=== PATIENT | male | born 1950 | race Caucasian/White ===

== ENCOUNTER → 2016-04-16 | Outpatient (CLI) | payer MEDICARE, OTHER ==
[2016-04-16 09:58] LABS: Basophils # (A) 0.1 k/uL (0-0.2); Basophils % (A) 1 %; CH 30.8; CHCM 33.2; Eosinophils # (A) 1.4 k/uL (0-0.7); Eosinophils % (A) 15 %; HCT 49.3 % (39.0-53.0); HDW 2.66; HGB 16.1 gm/dL (13.0-17.5); Luc # (Auto) 0.17; Luc % (Auto) 2; Lymphocytes # (A) 2.1 k/uL (1.0-4.8); Lymphocytes % (A) 23 %; MCH 30.5 pg (25.0-35.0); MCHC 32.6 g/dL (31.0-37.0); MCV 93.6 fL (80.0-100.0); Mean Platelet Volume 8.3; Monocytes # (A) 0.7 k/uL (0-1.0); Monocytes % (A) 8 %; Neutrophils # (A) 4.7 k/uL (1.3-7.7); Neutrophils % (A) 52 %; RBC 5.27 m/uL (4.30-5.90); RDW 13.5 % (11.5-15.5); WBC 9.2 k/uL (3.8-10.6); WBC (Perox) 8.76
--- NOTE | 2016-04-16 10:20 | US ---
EXAMINATION TYPE: US axilla extremity LT DATE OF EXAM: 04/16/2016 10:05 AM COMPARISON: No previous CLINICAL HISTORY: R22.9 LOCALIZED SWELLING, MASS. Palpable/painful area left axilla x 6 months Findings: Left axilla at palpable/painful area: 4.4 x 1.3 x 4.5cm hypoechoic area with vascularity, R ight axilla for comparison: appears wnl at this time IMPRESSION: Probable enlarged left axillary lymph node. Correlate clinically and consider short-term follow-up.
[2016-04-16 11:36] LABS: ALT 29 U/L (21-72); AST 18 U/L (17-59); Alkaline Phosphatase 70 U/L (38-126); Anion Gap 12 mmol/L; Blood Urea Nitrogen 16 mg/dL (9-20); Calcium 8.9 mg/dL (8.4-10.2); Carbon Dioxide 27 mmol/L (22-30); Chloride 105 mmol/L (98-107); Cholesterol 215 mg/dL (<200); Glucose 110 mg/dL (74-99); HDL Cholesterol 37 mg/dL (40-60); Non-African American GFR(MDRD) >60 (>60 ml/min/1.73 sqM); Potassium 4.6 mmol/L (3.5-5.1); Sodium 144 mmol/L (137-145); Total Bilirubin 0.8 mg/dL (0.2-1.3); Triglycerides 169 mg/dL (<150)
[2016-04-16 11:55] LABS: Prostate Specific Antigen 1.02 ng/mL (0.00-4.00)
== END | disposition home or self-care (01) ==
LOC: RADUSWWP 09:18
PROVIDERS: ATTEND Family Medicine
DX: R22.9 Localized swelling, mass and lump, unspecified (principal); E78.2 Mixed hyperlipidemia; Z12.5 Encounter for screening for malignant neoplasm of prostate; Z00.01 Encounter for general adult medical examination with abnormal findings
CPT/HCPCS: 80053; 80061; 84153; 85025

== ENCOUNTER → 2016-05-19 | Outpatient (CLI) | payer MEDICARE, OTHER ==
--- NOTE | 2016-05-19 13:05 | XR ---
Right hand HISTORY: Trauma and pain 3 views of the right hand, comparison the right wrist same date Bone mineralization and alignment are maintained with the exception of some questionable lucency at t he level of the radial styloid better seen on the hand film than on the wrist film. Mild osteoarthrit ic changes are present. IMPRESSION: No dislocation. Correlate for radial styloid tenderness.
--- NOTE | 2016-05-19 13:06 | XR ---
Right wrist HISTORY: Trauma and pain 4 views of the right wrist correlated to right hand same date Lucency of the radial styloid is not as pronounced on the wrist film as on the hand film. Alignment a nd bone mineralization are maintained. Mild osteoarthritic change present at the carpometacarpal join t of the first digit, metacarpal phalangeal joint first digit. IMPRESSION: No evident dislocation. Correlate for point tenderness at the radial styloid. Osteoarthri tis.
== END ==
LOC: RADXRMAIN 10:47
PROVIDERS: ATTEND Psychiatry & Neurology Neurology
DX: M19.031 Primary osteoarthritis, right wrist (principal); M79.641 Pain in right hand

== ENCOUNTER → 2016-07-24 | Outpatient (CLI) | payer MEDICARE, OTHER ==
--- NOTE | 2016-07-24 12:29 | US ---
EXAMINATION TYPE: US axilla extremity RT DATE OF EXAM: 07/24/2016 11:19 AM COMPARISON: NONE CLINICAL HISTORY: R59.1 Lymphadenopathy. Swelling noted bilateral axilla Right Axilla: Couple of lymph nodes are noted with midline node = 2.0 x 2.0 x 0.6cm and medial axilla ry node = 3.2 x 3.4 x 1.1cm. See Left Axilla US today for comparison. IMPRESSION: Mildly prominent right axillary adenopathy.
--- NOTE | 2016-07-24 12:45 | US ---
EXAMINATION TYPE: US axilla extremity LT DATE OF EXAM: 07/24/2016 11:29 AM COMPARISON: US 2017 CLINICAL HISTORY: R59.1 Lymphadenopathy. Patient denies infectious process. Left Axilla: Midline node is imaged = 2.0 x 1.2 x 0.8cm and adjacent mid lateral node = 1.0 x 3.1 x 1 .0cm IMPRESSION: Mild adenopathy.
== END | disposition home or self-care (01) ==
LOC: RADUSWWP 10:58
PROVIDERS: ATTEND Surgery
DX: R59.0 Localized enlarged lymph nodes (principal)

== ENCOUNTER → 2016-11-11 | Outpatient (CLI) | payer MEDICARE, OTHER ==
[2016-11-11 09:59] LABS: Blood Urea Nitrogen 13 mg/dL (9-20); Non-African American GFR(MDRD) >60 (>60 ml/min/1.73 sqM)
--- NOTE | 2016-11-11 12:34 | CTL ---
EXAMINATION TYPE: CT Low Dose Lung DATE OF EXAM ORDERED: 11/11/2016 HISTORY: . Lung cancer screening CT DLP: 114.[address] CTDI: 3.4 mGy Automated exposure control for dose reduction was used. SCREENING VISIT: Initial COMPARISON: None TECHNIQUE: Low dose computed tomography scan was performed through the chest at 1 mm thick sections a nd reconstructed images in the coronal plane at [address] DIAGNOSTIC QUALITY: Satisfactory FINDINGS: LUNG NODULES: None. LUNGS: COPD: Severity: Mild Fibrosis: Severity: None Lymph nodes: None Other findings: Streak opacities within the lingula likely on the basis of atelectasis. There is a ca lcified granuloma 0.5 cm lingular base. RIGHT PLEURAL SPACE: Effusion: None Calcification: None Thickening: None Pneumothorax: None LEFT PLEURAL SPACE: Effusion: None Calcification: None Thickening: None Pneumothorax: None HEART: Heart Size: Normal Coronary calcification: Mild Pericardial effusion: None OTHER FINDINGS: Upper abdomen: Normal Bony thorax: Normal Supraclavicular region: Normal Other: Ascending thoracic aorta measures 3.4 cm at the main pulmonary artery. Main pulmonary artery m easures 3.2 cm at the bifurcation. IMPRESSION: 1. No suspicious changes for lung cancer. 2. Screening can be performed per protocol. FOLLOW UP CT CHEST RECOMMENDATION: Screening per protocol CT LUNG RAD: Lung rad 2
--- NOTE | 2016-11-11 13:29 | CT ---
EXAMINATION TYPE: CT abdomen pelvis w con DATE OF EXAM: 11/11/2016 COMPARISON: NONE INDICATION: Abdominal distention DLP: 1878.3 mGycm, Automated exposure control for dose reduction was used. CONTRAST: 100 mL of Omnipaque 300. Study performed with Oral Contrast TECHNIQUE: Axial images were obtained from above the diaphragm to the pubic rami in the axial plane a t 5 mm thick sections. Reconstructed images are reviewed on the computer in the coronal plane. FINDINGS: Limited CT sections are obtained the lung bases. There is a 0.4 cm calcification at the left base li kristy is a granuloma. Calcification may lie along the right diaphragm. Lung bases are otherwise clear. . CT ABDOMEN: Liver: Minimal fatty infiltration may be present. No discrete masses or cysts are evident. Spleen: Normal Pancreas: There is a 1.0 cm hypodensity within the mid body of the pancreas. Series 4 image 23. This is better visualized on the delayed images. This was present previously and appears stable from 2015. Adrenal glands: The adrenal glands are normal. Gallbladder: Cholecystectomy clips are present. Kidneys: No masses are evident. No hydronephrosis is present. There is a 7.8 cm cyst at the inferio r pole right kidney. Delayed images were obtained through the kidneys, which remain unremarkable. Aorta: Vascular calcification is within the aorta. A stent is within the distal abdominal aorta into the iliac vessels. Inferior vena cava: Normal. CT PELVIS: Loops of bowel within the abdomen and pelvis are normal. There are loops of bowel which are incom pletely distended or lack oral contrast limiting their evaluation. There are scattered diverticuli wi thin the sigmoid colon. No acute diverticulitis is evident. Appendix: Normal as visualized. Urinary bladder: Normal. Genitourinary structures: Osseous structures: No suspicious lytic or sclerotic lesions. IMPRESSIONS: 1. 7.8 cm cyst inferior pole right kidney. 2. 1 cm hypodensity within the mid body of the pancreas. This better visualized on the delayed images without evidence of enhancement. This was present previously.
== END | disposition home or self-care (01) ==
LOC: RADCTMAIN 09:07
PROVIDERS: ATTEND Family Medicine
DX: Z12.2 Encounter for screening for malignant neoplasm of respiratory organs (principal); N28.1 Cyst of kidney, acquired; R93.3 Abnormal findings on diagnostic imaging of other parts of digestive tract; F17.210 Nicotine dependence, cigarettes, uncomplicated
CPT/HCPCS: 82565; 84520; 74177; 36415; G0297; Q9967

== ENCOUNTER → 2017-02-09 | Outpatient (CLI) | payer MEDICARE, OTHER ==
[2017-02-09 10:25] LABS: Blood Urea Nitrogen 17 mg/dL (9-20); Non-African American GFR(MDRD) 55 (>60 ml/min/1.73 sqM)
--- NOTE | 2017-02-09 12:31 | CT ---
EXAMINATION TYPE: CT angio abd aorta wo/w con DATE OF EXAM: 02/09/2017 COMPARISON: November 11, 2016. HISTORY: Patient has no complaints at time of study. Follow up study for known AAA. CT DLP: 2602.8 mGycm CONTRAST: CTA abdominal aorta with 3-D reconstruction is performed and without and with IV Contrast, patient i njected with 80 mL of Visipaque 320. Contrast CTA of the abdominal aorta was performed from the lung bases through the base of the pelvis. 3-D reconstruction imaging obtained at a separate workstation. CONTRAST CT ABDOMEN AND PELVIS ABDOMINAL AORTA: Aortic bypass graft is intact. Proximal abdominal aorta at the level of the aortic h iatus is aneurysmal and measures approximately 3.9 cm. There is evidence of mural thrombus. Branch ve ssels are patent. LIVER/GB- No significant abnormality is seen. PANCREAS-stable small cystic lesion of the pancreatic tail measuring 8 mm. SPLEEN- No significant abnormality is seen. ADRENALS- No significant abnormality is seen. KIDNEYS/BLADDER-large right renal cyst is again noted. Parapelvic a right-sided cysts also noted. Lef t renal cortical cyst seen. BOWEL-severe sigmoid diverticulosis without diverticulitis. Scattered intracolonic debris. GENITAL ORGANS: No gross abnormality seen. LYMPH NODES- No greater than 1cm abdominal or pelvic lymph nodes are appreciated. OSSEOUS STRUCTURES- No significant abnormality is seen. OTHER- No significant abnormality is seen. IMPRESSION- 1. Proximal abdominal aortic aneurysm at the level of the aortic hiatus is stable. 2. Aortic bypass graft. 3. Stable small cystic lesion pancreatic tail.
== END | disposition home or self-care (01) ==
LOC: RADCTMAIN 09:52
PROVIDERS: ATTEND Thoracic Surgery (Cardiothoracic Vascular Surgery)
DX: I71.4 Abdominal aortic aneurysm, without rupture (principal); K86.89 Other specified diseases of pancreas
CPT/HCPCS: 82565; 84520; 75635; 36415; Q9967

== ENCOUNTER → 2017-10-15 | Outpatient (CLI) | payer MEDICARE, OTHER ==
--- NOTE | 2017-10-15 12:07 | CT ---
EXAMINATION TYPE: CT abdomen pelvis w con DATE OF EXAM: 10/15/2017 COMPARISON: 11/11/2016 and 02/09/2017 HISTORY: Intestinal adhesions CT DLP: 1654.8 mGycm Automated exposure control for dose reduction was used. TECHNIQUE: Helical acquisition of images was performed from the lung bases through the pelvis. CONTRAST: Performed with Oral Contrast and with IV Contrast, patient injected with 100 mL of Isovue 300. FINDINGS: LUNG BASES: There is a small [place] hiatal hernia present. Minimal bibasilar subsegmental dependen t atelectasis is also seen. Prominent noncalcific posterior eccentric mural thrombus is seen of the d escending thoracic aorta. Heart is upper limits of normal size. LIVER/GB: There are three too small to accurately characterize hepatic lesions that are stable from t he prior and likely represent cysts. Benign calcified hepatic granulomas noted. Gallbladder surgicall y absent. PANCREAS: There is redemonstration of a stable cystic pancreatic lesion measuring 8 mm, stable also f rom the exam of 11/09/2016. SPLEEN: No significant abnormality is seen. ADRENALS: No significant abnormality is seen. KIDNEYS: Large exophytic right renal cyst emanates from the renal sinus measuring up to 9.9 cm. Other smaller right renal sinus cysts are seen. Additional left renal cyst is similar to the prior. No hyd ronephrosis bilaterally. FREE AIR: No free air is visualized. ADENOPATHY: No greater than 1 cm short axis lymph nodes are seen within the abdomen or pelvis. REPRODUCTIVE ORGANS: Prostate gland is slightly heterogenous containing punctate central zone calcifi cations. URINARY BLADDER: Urinary bladder is decompressed and incompletely evaluated however there is submuco vanessa deposition of fat and can be seen in sequela of chronic infection or bladder outlet obstruction. OSSEOUS STRUCTURES: Stable nonspecific sclerotic focus of the right iliac bone is present. Mild mult ilevel degenerative changes of the spine are seen.. BOWEL: A similar location to the prior within the distal sigmoid colon there is a long segment area of narrowing without proximal bowel dilatation measuring at least 10 cm. Again numerous colonic diver ticula are seen without current pericolonic fat stranding. OTHER: Postoperative changes of the ventral abdomen and pelvis are evident likely from prior hernia r epair. Very small supra umbilical hernia is fat-containing remains with a 2 cm wide neck anterior to the liver. Aortobiiliac endograft is unchanged as is the aneurysmal dilatation of the proximal abdominal aorta a t the level of the aortic hiatus again measuring up to 3.9 cm. The infrarenal abdominal aorta measure s up to 3.2 cm, stable. IMPRESSION: 1. NONOBSTRUCTED NARROWING IN A LONG SEGMENT OF THE DISTAL SIGMOID COLON THAT GIVEN AND UNCHANGED KEMAL EARANCE IN COMPARISON TO THE PRIOR EXAM OF 2017 LIKELY RELATES TO A NONOBSTRUCTIVE LOW-GRADE STRICTUR E, POSSIBLY ON THE BASIS OF CHRONIC DIVERTICULITIS THERE ARE NUMEROUS COLONIC DIVERTICULA. 2. STABLE CYSTIC PANCREATIC LESION, POSSIBLY RELATED TO A IPMN. CONFIRMATION WITH MRCP COULD BE PERFO RMED TO DEMONSTRATE CONTINUITY WITH THE MAIN NONDILATED PANCREATIC DUCT. 3. UNCHANGED PROXIMAL ABDOMINAL AORTIC ANEURYSM AT THE LEVEL OF THE DIAPHRAGMATIC HIATUS.
== END | disposition home or self-care (01) ==
LOC: RADCTMAIN 09:28
PROVIDERS: ATTEND Surgery
DX: K63.89 Other specified diseases of intestine (principal); K57.30 Diverticulosis of large intestine without perforation or abscess without bleeding; I71.4 Abdominal aortic aneurysm, without rupture; K86.2 Cyst of pancreas
CPT/HCPCS: 82565; 84520; 74177; 36415; Q9967

== ENCOUNTER 2017-10-25 09:27 | Emergency (ER) | payer MEDICARE, OTHER ==
[2017-10-25 09:52] VITALS: RESP 18
[2017-10-25] MEDS ORDERED: SODIUM CHLORIDE 0.9% 1,000 ML IV STA (10:18)
--- NOTE | 2017-10-25 10:21 | ED ---
Abdominal Pain HPI - General Chief Complaint: Abdominal Pain Stated Complaint: diverticulitis flare Time Seen by Provider: 10/25/17 10:08 Source: patient, RN notes reviewed Mode of arrival: ambulatory Limitations: no limitations - History of Present Illness Initial Comments: This is a 66-year-old male who presents to the emergency department with chief complaint of diverticulitis flare. Patient states that he has had diverticulitis episodes on and off for the past 10 years. He states that he has been having left lower quadrant abdominal pain for the past couple of weeks. He states that he did follow-up with Dr. Leahy and a CAT scan of the abdomen was performed. He states that he was told he has diverticulitis and Dr. Dietrich as scheduled him for a bowel resection in the next couple of weeks. Patient presents to the emergency department complaining of increased pain. He states that he did take a course of doxycycline for 10 days but feels that the pain is worse since taking this. Patient describes the pain as "a little man running around in my abdomen with freon." Patient denies any fever, chest pain or shortness of breath, nausea or vomiting. He does report constipation and chills. - Related Data Home Medications Medication Instructions Recorded Confirmed Aspirin 325 mg PO DAILY 08/22/14 11/14/15 Lisinopril [Zestril] 10 mg PO DAILY 08/22/14 11/14/15 Pregabalin [Lyrica] 225 mg PO BID 08/22/14 11/14/15 Albuterol Inhaler [Ventolin 1 - 2 puff INHALATION BID 08/23/14 11/14/15 Inhaler] Allergies Allergy/AdvReac Type Severity Reaction Status Date / Time No Known Allergies Allergy Verified 10/25/17 09:51 Review of Systems ROS Statement: Those systems with pertinent positive or pertinent negative responses have been documented in the HPI. ROS Other: All systems not noted in ROS Statement are negative. Past Medical History Past Medical History: COPD, Hypertension Additional Past Medical History / Comment(s): HOARSENESS, NUMBNESS AND TINGLING BILATERAL HANDS 4TH AND 5TH FINGERS, diverticulitis History of Any Multi-Drug Resistant Organisms: None Reported Past Surgical History: Hernia Repair Additional Past Surgical History / Comment(s): HERNIA REPAIRS X5, AAA REPAIR X4 Past Anesthesia/Blood Transfusion Reactions: No Reported Reaction Past Psychological History: No Psychological Hx Reported Smoking Status: Current every day smoker Past Alcohol Use History: Rare Past Drug Use History: None Reported - Past Family History Mother Family Medical History: Cancer Brother(s) Family Medical History: CVA/TIA General Exam - General Exam Comments Initial Comments: General: Awake and alert, well-developed; in no apparent distress. HEENT: Head atraumatic, normocephalic. Pupils are equal, round and reactive to light. Extraocular movements intact. Oropharynx moist without erythema or exudate. Neck: Supple. Normal ROM. Cardiovascular: Regular rate and rhythm. No murmurs, rubs or gallops. Chest symmetrical. Respiratory: Lungs clear to auscultation bilaterally. No wheezes, rales or rhonchi. Normal respiratory effort with no use of accessory muscles. Abdomen: Soft, non-distended. Tenderness on palpation of left lower quadrant. No rigidity, rebound or guarding. Normal bowel sounds in all 4 quadrants. Musculoskeletal: Normal ROM, no tenderness bilateral upper and lower extremities. Ambulating normally. Skin: [place], warm and dry without rashes or lesions. Neurological: Alert and oriented x3. CN II-XII grossly intact. Speech is fluent and answers are appropriate. No focal neuro deficits. Psychiatric: Normal mood and affect. No overt signs of depression or anxiety noted. Limitations: no limitations Course Vital Signs 10/25/17 09:48 Temperature 98.4 F Pulse Rate 62 Respiratory 18 Rate Blood Pressure 136/72 O2 Sat by Pulse 92 L Oximetry Medical Decision Making - Medical Decision Making This is a 66-year-old male who presents to the emergency department with chief complaint of diverticulitis flare. Patient received a CAT scan on October 15 which revealed chronic diverticulitis and a stricture within the distal sigmoid colon. Patient has been scheduled for a bowel resection with Dr. Leahy. Patient presents to the emergency department complaining that he is having chills. Denies any worsening of abdominal pain or any nausea or vomiting, diarrhea or fevers. Laboratory studies were performed. CBC, CMP and UA were unremarkable. Patient does not have a white count. Lactic acid is within normal range. Blood cultures were drawn and are pending. Abdomen is soft with mild tenderness on palpation of the left lower quadrant. No rigidity noted. Patient's vital signs are stable and he is in no acute distress. Patient will be discharged home at this time with recommendation to follow-up with Dr. Leahy. He is in agreement and voices understanding. All questions were answered. - Lab Data Result diagrams: 10/25/17 10:13 10/25/17 10:13 Lab Results 10/25/17 10/25/17 10/25/17 Range/Units 10:13 10:13 10:13 WBC 9.3 (3.8-10.6) k/uL RBC 5.74 (4.30-5.90) m/uL Hgb 16.9 (13.0-17.5) gm/dL Hct 53.6 H (39.0-53.0) % MCV 93.4 (80.0-100.0) fL MCH 29.4 (25.0-35.0) pg MCHC 31.4 (31.0-37.0) g/dL RDW 15.4 (11.5-15.5) % Plt Count 148 L (150-450) k/uL Neutrophils % 73 % Lymphocytes % 14 % Monocytes % 7 % Eosinophils % 4 % Basophils % 0 % Neutrophils # 6.8 (1.3-7.7) k/uL Lymphocytes # 1.3 (1.0-4.8) k/uL Monocytes # 0.7 (0-1.0) k/uL Eosinophils # 0.3 (0-0.7) k/uL Basophils # 0.0 (0-0.2) k/uL PT (9.0-12.0) sec INR (<1.2) APTT (22.0-30.0) sec Sodium 140 (137-145) mmol/L Potassium 5.3 H (3.5-5.1) mmol/L Chloride 105 (98-107) mmol/L Carbon Dioxide 26 (22-30) mmol/L Anion Gap 9 mmol/L BUN 17 (9-20) mg/dL Creatinine 0.80 (0.66-1.25) mg/dL Est GFR (CKD-EPI)AfAm >90 (>60 ml/min/1.73 sqM) Est GFR (CKD-EPI)NonAf >90 (>60 ml/min/1.73 sqM) Glucose 110 H (74-99) mg/dL Plasma Lactic Acid Shamir 1.2 (0.7-2.0) mmol/L Calcium 8.7 (8.4-10.2) mg/dL Total Bilirubin 0.9 (0.2-1.3) mg/dL AST 33 (17-59) U/L ALT 49 (21-72) U/L Alkaline Phosphatase 61 (38-126) U/L Total Protein 6.6 (6.3-8.2) g/dL Albumin 3.8 (3.5-5.0) g/dL Amylase 56 (30-110) U/L Lipase 45 (23-300) U/L Urine Color Urine Appearance (Clear) Urine pH (5.0-8.0) Ur Specific [place] (1.001-1.035) Urine Protein (Negative) Urine Glucose (UA) (Negative) Urine Ketones (Negative) Urine Blood (Negative) Urine Nitrite (Negative) Urine Bilirubin (Negative) Urine Urobilinogen (<2.0) mg/dL Ur Leukocyte Esterase (Negative) Urine RBC (0-5) /hpf Urine WBC (0-5) /hpf Urine Bacteria (None) /hpf Hyaline Casts (0-2) /lpf Urine Mucus (None) /hpf 10/25/17 10/25/17 Range/Units 10:13 10:13 WBC (3.8-10.6) k/uL RBC (4.30-5.90) m/uL Hgb (13.0-17.5) gm/dL Hct (39.0-53.0) % MCV (80.0-100.0) fL MCH (25.0-35.0) pg MCHC (31.0-37.0) g/dL RDW (11.5-15.5) % Plt Count (150-450) k/uL Neutrophils % % Lymphocytes % % Monocytes % % Eosinophils % % Basophils % % Neutrophils # (1.3-7.7) k/uL Lymphocytes # (1.0-4.8) k/uL Monocytes # (0-1.0) k/uL Eosinophils # (0-0.7) k/uL Basophils # (0-0.2) k/uL PT 10.4 (9.0-12.0) sec INR 1.1 (<1.2) APTT 27.6 (22.0-30.0) sec Sodium (137-145) mmol/L Potassium (3.5-5.1) mmol/L Chloride (98-107) mmol/L Carbon Dioxide (22-30) mmol/L Anion Gap mmol/L BUN (9-20) mg/dL Creatinine (0.66-1.25) mg/dL Est GFR (CKD-EPI)AfAm (>60 ml/min/1.73 sqM) Est GFR (CKD-EPI)NonAf (>60 ml/min/1.73 sqM) Glucose (74-99) mg/dL Plasma Lactic Acid Shamir (0.7-2.0) mmol/L Calcium (8.4-10.2) mg/dL Total Bilirubin (0.2-1.3) mg/dL AST (17-59) U/L ALT (21-72) U/L Alkaline Phosphatase (38-126) U/L Total Protein (6.3-8.2) g/dL Albumin (3.5-5.0) g/dL Amylase (30-110) U/L Lipase (23-300) U/L Urine Color Yellow Urine Appearance Clear (Clear) Urine pH 6.0 (5.0-8.0) Ur Specific [place] 1.021 (1.001-1.035) Urine Protein 1+ H (Negative) Urine Glucose (UA) Negative (Negative) Urine Ketones Negative (Negative) Urine Blood Trace H (Negative) Urine Nitrite Negative (Negative) Urine Bilirubin Negative (Negative) Urine Urobilinogen 2.0 (<2.0) mg/dL Ur Leukocyte Esterase Negative (Negative) Urine RBC 3 (0-5) /hpf Urine WBC 1 (0-5) /hpf Urine Bacteria Rare H (None) /hpf Hyaline Casts 4 H (0-2) /lpf Urine Mucus Occasional H (None) /hpf Disposition Clinical Impression: Diverticulitis Disposition: HOME SELF-CARE Condition: Good Instructions: Diverticulitis (ED) Additional Instructions: Please follow-up with Dr. Leahy. Please follow up with primary care provider within 1-2 days. Return to emergency department if symptoms should worsen or any concerns arise. Is patient prescribed a controlled substance at d/c from ED?: No Referrals: Casper Raza III, MD [Primary Care Provider] - 1-2 days Time of Disposition: 11:56
[2017-10-25 10:32] LABS: Basophils % (A) 0 %; Eosinophils # (A) 0.3 k/uL (0-0.7); Eosinophils % (A) 4 %; HCT 53.6 % (39.0-53.0); HGB 16.9 gm/dL (13.0-17.5); Lymphocytes # (A) 1.3 k/uL (1.0-4.8); Lymphocytes % (A) 14 %; MCH 29.4 pg (25.0-35.0); MCHC 31.4 g/dL (31.0-37.0); MCV 93.4 fL (80.0-100.0); Mean Platelet Volume 7.4; Monocytes # (A) 0.7 k/uL (0-1.0); Monocytes % (A) 7 %; Neutrophils # (A) 6.8 k/uL (1.3-7.7); Neutrophils % (A) 73 %; Platelet Count 148 k/uL (150-450); RBC 5.74 m/uL (4.30-5.90); RDW 15.4 % (11.5-15.5); WBC 9.3 k/uL (3.8-10.6)
[2017-10-25 10:33] LABS: Appearance,Urine Clear (Clear); Bacteria,Urine Rare /hpf; Bilirubin,Urine Negative (Negative); Blood,Urine Trace (Negative); Color,Urine Yellow; Glucose,Urine (UA) Negative (Negative); Hyaline Casts,Urine 4 /lpf (0-2); Ketones,Urine Negative (Negative); Leukocyte Esterase,Urine Negative (Negative); Mucus,Urine Occasional /hpf; Nitrite,Urine Negative (Negative); Protein,Urine 1+ (Negative); RBC,Urine 3 /hpf (0-5); Specific Gravity,Urine 1.021 (1.001-1.035); WBC,Urine 1 /hpf (0-5)
[2017-10-25 10:42] LABS: INR 1.1 (<1.2); Partial Thromboplastin Time 27.6 sec (22.0-30.0); Prothrombin Time 10.4 sec (9.0-12.0)
[2017-10-25 10:48] LABS: AST 33 U/L (17-59); Albumin 3.8 g/dL (3.5-5.0); Anion Gap 9 mmol/L; Calcium 8.7 mg/dL (8.4-10.2); Carbon Dioxide 26 mmol/L (22-30); Chloride 105 mmol/L (98-107); Glucose 110 mg/dL (74-99); Lipase 45 U/L (23-300); Sodium 140 mmol/L (137-145); Total Bilirubin 0.9 mg/dL (0.2-1.3); Total Protein 6.6 g/dL (6.3-8.2)
[2017-10-25 10:49] LABS: Blood Urea Nitrogen 17 mg/dL (9-20); Potassium 5.3 mmol/L (3.5-5.1)
[2017-10-25 10:50] LABS: ALT 49 U/L (21-72); Alkaline Phosphatase 61 U/L (38-126); Amylase 56 U/L (30-110)
[2017-10-25 12:08] VITALS: BP 140/87; PULSE 81; TEMP 98.1
== END 2017-10-25 12:08 | disposition home or self-care (01) ==
LOC: EC 09:27
DX: K57.32 Diverticulitis of large intestine without perforation or abscess without bleeding (principal); J44.9 Chronic obstructive pulmonary disease, unspecified; I10 Essential (primary) hypertension; F17.200 Nicotine dependence, unspecified, uncomplicated; Z98.890 Other specified postprocedural states; Z79.82 Long term (current) use of aspirin; Z79.899 Other long term (current) drug therapy
CPT/HCPCS: 36415; 80053; 81001; 82150; 83605; 83690; 85025; 85610; 85730; 87040; 96360; 96361; 99284

== ENCOUNTER → 2017-11-03 | Outpatient (CLI) | payer MEDICARE, OTHER ==
[2017-11-03 12:54] LABS: T4, Free (Free Thyroxine) 1.15 ng/dL (0.78-2.19)
== END | disposition home or self-care (01) ==
LOC: LABWHC1 11:30
PROVIDERS: ATTEND Internal Medicine Cardiovascular Disease
DX: I48.1 Persistent atrial fibrillation (principal)
CPT/HCPCS: 36415; 84439; 84443

== ENCOUNTER → 2017-11-03 | Outpatient (CLI) | payer MEDICARE, OTHER ==
[2017-11-03 08:55] LABS: HCT 53.3 % (39.0-53.0); HGB 16.6 gm/dL (13.0-17.5); Hypochromasia Moderate; MCH 29.8 pg (25.0-35.0); MCHC 31.1 g/dL (31.0-37.0); MCV 95.5 fL (80.0-100.0); Mean Platelet Volume 7.4; Platelet Count 185 k/uL (150-450); RBC 5.58 m/uL (4.30-5.90); RDW 15.6 % (11.5-15.5); WBC 6.7 k/uL (3.8-10.6)
[2017-11-03 09:06] LABS: Potassium 4.9 mmol/L (3.5-5.1)
== END | disposition home or self-care (01) ==
LOC: LABPAT 08:02
PROVIDERS: ATTEND Surgery
DX: Z01.812 Encounter for preprocedural laboratory examination (principal); K57.32 Diverticulitis of large intestine without perforation or abscess without bleeding
CPT/HCPCS: 80051; 85027

== ENCOUNTER 2017-11-06 00:20 | Inpatient (IN) | payer MEDICARE, OTHER ==
[2017-11-06] MEDS: SODIUM CHLORIDE 0.9% 500 ML IV SCH ×2 (01:41→01:42)
[2017-11-06 01:53] LABS: Appearance,Urine Clear (Clear); Bilirubin,Urine 1+ (Negative); Blood,Urine Trace (Negative); Color,Urine Yellow; Glucose,Urine (UA) Negative (Negative); Hyaline Casts,Urine 5 /lpf (0-2); Ketones,Urine Negative (Negative); Leukocyte Esterase,Urine Negative (Negative); Mucus,Urine Moderate /hpf; Nitrite,Urine Negative (Negative); PH, Urine 5.5 (5.0-8.0); Protein,Urine 1+ (Negative); RBC,Urine 4 /hpf (0-5); Specific Gravity,Urine 1.024 (1.001-1.035); WBC,Urine 3 /hpf (0-5)
[2017-11-06 01:59] LABS: ALT 40 U/L (21-72); AST 22 U/L (17-59); Albumin 3.5 g/dL (3.5-5.0); Alkaline Phosphatase 59 U/L (38-126); Anion Gap 7 mmol/L; Blood Urea Nitrogen 18 mg/dL (9-20); Calcium 8.7 mg/dL (8.4-10.2); Carbon Dioxide 30 mmol/L (22-30); Chloride 108 mmol/L (98-107); Glucose 115 mg/dL (74-99); Sodium 145 mmol/L (137-145); Total Bilirubin 0.8 mg/dL (0.2-1.3); Total Protein 6.3 g/dL (6.3-8.2)
[2017-11-06 02:00] LABS: INR 1.2 (<1.2); Partial Thromboplastin Time 27.6 sec (22.0-30.0); Prothrombin Time 11.5 sec (9.0-12.0)
[2017-11-06 02:04] LABS: Basophils % (A) 0 %; Eosinophils # (A) 0.2 k/uL (0-0.7); Eosinophils % (A) 4 %; HCT 53.4 % (39.0-53.0); HGB 16.5 gm/dL (13.0-17.5); Hypochromasia Slight; Lymphocytes # (A) 1.3 k/uL (1.0-4.8); Lymphocytes % (A) 20 %; MCH 29.2 pg (25.0-35.0); MCHC 30.9 g/dL (31.0-37.0); MCV 94.5 fL (80.0-100.0); Mean Platelet Volume 7.5; Monocytes # (A) 0.7 k/uL (0-1.0); Monocytes % (A) 11 %; Neutrophils # (A) 4.3 k/uL (1.3-7.7); Neutrophils % (A) 63 %; Platelet Count 153 k/uL (150-450); RBC 5.65 m/uL (4.30-5.90); WBC 6.8 k/uL (3.8-10.6)
[2017-11-06 02:22] LABS: Creatine Kinase MB 1.8 ng/mL (0.0-2.4)
[2017-11-06 02:25] LABS: Troponin I 0.04 ng/mL (0.000-0.034)
--- NOTE | 2017-11-06 03:08 | CT ---
EXAMINATION TYPE: CT abdomen pelvis w con DATE OF EXAM: 11/06/2017 COMPARISON: 10/15/2017 HISTORY: pain, hx of diverticulitis, hot and cold flashes CT DLP: 1473.80 mGycm Automated exposure control for dose reduction was used. TECHNIQUE: Helical acquisition of images was performed from the lung bases through the pelvis. CONTRAST: Performed without Oral Contrast and with IV Contrast, patient injected with 100 mL of Isovue 300. FINDINGS: Lung bases are clear of consolidation. There is no pleural effusion. Heart is enlarged. Liver spleen pancreas appear normal. There are clips from cholecystectomy. Bile ducts are not dilated. There is a 10 cm cortical cyst lower pole right kidney. here are right renalThere there is some fulln ess of the right renal pelvis. Ureters are not dilated. There is aortoiliac stent noted. There is 3.9 cm aneurysm of the upper abdominal aorta. There is thrombus on the posterior wall. There is mild stranding around the left kidney. There are multiple diverticula in the colon. Bladder is slightly contracted. I see no pelvic mass. There is no free fluid in the pelvis. Appendix appears normal. There is tiny amount of fluid in the left paracolic gutter. IMPRESSION: MILD INFLAMMATORY CHANGES INVOLVING THE DESCENDING COLON. THERE IS EXTENSIVE COLONIC DIVERTICULOSIS. THIS COULD RELATE TO MILD DIVERTICULITIS THAT IS NEW COMPARED TO LAST CT SCAN. NO PANCREATIC CYST SEE N IN THE BODY OF THE PANCREAS THAT IS SUGGESTED BY PREVIOUS REPORT. THERE IS A SMALL 8 MM AREA OF FAT DENSITY IN THE PANCREAS. NO RENAL OBSTRUCTION.
--- NOTE | 2017-11-06 03:09 | XR ---
EXAMINATION TYPE: XR chest 2V DATE OF EXAM: 11/06/2017 COMPARISON: NONE HISTORY: Hypoxemia TECHNIQUE: Frontal and lateral views of the chest are obtained. FINDINGS: Heart is enlarged. There is no heart failure. Lungs are clear of consolidation. There are chest leads. Bony thorax is intact. IMPRESSION: Cardiomegaly. No active cardiopulmonary disease.
[2017-11-06] MEDS ORDERED: IBUPROFEN 400 MG TAB PO PRN (03:20)
[2017-11-06] MEDS ORDERED: ACETAMINOPHEN TAB 325 MG TAB PO PRN (03:20)
[2017-11-06] MEDS ORDERED: ONDANSETRON 4 MG/2 ML VIAL IVP PRN (03:20)
[2017-11-06] MEDS ORDERED: MORPHINE SULFATE 4 MG/ML SYRINGE IV PRN (03:20)
[2017-11-06] MEDS ORDERED: NALOXONE 0.4 MG/ML 1 ML VIAL IV PRN (03:20)
[2017-11-06] MEDS ORDERED: methylPREDNISolone SOD SUCCI 125 MG/2 ML VIAL IV STA (03:28)
--- NOTE | 2017-11-06 03:30 | ED ---
General Adult HPI - General Chief complaint: Recheck/Abnormal Lab/Rx Stated complaint: Chills; diverticulitis Time Seen by Provider: 11/06/17 00:35 Source: patient Mode of arrival: ambulatory Limitations: no limitations - History of Present Illness Initial comments: Urkgq-[id number]-pet obese male with extensive past medical history most significant for recurrent episodes of diverticulitis as well as a newly diagnosed atrial fibrillation. Patient presents to the emergency department today for evaluation of subjective fevers, chills, diaphoresis and abdominal pain consistent with previous episodes of diverticulitis. Patient reports that he has a history of recurrent episodes of diverticulitis. He has followed up with gastroenterology as well as general surgery and has a plan for surgical resection in the near future. However his plan for surgery his in complicated by recent diagnosis of atrial fibrillation for which he just started eliquis yesterday. In addition patient states that he's been a pack-a- day smoker for a long period of time but with the stress of the upcoming surgery he admits to smoking approximately 2 packs daily. She reports that throughout the day he had some left lower quadrant abdominal pain consistent with previous episodes of diverticulitis. He was attempting to just tough it out and await his surgery next week however during the night he woke having a cold sweat and feeling feverish. His also noted that he likely he wasn't feeling well and was very sweaty. With his recently diagnosed atrial fibrillation, she was concerned and decided to bring him to the ER for evaluation. She states that he is supposed to undergo a stress test on Thursday, colonoscopy on Thursday and a bowel resection on Thursday of next week. - Related Data Home Medications Medication Instructions Recorded Confirmed Aspirin 325 mg PO DAILY 08/22/14 11/02/17 Lisinopril [Zestril] 10 mg PO DAILY 08/22/14 11/02/17 Pregabalin [Lyrica] 300 mg PO BID 08/22/14 11/02/17 Albuterol Inhaler [Ventolin 2 puff INHALATION QID 08/23/14 11/02/17 Inhaler] Acetaminophen [Tylenol Extra 500 - 1,000 mg PO Q4-6H PRN 11/02/17 11/02/17 Strength] Aclidinium [place] [Tudorza 1 puff PO BID 11/02/17 11/02/17 Pressair] Omeprazole [PriLOSEC] 20 mg PO AC-BRKFST 11/02/17 11/02/17 Allergies Allergy/AdvReac Type Severity Reaction Status Date / Time No Known Allergies Allergy Verified 11/06/17 00:31 Review of Systems ROS Statement: Those systems with pertinent positive or pertinent negative responses have been documented in the HPI. ROS Other: All systems not noted in ROS Statement are negative. Constitutional: Reports: fever, chills Eyes: Denies: eye pain ENT: Denies: throat pain Respiratory: Reports: cough, wheezes Cardiovascular: Denies: chest pain, palpitations Endocrine: Reports: fatigue Gastrointestinal: Reports: abdominal pain, diarrhea Genitourinary: Denies: urgency, dysuria Musculoskeletal: Denies: back pain Skin: Denies: rash, lesions Neurological: Denies: headache, weakness Psychiatric: Denies: anxiety, depression Hematological/Lymphatic: Denies: easy bleeding, easy bruising Past Medical History Past Medical History: COPD, Hypertension Additional Past Medical History / Comment(s): HOARSENESS, NUMBNESS AND TINGLING BILATERAL HANDS 4TH AND 5TH FINGERS, diverticulitis History of Any Multi-Drug Resistant Organisms: None Reported Past Surgical History: Hernia Repair Additional Past Surgical History / Comment(s): HERNIA REPAIRS X5, AAA REPAIR X4 Past Anesthesia/Blood Transfusion Reactions: No Reported Reaction Past Psychological History: No Psychological Hx Reported Smoking Status: Current every day smoker Past Alcohol Use History: Rare Past Drug Use History: None Reported - Past Family History Mother Family Medical History: Cancer Brother(s) Family Medical History: CVA/TIA General Exam Limitations: no limitations General appearance: alert, in no apparent distress Head exam: Present: atraumatic, normocephalic Eye exam: Present: normal appearance, PERRL ENT exam: Present: normal exam Neck exam: Present: normal inspection Respiratory exam: Present: wheezes Cardiovascular Exam: Present: regular rate, irregular rhythm GI/Abdominal exam: Present: soft, distended (obese), tenderness. Absent: guarding, rebound, rigid Rectal exam: Present: deferred Extremities exam: Present: full ROM. Absent: pedal edema Back exam: Present: full ROM Neurological exam: Present: alert, oriented X3, normal gait Psychiatric exam: Present: normal affect Skin exam: Present: warm Course Vital Signs 11/06/17 11/06/17 11/06/17 00:25 01:43 03:10 Temperature 98.2 F 97.8 F 97.6 F Pulse Rate 58 L 109 H 96 Respiratory 19 18 18 Rate Blood Pressure 142/84 156/89 149/92 O2 Sat by Pulse 88 L 88 L 95 Oximetry EKG Findings - EKG Comments: EKG Findings:: EKG obtained at 12:48 AM, rate is 101, rhythm is atrial fibrillation is no acute ST elevations or depressions no evidence of acute ischemia or infarction. Medical Decision Making - Medical Decision Making Patient was seen and evaluated, patient was noted to be hypoxic and tachycardic in triage Patient was placed on 4 L supplemental nasal cannula History is obtained from the patient, and review of medical records Sepsis and cardiac workup were ordered Patient declined to use a urinal and insisted on walking to the restroom Ginger patient is not on supplemental oxygen at home. Patient ambulated to the restroom and upon return to the hospital that he was noted to have an oxygen saturation of only 80%. Labs were ordered Labs with a troponin of 0.04, serial troponins were ordered, I suspect this mild elevation is secondary to hypoxia [id number] duo nebs were ordered - chest x-ray with no evidence of pneumonia CT of the abdomen confirms colitis possible diverticulitis - IV antibiotics were ordered and patient was admitted to the [facility] with his general surgeon Dr. Asif on consult. - Lab Data Result diagrams: 11/06/17 00:42 11/06/17 00:42 Lab Results 11/06/17 11/06/17 11/06/17 Range/Units 00:42 00:42 00:42 WBC 6.8 (3.8-10.6) k/uL RBC 5.65 (4.30-5.90) m/uL Hgb 16.5 (13.0-17.5) gm/dL Hct 53.4 H (39.0-53.0) % MCV 94.5 (80.0-100.0) fL MCH 29.2 (25.0-35.0) pg MCHC 30.9 L (31.0-37.0) g/dL RDW 16.0 H (11.5-15.5) % Plt Count 153 (150-450) k/uL Neutrophils % 63 % Lymphocytes % 20 % Monocytes % 11 % Eosinophils % 4 % Basophils % 0 % Neutrophils # 4.3 (1.3-7.7) k/uL Lymphocytes # 1.3 (1.0-4.8) k/uL Monocytes # 0.7 (0-1.0) k/uL Eosinophils # 0.2 (0-0.7) k/uL Basophils # 0.0 (0-0.2) k/uL Hypochromasia Slight PT (9.0-12.0) sec INR (<1.2) APTT (22.0-30.0) sec Sodium 145 (137-145) mmol/L Potassium 4.0 (3.5-5.1) mmol/L Chloride 108 H (98-107) mmol/L Carbon Dioxide 30 (22-30) mmol/L Anion Gap 7 mmol/L BUN 18 (9-20) mg/dL Creatinine 0.80 (0.66-1.25) mg/dL Est GFR (CKD-EPI)AfAm >90 (>60 ml/min/1.73 sqM) Est GFR (CKD-EPI)NonAf >90 (>60 ml/min/1.73 sqM) Glucose 115 H (74-99) mg/dL Plasma Lactic Acid [place] (0.7-2.0) mmol/L Calcium 8.7 (8.4-10.2) mg/dL Total Bilirubin 0.8 (0.2-1.3) mg/dL AST 22 (17-59) U/L ALT 40 (21-72) U/L Alkaline Phosphatase 59 (38-126) U/L Total Creatine Kinase 63 (55-170) U/L CK-MB (CK-2) 1.8 (0.0-2.4) ng/mL CK-MB (CK-2) Rel Index 2.9 Troponin I 0.040 H* (0.000-0.034) ng/mL Total Protein 6.3 (6.3-8.2) g/dL Albumin 3.5 (3.5-5.0) g/dL Urine Color Urine Appearance (Clear) Urine pH (5.0-8.0) Ur Specific [place] (1.001-1.035) Urine Protein (Negative) Urine Glucose (UA) (Negative) Urine Ketones (Negative) Urine Blood (Negative) Urine Nitrite (Negative) Urine Bilirubin (Negative) Urine Urobilinogen (<2.0) mg/dL Ur Leukocyte Esterase (Negative) Urine RBC (0-5) /hpf Urine WBC (0-5) /hpf Hyaline Casts (0-2) /lpf Urine Mucus (None) /hpf 11/06/17 11/06/17 11/06/17 Range/Units 00:42 00:42 00:42 WBC (3.8-10.6) k/uL RBC (4.30-5.90) m/uL Hgb (13.0-17.5) gm/dL Hct (39.0-53.0) % MCV (80.0-100.0) fL MCH (25.0-35.0) pg MCHC (31.0-37.0) g/dL RDW (11.5-15.5) % Plt Count (150-450) k/uL Neutrophils % % Lymphocytes % % Monocytes % % Eosinophils % % Basophils % % Neutrophils # (1.3-7.7) k/uL Lymphocytes # (1.0-4.8) k/uL Monocytes # (0-1.0) k/uL Eosinophils # (0-0.7) k/uL Basophils # (0-0.2) k/uL Hypochromasia PT 11.5 (9.0-12.0) sec INR 1.2 H (<1.2) APTT 27.6 (22.0-30.0) sec Sodium (137-145) mmol/L Potassium (3.5-5.1) mmol/L Chloride (98-107) mmol/L Carbon Dioxide (22-30) mmol/L Anion Gap mmol/L BUN (9-20) mg/dL Creatinine (0.66-1.25) mg/dL Est GFR (CKD-EPI)AfAm (>60 ml/min/1.73 sqM) Est GFR (CKD-EPI)NonAf (>60 ml/min/1.73 sqM) Glucose (74-99) mg/dL Plasma Lactic Acid Shamir 0.9 (0.7-2.0) mmol/L Calcium (8.4-10.2) mg/dL Total Bilirubin (0.2-1.3) mg/dL AST (17-59) U/L ALT (21-72) U/L Alkaline Phosphatase (38-126) U/L Total Creatine Kinase (55-170) U/L CK-MB (CK-2) (0.0-2.4) ng/mL CK-MB (CK-2) Rel Index Troponin I (0.000-0.034) ng/mL Total Protein (6.3-8.2) g/dL Albumin (3.5-5.0) g/dL Urine Color Yellow Urine Appearance Clear (Clear) Urine pH 5.5 (5.0-8.0) Ur Specific [place] 1.024 (1.001-1.035) Urine Protein 1+ H (Negative) Urine Glucose (UA) Negative (Negative) Urine Ketones Negative (Negative) Urine Blood Trace H (Negative) Urine Nitrite Negative (Negative) Urine Bilirubin 1+ H (Negative) Urine Urobilinogen 4.0 (<2.0) mg/dL Ur Leukocyte Esterase Negative (Negative) Urine RBC 4 (0-5) /hpf Urine WBC 3 (0-5) /hpf Hyaline Casts 5 H (0-2) /lpf Urine Mucus Moderate H (None) /hpf Disposition Clinical Impression: Diverticulitis, Colitis, Atrial fibrillation with RVR, Hypoxia, COPD (chronic obstructive pulmonary disease) Disposition: ADMITTED IP TO THIS [facility] Referrals: Casper Raza III, MD [Primary Care Provider] - 1-2 days Decision Time: 03:32
[2017-11-06] MEDS: SODIUM CHLORIDE 0.9% 1,000 ML IV SCH (04:50)
[2017-11-06] MEDS: PIPERACILLIN-TAZOBACTAM 3.375 GM in DEXTROSE/WATER 1 50ML.BAG IVPB SCH ×3 (04:50→21:30)
[2017-11-06] MEDS: IPRATROPIUM-ALBUTEROL 3 ML NEB INHALATION SCH ×4 (07:29→20:48)
[2017-11-06] MEDS: NICOTINE 21MG/24HR PATCH TRANSDERM SCH (09:01)
--- NOTE | 2017-11-06 14:44 | P.GSCN ---
<Debbie Fleming - Last Filed: 11/06/17 14:44> History of Present Illness Consult date: 11/06/17 Reason for Consult: Abdominal pain diverticulitis History of present illness: 66-year-old male seen in the emergency room for a surgical eval at the request of the attending for abdominal pain in a patient who has a significant history of reoccurring episodes of diverticulitis. Patient states that he was scheduled this week November [address] petty to have colon surgery for treatment of diverticulitis. stated he was to receive cardiac clearance did see a technical support internship Dr. Cruz where patient was newly diagnosed with atrial fibrillation and started on elquist stated he has taken elquist for the last 2 days Patient stated that he has been seen in the emergency room on October 25 for left lower quadrant abdominal pain. He stated at that time CAT scan was done and was told he had diverticulitis given a prescription for doxycycline. Stated he did complete a course of antibiotics but did not feel any better. Return to the emergency room on November 06 for persistent left lower quadrant abdominal pain consistent with diverticulitis. Patient is CAT scan of the abdomen pelvis reviewing the report showed mild inflammatory changes involving the descending colon Extensive colon diverticulosis with mild diverticulitis this is new compared to the last CAT scan. No cyst noted in the pancreas. Patient stated over the last several days the pain became unbearable came into the emergency room to be evaluated. It was also noted the patient was hypoxic up ambulating in the emergency room with the oxygen off pulse ox sats were in the low 80s Past surgical history abdominal aortic aneurysm repair, hernia repair, lap cholecystectomy, Past medical history COPD, hypertension, Social lives with current every day smoker occasional alcohol use Past Medical History Past Medical History: COPD, Hypertension Additional Past Medical History / Comment(s): Recurrent diverticulitis and needs bowel resection but delayed d/t newly diagnosed A fib, chronic back pain, hoarseness-R vocal cord benign polyp, colon polyp, numbness/tingling bilateral hands 4th/5th fingers, abdominal and iliac aortic aneurysms with surgery. History of Any Multi-Drug Resistant Organisms: None Reported Past Surgical History: Hernia Repair, Orthopedic Surgery Additional Past Surgical History / Comment(s): Abdominal aortic/iliac aneurysms with repair (4), multiple hernia repairs/mesh, direct microlarygoscopy with R vocal cord polyp/bx, hemorrhoidectomy, EGD/colonoscopy with benign polyp, bilateral great toe surgery for calcium build up. Past Anesthesia/Blood Transfusion Reactions: No Reported Reaction Smoking Status: Current every day smoker - Past Family History Mother Family Medical History: Cancer Additional Family Medical History / Comment(s): Pt cannot recall type of cancer. Brother(s) Family Medical History: CVA/TIA Father Family Medical History: CVA/TIA Medications and Allergies Home Medications Medication Instructions Recorded Confirmed Type Aspirin 325 mg PO DAILY 08/22/14 11/06/17 History Lisinopril [Zestril] 10 mg PO DAILY 08/22/14 11/06/17 History Albuterol Inhaler [Ventolin 2 puff INHALATION RT-QID 08/23/14 11/06/17 History Inhaler] Acetaminophen [Tylenol Extra 500 - 1,000 mg PO Q4-6H PRN 11/02/17 11/06/17 History Strength] Aclidinium [place] [Tudorza 1 puff PO RT-BID 11/02/17 11/06/17 History Pressair] Omeprazole [PriLOSEC] 20 mg PO AC-BRKFST 11/02/17 11/06/17 History Apixaban [Eliquis] 5 mg PO BID 11/06/17 11/06/17 History Pregabalin [Lyrica] 300 mg PO BID 11/06/17 11/06/17 History Allergies Allergy/AdvReac Type Severity Reaction Status Date / Time No Known Allergies Allergy Verified 11/06/17 10:29 Surgical - Exam Vital Signs Temp Pulse Resp BP Pulse Ox 98.2 F 58 L 19 142/84 88 L 11/06/17 00:25 11/06/17 00:25 11/06/17 00:25 11/06/17 00:25 11/06/17 00:25 GENERAL APPEARANCE: 66-year-old male sitting up on the edge of the bed reports continues to have left lower quadrant abdominal pain patient is alert, oriented , in no acute distress. Speaks in a hoarse voice VITAL SIGNS: Reviewed HEENT: Head is normocephalic and atraumatic. Pupils are equal and reactive. The nares are patent. Oropharynx is clear without lesions. NECK: Supple without lymphadenopathy. Traches midline. HEART: S1, S2. Irregular monitor atrial fibrillation heart rate in the 90s LUNGS: Posterior diminished at the bases 4 L sats 94% no wheezing noted no shortness of breath with conversation or at rest ABDOMEN: Soft, obese nontender, slightly distended few bowel sounds. No peritoneal signs. No palpable organomegaly or masses. Reports having left lower quadrant abdominal discomfort no nausea no vomiting states had a bowel movement several days ago well-healed surgical scar to the mid abdomen states urinating no difficulty EXTREMITIES: Bilateral nonpitting pedal edema NEUROLOGICAL: No focal deficits. Strength and sensation are grossly intact. Results - Labs 11/06/17 00:42 11/06/17 00:42 Abnormal Lab Results - Last 24 Hours (Table) 11/06/17 11/06/17 11/06/17 Range/Units 00:42 00:42 00:42 Hct 53.4 H (39.0-53.0) % MCHC 30.9 L (31.0-37.0) g/dL RDW 16.0 H (11.5-15.5) % INR (<1.2) Chloride 108 H (98-107) mmol/L Glucose 115 H (74-99) mg/dL Troponin I 0.040 H* (0.000-0.034) ng/mL Urine Protein (Negative) Urine Blood (Negative) Urine Bilirubin (Negative) Hyaline Casts (0-2) /lpf Urine Mucus (None) /hpf 11/06/17 11/06/17 Range/Units 00:42 00:42 Hct (39.0-53.0) % MCHC (31.0-37.0) g/dL RDW (11.5-15.5) % INR 1.2 H (<1.2) Chloride (98-107) mmol/L Glucose (74-99) mg/dL Troponin I (0.000-0.034) ng/mL Urine Protein 1+ H (Negative) Urine Blood Trace H (Negative) Urine Bilirubin 1+ H (Negative) Hyaline Casts 5 H (0-2) /lpf Urine Mucus Moderate H (None) /hpf Microbiology - Last 24 Hours (Table) 11/06/17 00:42 Urine Culture - Preliminary Urine,Voided Diabetes panel 11/06/17 Range/Units 00:42 Sodium 145 (137-145) mmol/L Potassium 4.0 (3.5-5.1) mmol/L Chloride 108 H (98-107) mmol/L Carbon Dioxide 30 (22-30) mmol/L BUN 18 (9-20) mg/dL Creatinine 0.80 (0.66-1.25) mg/dL Glucose 115 H (74-99) mg/dL Calcium 8.7 (8.4-10.2) mg/dL AST 22 (17-59) U/L ALT 40 (21-72) U/L Alkaline Phosphatase 59 (38-126) U/L Total Protein 6.3 (6.3-8.2) g/dL Albumin 3.5 (3.5-5.0) g/dL Calcium panel 11/06/17 Range/Units 00:42 Calcium 8.7 (8.4-10.2) mg/dL Albumin 3.5 (3.5-5.0) g/dL Pituitary panel 11/06/17 Range/Units 00:42 Sodium 145 (137-145) mmol/L Potassium 4.0 (3.5-5.1) mmol/L Chloride 108 H (98-107) mmol/L Carbon Dioxide 30 (22-30) mmol/L BUN 18 (9-20) mg/dL Creatinine 0.80 (0.66-1.25) mg/dL Glucose 115 H (74-99) mg/dL Calcium 8.7 (8.4-10.2) mg/dL Adrenal panel 11/06/17 Range/Units 00:42 Sodium 145 (137-145) mmol/L Potassium 4.0 (3.5-5.1) mmol/L Chloride 108 H (98-107) mmol/L Carbon Dioxide 30 (22-30) mmol/L BUN 18 (9-20) mg/dL Creatinine 0.80 (0.66-1.25) mg/dL Glucose 115 H (74-99) mg/dL Calcium 8.7 (8.4-10.2) mg/dL Total Bilirubin 0.8 (0.2-1.3) mg/dL AST 22 (17-59) U/L ALT 40 (21-72) U/L Alkaline Phosphatase 59 (38-126) U/L Total Protein 6.3 (6.3-8.2) g/dL Albumin 3.5 (3.5-5.0) g/dL Assessment and Plan Assessment: Impression Admission left lower quadrant pain suspect due to diverticulitis failed outpatient treatment Computed tomography scan abdomen pelvis show evidence of diverticulosis extensive with mild diverticulitis Obesity BMI 31 Newly diagnosed atrial fibrillation started on anticoagulation elquis History of recurrent episodes of diverticulitis Acute hypoxic respiratory failure desat in the 80s suspect due to underlying COPD Scheduled for colon resection in the near future November 11 for treatment of diverticulitis Abdominal pain left lower quadrant consistent with diverticulitis Current every day smoker 1 pack a day with nicotine dependency Plan IV fluid as ordered Further surgical recommendations pending Will need to be off anticoagulation elquis for at least 48 hours prior to any surgical intervention Pain control IV antibiotics Zosyn and Flagyl DVT GI prophylaxis Will follow with you Surgical consultation note dictated for Dr. reina rounding on behalf of Dr. petty The above impression and plan of care have been discussed and directed by signing physician. Debbie Fleming nurse practitioner acting as scribe for signing physician. <Thien Reina - Last Filed: 11/06/17 15:27> Surgical - Exam Vital Signs Temp Pulse Resp BP Pulse Ox 98.2 F 58 L 19 142/84 88 L 11/06/17 00:25 11/06/17 00:25 11/06/17 00:25 11/06/17 00:25 11/06/17 00:25 Results - Labs 11/06/17 00:42 11/06/17 00:42 Abnormal Lab Results - Last 24 Hours (Table) 11/06/17 11/06/17 11/06/17 Range/Units 00:42 00:42 00:42 Hct 53.4 H (39.0-53.0) % MCHC 30.9 L (31.0-37.0) g/dL RDW 16.0 H (11.5-15.5) % INR (<1.2) Chloride 108 H (98-107) mmol/L Glucose 115 H (74-99) mg/dL Troponin I 0.040 H* (0.000-0.034) ng/mL Urine Protein (Negative) Urine Blood (Negative) Urine Bilirubin (Negative) Hyaline Casts (0-2) /lpf Urine Mucus (None) /hpf 11/06/17 11/06/17 Range/Units 00:42 00:42 Hct (39.0-53.0) % MCHC (31.0-37.0) g/dL RDW (11.5-15.5) % INR 1.2 H (<1.2) Chloride (98-107) mmol/L Glucose (74-99) mg/dL Troponin I (0.000-0.034) ng/mL Urine Protein 1+ H (Negative) Urine Blood Trace H (Negative) Urine Bilirubin 1+ H (Negative) Hyaline Casts 5 H (0-2) /lpf Urine Mucus Moderate H (None) /hpf Microbiology - Last 24 Hours (Table) 11/06/17 00:42 Urine Culture - Preliminary Urine,Voided Diabetes panel 11/06/17 Range/Units 00:42 Sodium 145 (137-145) mmol/L Potassium 4.0 (3.5-5.1) mmol/L Chloride 108 H (98-107) mmol/L Carbon Dioxide 30 (22-30) mmol/L BUN 18 (9-20) mg/dL Creatinine 0.80 (0.66-1.25) mg/dL Glucose 115 H (74-99) mg/dL Calcium 8.7 (8.4-10.2) mg/dL AST 22 (17-59) U/L ALT 40 (21-72) U/L Alkaline Phosphatase 59 (38-126) U/L Total Protein 6.3 (6.3-8.2) g/dL Albumin 3.5 (3.5-5.0) g/dL Calcium panel 11/06/17 Range/Units 00:42 Calcium 8.7 (8.4-10.2) mg/dL Albumin 3.5 (3.5-5.0) g/dL Pituitary panel 11/06/17 Range/Units 00:42 Sodium 145 (137-145) mmol/L Potassium 4.0 (3.5-5.1) mmol/L Chloride 108 H (98-107) mmol/L Carbon Dioxide 30 (22-30) mmol/L BUN 18 (9-20) mg/dL Creatinine 0.80 (0.66-1.25) mg/dL Glucose 115 H (74-99) mg/dL Calcium 8.7 (8.4-10.2) mg/dL Adrenal panel 11/06/17 Range/Units 00:42 Sodium 145 (137-145) mmol/L Potassium 4.0 (3.5-5.1) mmol/L Chloride 108 H (98-107) mmol/L Carbon Dioxide 30 (22-30) mmol/L BUN 18 (9-20) mg/dL Creatinine 0.80 (0.66-1.25) mg/dL Glucose 115 H (74-99) mg/dL Calcium 8.7 (8.4-10.2) mg/dL Total Bilirubin 0.8 (0.2-1.3) mg/dL AST 22 (17-59) U/L ALT 40 (21-72) U/L Alkaline Phosphatase 59 (38-126) U/L Total Protein 6.3 (6.3-8.2) g/dL Albumin 3.5 (3.5-5.0) g/dL Assessment and Plan Assessment: As above. Continue antibiotics. Clear liquid only at this time. Probable colonic resection during this hospitalization. Dr. Petty will be returning on 11/09.
[2017-11-06] MEDS: metroNIDAZOLE-NS PMX 500 MG in SALINE 1 100ML.BAG IVPB SCH ×2 (20:21→20:52)
[2017-11-06] MEDS: PANTOPRAZOLE 40 MG/10 ML VIAL IVP SCH (21:30)
--- NOTE | 2017-11-06 22:19 | P.HPIM ---
History of Present Illness H&P Date: 11/06/17 Chief Complaint: Abdominal pain Patient is a 66-year-old male with a known history of AAA, COPD , hypertension and recurrent diverticulitis and needs resection but delayed due to newly diagnosed atrial fibrillation came to ER with complaints of fever chills and sweating. Patient also complaining of lower abdominal pain which is consistent with his previous diverticular flare. Patient woke up this morning having cold sweats and fever. Patient was advised by his to come to ER and patient also delirious at home. Patient does have episodes of recurrent diverticulitis. Patient is on follow-up with general surgery and is planning for colon resection in next few days. Otherwise patient recently developed ventricular fibrillation for which patient was started on eliquis yesterday. Chest x-ray showed no acute cardio pulmonary process CT abdomen and pelvis showed mild inflammatory changes involving the descending colon. There is extensive colonic diverticulosis Review of Systems Constitutional: Patient does have subjective fevers and chills and sweating . No generalized weakness or weight loss. Abdomen: Lower abdominal pain and nausea. No diarrhea. No vomiting. Cardiovascular: Patient denies any chest pain or short of breath no palpitations. Respiratory: patient denied any cough is from production. No shortness of breath Neurologic: Patient denied any numbness or tingling headache. Musculoskeletal: Patient denies any complaints of joint swelling or deformity. Skin: Negative Psychiatric: Negative Endocrine: No heat or cold intolerance. No recent weight gain. Genitourinary: No dysuria or hematuria. All other 14 point ROS negative except the above Past Medical History Past Medical History: COPD, Hypertension Additional Past Medical History / Comment(s): Recurrent diverticulitis and needs bowel resection but delayed d/t newly diagnosed A fib, chronic back pain, hoarseness-R vocal cord benign polyp, colon polyp, numbness/tingling bilateral hands 4th/5th fingers, abdominal and iliac aortic aneurysms with surgery. History of Any Multi-Drug Resistant Organisms: None Reported Past Surgical History: Hernia Repair, Orthopedic Surgery Additional Past Surgical History / Comment(s): Abdominal aortic/iliac aneurysms with repair (4), multiple hernia repairs/mesh, direct microlarygoscopy with R vocal cord polyp/bx, hemorrhoidectomy, EGD/colonoscopy with benign polyp, bilateral great toe surgery for calcium build up. Past Anesthesia/Blood Transfusion Reactions: No Reported Reaction Smoking Status: Current every day smoker - Past Family History Mother Family Medical History: Cancer Additional Family Medical History / Comment(s): Pt cannot recall type of cancer. Brother(s) Family Medical History: CVA/TIA Father Family Medical History: CVA/TIA Medications and Allergies Home Medications Medication Instructions Recorded Confirmed Type Aspirin 325 mg PO DAILY 08/22/14 11/06/17 History Lisinopril [Zestril] 10 mg PO DAILY 08/22/14 11/06/17 History Albuterol Inhaler [Ventolin 2 puff INHALATION RT-QID 08/23/14 11/06/17 History Inhaler] Acetaminophen [Tylenol Extra 500 - 1,000 mg PO Q4-6H PRN 11/02/17 11/06/17 History Strength] Aclidinium [place] [Tudorza 1 puff PO RT-BID 11/02/17 11/06/17 History Pressair] Omeprazole [PriLOSEC] 20 mg PO AC-BRKFST 11/02/17 11/06/17 History Apixaban [Eliquis] 5 mg PO BID 11/06/17 11/06/17 History Pregabalin [Lyrica] 300 mg PO BID 11/06/17 11/06/17 History Allergies Allergy/AdvReac Type Severity Reaction Status Date / Time No Known Allergies Allergy Verified 11/06/17 10:29 Physical Exam Vitals: Vital Signs Temp Pulse Resp BP Pulse Ox 11/06/17 10:51 96 11/06/17 10:38 96 11/06/17 08:07 102 H 18 168/80 94 L 11/06/17 07:44 122 H 11/06/17 07:30 118 H 95 11/06/17 04:53 98.3 F 97 18 132/92 94 L 11/06/17 03:10 97.6 F 96 18 149/92 95 11/06/17 01:43 97.8 F 109 H 18 156/89 88 L 11/06/17 00:25 98.2 F 58 L 19 142/84 88 L Intake and Output 11/05/17 11/06/17 11/06/17 22:59 06:59 14:59 Other: # Voids 3 Weight 97.522 kg PHYSICAL EXAMINATION: Patient is lying in the bed comfortably, no acute distress, awake alert and oriented.. HEENT: Normocephalic. Neck is supple. Pupils reactive. Nostrils clear. Oral cavity is moist. Ears reveal no drainage. Neck reveals no JVD, carotid bruits, or thyromegaly. CHEST EXAMINATION: Trachea is central. Symmetrical expansion. Lung clemente clear to auscultation and percussion. CARDIAC: Normal S1, S2 with no gallops. No murmurs ABDOMEN: Soft. Bowel sounds normal. No organomegaly. No abdominal bruits. Extremities: reveal no edema. No clubbing or cyanosis Neurologically awake, alert, oriented x3 with well-coordinated movements. No focal deficits noted Skin: No rash or skin lesions. Psychiatric: Coperative. Nonsuicidal Musculoskeletal: No joint swelling or deformity. Normal range of motion. Results CBC & Chem 7: 11/06/17 00:42 11/06/17 00:42 Labs: Abnormal Lab Results - Last 24 Hours (Table) 11/06/17 11/06/17 11/06/17 Range/Units 00:42 00:42 00:42 Hct 53.4 H (39.0-53.0) % MCHC 30.9 L (31.0-37.0) g/dL RDW 16.0 H (11.5-15.5) % INR (<1.2) Chloride 108 H (98-107) mmol/L Glucose 115 H (74-99) mg/dL Troponin I 0.040 H* (0.000-0.034) ng/mL Urine Protein (Negative) Urine Blood (Negative) Urine Bilirubin (Negative) Hyaline Casts (0-2) /lpf Urine Mucus (None) /hpf 11/06/17 11/06/17 Range/Units 00:42 00:42 Hct (39.0-53.0) % MCHC (31.0-37.0) g/dL RDW (11.5-15.5) % INR 1.2 H (<1.2) Chloride (98-107) mmol/L Glucose (74-99) mg/dL Troponin I (0.000-0.034) ng/mL Urine Protein 1+ H (Negative) Urine Blood Trace H (Negative) Urine Bilirubin 1+ H (Negative) Hyaline Casts 5 H (0-2) /lpf Urine Mucus Moderate H (None) /hpf Thrombosis Risk Factor Assmnt - DVT/VTE Prophylaxis DVT/VTE Prophylaxis: Pharmacologic Prophylaxis ordered - Choose All That Apply Any of the Below Risk Factors Present?: Yes Each Factor Represents 1 point: Abnormal pulmonary function (COPD), Obesity ( BMI >25) Other Risk Factors: Yes Each Risk Factor Represents 2 Points: Age 61-74 years Other congenital or acquired thrombophilia - If yes, enter type in comment: No Thrombosis Risk Factor Assessment Total Risk Factor Score: 4 Thrombosis Risk Factor Assessment Level: Moderate Risk Assessment and Plan Assessment: Acute descending colon diverticulitis Fever chills abdominal pain and sweating due to the above Atrial fibrillation with rapid ventricular rate on admission Mild troponin leak likely due to demand ischemia. Paroxysmal atrial fibrillation. Recently diagnosed COPD Hypertension Obesity BMI 31.7 Recurrent diverticulitis and is scheduled for colon resection Abdominal aortic/iliac aneurysms with history of repair Currently everyday smoker DVT prophylaxis Plan: Patient will be continued on IV fluids and antibiotics in the form of Zosyn and Flagyl. Patient will started on metoprolol for heart rate control and hold anticoagulation due to scheduled surgical procedures likely during his hospital stay as per surgical recommendations. Continue with breathing treatments and pain management. Follow up closely. Further recommendations based on the clinical course. Clear liquid diet. Time with Patient: Greater than 30
[2017-11-07] MEDS ORDERED: HEPARIN SODIUM,PORCINE 5,000 UNIT/ML 1 ML VIAL SQ SCH
[2017-11-07 03:29] LABS: Basophils % (A) 0 %; Eosinophils % (A) 0 %; HCT 52.8 % (39.0-53.0); HGB 16.2 gm/dL (13.0-17.5); Hypochromasia Slight; Lymphocytes # (A) 0.9 k/uL (1.0-4.8); Lymphocytes % (A) 14 %; MCH 29.4 pg (25.0-35.0); MCHC 30.6 g/dL (31.0-37.0); Mean Platelet Volume 7.6; Monocytes # (A) 0.7 k/uL (0-1.0); Monocytes % (A) 10 %; Neutrophils # (A) 4.8 k/uL (1.3-7.7); Neutrophils % (A) 73 %; Platelet Count 154 k/uL (150-450); RDW 15.8 % (11.5-15.5); WBC 6.6 k/uL (3.8-10.6)
[2017-11-07] MEDS ORDERED: HEPARIN SODIUM,PORCINE 5,000 UNIT/ML 1 ML VIAL IV PRN (03:30)
[2017-11-07 03:38] LABS: ALT 39 U/L (21-72); AST 20 U/L (17-59); Albumin 3.5 g/dL (3.5-5.0); Alkaline Phosphatase 60 U/L (38-126); Anion Gap 11 mmol/L; Blood Urea Nitrogen 17 mg/dL (9-20); Calcium 8.7 mg/dL (8.4-10.2); Carbon Dioxide 25 mmol/L (22-30); Chloride 107 mmol/L (98-107); Glucose 138 mg/dL (74-99); Magnesium 1.8 mg/dL (1.6-2.3); Potassium 4.1 mmol/L (3.5-5.1); Sodium 143 mmol/L (137-145); Total Protein 6.2 g/dL (6.3-8.2)
[2017-11-07] MEDS ORDERED: DEXTROSE 5% IN WATER 100 ML with AMIODARONE 150 MG IV ONE (03:45)
[2017-11-07] MEDS ORDERED: HEPARIN SODIUM,PORCINE 5,000 UNIT/ML 1 ML VIAL IV ONE (03:45)
[2017-11-07 03:48] LABS: INR 1.2 (<1.2); Partial Thromboplastin Time 26.6 sec (22.0-30.0); Prothrombin Time 11.5 sec (9.0-12.0)
[2017-11-07] MEDS: metroNIDAZOLE-NS PMX 500 MG in SALINE 1 100ML.BAG IVPB SCH ×4 (04:23→17:08)
[2017-11-07] MEDS: SODIUM CHLORIDE 0.9% 1,000 ML IV SCH ×2 (04:25→06:53)
[2017-11-07] MEDS: AMIODARONE 450 MG in DEXTROSE 5% IN WATER 250 ML IV SCH ×6 (04:26→22:13)
[2017-11-07] MEDS: HEPARIN SOD,PORK IN 0.45% NACL 25,000 UNIT in 0.45% NACL 1 500ML.BAG IV SCH ×2 (04:27→12:35)
[2017-11-07] MEDS: PIPERACILLIN-TAZOBACTAM 3.375 GM in DEXTROSE/WATER 1 50ML.BAG IVPB SCH ×3 (06:45→22:13)
[2017-11-07] MEDS: IPRATROPIUM-ALBUTEROL 3 ML NEB INHALATION SCH ×4 (07:47→20:10)
[2017-11-07] MEDS: NICOTINE 21MG/24HR PATCH TRANSDERM SCH (08:49)
[2017-11-07] MEDS: PANTOPRAZOLE 40 MG/10 ML VIAL IVP SCH ×2 (08:49→22:14)
[2017-11-07] MEDS: METOPROLOL TARTRATE 25 MG TAB PO SCH ×4 (08:54→22:14)
--- NOTE | 2017-11-07 08:54 | P.CRDCN ---
History of Present Illness Consult date: 11/07/17 Requesting physician: Salvador E Sheet Consult reason: atrial fibrillation Chief complaint: Fever, chills, abdominal pain History of present illness: This is 58-year-old gentleman with known history of hypertension, COPD , nicotine dependence, history of abdominal aortic/iliac aneurysms with repair and stenting, with persistent 4 cm aneurysm in the upper abdominal aorta, , hypertension, persistent atrial fibrillation, recurrent diverticulitis for which the patient is waiting to undergo resection. Apparently the delay in surgery was secondary to the fact the patient had a recent diagnosis of atrial fibrillation and was initiated on Eliquis. He presents to the hospital on this occasion with symptoms of fever, chills, and abdominal pain. His EKG on presentation here showed atrial fibrillation with a moderately rapid ventricular response. Through the night last night, his rate went up into the 04[birth year]12/1929 range. His Eliquis was placed on hold, patient was initiated on IV heparin and IV amiodarone. At the time of my examination this morning, his heart rate is in the 120 range. He is also on metoprolol 25 mg one tablet by mouth twice a day. CAT scan of the abdomen and pelvis was performed on admission here, revealed mild inflammatory changes involving the descending colon. There is extensive colonic diverticulosis. This could relate to mild diverticulitis that is new compared with last CAT scan. Small 8 mm area of fat density in the pancreas. No renal obstruction. Chest x-ray shows cardiomegaly with no active disease. I pressure on arrival here 142/80, heart rate 100, temperature 98.2, he was 88% on room air. Let pressure this morning 133/70, heart rate currently 120, 96% on 4 L. White blood cell count is normal, hemoglobin 16, platelet count 154. Sodium 143, potassium 4.1, BUN 17, creatinine 0.8. Magnesium 1.8. Troponins 0.040, 0.032. At the time of my examination this morning, patient is having some mild abdominal discomfort, he is extremely frustrated with this entire situation and wants to feel better. She was seen in consultation by Dr. swift the surgeon, he's anticipating performing surgery during this admission. Past Medical History Past Medical History: COPD, Hypertension Additional Past Medical History / Comment(s): Recurrent diverticulitis and needs bowel resection but delayed d/t newly diagnosed A fib, chronic back pain, hoarseness-R vocal cord benign polyp, colon polyp, numbness/tingling bilateral hands 4th/5th fingers, abdominal and iliac aortic aneurysms with surgery. History of Any Multi-Drug Resistant Organisms: None Reported Past Surgical History: Hernia Repair, Orthopedic Surgery Additional Past Surgical History / Comment(s): Abdominal aortic/iliac aneurysms with repair (4), multiple hernia repairs/mesh, direct microlarygoscopy with R vocal cord polyp/bx, hemorrhoidectomy, EGD/colonoscopy with benign polyp, bilateral great toe surgery for calcium build up. Past Anesthesia/Blood Transfusion Reactions: No Reported Reaction Smoking Status: Current every day smoker - Past Family History Mother Family Medical History: Cancer Additional Family Medical History / Comment(s): Pt cannot recall type of cancer. Brother(s) Family Medical History: CVA/TIA Father Family Medical History: CVA/TIA Medications and Allergies Home Medications Medication Instructions Recorded Confirmed Type Aspirin 325 mg PO DAILY 08/22/14 11/06/17 History Lisinopril [Zestril] 10 mg PO DAILY 08/22/14 11/06/17 History Albuterol Inhaler [Ventolin 2 puff INHALATION RT-QID 08/23/14 11/06/17 History Inhaler] Acetaminophen [Tylenol Extra 500 - 1,000 mg PO Q4-6H PRN 11/02/17 11/06/17 History Strength] Aclidinium [place] [Tudorza 1 puff PO RT-BID 11/02/17 11/06/17 History Pressair] Omeprazole [PriLOSEC] 20 mg PO AC-BRKFST 11/02/17 11/06/17 History Apixaban [Eliquis] 5 mg PO BID 11/06/17 11/06/17 History Pregabalin [Lyrica] 300 mg PO BID 11/06/17 11/06/17 History Allergies Allergy/AdvReac Type Severity Reaction Status Date / Time No Known Allergies Allergy Verified 11/06/17 10:29 Physical Exam Vitals: Vital Signs Temp Pulse Pulse Resp BP BP Pulse Ox 11/07/17 07:58 88 11/07/17 07:49 88 11/07/17 04:00 97.8 F 84 16 133/72 96 11/07/17 03:26 94 L 11/07/17 03:05 18 L 18 174/100 95 11/07/17 02:55 102 H 18 140/102 95 11/07/17 00:00 97.8 F 84 16 172/97 95 11/06/17 21:01 90 11/06/17 20:48 92 11/06/17 20:00 98.3 F 94 16 139/83 92 L 11/06/17 18:13 92 16 134/82 93 L 11/06/17 17:16 98.8 F 95 18 145/70 97 11/06/17 16:55 96 11/06/17 16:44 98 11/06/17 16:13 98 22 150/84 95 11/06/17 14:42 98.8 F 58 L 20 134/85 98 11/06/17 10:51 96 11/06/17 10:38 96 Intake and Output 11/06/17 11/07/17 11/07/17 22:59 06:59 14:59 Other: # Voids 3 2 Weight 97.522 kg 101.1 kg PHYSICAL EXAMINATION: GENERAL: 66-year-old gentleman in no acute distress at the time of my examination HEENT: Head is atraumatic, normocephalic. Pupils equal, round. Sclera anicteric. Conjunctiva are clear. Mucous membranes of the mouth are moist. Neck is supple. There is no elevated jugular venous pressure.] bruit is heard. HEART EXAMINATION: Heart S1 and S2 irregularly irregular CHEST EXAMINATION: Lungs reveal crackles bilaterally with diminished air exchange throughout. ABDOMEN: Soft, mildly distended, tender.. A few bowel sounds are heard. EXTREMITIES: 1+ peripheral pulses with trace of bilateral peripheral edema. NEUROLOGIC patient is awake, alert and oriented ?-3. . Results 11/07/17 03:04 11/07/17 03:04 Cardiac Enzymes 11/06/17 11/07/17 Range/Units 09:27 03:04 AST 20 (17-59) U/L Troponin I 0.032 (0.000-0.034) ng/mL Coagulation 11/07/17 Range/Units 03:04 PT 11.5 (9.0-12.0) sec APTT 26.6 (22.0-30.0) sec CBC 11/07/17 Range/Units 03:04 WBC 6.6 (3.8-10.6) k/uL RBC 5.50 (4.30-5.90) m/uL Hgb 16.2 (13.0-17.5) gm/dL Hct 52.8 (39.0-53.0) % Plt Count 154 (150-450) k/uL Comprehensive Metabolic Panel 11/07/17 Range/Units 03:04 Sodium 143 (137-145) mmol/L Potassium 4.1 (3.5-5.1) mmol/L Chloride 107 (98-107) mmol/L Carbon Dioxide 25 (22-30) mmol/L BUN 17 (9-20) mg/dL Creatinine 0.80 (0.66-1.25) mg/dL Glucose 138 H (74-99) mg/dL Calcium 8.7 (8.4-10.2) mg/dL AST 20 (17-59) U/L ALT 39 (21-72) U/L Alkaline Phosphatase 60 (38-126) U/L Total Protein 6.2 L (6.3-8.2) g/dL Albumin 3.5 (3.5-5.0) g/dL Current Medications Generic Name Dose Route Start Last Admin Trade Name Freq PRN Reason Stop Dose Admin Acetaminophen 650 mg 11/06/17 03:20 Tylenol Tab PO Q6HR PRN Mild Pain or Fever > 100.5 Albuterol/Ipratropium 3 ml 11/06/17 08:00 11/07/17 07:47 Duoneb 0.5 Mg-3 Mg/3 Ml Soln INHALATION 3 ml RT-QID REYNA Administration Heparin Sodium (Porcine) 0 unit 11/07/17 03:30 Heparin IV PER PROTOCOL PRN Low PTT Protocol Piperacillin/Tazobactam/ 50 mls @ 12.5 mls/hr 11/06/17 03:30 11/07/17 06:45 Dextrose 3.375 gm/ IV Solution IVPB 12.5 mls/hr Q8H REYNA Administration Sodium Chloride 1,000 mls @ 75 mls/hr 11/06/17 03:30 11/07/17 06:53 Saline 0.9% IV 75 mls/hr .[id number] REYNA Administration Metronidazole 500 mg/ IV 100 mls @ 100 mls/hr 11/06/17 14:00 11/07/17 04:23 Solution IVPB 100 mls/hr Q6HR REYNA Administration Amiodarone HCl 450 mg/ 259 mls @ 34.53 mls/hr 11/07/17 03:45 11/07/17 04:26 Dextrose/Water IV 11/08/17 03:46 1 mg/min .Q7H31M REYNA 34.53 mls/hr Administration Protocol 1 MG/MIN Heparin Sodium/Sodium Chloride 500 mls @ 20.08 mls/hr 11/07/17 03:45 04:27 25,000 unit/ Sodium Chloride IV 10.3 units/kg/hr .Q24H REYNA 20.08 mls/hr Administration Protocol 10.3 UNITS/KG/HR Ibuprofen 400 mg 11/06/17 03:20 Motrin PO Q6HR PRN Mild Pain or Fever > 100.5 Metoprolol Tartrate 25 mg 11/07/17 09:00 Lopressor PO BID REYNA Morphine Sulfate 4 mg 11/06/17 03:20 Morphine Sulfate (Inj) IV Q4HR PRN Severe Pain Naloxone HCl 0.2 mg 11/06/17 03:20 Narcan IV Q2M PRN Opioid Reversal Nicotine 1 patch 11/06/17 09:00 11/06/17 09:01 Habitrol 21mg/24hr Patch TRANSDERM 1 patch DAILY REYNA Administration Ondansetron HCl 4 mg 11/06/17 03:20 Zofran IVP Q8HR PRN Nausea And Vomiting Pantoprazole Sodium 40 mg 11/06/17 21:00 11/06/17 21:30 Protonix IVP 40 mg BID REYNA Administration Intake and Output 11/06/17 11/07/17 11/07/17 22:59 06:59 14:59 Other: # Voids 3 2 Weight 97.522 kg 101.1 kg 11/07/17 03:04 11/07/17 03:04 EKG Interpretations (text) EKG shows atrial fibrillation with a moderately rapid ventricular response Assessment and Plan Plan: Assessment and plan #1 symptoms of left lower quadrant abdominal pain with associated fever and chills, likely secondary to diverticulitis #2 known history of diverticulosis and diverticulitis, patient was scheduled in the near future for colon resection #3 hypertension #4 persistent atrial fibrillation, recently initiated on Eliquis. Currently on IV heparin and IV amiodarone. Patient was also noted on the monitor to have a run of nonsustained ventricular tachycardia #5 nicotine dependence #6 COPD #7 history of aortic last iliac aneurysm repair, and stenting #8 hypomagnesemia Plan I did just obtained the office records, patient has just seen Dr. Jiménze in the office on the of this month for preoperative clearance. He was going to be scheduled to have a myocardial perfusion study early next week as well as an echocardiogram with Doppler study. Patient was also initiated on Eliquis at that time. We will perform an echocardiogram with Doppler study here, check free T4 and TSH level. We will continue IV heparin, IV amiodarone, discontinue Motrin, increase metoprolol to 25 mg every 6 hourly. Further recommendations to follow. DNP note has been reviewed, I agree with a documented findings and plan of care. Patient was seen and examined.
[2017-11-07] MEDS ORDERED: METOPROLOL TARTRATE 25 MG TAB PO SCH (09:00)
[2017-11-07] MEDS ORDERED: LORazepam 0.5 MG TAB PO PRN (09:05)
[2017-11-07] MEDS: LORazepam 2 MG/ML INJ IV STA ×2 (09:13→12:28)
--- NOTE | 2017-11-07 10:16 | P.PN ---
Subjective Progress Note Date: 11/07/17 Principal diagnosis: Diverticulitis Patient doing better today. Pain is improved. He was having some cardiac issues last night with short runs of V. tach. Being seen by blood and plasma laboratory assistant today. He is afebrile. He is asking for more to eat. Objective - Vital Signs Vital signs: Vital Signs Temp 97.9 F 11/07/17 09:32 Pulse 101 H 11/07/17 09:32 Resp 18 11/07/17 09:32 BP 152/77 11/07/17 09:32 Pulse Ox 95 11/07/17 09:32 Intake & Output 11/06/17 11/07/17 11/07/17 18:59 06:59 18:59 Intake Total 172.65 Balance 172.65 Weight 101.1 kg Intake: Intake, IV Titration 172.65 Amount Amiodarone 450 mg In 172.65 Dextrose 5% in Water 250 ml @ 1 MG/MIN 34.53 mls/ hr IV .Q7H31M [facility] Rx#: [id number] Other: # Voids 2 - Exam Abdomen: Soft, nondistended, mild left lower quadrant tenderness - Labs CBC & Chem 7: 11/07/17 03:04 11/07/17 03:04 Labs: Abnormal Lab Results - Last 24 Hours (Table) 11/07/17 11/07/17 11/07/17 Range/Units 03:04 03:04 03:04 MCHC 30.6 L (31.0-37.0) g/dL RDW 15.8 H (11.5-15.5) % Lymphocytes # 0.9 L (1.0-4.8) k/uL INR 1.2 H (<1.2) Glucose 138 H (74-99) mg/dL Total Protein 6.2 L (6.3-8.2) g/dL Microbiology - Last 24 Hours (Table) 11/06/17 00:42 Blood Culture - Preliminary Blood No Growth after 24 hours 11/06/17 00:42 Urine Culture - Preliminary Urine,Voided Assessment and Plan (1) Diverticulitis Narrative/Plan: Slowly advance diet. Continue IV antibiotics. Await cardiology recommendations. Current Visit: Yes Status: Acute Code(s): K57.92 - DVTRCLI OF INTEST, PART UNSP, W/O PERF OR ABSCESS W/O BLEED SNOMED Code(s): 603744902
[2017-11-07] MEDS: MAGNESIUM SULFATE-D5W PMX 1 GM in DEXTROSE/WATER 1 100ML.BAG IVPB SCH ×2 (10:31→12:16)
[2017-11-07] MEDS ORDERED: ATORVASTATIN 80 MG TAB PO STA (10:58)
[2017-11-07] MEDS ORDERED: SODIUM CHLORIDE 0.9% 1,000 ML in EMPTY BAG 1 BAG IV ONE (10:58)
[2017-11-07] MEDS ORDERED: ALPRAZolam 0.5 MG TAB PO PRN (10:58)
[2017-11-07] MEDS ORDERED: ALPRAZolam 0.25 MG TAB PO PRN (10:58)
[2017-11-07] MEDS ORDERED: ASPIRIN 325 MG TAB PO STA (10:58)
[2017-11-07] MEDS ORDERED: NITROGLYCERIN SL TABS 0.4 MG TAB SUBLINGUAL PRN (10:58)
[2017-11-07] MEDS: LISINOPRIL 5 MG TAB PO SCH (12:15)
[2017-11-07] MEDS: SPIRONOLACTONE 25 MG TAB PO SCH (12:15)
[2017-11-07] MEDS ORDERED: HALOPERIDOL LACTATE 5 MG/ML 1 ML VIAL IM ONE (14:34)
[2017-11-07] MEDS ORDERED: HALOPERIDOL LACTATE 5 MG/ML 1 ML VIAL ONE (14:36)
[2017-11-07 15:03] LABS: Glucose,Whole Blood 181 mg/dL (75-99)
[2017-11-07] MEDS ORDERED: HALOPERIDOL LACTATE 5 MG/ML 1 ML VIAL IM PRN (17:37)
[2017-11-07 19:27] LABS: ABG Base Excess -5.2 mmol/L; ABG HCO3 23 mmol/L (21-25); ABG PCO2 62 mmHg (35-45); ABG PH 7.18 (7.35-7.45); ABG PO2 87 mmHg (83-108); ABG TCO2 25 mmol/L (19-24)
[2017-11-07 19:42] LABS: Glucose,Whole Blood 195 mg/dL (75-99)
[2017-11-07 21:19] LABS: Amorphous Sediment,Urine Occasional /hpf; Appearance,Urine Clear (Clear); Bilirubin,Urine Negative (Negative); Blood,Urine Trace (Negative); Color,Urine Yellow; Glucose,Urine (UA) Negative (Negative); Hyaline Casts,Urine 114 /lpf (0-2); Ketones,Urine Trace (Negative); Leukocyte Esterase,Urine Negative (Negative); Mucus,Urine Few /hpf; Nitrite,Urine Negative (Negative); Protein,Urine 2+ (Negative); RBC,Urine 5 /hpf (0-5); Specific Gravity,Urine 1.026 (1.001-1.035); Squamous Epithelial Cell,Urine 1 /hpf (0-4); Urobilinogen,Urine <2.0 mg/dL (<2.0); WBC,Urine 7 /hpf (0-5)
[2017-11-07 21:20] LABS: ABG Base Excess 2.1 mmol/L; ABG HCO3 29 mmol/L (21-25); ABG Oxygen Saturation 91.2 % (94-97); ABG PCO2 58 mmHg (35-45); ABG PO2 66 mmHg (83-108); ABG TCO2 30 mmol/L (19-24)
[2017-11-08] MEDS: metroNIDAZOLE-NS PMX 500 MG in SALINE 1 100ML.BAG IVPB SCH ×4 (00:30→18:46)
[2017-11-08 01:48] LABS: ABG Base Excess -0.7 mmol/L; ABG HCO3 26 mmol/L (21-25); ABG Oxygen Saturation 90.1 % (94-97); ABG PCO2 51 mmHg (35-45); ABG PH 7.31 (7.35-7.45); ABG PO2 62 mmHg (83-108); ABG TCO2 27 mmol/L (19-24)
[2017-11-08] MEDS: HEPARIN SOD,PORK IN 0.45% NACL 25,000 UNIT in 0.45% NACL 1 500ML.BAG IV SCH (04:09)
[2017-11-08] MEDS: AMIODARONE 450 MG in DEXTROSE 5% IN WATER 250 ML IV SCH ×6 (04:10→20:15)
[2017-11-08] MEDS: PIPERACILLIN-TAZOBACTAM 3.375 GM in DEXTROSE/WATER 1 50ML.BAG IVPB SCH ×3 (04:11→18:47)
[2017-11-08 05:07] LABS: ABG Base Excess -3.8 mmol/L; ABG HCO3 23 mmol/L (21-25); ABG PCO2 49 mmHg (35-45); ABG PH 7.28 (7.35-7.45); ABG PO2 81 mmHg (83-108); ABG TCO2 25 mmol/L (19-24)
[2017-11-08 05:14] LABS: Basophils % (A) 0 %; Eosinophils % (A) 0 %; HCT 54.7 % (39.0-53.0); HGB 16.6 gm/dL (13.0-17.5); Hypochromasia Marked; Lymphocytes # (A) 0.9 k/uL (1.0-4.8); Lymphocytes % (A) 8 %; MCH 29.6 pg (25.0-35.0); MCHC 30.4 g/dL (31.0-37.0); MCV 97.4 fL (80.0-100.0); Mean Platelet Volume 7.9; Monocytes # (A) 1.1 k/uL (0-1.0); Monocytes % (A) 9 %; Neutrophils # (A) 9.4 k/uL (1.3-7.7); Neutrophils % (A) 81 %; Platelet Count 168 k/uL (150-450); RBC 5.62 m/uL (4.30-5.90); RDW 15.7 % (11.5-15.5); WBC 11.6 k/uL (3.8-10.6)
[2017-11-08 05:35] LABS: Calcium 8.8 mg/dL (8.4-10.2); Magnesium 2.3 mg/dL (1.6-2.3); Phosphorus 4.6 mg/dL (2.5-4.5); Potassium 4.4 mmol/L (3.5-5.1)
[2017-11-08 05:43] LABS: ABG Oxygen Saturation 95.4 % (94-97)
[2017-11-08] MEDS ORDERED: HALOPERIDOL LACTATE 5 MG/ML 1 ML VIAL IVP STA ×2 (06:32→07:52)
--- NOTE | 2017-11-08 07:03 | XR ---
EXAMINATION TYPE: XR chest 1V DATE OF EXAM: 11/08/2017 HISTORY: difficulty breathing. REFERENCE: Previous study dated 11/06/2017. FINDINGS: The heart is enlarged. There is improved vascular congestion. I cannot exclude a small left effusion. IMPRESSION: 1. CARDIOMEGALY. 2. SLIGHT IMPROVEMENT IN THE VOLUME STATUS OF THIS PATIENT.
[2017-11-08] MEDS ORDERED: HALOPERIDOL LACTATE 5 MG/ML 1 ML VIAL ONE (07:55)
[2017-11-08] MEDS ORDERED: SODIUM CHLORIDE 0.45% 1,000 ML IV ONE (08:00)
--- NOTE | 2017-11-08 08:12 | P.CNPUL ---
History of Present Illness Consult date: 11/08/17 Reason for consult: other Chief complaint: Critical care management History of present illness: Pulmonary consult dated 11/08/2017 This is a 66-year-old male who presented to the emergency department with fever chills diaphoresis and abdominal pain. The patient apparently has a history of atrial fibrillation and also diverticular disease and was admitted for same. The patient apparently was to see surgery or has seen surgery for possible surgical resection of his diverticular disease. More recently, the atrial fibrillation has complicated all of that. He is a 2 pack-a-day smoker and also apparently drinks alcohol to some extent. Anyway, the patient was admitted to the intensive care unit last night. He apparently developed increasing confusion and agitation on the floor. Here in the ICU, the patient didn't been very agitated and very disoriented and confused. The patient may be manifesting signs and symptoms of alcohol withdrawal. Currently, he is on 15 L high flow oxygen, a saline IV at 20 mL an hour amiodarone at 0.5 mg/m for his atrial fibrillation heparin via weightbase protocol. In addition, the patient has a history of hypertension and COPD from chronic tobacco use. He said multiple hernia repairs and apparently surgery for abdominal aortic aneurysm. We have attempted to use Haldol and Ativan on this patient to settle him down. He is in 4 point restraints. He is a bit better this morning. Review of Systems ROS unobtainable: due to mental status Past Medical History Past Medical History: COPD, Hypertension Additional Past Medical History / Comment(s): Recurrent diverticulitis and needs bowel resection but delayed d/t newly diagnosed A fib, chronic back pain, hoarseness-R vocal cord benign polyp, colon polyp, numbness/tingling bilateral hands 4th/5th fingers, abdominal and iliac aortic aneurysms with surgery. History of Any Multi-Drug Resistant Organisms: None Reported Past Surgical History: Hernia Repair, Orthopedic Surgery Additional Past Surgical History / Comment(s): Abdominal aortic/iliac aneurysms with repair (4), multiple hernia repairs/mesh, direct microlarygoscopy with R vocal cord polyp/bx, hemorrhoidectomy, EGD/colonoscopy with benign polyp, bilateral great toe surgery for calcium build up. Past Anesthesia/Blood Transfusion Reactions: No Reported Reaction Smoking Status: Current every day smoker - Past Family History Mother Family Medical History: Cancer Additional Family Medical History / Comment(s): Pt cannot recall type of cancer. Brother(s) Family Medical History: CVA/TIA Father Family Medical History: CVA/TIA Medications and Allergies Home Medications Medication Instructions Recorded Confirmed Type Aspirin 325 mg PO DAILY 08/22/14 11/06/17 History Lisinopril [Zestril] 10 mg PO DAILY 08/22/14 11/06/17 History Albuterol Inhaler [Ventolin 2 puff INHALATION RT-QID 08/23/14 11/06/17 History Inhaler] Acetaminophen [Tylenol Extra 500 - 1,000 mg PO Q4-6H PRN 11/02/17 11/06/17 History Strength] Aclidinium Central [Tudorza 1 puff PO RT-BID 11/02/17 11/06/17 History Pressair] Omeprazole [PriLOSEC] 20 mg PO AC-BRKFST 11/02/17 11/06/17 History Apixaban [Eliquis] 5 mg PO BID 11/06/17 11/06/17 History Pregabalin [Lyrica] 300 mg PO BID 11/06/17 11/06/17 History Allergies Allergy/AdvReac Type Severity Reaction Status Date / Time No Known Allergies Allergy Verified 11/06/17 10:29 Physical Exam Osteopathic Statement: *. No significant issues noted on an osteopathic structural exam other than those noted in the History and Physical/Consult. Vitals: Vital Signs Temp Pulse Pulse Resp BP BP Pulse Ox 11/08/17 07:00 122 H 30 H 182/92 92 L 11/08/17 06:30 112 H 31 H 168/113 89 L 11/08/17 06:00 102 H 25 H 152/88 86 L 11/08/17 05:30 125 H 33 H 129/112 88 L 11/08/17 05:00 124 H 32 H 97 11/08/17 04:30 101 H 23 123/71 100 11/08/17 04:00 96.2 F L 71 32 H 120/87 83 L 11/08/17 03:30 95 25 H 157/98 89 L 11/08/17 03:00 108 H 28 H 153/96 89 L 11/08/17 02:30 82 23 115/97 91 L 11/08/17 02:00 104 H 21 149/104 91 L 18 01:30 88 41 H 159/112 91 L 18 01:00 96 24 149/112 93 L 18 00:30 97.1 F L 96 30 H 156/95 86 L 18 00:00 96 27 H 150/109 90 L 18 23:30 98 27 H 154/115 94 L 18 23:00 100 30 H 162/100 93 L 18 22:30 106 H 20 151/105 96 1818 22:00 107 H 30 H 137/108 93 L 18 21:45 108 H 33 H 137/108 92 L 18 21:15 102 H 24 143/109 84 L 11/07/17 21:00 108 H 39 H 145/115 94 L 18 20:45 96.8 F L 114 H 26 H 142/105 91 L 18 20:30 110 H 30 H 160/109 89 L 18 20:15 121 H 29 H 170/111 89 L 18 19:45 123 H 35 H 149/107 95 18/18 19:21 81 18 116/68 93 L 18 16:00 98.6 F 89 18 158/96 95 1818 15:54 93 18 1818 15:37 90 16 18 15:32 97 1818 15:27 89 16 18 14:00 93 18 156/88 96 18 12:31 98.1 F 80 18 134/91 95 1818 12:00 80 16 18 11:22 96 1818 11:11 92 1818 09:32 97.9 F 101 H 18 152/77 95 18 08:00 106 H 16 Intake and Output 18 11/08/18 18 22:59 06:59 14:59 Intake Total 257.34 780.783 29.2 Output Total 22 157 5 Balance 235.34 623.783 24.2 Intake: IV 36.7 341.1 29.2 Amiodarone 450 mg In 16.7 133.6 16.7 Dextrose 5% in Water 250 ml @ 1 MG/MIN 34.53 mls/ hr IV .Q7H31M REYNA Rx#: [id number] NS 20 45 Piperacillin-Tazobactam 3 62.5 12.5 .375 gm In Dextrose/Water 1 50ml.bag @ 12.5 mls/hr IVPB Q8H RENYA Rx#: [id number] metroNIDAZOLE-NS PMX 500 100 mg In Saline 1 100ml.bag @ 100 mls/hr IVPB Q6HR REYNA Rx#:[id number] Intake, IV Titration 220.64 439.683 Amount Amiodarone 450 mg In 220.64 Dextrose 5% in Water 250 ml @ 1 MG/MIN 34.53 mls/ hr IV .Q7H31M REYNA Rx#: [id number] Heparin Sod,Pork in 0.45% 439.683 NaCl 25,000 unit In 0.45 % NaCl 1 500ml.bag @ 10.3 UNITS/KG/HR 20.08 mls/hr IV .Q24H REYNA Rx#: [id number] Output: Urine 22 157 5 Other: Voiding Method Indwelling Catheter Indwelling Catheter Weight 108.2 kg Patient does respond to verbal stimuli but other times is yelling out. He seems confused and disoriented. Very agitated. Nasal O2 in place. HEENT examination is grossly unremarkable. Mucous membranes are moist. No oral lesions. Neck supple. Full range of motion. No adenopathy thyromegaly or neck vein distention. Cardiovascular examination reveals an irregular rhythm and rate. Heart rate about 100 bpm. S1-S2 normal. No S3. No discernible murmur noted. Lungs reveal clear mostly breath sounds. Breath sounds are equal bilaterally. A few scattered rhonchi are noted. No wheezes or crackles. Abdomen soft bowel sounds are heard. No masses or tenderness. Extremities are intact. No cyanosis clubbing or edema. Skin is without rash or lesion. Neurologic examination is difficult to assess. Results - Laboratory Findings CBC and BMP: 11/08/17 04:50 11/08/17 04:50 ABG ABG pH 7.28 (7.35-7.45) L 11/08/17 04:58 ABG pCO2 49 mmHg (35-45) H 11/08/17 04:58 ABG pO2 81 mmHg (83-108) L 11/08/17 04:58 ABG O2 Saturation 95.4 % (94-97) 11/08/17 04:58 PT/INR, D-dimer PT 11.5 sec (9.0-12.0) 11/07/17 03:04 INR 1.2 (<1.2) H 11/07/17 03:04 Abnormal lab findings: Abnormal Labs 11/06/17 11/06/17 11/06/17 00:42 00:42 00:42 WBC Hct 53.4 H MCHC 30.9 L RDW 16.0 H Neutrophils # Lymphocytes # Monocytes # INR APTT ABG pH ABG pCO2 ABG pO2 ABG HCO3 ABG Total CO2 ABG O2 Saturation Chloride 108 H Glucose 115 H POC Glucose (mg/dL) Phosphorus Ammonia Troponin I 0.040 H* Total Protein Urine Protein Urine Ketones Urine Blood Urine Bilirubin Urine WBC Amorphous Sediment Hyaline Casts Urine Mucus 11/06/17 11/06/17 11/07/17 00:42 00:42 03:04 WBC Hct MCHC 30.6 L RDW 15.8 H Neutrophils # Lymphocytes # 0.9 L Monocytes # INR 1.2 H APTT ABG pH ABG pCO2 ABG pO2 ABG HCO3 ABG Total CO2 ABG O2 Saturation Chloride Glucose POC Glucose (mg/dL) Phosphorus Ammonia Troponin I Total Protein Urine Protein 1+ H Urine Ketones Urine Blood Trace H Urine Bilirubin 1+ H Urine WBC Amorphous Sediment Hyaline Casts 5 H Urine Mucus Moderate H 11/07/17 11/07/17 11/07/17 03:04 03:04 10:31 WBC Hct MCHC RDW Neutrophils # Lymphocytes # Monocytes # INR 1.2 H APTT 34.9 H ABG pH ABG pCO2 ABG pO2 ABG HCO3 ABG Total CO2 ABG O2 Saturation Chloride Glucose 138 H POC Glucose (mg/dL) Phosphorus Ammonia Troponin I Total Protein 6.2 L Urine Protein Urine Ketones Urine Blood Urine Bilirubin Urine WBC Amorphous Sediment Hyaline Casts Urine Mucus 11/07/17 11/07/17 11/07/17 15:00 18:01 19:21 WBC Hct MCHC RDW Neutrophils # Lymphocytes # Monocytes # INR APTT 47.5 H ABG pH 7.18 L* ABG pCO2 62 H ABG pO2 ABG HCO3 ABG Total CO2 25 H ABG O2 Saturation Chloride Glucose POC Glucose (mg/dL) 181 H Phosphorus Ammonia Troponin I Total Protein Urine Protein Urine Ketones Urine Blood Urine Bilirubin Urine WBC Amorphous Sediment Hyaline Casts Urine Mucus 11/07/17 11/07/17 11/07/17 19:41 20:30 21:21 WBC Hct MCHC RDW Neutrophils # Lymphocytes # Monocytes # INR APTT ABG pH 7.30 L ABG pCO2 58 H ABG pO2 66 L ABG HCO3 29 H ABG Total CO2 30 H ABG O2 Saturation 91.2 L Chloride Glucose POC Glucose (mg/dL) 195 H Phosphorus Ammonia Troponin I Total Protein Urine Protein 2+ H Urine Ketones Trace H Urine Blood Trace H Urine Bilirubin Urine WBC 7 H Amorphous Sediment Occasional H Hyaline Casts 114 H Urine Mucus Few H 11/08/17 11/08/17 11/08/17 01:46 04:50 04:50 WBC 11.6 H Hct 54.7 H MCHC 30.4 L RDW 15.7 H Neutrophils # 9.4 H Lymphocytes # 0.9 L Monocytes # 1.1 H INR APTT ABG pH 7.31 L ABG pCO2 51 H ABG pO2 62 L ABG HCO3 26 H ABG Total CO2 27 H ABG O2 Saturation 90.1 L Chloride Glucose 120 H POC Glucose (mg/dL) Phosphorus 4.6 H Ammonia Troponin I Total Protein Urine Protein Urine Ketones Urine Blood Urine Bilirubin Urine WBC Amorphous Sediment Hyaline Casts Urine Mucus 11/08/17 11/08/17 11/08/17 04:54 04:54 04:58 WBC Hct MCHC RDW Neutrophils # Lymphocytes # Monocytes # INR APTT 78.5 H ABG pH 7.28 L ABG pCO2 49 H ABG pO2 81 L ABG HCO3 ABG Total CO2 25 H ABG O2 Saturation Chloride Glucose POC Glucose (mg/dL) Phosphorus Ammonia 104 H Troponin I Total Protein Urine Protein Urine Ketones Urine Blood Urine Bilirubin Urine WBC Amorphous Sediment Hyaline Casts Urine Mucus - Diagnostic Findings Chest x-ray: report reviewed (Chest x-ray, labs and medications are reviewed.), image reviewed Assessment and Plan Assessment: Assessment Mental status changes, which may relate to underlying sepsis and/or alcohol withdrawal. Diverticulitis, with anticipated surgical resection in the future Atrial fibrillation with RVR History of chronic tobacco dependence, with possible underlying COPD History of hypertension Mild respiratory and metabolic acidosis Peripheral vascular occlusive disease Plan: Plan dated 11/08/2017 The patient's currently receiving oxygen at 15 L, high flow. The patient is currently also on amiodarone 0.5 mg/m. The patient's also receiving heparin via weightbase protocol. Were attempting to settle him down with a combination of both Haldol and Ativan. We'll make sure he has a nicotine patch in place. Additional recommendations and suggestions are forthcoming. In the end, the patient may need to be intubated if he cannot control him. Labs medications and x-rays are all reviewed. Prognosis is guarded. The patient's CODE STATUS is apparently been addressed. Additional recommendations and suggestions are forthcoming. The patient remains on Zosyn and Flagyl as antibiotics for his diverticulitis. Time with Patient: Greater than 30
[2017-11-08] MEDS: IPRATROPIUM-ALBUTEROL 3 ML NEB INHALATION SCH ×4 (08:16→19:20)
--- NOTE | 2017-11-08 09:25 | ECHOF ---
Referral Reason:afib MEASUREMENTS -------- HEIGHT: 175.3 cm WEIGHT: 100.7 kg BP: 133/72 RVIDd: 4.4 cm (< 3.3) IVSd: 1.0 cm (0.6 - 1.1) LVIDd: 5.5 cm (3.9 - 5.3) LVPWd: 1.1 cm (0.6 - 1.1) IVSs: 1.1 cm LVIDs: 4.7 cm LVPWs: 1.2 cm LAESV Index (A-L): 62.06 ml/m Ao Diam: 3.7 cm (2.0 - 3.7) AV Cusp: 1.9 cm (1.5 - 2.6) LA Diam: 4.4 cm (2.7 - 3.8) MV E Joshua: 0.68 m/s MV DecT: 219 ms MV A Joshua: 0.01 m/s MV E/A Ratio: 69.55 RAP: 10.00 mmHg RVSP: 43.47 mmHg FINDINGS -------- Atrial fibrillation. This was a technically difficult study with suboptimal views. The left ventricular size is normal. There is borderline concentric left ventricular hypertrophy. There is severe global hypokinesis of LV . Overall left ventricular systolic function is severely impaired with, an EF between 20 - 25 %. The right ventricle is moderately enlarged. LA is severely dilated >40 ml/m2 The right atrium is markedly enlarged. 3 ml of Lumason was utilized for enhancement of images. Aortic valve is trileaflet and is mildly thickened. There is no evidence of aortic regurgitation. There is no evidence of aortic stenosis. The mitral valve leaflets are mildly thickened. Moderate mitral regurgitation is present. Moderate tricuspid regurgitation present. There is mild pulmonary hypertension. The right ventric ular systolic pressure, as measured by Doppler, is 43.47mmHg. Trace/mild (physiologic) pulmonic regurgitation. The aortic root size is normal. The IVC is dilated with normal collapse. There is no pericardial effusion. CONCLUSIONS -------- 1. Atrial fibrillation. 2. This was a technically difficult study with suboptimal views. 3. The left ventricular size is normal. 4. There is borderline concentric left ventricular hypertrophy. 5. There is severe global hypokinesis of LV . 6. Overall left ventricular systolic function is severely impaired with, an EF between 20 - 25 %. 7. The right ventricle is moderately enlarged. 8. LA is severely dilated >40 ml/m2 9. The right atrium is markedly enlarged. 10. 3 ml of Lumason was utilized for enhancement of images. 11. Aortic valve is trileaflet and is mildly thickened. 12. The mitral valve leaflets are mildly thickened. 13. Moderate mitral regurgitation is present. 14. Moderate tricuspid regurgitation present. 15. There is mild pulmonary hypertension. 16. The right ventricular systolic pressure, as measured by Doppler, is 43.47mmHg. 17. Trace/mild (physiologic) pulmonic regurgitation. 18. The aortic root size is normal. 19. The IVC is dilated with normal collapse. 20. There is no pericardial effusion. OIL AND GAS EXPLORATION TECHNICIAN: Edgar Bone RDCS
[2017-11-08] MEDS ORDERED: LORazepam 2 MG/ML INJ IV PRN ×2 (09:47→16:09)
[2017-11-08] MEDS: NICOTINE 21MG/24HR PATCH TRANSDERM SCH (10:00)
[2017-11-08] MEDS ORDERED: FUROSEMIDE 10 MG/ML 4 ML VIAL IV STA (10:22)
--- NOTE | 2017-11-08 10:55 | P.PN ---
<Debbie Fleming - Last Filed: 11/08/17 10:43> Subjective Progress Note Date: 11/08/17 66-year-old male seen in the ICU. Events noted patient was transferred from a stepdown unit to the ICU for episodes of V. tach being followed by cardiology service labs were reviewed did note the ammonia level 104 patient opens eyes to verbal stimuli currently sedated with Ativan being followed by the architectural drafting instructor patients being followed by surgical service for left lower quadrant tenderness likely due to diverticulitis Objective - Vital Signs Vital signs: Vital Signs Temp 96.2 F L 11/08/17 04:00 Pulse 71 11/08/17 10:30 Resp 19 11/08/17 10:30 BP 124/75 11/08/17 10:30 Pulse Ox 94 L 11/08/17 10:30 Intake & Output 11/07/17 11/08/17 11/08/17 18:59 06:59 18:59 Intake Total 607.877 4241.123 433.334 Output Total 179 80 Balance 335.967 859.123 353.334 Weight 101.1 kg 108.2 kg Intake: IV 377.8 224.2 Amiodarone 450 mg In 150.3 16.7 Dextrose 5% in Water 250 ml @ 1 MG/MIN 34.53 mls/ hr IV .Q7H31M [facility] Rx#: [id number] NS 65 95 Piperacillin-Tazobactam 3 62.5 12.5 .375 gm In Dextrose/Water 1 50ml.bag @ 12.5 mls/hr IVPB Q8H [facility] Rx#: [id number] metroNIDAZOLE-NS PMX 500 100 100 mg In Saline 1 100ml.bag @ 100 mls/hr IVPB Q6HR [facility] Rx#:[id number] Intake, IV Titration 335.967 660.323 209.134 Amount Amiodarone 450 mg In 172.65 220.64 209.134 Dextrose 5% in Water 250 ml @ 1 MG/MIN 34.53 mls/ hr IV .Q7H31M [facility] Rx#: [id number] Heparin Sod,Pork in 0.45% 163.317 439.683 NaCl 25,000 unit In 0.45 % NaCl 1 500ml.bag @ 10.3 UNITS/KG/HR 20.08 mls/hr IV .Q24H [facility] Rx#: [id number] Output: Urine 179 80 Other: Voiding Method Indwelling Catheter - Exam exam Abdomen soft mild tenderness to the left lower quadrant bowel tones present with hypoactive bowel tones. Mildly distended indwelling Em catheter in place - Labs CBC & Chem 7: 11/08/17 04:50 11/08/17 04:50 Labs: Abnormal Lab Results - Last 24 Hours (Table) 11/07/17 11/07/17 11/07/17 Range/Units 10:31 15:00 18:01 WBC (3.8-10.6) k/uL Hct (39.0-53.0) % MCHC (31.0-37.0) g/dL RDW (11.5-15.5) % Neutrophils # (1.3-7.7) k/uL Lymphocytes # (1.0-4.8) k/uL Monocytes # (0-1.0) k/uL APTT 34.9 H 47.5 H (22.0-30.0) sec ABG pH (7.35-7.45) ABG pCO2 (35-45) mmHg ABG pO2 (83-108) mmHg ABG HCO3 (21-25) mmol/L ABG Total CO2 (19-24) mmol/L ABG O2 Saturation (94-97) % Glucose (74-99) mg/dL POC Glucose (mg/dL) 181 H (75-99) mg/dL Phosphorus (2.5-4.5) mg/dL Ammonia (<30) umol/L Urine Protein (Negative) Urine Ketones (Negative) Urine Blood (Negative) Urine WBC (0-5) /hpf Amorphous Sediment (None) /hpf Hyaline Casts (0-2) /lpf Urine Mucus (None) /hpf 11/07/17 11/07/17 11/07/17 Range/Units 19:21 19:41 20:30 WBC (3.8-10.6) k/uL Hct (39.0-53.0) % MCHC (31.0-37.0) g/dL RDW (11.5-15.5) % Neutrophils # (1.3-7.7) k/uL Lymphocytes # (1.0-4.8) k/uL Monocytes # (0-1.0) k/uL APTT (22.0-30.0) sec ABG pH 7.18 L* (7.35-7.45) ABG pCO2 62 H (35-45) mmHg ABG pO2 (83-108) mmHg ABG HCO3 (21-25) mmol/L ABG Total CO2 25 H (19-24) mmol/L ABG O2 Saturation (94-97) % Glucose (74-99) mg/dL POC Glucose (mg/dL) 195 H (75-99) mg/dL Phosphorus (2.5-4.5) mg/dL Ammonia (<30) umol/L Urine Protein 2+ H (Negative) Urine Ketones Trace H (Negative) Urine Blood Trace H (Negative) Urine WBC 7 H (0-5) /hpf Amorphous Sediment Occasional H (None) /hpf Hyaline Casts 114 H (0-2) /lpf Urine Mucus Few H (None) /hpf 11/07/17 11/08/17 11/08/17 Range/Units 21:21 01:46 04:50 WBC 11.6 H (3.8-10.6) k/uL Hct 54.7 H (39.0-53.0) % MCHC 30.4 L (31.0-37.0) g/dL RDW 15.7 H (11.5-15.5) % Neutrophils # 9.4 H (1.3-7.7) k/uL Lymphocytes # 0.9 L (1.0-4.8) k/uL Monocytes # 1.1 H (0-1.0) k/uL APTT (22.0-30.0) sec ABG pH 7.30 L 7.31 L (7.35-7.45) ABG pCO2 58 H 51 H (35-45) mmHg ABG pO2 66 L 62 L (83-108) mmHg ABG HCO3 29 H 26 H (21-25) mmol/L ABG Total CO2 30 H 27 H (19-24) mmol/L ABG O2 Saturation 91.2 L 90.1 L (94-97) % Glucose (74-99) mg/dL POC Glucose (mg/dL) (75-99) mg/dL Phosphorus (2.5-4.5) mg/dL Ammonia (<30) umol/L Urine Protein (Negative) Urine Ketones (Negative) Urine Blood (Negative) Urine WBC (0-5) /hpf Amorphous Sediment (None) /hpf Hyaline Casts (0-2) /lpf Urine Mucus (None) /hpf 11/08/17 11/08/17 11/08/17 Range/Units 04:50 04:54 04:54 WBC (3.8-10.6) k/uL Hct (39.0-53.0) % MCHC (31.0-37.0) g/dL RDW (11.5-15.5) % Neutrophils # (1.3-7.7) k/uL Lymphocytes # (1.0-4.8) k/uL Monocytes # (0-1.0) k/uL APTT 78.5 H (22.0-30.0) sec ABG pH (7.35-7.45) ABG pCO2 (35-45) mmHg ABG pO2 (83-108) mmHg ABG HCO3 (21-25) mmol/L ABG Total CO2 (19-24) mmol/L ABG O2 Saturation (94-97) % Glucose 120 H (74-99) mg/dL POC Glucose (mg/dL) (75-99) mg/dL Phosphorus 4.6 H (2.5-4.5) mg/dL Ammonia 104 H (<30) umol/L Urine Protein (Negative) Urine Ketones (Negative) Urine Blood (Negative) Urine WBC (0-5) /hpf Amorphous Sediment (None) /hpf Hyaline Casts (0-2) /lpf Urine Mucus (None) /hpf 11/08/17 Range/Units 04:58 WBC (3.8-10.6) k/uL Hct (39.0-53.0) % MCHC (31.0-37.0) g/dL RDW (11.5-15.5) % Neutrophils # (1.3-7.7) k/uL Lymphocytes # (1.0-4.8) k/uL Monocytes # (0-1.0) k/uL APTT (22.0-30.0) sec ABG pH 7.28 L (7.35-7.45) ABG pCO2 49 H (35-45) mmHg ABG pO2 81 L (83-108) mmHg ABG HCO3 (21-25) mmol/L ABG Total CO2 25 H (19-24) mmol/L ABG O2 Saturation (94-97) % Glucose (74-99) mg/dL POC Glucose (mg/dL) (75-99) mg/dL Phosphorus (2.5-4.5) mg/dL Ammonia (<30) umol/L Urine Protein (Negative) Urine Ketones (Negative) Urine Blood (Negative) Urine WBC (0-5) /hpf Amorphous Sediment (None) /hpf Hyaline Casts (0-2) /lpf Urine Mucus (None) /hpf Microbiology - Last 24 Hours (Table) 11/06/17 00:42 Blood Culture - Preliminary Blood No Growth after 48 hours 11/06/17 00:42 Urine Culture - Final Urine,Voided Assessment and Plan Assessment: Impression Admission left lower quadrant pain suspect due to diverticulitis failed outpatient treatment Computed tomography scan abdomen pelvis show evidence of diverticulosis extensive with mild diverticulitis Obesity BMI 31 Newly diagnosed atrial fibrillation started on anticoagulation elquis History of recurrent episodes of diverticulitis Acute hypoxic respiratory failure desat in the 80s suspect due to underlying COPD Scheduled for colon resection in the near future November 11 for treatment of diverticulitis Abdominal pain left lower quadrant consistent with diverticulitis Current every day smoker 1 pack a day with nicotine dependency Elevated ammonia level Plan IV fluid as ordered Further surgical recommendations pending Will need to be off anticoagulation elquis for at least 48 hours prior to any surgical intervention Pain control IV antibiotics Zosyn and Flagyl DVT GI prophylaxis Will follow with you note dictated for Dr. reina rounding on behalf of Dr. petty The above impression and plan of care have been discussed and directed by signing physician. Debbie Fleming nurse practitioner acting as scribe for signing physician. <Thien Reina - Last Filed: 11/08/17 11:05> Objective - Vital Signs Vital signs: Vital Signs Temp 96.2 F L 11/08/17 04:00 Pulse 71 11/08/17 10:30 Resp 19 11/08/17 10:30 BP 124/75 11/08/17 10:30 Pulse Ox 94 L 11/08/17 10:30 Intake & Output 11/07/17 11/08/17 11/08/17 18:59 06:59 18:59 Intake Total 322.918 3899.123 433.334 Output Total 179 80 Balance 335.967 859.123 353.334 Weight 101.1 kg 108.2 kg Intake: IV 377.8 224.2 Amiodarone 450 mg In 150.3 16.7 Dextrose 5% in Water 250 ml @ 1 MG/MIN 34.53 mls/ hr IV .Q7H31M [facility] Rx#: [id number] NS 65 95 Piperacillin-Tazobactam 3 62.5 12.5 .375 gm In Dextrose/Water 1 50ml.bag @ 12.5 mls/hr IVPB Q8H [facility] Rx#: [id number] metroNIDAZOLE-NS PMX 500 100 100 mg In Saline 1 100ml.bag @ 100 mls/hr IVPB Q6HR [facility] Rx#:[id number] Intake, IV Titration 335.967 660.323 209.134 Amount Amiodarone 450 mg In 172.65 220.64 209.134 Dextrose 5% in Water 250 ml @ 1 MG/MIN 34.53 mls/ hr IV .Q7H31M [facility] Rx#: [id number] Heparin Sod,Pork in 0.45% 163.317 439.683 NaCl 25,000 unit In 0.45 % NaCl 1 500ml.bag @ 10.3 UNITS/KG/HR 20.08 mls/hr IV .Q24H [facility] Rx#: [id number] Output: Urine 179 80 Other: Voiding Method Indwelling Catheter - Labs CBC & Chem 7: 11/08/17 04:50 11/08/17 04:50 Labs: Abnormal Lab Results - Last 24 Hours (Table) 11/07/17 11/07/17 11/07/17 Range/Units 15:00 18:01 19:21 WBC (3.8-10.6) k/uL Hct (39.0-53.0) % MCHC (31.0-37.0) g/dL RDW (11.5-15.5) % Neutrophils # (1.3-7.7) k/uL Lymphocytes # (1.0-4.8) k/uL Monocytes # (0-1.0) k/uL APTT 47.5 H (22.0-30.0) sec ABG pH 7.18 L* (7.35-7.45) ABG pCO2 62 H (35-45) mmHg ABG pO2 (83-108) mmHg ABG HCO3 (21-25) mmol/L ABG Total CO2 25 H (19-24) mmol/L ABG O2 Saturation (94-97) % Glucose (74-99) mg/dL POC Glucose (mg/dL) 181 H (75-99) mg/dL Phosphorus (2.5-4.5) mg/dL Ammonia (<30) umol/L Urine Protein (Negative) Urine Ketones (Negative) Urine Blood (Negative) Urine WBC (0-5) /hpf Amorphous Sediment (None) /hpf Hyaline Casts (0-2) /lpf Urine Mucus (None) /hpf 11/07/17 11/07/17 11/07/17 Range/Units 19:41 20:30 21:21 WBC (3.8-10.6) k/uL Hct (39.0-53.0) % MCHC (31.0-37.0) g/dL RDW (11.5-15.5) % Neutrophils # (1.3-7.7) k/uL Lymphocytes # (1.0-4.8) k/uL Monocytes # (0-1.0) k/uL APTT (22.0-30.0) sec ABG pH 7.30 L (7.35-7.45) ABG pCO2 58 H (35-45) mmHg ABG pO2 66 L (83-108) mmHg ABG HCO3 29 H (21-25) mmol/L ABG Total CO2 30 H (19-24) mmol/L ABG O2 Saturation 91.2 L (94-97) % Glucose (74-99) mg/dL POC Glucose (mg/dL) 195 H (75-99) mg/dL Phosphorus (2.5-4.5) mg/dL Ammonia (<30) umol/L Urine Protein 2+ H (Negative) Urine Ketones Trace H (Negative) Urine Blood Trace H (Negative) Urine WBC 7 H (0-5) /hpf Amorphous Sediment Occasional H (None) /hpf Hyaline Casts 114 H (0-2) /lpf Urine Mucus Few H (None) /hpf 11/08/17 11/08/17 11/08/17 Range/Units 01:46 04:50 04:50 WBC 11.6 H (3.8-10.6) k/uL Hct 54.7 H (39.0-53.0) % MCHC 30.4 L (31.0-37.0) g/dL RDW 15.7 H (11.5-15.5) % Neutrophils # 9.4 H (1.3-7.7) k/uL Lymphocytes # 0.9 L (1.0-4.8) k/uL Monocytes # 1.1 H (0-1.0) k/uL APTT (22.0-30.0) sec ABG pH 7.31 L (7.35-7.45) ABG pCO2 51 H (35-45) mmHg ABG pO2 62 L (83-108) mmHg ABG HCO3 26 H (21-25) mmol/L ABG Total CO2 27 H (19-24) mmol/L ABG O2 Saturation 90.1 L (94-97) % Glucose 120 H (74-99) mg/dL POC Glucose (mg/dL) (75-99) mg/dL Phosphorus 4.6 H (2.5-4.5) mg/dL Ammonia (<30) umol/L Urine Protein (Negative) Urine Ketones (Negative) Urine Blood (Negative) Urine WBC (0-5) /hpf Amorphous Sediment (None) /hpf Hyaline Casts (0-2) /lpf Urine Mucus (None) /hpf 11/08/17 11/08/17 11/08/17 Range/Units 04:54 04:54 04:58 WBC (3.8-10.6) k/uL Hct (39.0-53.0) % MCHC (31.0-37.0) g/dL RDW (11.5-15.5) % Neutrophils # (1.3-7.7) k/uL Lymphocytes # (1.0-4.8) k/uL Monocytes # (0-1.0) k/uL APTT 78.5 H (22.0-30.0) sec ABG pH 7.28 L (7.35-7.45) ABG pCO2 49 H (35-45) mmHg ABG pO2 81 L (83-108) mmHg ABG HCO3 (21-25) mmol/L ABG Total CO2 25 H (19-24) mmol/L ABG O2 Saturation (94-97) % Glucose (74-99) mg/dL POC Glucose (mg/dL) (75-99) mg/dL Phosphorus (2.5-4.5) mg/dL Ammonia 104 H (<30) umol/L Urine Protein (Negative) Urine Ketones (Negative) Urine Blood (Negative) Urine WBC (0-5) /hpf Amorphous Sediment (None) /hpf Hyaline Casts (0-2) /lpf Urine Mucus (None) /hpf Microbiology - Last 24 Hours (Table) 11/06/17 00:42 Blood Culture - Preliminary Blood No Growth after 48 hours 11/06/17 00:42 Urine Culture - Final Urine,Voided Assessment and Plan Assessment: As above. Patient developed progressive confusion last night. He was somewhat combative. He is being seen by the intensivists and cardiology. No vomiting episodes. Etiology unclear but may be on the basis of hypercarbia and also some withdrawals. Ammonia level also significant elevated. Abdomen remains soft and nontender currently. Continue workup by pulmonary and cardiology. No immediate plans for surgical resection. Dr. Petty will resume care tomorrow. (1) Diverticulitis Current Visit: Yes Status: Acute Code(s): K57.92 - DVTRCLI OF INTEST, PART UNSP, W/O PERF OR ABSCESS W/O BLEED SNOMED Code(s): 105944178
[2017-11-08] MEDS: ISOSORBIDE MONONITRATE ER 30 MG TAB.ER.24H PO SCH (11:52)
[2017-11-08] MEDS: PANTOPRAZOLE 40 MG/10 ML VIAL IVP SCH ×2 (11:52→20:43)
[2017-11-08] MEDS: LISINOPRIL 5 MG TAB PO SCH (11:52)
[2017-11-08] MEDS: METOPROLOL TARTRATE 25 MG TAB PO SCH ×4 (11:52→20:49)
[2017-11-08] MEDS: SPIRONOLACTONE 25 MG TAB PO SCH (12:02)
[2017-11-08 12:11] LABS: Glucose,Whole Blood 114 mg/dL (75-99)
[2017-11-08] MEDS ORDERED: HALOPERIDOL LACTATE 5 MG/ML 1 ML VIAL IVP PRN ×3 (12:32→12:40)
--- NOTE | 2017-11-08 13:14 | P.PN ---
Subjective Progress Note Date: 11/08/17 This is a 66-year-old gentleman who was admitted to the hospital with a newly detected atrial fibrillation. He was also found to have cardiomyopathy and having episodes of ventricular tachycardia. Patient was started on IV amiodarone along with beta blockers and MARTÍN inhibitor along with Aldactone. Patient developed episodes of ventricular tachycardia and was transferred to intensive care unit. Patient was also found to be stenotic with elevated ammonia levels. Patient was also agitated requiring Haldol. Currently, patient is lethargic and sleepy. His maintaining sinus rhythm. He is on amiodarone drip. A chest x-ray showed cardiac megaly with mild CHF changes. We 'll continue current medical therapy. Patient is also being part of followed by a online editor. Patient may have underlying COPD and sleep apnea. Patient eventually needs a cardiac catheterization to rule out underlying ischemic heart disease. I will discuss with Dr. Jiménez within next 24 hours. Prognosis guarded. Patient is also currently on heparin Objective - Vital Signs Vital signs: Vital Signs Temp 98.7 F 11/08/17 12:00 Pulse 87 11/08/17 12:00 Resp 21 11/08/17 12:00 BP 135/96 11/08/17 12:00 Pulse Ox 90 L 11/08/17 12:00 Intake & Output 11/07/17 11/08/17 11/08/17 18:59 06:59 18:59 Intake Total 247.943 3331.123 644.899 Output Total 179 590 Balance 335.967 859.123 54.899 Weight 101.1 kg 108.2 kg Intake: IV 377.8 299.2 Amiodarone 450 mg In 150.3 16.7 Dextrose 5% in Water 250 ml @ 1 MG/MIN 34.53 mls/ hr IV .Q7H31M [facility] Rx#: [id number] NS 65 95 Piperacillin-Tazobactam 3 62.5 12.5 .375 gm In Dextrose/Water 1 50ml.bag @ 12.5 mls/hr IVPB Q8H [facility] Rx#: [id number] Sodium Chloride 0.45% 1, 75 000 ml @ 75 mls/hr IV . [id number] [facility] Rx#:[id number] metroNIDAZOLE-NS PMX 500 100 100 mg In Saline 1 100ml.bag @ 100 mls/hr IVPB Q6HR [facility] Rx#:[id number] Intake, IV Titration 335.967 660.323 345.699 Amount Amiodarone 450 mg In 172.65 220.64 209.134 Dextrose 5% in Water 250 ml @ 1 MG/MIN 34.53 mls/ hr IV .Q7H31M [facility] Rx#: [id number] Heparin Sod,Pork in 0.45% 163.317 439.683 136.565 NaCl 25,000 unit In 0.45 % NaCl 1 500ml.bag @ 10.3 UNITS/KG/HR 20.08 mls/hr IV .Q24H [facility] Rx#: [id number] Output: Urine 179 590 Other: Voiding Method Indwelling Catheter - Exam GENERAL EXAM: Patient is Sleepy and drowsy and not responding. Patient has received medication for agitation. HEENT: Normocephalic. NECK: No masses, no nuchal rigidity. CHEST: No chest wall deformity. LUNGS: Diminished breath sounds bilaterally HEART: Distant heart sounds ABDOMEN:Soft SKIN: No rashes CENTRAL NERVOUS SYSTEM: Deferred EXTREMITIES: [No cyanosis, clubbing or edema.]. - Labs CBC & Chem 7: 11/08/17 04:50 11/08/17 04:50 Labs: Abnormal Lab Results - Last 24 Hours (Table) 11/07/17 11/07/17 11/07/17 Range/Units 15:00 18:01 19:21 WBC (3.8-10.6) k/uL Hct (39.0-53.0) % MCHC (31.0-37.0) g/dL RDW (11.5-15.5) % Neutrophils # (1.3-7.7) k/uL Lymphocytes # (1.0-4.8) k/uL Monocytes # (0-1.0) k/uL APTT 47.5 H (22.0-30.0) sec ABG pH 7.18 L* (7.35-7.45) ABG pCO2 62 H (35-45) mmHg ABG pO2 (83-108) mmHg ABG HCO3 (21-25) mmol/L ABG Total CO2 25 H (19-24) mmol/L ABG O2 Saturation (94-97) % Glucose (74-99) mg/dL POC Glucose (mg/dL) 181 H (75-99) mg/dL Phosphorus (2.5-4.5) mg/dL Ammonia (<30) umol/L Urine Protein (Negative) Urine Ketones (Negative) Urine Blood (Negative) Urine WBC (0-5) /hpf Amorphous Sediment (None) /hpf Hyaline Casts (0-2) /lpf Urine Mucus (None) /hpf 11/07/17 11/07/17 11/07/17 Range/Units 19:41 20:30 21:21 WBC (3.8-10.6) k/uL Hct (39.0-53.0) % MCHC (31.0-37.0) g/dL RDW (11.5-15.5) % Neutrophils # (1.3-7.7) k/uL Lymphocytes # (1.0-4.8) k/uL Monocytes # (0-1.0) k/uL APTT (22.0-30.0) sec ABG pH 7.30 L (7.35-7.45) ABG pCO2 58 H (35-45) mmHg ABG pO2 66 L (83-108) mmHg ABG HCO3 29 H (21-25) mmol/L ABG Total CO2 30 H (19-24) mmol/L ABG O2 Saturation 91.2 L (94-97) % Glucose (74-99) mg/dL POC Glucose (mg/dL) 195 H (75-99) mg/dL Phosphorus (2.5-4.5) mg/dL Ammonia (<30) umol/L Urine Protein 2+ H (Negative) Urine Ketones Trace H (Negative) Urine Blood Trace H (Negative) Urine WBC 7 H (0-5) /hpf Amorphous Sediment Occasional H (None) /hpf Hyaline Casts 114 H (0-2) /lpf Urine Mucus Few H (None) /hpf 11/08/17 11/08/17 11/08/17 Range/Units 01:46 04:50 04:50 WBC 11.6 H (3.8-10.6) k/uL Hct 54.7 H (39.0-53.0) % MCHC 30.4 L (31.0-37.0) g/dL RDW 15.7 H (11.5-15.5) % Neutrophils # 9.4 H (1.3-7.7) k/uL Lymphocytes # 0.9 L (1.0-4.8) k/uL Monocytes # 1.1 H (0-1.0) k/uL APTT (22.0-30.0) sec ABG pH 7.31 L (7.35-7.45) ABG pCO2 51 H (35-45) mmHg ABG pO2 62 L (83-108) mmHg ABG HCO3 26 H (21-25) mmol/L ABG Total CO2 27 H (19-24) mmol/L ABG O2 Saturation 90.1 L (94-97) % Glucose 120 H (74-99) mg/dL POC Glucose (mg/dL) (75-99) mg/dL Phosphorus 4.6 H (2.5-4.5) mg/dL Ammonia (<30) umol/L Urine Protein (Negative) Urine Ketones (Negative) Urine Blood (Negative) Urine WBC (0-5) /hpf Amorphous Sediment (None) /hpf Hyaline Casts (0-2) /lpf Urine Mucus (None) /hpf 11/08/17 11/08/17 11/08/17 Range/Units 04:54 04:54 04:58 WBC (3.8-10.6) k/uL Hct (39.0-53.0) % MCHC (31.0-37.0) g/dL RDW (11.5-15.5) % Neutrophils # (1.3-7.7) k/uL Lymphocytes # (1.0-4.8) k/uL Monocytes # (0-1.0) k/uL APTT 78.5 H (22.0-30.0) sec ABG pH 7.28 L (7.35-7.45) ABG pCO2 49 H (35-45) mmHg ABG pO2 81 L (83-108) mmHg ABG HCO3 (21-25) mmol/L ABG Total CO2 25 H (19-24) mmol/L ABG O2 Saturation (94-97) % Glucose (74-99) mg/dL POC Glucose (mg/dL) (75-99) mg/dL Phosphorus (2.5-4.5) mg/dL Ammonia 104 H (<30) umol/L Urine Protein (Negative) Urine Ketones (Negative) Urine Blood (Negative) Urine WBC (0-5) /hpf Amorphous Sediment (None) /hpf Hyaline Casts (0-2) /lpf Urine Mucus (None) /hpf 11/08/17 11/08/17 Range/Units 11:04 12:10 WBC (3.8-10.6) k/uL Hct (39.0-53.0) % MCHC (31.0-37.0) g/dL RDW (11.5-15.5) % Neutrophils # (1.3-7.7) k/uL Lymphocytes # (1.0-4.8) k/uL Monocytes # (0-1.0) k/uL APTT 35.3 H (22.0-30.0) sec ABG pH (7.35-7.45) ABG pCO2 (35-45) mmHg ABG pO2 (83-108) mmHg ABG HCO3 (21-25) mmol/L ABG Total CO2 (19-24) mmol/L ABG O2 Saturation (94-97) % Glucose (74-99) mg/dL POC Glucose (mg/dL) 114 H (75-99) mg/dL Phosphorus (2.5-4.5) mg/dL Ammonia (<30) umol/L Urine Protein (Negative) Urine Ketones (Negative) Urine Blood (Negative) Urine WBC (0-5) /hpf Amorphous Sediment (None) /hpf Hyaline Casts (0-2) /lpf Urine Mucus (None) /hpf Microbiology - Last 24 Hours (Table) 11/07/17 20:30 Urine Culture - Preliminary Urine,Catheterized 11/06/17 00:42 Blood Culture - Preliminary Blood No Growth after 48 hours 11/06/17 00:42 Urine Culture - Final Urine,Voided Assessment and Plan (1) Ventricular tachycardia Current Visit: Yes Status: Acute Code(s): I47.2 - VENTRICULAR TACHYCARDIA SNOMED Code(s): 51395361 (2) Atrial fibrillation with RVR Current Visit: Yes Status: Acute Code(s): I48.91 - UNSPECIFIED ATRIAL FIBRILLATION SNOMED Code(s): 283466927849559 (3) COPD (chronic obstructive pulmonary disease) Current Visit: Yes Status: Acute Code(s): J44.9 - CHRONIC OBSTRUCTIVE PULMONARY DISEASE, UNSPECIFIED SNOMED Code(s): 25753942 (4) Mental status change resolved Current Visit: Yes Status: Acute Code(s): Z86.59 - PERSONAL HISTORY OF OTHER MENTAL AND BEHAVIORAL DISORDERS SNOMED Code(s): 561393751 (5) Respiratory failure Current Visit: Yes Status: Acute Code(s): J96.90 - RESPIRATORY FAILURE, UNSP , UNSP W HYPOXIA OR HYPERCAPNIA SNOMED Code(s): 354533794 (6) Cardiomyopathy Current Visit: Yes Status: Acute Code(s): I42.9 - CARDIOMYOPATHY, UNSPECIFIED SNOMED Code(s): 17386516 Plan: Continue respiratory support. Continue IV amiodarone. When his pulmonary status and mental status improves, we will consider cardiac catheterization for definite diagnosis. Meanwhile we'll also continue with anticoagulation.
[2017-11-08] MEDS: INSULIN ASPART 100 UNIT/ML 1 ML 10 ML VIAL SQ SCH ×3 (15:16→20:43)
[2017-11-08] MEDS ORDERED: LACTULOSE 200 GM/300 ML (FROM 1/2 GAL JUG) RECTAL ONE (17:00)
[2017-11-08 18:09] LABS: Glucose,Whole Blood 87 mg/dL (75-99)
[2017-11-08] MEDS: LACTULOSE 20 GM/30 ML CUP PO SCH ×3 (18:38→20:48)
[2017-11-08 21:26] LABS: Glucose,Whole Blood 108 mg/dL (75-99)
--- NOTE | 2017-11-08 22:54 | CT ---
EXAMINATION TYPE: CT brain wo con DATE OF EXAM: 11/08/2017 COMPARISON: None HISTORY: Altered mental status. CT DLP: 878.3 mGycm Automated exposure control for dose reduction was used. FINDINGS: There is some cerebral cortical atrophy. There is no mass effect nor midline shift. There is no sign of intracranial hemorrhage. The calvarium is intact. IMPRESSION: MILD CEREBRAL ATROPHY. NO ACUTE INTRACRANIAL ABNORMALITY.
[2017-11-09] MEDS: metroNIDAZOLE-NS PMX 500 MG in SALINE 1 100ML.BAG IVPB SCH ×4 (00:11→17:51)
--- NOTE | 2017-11-09 01:16 | P.PN ---
Subjective Progress Note Date: 11/07/17 Principal diagnosis: Atrial fibrillation with rapid ventricular rate Acute Diverticulitis. Being evaluated for colectomy Altered mental status Patient is a 66-year-old male with a known history of AAA, COPD , hypertension and recurrent diverticulitis and needs resection but delayed due to newly diagnosed atrial fibrillation came to ER with complaints of fever chills and sweating. Patient also complaining of lower abdominal pain which is consistent with his previous diverticular flare. Patient woke up this morning having cold sweats and fever. Patient was advised by his to come to ER and patient also delirious at home. Patient does have episodes of recurrent diverticulitis. Patient is on follow-up with general surgery and is planning for colon resection in next few days. Otherwise patient recently developed ventricular fibrillation for which patient was started on eliquis yesterday. Chest x-ray showed no acute cardio pulmonary process CT abdomen and pelvis showed mild inflammatory changes involving the descending colon. There is extensive colonic diverticulosis 11/07/2017 Patient became agitated and trying to get her to the bed and has been combative. Patient was given a dose of Haldol and was restrained. By afternoon patient became more awake and questions are being removed. Lateral evening patient became more confused and lethargic and became hypoxic. Basal patient was placed on her person nontender with a and ABGs were done showed respiratory acidosis. Discussed with the pulmonary and agree to be transferred to medical intensive care unit. Patient is being continued on amiodarone drip and heparin drip. 2-D echo data integrity consultant was done. Cardiology is following. Patient could not provide review of systems at this time Current medications reviewed. Objective - Vital Signs Vital signs: Vital Signs Temp 98.1 F 11/07/17 12:31 Pulse 80 11/07/17 12:31 Resp 18 11/07/17 12:31 BP 134/91 11/07/17 12:31 Pulse Ox 95 11/07/17 12:31 Intake & Output 11/06/17 11/07/17 11/07/17 18:59 06:59 18:59 Intake Total 335.967 Balance 335.967 Weight 101.1 kg Intake: Intake, IV Titration 335.967 Amount Amiodarone 450 mg In 172.65 Dextrose 5% in Water 250 ml @ 1 MG/MIN 34.53 mls/ hr IV .Q7H31M [facility] Rx#: [id number] Heparin Sod,Pork in 0.45% 163.317 NaCl 25,000 unit In 0.45 % NaCl 1 500ml.bag @ 10.3 UNITS/KG/HR 20.08 mls/hr IV .Q24H [facility] Rx#: [id number] Other: # Voids 2 - Exam PHYSICAL EXAMINATION: Patient is agitated and trying to the bed. Restrained currently... HEENT: Normocephalic. Neck is supple. Pupils reactive. Nostrils clear. Oral cavity is moist. Ears reveal no drainage. Neck reveals no JVD, carotid bruits, or thyromegaly. CHEST EXAMINATION: Trachea is central. Symmetrical expansion. Bibasilar diminished air entry and basal crackles. CARDIAC: Normal S1, S2 with no gallops. No murmurs . Irregular rhythm. ABDOMEN: Soft. Bowel sounds normal. No organomegaly. No abdominal bruits. Extremities: reveal no edema. No clubbing or cyanosis Neurologically lethargic and confused. No no gross focal deficits noted Skin: No rash or skin lesions. Psychiatric: Noncooperative. Could not be assessed completely Musculoskeletal: No joint swelling or deformity. Normal range of motion. - Labs CBC & Chem 7: 11/08/17 04:50 11/08/17 04:50 Labs: Abnormal Lab Results - Last 24 Hours (Table) 11/07/17 11/07/17 11/07/17 Range/Units 03:04 03:04 03:04 MCHC 30.6 L (31.0-37.0) g/dL RDW 15.8 H (11.5-15.5) % Lymphocytes # 0.9 L (1.0-4.8) k/uL INR 1.2 H (<1.2) APTT (22.0-30.0) sec Glucose 138 H (74-99) mg/dL Total Protein 6.2 L (6.3-8.2) g/dL 11/07/17 Range/Units 10:31 MCHC (31.0-37.0) g/dL RDW (11.5-15.5) % Lymphocytes # (1.0-4.8) k/uL INR (<1.2) APTT 34.9 H (22.0-30.0) sec Glucose (74-99) mg/dL Total Protein (6.3-8.2) g/dL Microbiology - Last 24 Hours (Table) 11/06/17 00:42 Urine Culture - Final Urine,Voided 11/06/17 00:42 Blood Culture - Preliminary Blood No Growth after 24 hours Assessment and Plan Assessment: Altered mental status and combativeness possible delirium/metabolic encephalopathy Acute descending colon diverticulitis Fever chills abdominal pain and sweating due to the above Atrial fibrillation with rapid ventricular rate on admission Mild troponin leak likely due to demand ischemia. Paroxysmal atrial fibrillation. Recently diagnosed COPD Hypertension Obesity BMI 31.7 Recurrent diverticulitis and is scheduled for colon resection Abdominal aortic/iliac aneurysms with history of repair Currently everyday smoker DVT prophylaxis Plan: Patient will be continued on IV fluids and antibiotics in the form of Zosyn and Flagyl. Patient will started on metoprolol for heart rate control and hold anticoagulation due to scheduled surgical procedures likely during his hospital stay as per surgical recommendations. Continue with breathing treatments and pain management. Follow up closely. Further recommendations based on the clinical course. Clear liquid diet. Time with Patient: Greater than 30
--- NOTE | 2017-11-09 01:20 | P.PN ---
Subjective Progress Note Date: 11/08/17 Principal diagnosis: Atrial fibrillation with rapid ventricular rate Acute Diverticulitis. Being evaluated for colectomy Altered mental status Patient is a 66-year-old male with a known history of AAA, COPD , hypertension and recurrent diverticulitis and needs resection but delayed due to newly diagnosed atrial fibrillation came to ER with complaints of fever chills and sweating. Patient also complaining of lower abdominal pain which is consistent with his previous diverticular flare. Patient woke up this morning having cold sweats and fever. Patient was advised by his to come to ER and patient also delirious at home. Patient does have episodes of recurrent diverticulitis. Patient is on follow-up with general surgery and is planning for colon resection in next few days. Otherwise patient recently developed ventricular fibrillation for which patient was started on eliquis yesterday. Chest x-ray showed no acute cardio pulmonary process CT abdomen and pelvis showed mild inflammatory changes involving the descending colon. There is extensive colonic diverticulosis 11/07/2017 Patient became agitated and trying to get her to the bed and has been combative. Patient was given a dose of Haldol and was restrained. By afternoon patient became more awake and questions are being removed. Lateral evening patient became more confused and lethargic and became hypoxic. Basal patient was placed on her person nontender with a and ABGs were done showed respiratory acidosis. Discussed with the pulmonary and agree to be transferred to medical intensive care unit. Patient is being continued on amiodarone drip and heparin drip. 2-D echo reservations clerk was done. Cardiology is following. 11/08/2017 Currently patient is lying in the bed comfortably. Patient was given a dose of Haldol for agitation. Otherwise patient is being continued on antibiotics. Ammonia level was elevated at 105 and repeat was 19. Patient was noted to have been in ventricular tachycardia. Currently on amiodarone drip and heparin drip. Cardiology is following and recommended cardiac Catheterization once clinically improves. Continued on antibiotics in the form of Levaquin and Flagyl for acute diverticulitis. General surgery and pulmonary is following. Patient could not provide review of systems at this time. Current medications reviewed. Active Medications Acetaminophen (Tylenol Tab) 650 mg PO Q6HR PRN PRN Reason: Mild Pain or Fever > 100.5 Albuterol/Ipratropium (Duoneb 0.5 Mg-3 Mg/3 Ml Soln) 3 ml INHALATION RT-QID [facility] Last Admin: 11/08/17 19:20 Dose: 3 ml Haloperidol Lactate (Haldol) 6 - 8 mg IVP Q6HR PRN PRN Reason: Agitation or Acute Psychosis Last Admin: 11/08/17 20:53 Dose: 6 mg Haloperidol Lactate (Haldol) 4 - 5 mg IVP Q4HR PRN PRN Reason: Agitation or Acute Psychosis Last Admin: 11/08/17 12:41 Dose: 5 mg Heparin Sodium (Porcine) (Heparin) 0 unit IV PER PROTOCOL PRN; Protocol PRN Reason: Low PTT Last Admin: 11/08/17 11:55 Dose: 4,000 unit Piperacillin/Tazobactam/ (Dextrose 3.375 gm/ IV Solution) 50 mls @ 12.5 mls/hr IVPB Q8H [facility] Last Admin: 11/08/17 18:47 Dose: 12.5 mls/hr Metronidazole 500 mg/ IV (Solution) 100 mls @ 100 mls/hr IVPB Q6HR [facility] Last Admin: 11/09/17 00:11 Dose: 100 mls/hr Heparin Sodium/Sodium Chloride (25,000 unit/ Sodium Chloride) 500 mls @ 20.08 mls/hr IV .Q24H [facility]; Protocol Last Titration: 11/08/17 18:38 Dose: 12 units/kg/hr, 23.4 mls/hr Amiodarone HCl 450 mg/ (Dextrose/Water) 250 mls @ 33.33 mls/hr IV .Q7H31M [facility]; Protocol Stop: 11/09/17 10:23 Last Admin: 11/08/17 20:15 Dose: 0.5 mg/min, 16.66 mls/hr Insulin Aspart (Novolog) 0 unit SQ ACHS [facility]; Protocol Last Admin: 11/08/17 20:43 Dose: Not Given Isosorbide Mononitrate (Imdur) 30 mg PO DAILY [facility] Last Admin: 11/08/17 11:52 Dose: Not Given Lactulose (Cephulac) 30 gm PO TID [facility] Last Admin: 11/08/17 20:48 Dose: Not Given Lisinopril (Zestril) 5 mg PO DAILY [facility] Last Admin: 11/08/17 11:52 Dose: Not Given Lorazepam (Ativan) 1 mg IV ONCE PRN PRN Reason: Agitation Last Admin: 11/08/17 09:54 Dose: 1 mg Lorazepam (Ativan) 1 mg IV Q6HR PRN PRN Reason: Agitation Last Admin: 11/08/17 16:20 Dose: 1 mg Metoprolol Tartrate (Lopressor) 25 mg PO QID [facility] Last Admin: 11/08/17 20:49 Dose: Not Given Naloxone HCl (Narcan) 0.2 mg IV Q2M PRN PRN Reason: Opioid Reversal Nicotine (Habitrol 21mg/24hr Patch) 1 patch TRANSDERM DAILY [facility] Last Admin: 11/08/17 10:00 Dose: 1 patch Nitroglycerin (Nitrostat) 0.4 mg SUBLINGUAL Q5M PRN PRN Reason: Chest Pain Ondansetron HCl (Zofran) 4 mg IVP Q8HR PRN PRN Reason: Nausea And Vomiting Pantoprazole Sodium (Protonix) 40 mg IVP BID [facility] Last Admin: 11/08/17 20:43 Dose: 40 mg Spironolactone (Aldactone) 25 mg PO DAILY [facility] Last Admin: 11/08/17 12:02 Dose: Not Given Objective - Vital Signs Vital signs: Vital Signs Temp 98.4 F 11/08/17 16:00 Pulse 101 H 11/08/17 18:00 Resp 25 H 11/08/17 18:00 BP 131/78 11/08/17 18:00 Pulse Ox 94 L 11/08/17 18:00 Intake & Output 11/08/17 11/08/17 11/09/17 06:59 18:59 06:59 Intake Total 8803.888 6848.719 Output Total 179 1636 Balance 859.123 -357.281 Weight 108.2 kg Intake: IV 377.8 749.2 Amiodarone 450 mg In 150.3 16.7 Dextrose 5% in Water 250 ml @ 1 MG/MIN 34.53 mls/ hr IV .Q7H31M [facility] Rx#: [id number] NS 65 95 Piperacillin-Tazobactam 3 62.5 12.5 .375 gm In Dextrose/Water 1 50ml.bag @ 12.5 mls/hr IVPB Q8H [facility] Rx#: [id number] Sodium Chloride 0.45% 1, 525 000 ml @ 75 mls/hr IV . [id number] [facility] Rx#:[id number] metroNIDAZOLE-NS PMX 500 100 100 mg In Saline 1 100ml.bag @ 100 mls/hr IVPB Q6HR [facility] Rx#:[id number] Intake, IV Titration 660.323 529.519 Amount Amiodarone 450 mg In 220.64 209.134 Dextrose 5% in Water 250 ml @ 1 MG/MIN 34.53 mls/ hr IV .Q7H31M [facility] Rx#: [id number] Heparin Sod,Pork in 0.45% 439.683 320.385 NaCl 25,000 unit In 0.45 % NaCl 1 500ml.bag @ 10.3 UNITS/KG/HR 20.08 mls/hr IV .Q24H [facility] Rx#: [id number] Output: Urine 179 1635 Stool 1 Other: Voiding Method Indwelling Catheter Indwelling Catheter - Exam PHYSICAL EXAMINATION: Patient is agitated and trying to the bed. Restrained currently... HEENT: Normocephalic. Neck is supple. Pupils reactive. Nostrils clear. Oral cavity is moist. Ears reveal no drainage. Neck reveals no JVD, carotid bruits, or thyromegaly. CHEST EXAMINATION: Trachea is central. Symmetrical expansion. Bibasilar diminished air entry and basal crackles. CARDIAC: Normal S1, S2 with no gallops. No murmurs . Irregular rhythm. ABDOMEN: Soft. Bowel sounds normal. No organomegaly. No abdominal bruits. Extremities: reveal no edema. No clubbing or cyanosis Neurologically lethargic and confused. No no gross focal deficits noted Skin: No rash or skin lesions. Psychiatric: Noncooperative. Could not be assessed completely Musculoskeletal: No joint swelling or deformity. Normal range of motion. - Labs CBC & Chem 7: 11/08/17 04:50 11/08/17 04:50 Labs: Abnormal Lab Results - Last 24 Hours (Table) 11/07/17 11/07/17 11/07/17 Range/Units 19:21 19:41 20:30 WBC (3.8-10.6) k/uL Hct (39.0-53.0) % MCHC (31.0-37.0) g/dL RDW (11.5-15.5) % Neutrophils # (1.3-7.7) k/uL Lymphocytes # (1.0-4.8) k/uL Monocytes # (0-1.0) k/uL APTT (22.0-30.0) sec ABG pH 7.18 L* (7.35-7.45) ABG pCO2 62 H (35-45) mmHg ABG pO2 (83-108) mmHg ABG HCO3 (21-25) mmol/L ABG Total CO2 25 H (19-24) mmol/L ABG O2 Saturation (94-97) % Glucose (74-99) mg/dL POC Glucose (mg/dL) 195 H (75-99) mg/dL Phosphorus (2.5-4.5) mg/dL Ammonia (<30) umol/L Urine Protein 2+ H (Negative) Urine Ketones Trace H (Negative) Urine Blood Trace H (Negative) Urine WBC 7 H (0-5) /hpf Amorphous Sediment Occasional H (None) /hpf Hyaline Casts 114 H (0-2) /lpf Urine Mucus Few H (None) /hpf 11/07/17 11/08/17 11/08/17 Range/Units 21:21 01:46 04:50 WBC 11.6 H (3.8-10.6) k/uL Hct 54.7 H (39.0-53.0) % MCHC 30.4 L (31.0-37.0) g/dL RDW 15.7 H (11.5-15.5) % Neutrophils # 9.4 H (1.3-7.7) k/uL Lymphocytes # 0.9 L (1.0-4.8) k/uL Monocytes # 1.1 H (0-1.0) k/uL APTT (22.0-30.0) sec ABG pH 7.30 L 7.31 L (7.35-7.45) ABG pCO2 58 H 51 H (35-45) mmHg ABG pO2 66 L 62 L (83-108) mmHg ABG HCO3 29 H 26 H (21-25) mmol/L ABG Total CO2 30 H 27 H (19-24) mmol/L ABG O2 Saturation 91.2 L 90.1 L (94-97) % Glucose (74-99) mg/dL POC Glucose (mg/dL) (75-99) mg/dL Phosphorus (2.5-4.5) mg/dL Ammonia (<30) umol/L Urine Protein (Negative) Urine Ketones (Negative) Urine Blood (Negative) Urine WBC (0-5) /hpf Amorphous Sediment (None) /hpf Hyaline Casts (0-2) /lpf Urine Mucus (None) /hpf 11/08/17 11/08/17 11/08/17 Range/Units 04:50 04:54 04:54 WBC (3.8-10.6) k/uL Hct (39.0-53.0) % MCHC (31.0-37.0) g/dL RDW (11.5-15.5) % Neutrophils # (1.3-7.7) k/uL Lymphocytes # (1.0-4.8) k/uL Monocytes # (0-1.0) k/uL APTT 78.5 H (22.0-30.0) sec ABG pH (7.35-7.45) ABG pCO2 (35-45) mmHg ABG pO2 (83-108) mmHg ABG HCO3 (21-25) mmol/L ABG Total CO2 (19-24) mmol/L ABG O2 Saturation (94-97) % Glucose 120 H (74-99) mg/dL POC Glucose (mg/dL) (75-99) mg/dL Phosphorus 4.6 H (2.5-4.5) mg/dL Ammonia 104 H (<30) umol/L Urine Protein (Negative) Urine Ketones (Negative) Urine Blood (Negative) Urine WBC (0-5) /hpf Amorphous Sediment (None) /hpf Hyaline Casts (0-2) /lpf Urine Mucus (None) /hpf 11/08/17 11/08/17 11/08/17 Range/Units 04:58 11:04 12:10 WBC (3.8-10.6) k/uL Hct (39.0-53.0) % MCHC (31.0-37.0) g/dL RDW (11.5-15.5) % Neutrophils # (1.3-7.7) k/uL Lymphocytes # (1.0-4.8) k/uL Monocytes # (0-1.0) k/uL APTT 35.3 H (22.0-30.0) sec ABG pH 7.28 L (7.35-7.45) ABG pCO2 49 H (35-45) mmHg ABG pO2 81 L (83-108) mmHg ABG HCO3 (21-25) mmol/L ABG Total CO2 25 H (19-24) mmol/L ABG O2 Saturation (94-97) % Glucose (74-99) mg/dL POC Glucose (mg/dL) 114 H (75-99) mg/dL Phosphorus (2.5-4.5) mg/dL Ammonia (<30) umol/L Urine Protein (Negative) Urine Ketones (Negative) Urine Blood (Negative) Urine WBC (0-5) /hpf Amorphous Sediment (None) /hpf Hyaline Casts (0-2) /lpf Urine Mucus (None) /hpf 11/08/17 Range/Units 17:50 WBC (3.8-10.6) k/uL Hct (39.0-53.0) % MCHC (31.0-37.0) g/dL RDW (11.5-15.5) % Neutrophils # (1.3-7.7) k/uL Lymphocytes # (1.0-4.8) k/uL Monocytes # (0-1.0) k/uL APTT 92.9 H (22.0-30.0) sec ABG pH (7.35-7.45) ABG pCO2 (35-45) mmHg ABG pO2 (83-108) mmHg ABG HCO3 (21-25) mmol/L ABG Total CO2 (19-24) mmol/L ABG O2 Saturation (94-97) % Glucose (74-99) mg/dL POC Glucose (mg/dL) (75-99) mg/dL Phosphorus (2.5-4.5) mg/dL Ammonia (<30) umol/L Urine Protein (Negative) Urine Ketones (Negative) Urine Blood (Negative) Urine WBC (0-5) /hpf Amorphous Sediment (None) /hpf Hyaline Casts (0-2) /lpf Urine Mucus (None) /hpf Microbiology - Last 24 Hours (Table) 11/07/17 20:30 Urine Culture - Preliminary Urine,Catheterized 11/06/17 00:42 Blood Culture - Preliminary Blood No Growth after 48 hours Assessment and Plan Assessment: Altered mental status and combativeness possible delirium/metabolic encephalopathy Acute descending colon diverticulitis Fever chills abdominal pain and sweating due to the above Persistent Atrial fibrillation with rapid ventricular rate on admission Mild troponin leak likely due to demand ischemia. Paroxysmal atrial fibrillation. Recently diagnosed COPD Hypertension Obesity BMI 31.7 Recurrent diverticulitis and is scheduled for colon resection Abdominal aortic/iliac aneurysms with history of repair Currently everyday smoker DVT prophylaxis Plan: Patient will be continued on IV fluids and antibiotics in the form of Zosyn and Flagyl. Patient is on metoprolol for heart rate control . Continue with heparin drip and amiodarone drip. Monitor closely. scheduled surgical procedures likely during his hospital stay as per surgical recommendations. Continue with breathing treatments and pain management. Follow up closely. Further recommendations based on the clinical course. Time with Patient: Greater than 30
[2017-11-09] MEDS: PIPERACILLIN-TAZOBACTAM 3.375 GM in DEXTROSE/WATER 1 50ML.BAG IVPB SCH ×3 (04:15→20:21)
[2017-11-09] MEDS: AMIODARONE 450 MG in DEXTROSE 5% IN WATER 250 ML IV SCH ×6 (04:15→11:38)
[2017-11-09] MEDS: HEPARIN SOD,PORK IN 0.45% NACL 25,000 UNIT in 0.45% NACL 1 500ML.BAG IV SCH (04:15)
[2017-11-09 05:21] LABS: Basophils % (A) 0 %; Eosinophils % (A) 1 %; HCT 51.5 % (39.0-53.0); HGB 16.1 gm/dL (13.0-17.5); Hypochromasia Slight; Lymphocytes # (A) 1.2 k/uL (1.0-4.8); Lymphocytes % (A) 14 %; MCH 29.8 pg (25.0-35.0); MCHC 31.3 g/dL (31.0-37.0); MCV 95.1 fL (80.0-100.0); Mean Platelet Volume 7.7; Monocytes # (A) 0.7 k/uL (0-1.0); Monocytes % (A) 9 %; Neutrophils # (A) 6.4 k/uL (1.3-7.7); Neutrophils % (A) 75 %; Platelet Count 127 k/uL (150-450); RBC 5.41 m/uL (4.30-5.90); RDW 15.9 % (11.5-15.5); WBC 8.6 k/uL (3.8-10.6)
[2017-11-09 05:34] LABS: Calcium 8.1 mg/dL (8.4-10.2); Magnesium 1.8 mg/dL (1.6-2.3); Phosphorus 3.7 mg/dL (2.5-4.5); Potassium 3.9 mmol/L (3.5-5.1)
[2017-11-09] MEDS ORDERED: Magnesium Replacement Protocol 1 EACH MISC MISCELLANE PRN (05:55)
[2017-11-09] MEDS ORDERED: Potassium Replacement Protocol 1 EACH MISC MISCELLANE PRN ×2 (05:55→13:37)
[2017-11-09 07:21] LABS: Glucose,Whole Blood 85 mg/dL (75-99)
--- NOTE | 2017-11-09 08:07 | XR ---
EXAMINATION TYPE: XR chest 1V DATE OF EXAM: 11/09/2017 COMPARISON: Prior chest x-ray 11/08/2017 HISTORY: Difficulty breathing TECHNIQUE: Single frontal view of the chest is obtained. FINDINGS: Patient is rotated. There are overlying cardiac leads. No evident pneumothorax. Heart delfina ins enlarged. Central vascularity is prominent as on prior exam. Difficult to exclude retrocardiac de nsity. IMPRESSION: Rotated exam, persistent cardiomegaly. Difficult to exclude basilar atelectasis versus p neumonia due to technique. Follow-up PA and lateral chest x-ray likely would be of benefit.
[2017-11-09] MEDS: POTASSIUM CHLORIDE 10 MEQ in WATER FOR INJECTION 1 100ML.BAG IVPB SCH ×2 (08:11→09:14)
[2017-11-09] MEDS: IPRATROPIUM-ALBUTEROL 3 ML NEB INHALATION SCH ×4 (08:12→19:35)
[2017-11-09] MEDS: INSULIN ASPART 100 UNIT/ML 1 ML 10 ML VIAL SQ SCH ×4 (08:12→20:51)
[2017-11-09] MEDS: ISOSORBIDE MONONITRATE ER 30 MG TAB.ER.24H PO SCH ×2 (08:15→09:21)
[2017-11-09] MEDS: SPIRONOLACTONE 25 MG TAB PO SCH ×2 (08:16→09:21)
[2017-11-09] MEDS: LISINOPRIL 5 MG TAB PO SCH ×2 (08:16→09:20)
[2017-11-09] MEDS: METOPROLOL TARTRATE 25 MG TAB PO SCH ×5 (08:16→21:00)
[2017-11-09] MEDS: LACTULOSE 20 GM/30 ML CUP PO SCH ×3 (08:16→20:59)
[2017-11-09] MEDS: PANTOPRAZOLE 40 MG/10 ML VIAL IVP SCH ×2 (08:20→21:00)
[2017-11-09] MEDS: MAGNESIUM SULFATE-D5W PMX 1 GM in DEXTROSE/WATER 1 100ML.BAG IVPB SCH ×2 (08:29→09:24)
[2017-11-09] MEDS: NICOTINE 21MG/24HR PATCH TRANSDERM SCH (09:17)
--- NOTE | 2017-11-09 10:42 | P.PN ---
Subjective Progress Note Date: 11/09/17 This is a 66-year-old gentleman who was admitted to the hospital with a newly detected atrial fibrillation. He was also found to have cardiomyopathy and having episodes of ventricular tachycardia. Patient was started on IV amiodarone along with beta blockers and MARTÍN inhibitor along with Aldactone. Patient developed episodes of ventricular tachycardia and was transferred to intensive care unit. Patient was also found to be stenotic with elevated ammonia levels. Patient was also agitated requiring Haldol. Currently, patient is lethargic and sleepy. His maintaining sinus rhythm. He is on amiodarone drip. A chest x-ray showed cardiac megaly with mild CHF changes. We 'll continue current medical therapy. Patient is also being part of followed by a relay mechanic. Patient may have underlying COPD and sleep apnea. Patient eventually needs a cardiac catheterization to rule out underlying ischemic heart disease. I will discuss with Dr. Jiménez within next 24 hours. Prognosis guarded. Patient is also currently on heparin. 11/09/2017: This patient is much more alert today. Denies any chest pain. Appears mildly short of breath. Maintaining sinus rhythm. Chest x-ray showed cardiomegaly without any overt failure. Hasn't had any recurrence of V. tach. He is on amiodarone. His lungs show diminished breath sounds with rhonchi. Heart is irregular. He is on heparin. We'll resume his metoprolol, MARTÍN inhibitor and also Aldactone. I discussed with Dr. Jiménez. We'll proceed with cardiac catheterization tomorrow. Objective - Vital Signs Vital signs: Vital Signs Temp 98.2 F 11/09/17 08:00 Pulse 110 H 11/09/17 10:00 Resp 16 11/09/17 10:00 BP 151/86 11/09/17 10:00 Pulse Ox 97 11/09/17 10:00 Intake & Output 11/08/17 11/09/17 11/09/17 18:59 06:59 18:59 Intake Total 7997.219 6718.011 711.354 Output Total 1636 565 110 Balance -715.659 7450.011 601.354 Weight 105.4 kg 105.4 kg Intake: IV 749.2 1325.0 225 Amiodarone 450 mg In 16.7 Dextrose 5% in Water 250 ml @ 1 MG/MIN 34.53 mls/ hr IV .Q7H31M [facility] Rx#: [id number] NS 95 Piperacillin-Tazobactam 3 12.5 50.0 .375 gm In Dextrose/Water 1 50ml.bag @ 12.5 mls/hr IVPB Q8H [facility] Rx#: [id number] Sodium Chloride 0.45% 1, 525 975 225 000 ml @ 75 mls/hr IV . [id number] [facility] Rx#:[id number] metroNIDAZOLE-NS PMX 500 100 300 mg In Saline 1 100ml.bag @ 100 mls/hr IVPB Q6HR [facility] Rx#:[id number] Intake, IV Titration 529.519 527.011 486.354 Amount Amiodarone 450 mg In 383.28 86.354 Dextrose 5% in Water 250 ml @ 1 MG/MIN 33.33 mls/ hr IV .Q7H31M [facility] Rx#: [id number] Amiodarone 450 mg In 209.134 Dextrose 5% in Water 250 ml @ 1 MG/MIN 34.53 mls/ hr IV .Q7H31M [facility] Rx#: [id number] Heparin Sod,Pork in 0.45% 320.385 143.731 NaCl 25,000 unit In 0.45 % NaCl 1 500ml.bag @ 10.3 UNITS/KG/HR 20.08 mls/hr IV .Q24H [facility] Rx#: [id number] Magnesium Sulfate-D5w Pmx 200 1 gm In Dextrose/Water 1 100ml.bag @ 100 mls/hr IVPB Q1H [facility] Rx#: [id number] Potassium Chloride 10 meq 200 In Water For Injection 1 100ml.bag @ 100 mls/hr IVPB Q1H [facility] Rx#: [id number] Output: Urine 1635 565 110 Stool 1 Other: Voiding Method Indwelling Catheter Indwelling Catheter Indwelling Catheter - Exam GENERAL EXAM: Patient alert and oriented HEENT: Normocephalic. NECK: No masses, no nuchal rigidity. CHEST: No chest wall deformity. LUNGS: Diminished breath sounds bilaterally HEART: Distant heart sounds ABDOMEN:Soft SKIN: No rashes CENTRAL NERVOUS SYSTEM: Alert and oriented without any focal deficit EXTREMITIES: [No cyanosis, clubbing or edema.]. - Labs CBC & Chem 7: 11/09/17 04:06 11/09/17 04:06 Labs: Abnormal Lab Results - Last 24 Hours (Table) 11/08/17 11/08/17 11/08/17 Range/Units 11:04 12:10 17:50 RDW (11.5-15.5) % Plt Count (150-450) k/uL APTT 35.3 H 92.9 H (22.0-30.0) sec BUN (9-20) mg/dL POC Glucose (mg/dL) 114 H (75-99) mg/dL Calcium (8.4-10.2) mg/dL 11/08/17 11/08/17 11/09/17 Range/Units 20:42 23:40 04:06 RDW 15.9 H (11.5-15.5) % Plt Count 127 L (150-450) k/uL APTT 70.6 H (22.0-30.0) sec BUN (9-20) mg/dL POC Glucose (mg/dL) 108 H (75-99) mg/dL Calcium (8.4-10.2) mg/dL 11/09/17 Range/Units 04:06 RDW (11.5-15.5) % Plt Count (150-450) k/uL APTT (22.0-30.0) sec BUN 23 H (9-20) mg/dL POC Glucose (mg/dL) (75-99) mg/dL Calcium 8.1 L (8.4-10.2) mg/dL Microbiology - Last 24 Hours (Table) 11/06/17 00:42 Blood Culture - Preliminary Blood No Growth after 72 hours 11/07/17 20:30 Urine Culture - Preliminary Urine,Catheterized Assessment and Plan (1) Ventricular tachycardia Current Visit: Yes Status: Acute Code(s): I47.2 - VENTRICULAR TACHYCARDIA SNOMED Code(s): 04632336 (2) Atrial fibrillation with RVR Current Visit: Yes Status: Acute Code(s): I48.91 - UNSPECIFIED ATRIAL FIBRILLATION SNOMED Code(s): 165100054056964 (3) COPD (chronic obstructive pulmonary disease) Current Visit: Yes Status: Acute Code(s): J44.9 - CHRONIC OBSTRUCTIVE PULMONARY DISEASE, UNSPECIFIED SNOMED Code(s): 89886528 (4) Mental status change resolved Current Visit: Yes Status: Acute Code(s): Z86.59 - PERSONAL HISTORY OF OTHER MENTAL AND BEHAVIORAL DISORDERS SNOMED Code(s): 633260473 (5) Respiratory failure Current Visit: Yes Status: Acute Code(s): J96.90 - RESPIRATORY FAILURE, UNSP , UNSP W HYPOXIA OR HYPERCAPNIA SNOMED Code(s): 207373388 (6) Cardiomyopathy Current Visit: Yes Status: Acute Code(s): I42.9 - CARDIOMYOPATHY, UNSPECIFIED SNOMED Code(s): 41404930 Plan: Continue respiratory support. Continue IV amiodarone. When his pulmonary status and mental status improves, we will consider cardiac catheterization for definite diagnosis. Meanwhile we'll also continue with anticoagulation. 11/09/2017: Patient seemed to be much more alert and stable. We'll resume his oral medications. Continue with IV amiodarone and heparin. Cardiac catheterization tomorrow
[2017-11-09 12:32] LABS: Hemoglobin A1C 6.2 % (4.0-6.0)
[2017-11-09 12:38] LABS: Magnesium 2.2 mg/dL (1.6-2.3); Potassium 3.9 mmol/L (3.5-5.1)
[2017-11-09 12:40] LABS: Glucose,Whole Blood 89 mg/dL (75-99)
--- NOTE | 2017-11-09 13:54 | P.PN ---
Subjective Progress Note Date: 11/09/17 On today's evaluation of a 22,019 I'm seeing this patient for a follow-up. The patient and is in the intensive care unit for an acute diverticulitis and the patient underwent a surgical evaluation. The patient is currently on a combination of Zosyn and Flagyl. The patient is afebrile hemodynamically stable at this point on no pressors. He did experience some altered mentation for which she was given Haldol overnight and this morning it is much more alert and awake and responsive and following commands and answering questions appropriately. The patient is a bit bronchospastic and wheezy on today's evaluation. He is a congested cough. Is an ex-smoker. He has history of COPD. He was started on DuoNeb nebulized treatments around the clock and Pulmicort and Perforomist nebulized treatments be also added to optimize his COPD. At the same time, the patient was found to have cardiomyopathy with impaired left a ejection fraction. He is having episodes of tachycardia. He was started on IV amiodarone and beta blockers and rico inhibitors and Aldactone. The patient currently is in atrial fibrillation. Rate is controlled. Cardiology evaluated the patient and it was decided the patient will need a cardiac catheterization to rule out underlying ischemic heart disease specialist and with his impaired LV function and episodes of V. tach. The patient is also on IV heparin for now. The chest x-ray from today shows some bibasilar atelectatic change. No evidence of pneumonia. No evidence of any pneumothorax. The echocardiogram that was completed showed severe global hypokinesis of left ventricular with an ejection fraction of 20-25%, severely dilated left a chair and, right atrium is markedly enlarged, moderate mitral regurgitation, moderate tricuspid regurgitation, moderate pulmonary hypertension with a PA pressure of 43. Objective - Vital Signs Vital signs: Vital Signs Temp 97.8 F 11/09/17 12:00 Pulse 75 11/09/17 13:00 Resp 26 H 11/09/17 13:00 BP 123/74 11/09/17 13:00 Pulse Ox 98 11/09/17 13:00 Intake & Output 11/08/17 11/09/17 11/09/17 18:59 06:59 18:59 Intake Total 7617.850 2735.011 1436.354 Output Total 1636 565 230 Balance -860.649 4869.011 1206.354 Weight 105.4 kg 105.4 kg Intake: IV 749.2 1325.0 450 Amiodarone 450 mg In 16.7 Dextrose 5% in Water 250 ml @ 1 MG/MIN 34.53 mls/ hr IV .Q7H31M [facility] Rx#: [id number] NS 95 Piperacillin-Tazobactam 3 12.5 50.0 .375 gm In Dextrose/Water 1 50ml.bag @ 12.5 mls/hr IVPB Q8H [facility] Rx#: [id number] Sodium Chloride 0.45% 1, 525 975 450 000 ml @ 75 mls/hr IV . [id number] [facility] Rx#:[id number] metroNIDAZOLE-NS PMX 500 100 300 mg In Saline 1 100ml.bag @ 100 mls/hr IVPB Q6HR [facility] Rx#:[id number] Intake, IV Titration 529.519 527.011 486.354 Amount Amiodarone 450 mg In 383.28 86.354 Dextrose 5% in Water 250 ml @ 1 MG/MIN 33.33 mls/ hr IV .Q7H31M [facility] Rx#: [id number] Amiodarone 450 mg In 209.134 Dextrose 5% in Water 250 ml @ 1 MG/MIN 34.53 mls/ hr IV .Q7H31M [facility] Rx#: [id number] Heparin Sod,Pork in 0.45% 320.385 143.731 NaCl 25,000 unit In 0.45 % NaCl 1 500ml.bag @ 10.3 UNITS/KG/HR 20.08 mls/hr IV .Q24H [facility] Rx#: [id number] Magnesium Sulfate-D5w Pmx 200 1 gm In Dextrose/Water 1 100ml.bag @ 100 mls/hr IVPB Q1H [facility] Rx#: [id number] Potassium Chloride 10 meq 200 In Water For Injection 1 100ml.bag @ 100 mls/hr IVPB Q1H [facility] Rx#: [id number] Oral 500 Output: Urine 1635 565 230 Stool 1 Other: Voiding Method Indwelling Catheter Indwelling Catheter Indwelling Catheter - Exam Gen. appearance is calm and comfortable likely distress following commands and answering questions appropriately. Head exam was generally normal. There was no scleral icterus or corneal arcus. Mucous membranes were moist. Neck was supple and without jugular venous distension, thyromegaly, or carotid bruits. Carotids were easily palpable bilaterally. There was no adenopathy. Lungs sounds are diminished bilaterally along with diffuse expiratory wheezes throughout the lung clemente Heart sounds are irregular S1-S2, no significant murmurs appreciated. No right ventricular heave or thrill. Abdomen is soft and there is no direct tenderness or rebound tensile guarding. Bowel sounds are hypoactive at the present. No organomegaly. No ascites. No fluid wave. No shifting dullness. Examination of the skin revealed no evidence of significant rashes, suspicious appearing nevi or other concerning lesions. Neurologically awake and alert and is a focal neurological deficit Psychiatric appropriate mood and affect Examination of the extremities revealed easily palpable radial, femoral and pedal pulses. There was no cyanosis, clubbing or edema. - Labs CBC & Chem 7: 11/09/17 04:06 11/09/17 12:00 Labs: Abnormal Lab Results - Last 24 Hours (Table) 11/08/17 11/08/17 11/08/17 Range/Units 17:50 20:42 23:40 RDW (11.5-15.5) % Plt Count (150-450) k/uL APTT 92.9 H 70.6 H (22.0-30.0) sec BUN (9-20) mg/dL POC Glucose (mg/dL) 108 H (75-99) mg/dL Calcium (8.4-10.2) mg/dL 11/09/17 11/09/17 Range/Units 04:06 04:06 RDW 15.9 H (11.5-15.5) % Plt Count 127 L (150-450) k/uL APTT (22.0-30.0) sec BUN 23 H (9-20) mg/dL POC Glucose (mg/dL) (75-99) mg/dL Calcium 8.1 L (8.4-10.2) mg/dL Microbiology - Last 24 Hours (Table) 11/06/17 00:42 Blood Culture - Preliminary Blood No Growth after 72 hours 11/07/17 20:30 Urine Culture - Preliminary Urine,Catheterized Assessment and Plan Plan: Assessment 1 acute diverticulitis in a patient with known having severe diverticulosis. Currently on examination of Agnes and Neeta, hemodynamically stable. 2 altered mentation/delirium, improved. This this could have been also has septic metabolic encephalopathy. CAT scan of the brain shows no acute abnormalities 3 cardiomyopathy with impaired ejection fraction of 25% and global hypokinesis and moderate MR with moderate degree of pulmonary hypertension 4 chronic atrial fibrillation with rapid ventricular response 5 episodes of ventricular tachycardia, nonsustained 6 fever or abdominal pain secondary to above at time of admission, improving 7 COPD exacerbation 8 hypertension 9 obesity BMI 31.7 10 abdominal aortic aneurysm status post abdominal aortic aneurysm repair Plan Continue IV fluids and the patient is currently on D5 half-normal at the rate of 75 mL an hour. Continue Zosyn and Flagyl. Continue amiodarone drip for atrial fibrillation and the rate is much under better control for now. Continue IV heparin. Continue monitoring mentation. In terms of other pulmonary status, continue DuoNeb nebulized treatments around the clock, avoid systemic steroids and put the patient on a combination of Perforomist and Pulmicort nebulized treatments twice a day. DVT and GI prophylaxis. Cardiac catheterization and later stage and this will be needed preoperatively based on the patient's ongoing cardiac events. General surgeries on the case regarding the acute diverticulitis. We'll continue to follow. Keep the patient ICU for now.
[2017-11-09] MEDS ORDERED: POTASSIUM CHLORIDE ER 20 MEQ TAB.ER PO ONE (14:00)
--- NOTE | 2017-11-09 15:12 | P.PN ---
Subjective 66-year-old male with a known history of AAA, COPD , hypertension and recurrent diverticulitis and needs resection but delayed due to newly diagnosed atrial fibrillation came to ER with complaints of fever chills and sweating. Patient also complaining of lower abdominal pain which is consistent with his previous diverticular flare. Patient woke up this morning having cold sweats and fever. Patient was advised by his to come to ER and patient also delirious at home. Patient does have episodes of recurrent diverticulitis. Patient is on follow-up with general surgery and is planning for colon resection in next few days. Otherwise patient recently developed ventricular fibrillation for which patient was started on eliquis yesterday. Chest x-ray showed no acute cardio pulmonary process CT abdomen and pelvis showed mild inflammatory changes involving the descending colon. There is extensive colonic diverticulosis 11/07/2017 Patient became agitated and trying to get her to the bed and has been combative. Patient was given a dose of Haldol and was restrained. By afternoon patient became more awake and questions are being removed. Lateral evening patient became more confused and lethargic and became hypoxic. Basal patient was placed on her person nontender with a and ABGs were done showed respiratory acidosis. Discussed with the pulmonary and agree to be transferred to medical intensive care unit. Patient is being continued on amiodarone drip and heparin drip. 2-D echo director of education was done. Cardiology is following. 11/08/2017 Currently patient is lying in the bed comfortably. Patient was given a dose of Haldol for agitation. Otherwise patient is being continued on antibiotics. Ammonia level was elevated at 105 and repeat was 19. Patient was noted to have been in ventricular tachycardia. Currently on amiodarone drip and heparin drip. Cardiology is following and recommended cardiac Catheterization once clinically improves. Continued on antibiotics in the form of Levaquin and Flagyl for acute diverticulitis. General surgery and pulmonary is following. Patient could not provide review of systems at this time. 11/09/2017 Patient is fairly doing well today. Although has significant wheezing on exam. Patient appears to have COPD. Does have advanced heart failure or cardiomyopathy with ejection fraction of only 20% along with atrial fibrillation. Patient heart rate is well controlled blood pressure is fairly stable now patient is on IV heparin drip. Patient is on amiodarone and metoprolol patient is definitely high operative risk same thing was discussed with the patient. Patient is on inhaled steroids at this time. Patient is awaiting clearance from cardiology for surgery. Patient is presently on Zosyn and Flagyl Objective - Vital Signs Vital signs: Vital Signs Temp 97.8 F 11/09/17 12:00 Pulse 75 11/09/17 13:00 Resp 26 H 11/09/17 13:00 BP 123/74 11/09/17 13:00 Pulse Ox 98 11/09/17 13:00 Intake & Output 11/08/17 11/09/17 11/09/17 18:59 06:59 18:59 Intake Total 1232.134 8247.011 1436.354 Output Total 1636 565 230 Balance -775.651 4439.011 1206.354 Weight 105.4 kg 105.4 kg Intake: IV 749.2 1325.0 450 Amiodarone 450 mg In 16.7 Dextrose 5% in Water 250 ml @ 1 MG/MIN 34.53 mls/ hr IV .Q7H31M [facility] Rx#: [id number] NS 95 Piperacillin-Tazobactam 3 12.5 50.0 .375 gm In Dextrose/Water 1 50ml.bag @ 12.5 mls/hr IVPB Q8H [facility] Rx#: [id number] Sodium Chloride 0.45% 1, 525 975 450 000 ml @ 75 mls/hr IV . [id number] Rx#:[id number] metroNIDAZOLE-NS PMX 500 100 300 mg In Saline 1 100ml.bag @ 100 mls/hr IVPB Q6HR [facility] Rx#:[id number] Intake, IV Titration 529.519 527.011 486.354 Amount Amiodarone 450 mg In 383.28 86.354 Dextrose 5% in Water 250 ml @ 1 MG/MIN 33.33 mls/ hr IV .Q7H31M [facility] Rx#: [id number] Amiodarone 450 mg In 209.134 Dextrose 5% in Water 250 ml @ 1 MG/MIN 34.53 mls/ hr IV .Q7H31M [facility] Rx#: [id number] Heparin Sod,Pork in 0.45% 320.385 143.731 NaCl 25,000 unit In 0.45 % NaCl 1 500ml.bag @ 10.3 UNITS/KG/HR 20.08 mls/hr IV .Q24H [facility] Rx#: [id number] Magnesium Sulfate-D5w Pmx 200 1 gm In Dextrose/Water 1 100ml.bag @ 100 mls/hr IVPB Q1H [facility] Rx#: [id number] Potassium Chloride 10 meq 200 In Water For Injection 1 100ml.bag @ 100 mls/hr IVPB Q1H [facility] Rx#: [id number] Oral 500 Output: Urine 1635 565 230 Stool 1 Other: Voiding Method Indwelling Catheter Indwelling Catheter Indwelling Catheter - Exam PHYSICAL EXAMINATION: GENERAL: The patient is alert and oriented x3, not in any acute distress. Well developed, well nourished. HEENT: Pupils are round and equally reacting to light. EOMI. No scleral icterus. No conjunctival pallor. Normocephalic, atraumatic. No pharyngeal erythema. No thyromegaly. CARDIOVASCULAR: S1 and S2 present. No murmurs, rubs, or gallops. PULMONARY: Significant expiratory wheezing no significant JVD ABDOMEN: Minimal abdominal tenderness in the left lower quadrant bowel sounds are present. MUSCULOSKELETAL: No joint swelling or deformity. EXTREMITIES: No cyanosis, clubbing, or pedal edema. NEUROLOGICAL: Gross neurological examination did not reveal any focal deficits. SKIN: No rashes. - Labs CBC & Chem 7: 11/09/17 04:06 11/09/17 12:00 Labs: Abnormal Lab Results - Last 24 Hours (Table) 11/08/17 11/08/17 11/08/17 Range/Units 17:50 20:42 23:40 RDW (11.5-15.5) % Plt Count (150-450) k/uL APTT 92.9 H 70.6 H (22.0-30.0) sec BUN (9-20) mg/dL POC Glucose (mg/dL) 108 H (75-99) mg/dL Calcium (8.4-10.2) mg/dL 11/09/17 11/09/17 Range/Units 04:06 04:06 RDW 15.9 H (11.5-15.5) % Plt Count 127 L (150-450) k/uL APTT (22.0-30.0) sec BUN 23 H (9-20) mg/dL POC Glucose (mg/dL) (75-99) mg/dL Calcium 8.1 L (8.4-10.2) mg/dL Microbiology - Last 24 Hours (Table) 11/07/17 20:30 Urine Culture - Final Urine,Catheterized 11/06/17 00:42 Blood Culture - Preliminary Blood No Growth after 72 hours Assessment and Plan Plan: Assessment and Plan Assessment: Altered mental status and combativeness improved now secondary to diverticulitis and toxic encephalopathy Acute descending colon diverticulitis: Patient is on Zosyn and Flagyl will not add urgent operative intervention, plan is to optimize his heart failure atrial fibrillation COPD to decrease operative risk patient is definitely high operative risk. Congestive heart failure: Chronic systolic dysfunction ejection fraction of around 20% patient is fairly euvolemic at this time. Fever chills abdominal pain and sweating due to colitis Persistent Atrial fibrillation presently rate controlled patient is on amiodarone, IV heparin and metoprolol which will be continued Mild troponin leak likely due to demand ischemia. Paroxysmal atrial fibrillation. Recently diagnosed COPD acute exacerbation patient is on inhaled steroids which will be continued Hypertension Obesity BMI 31.7 Recurrent diverticulitis and is scheduled for colon resection Abdominal aortic/iliac aneurysms with history of repair DVT prophylaxis
--- NOTE | 2017-11-09 15:47 | P.PN ---
Progress Note - Text Progress Note Date: 11/09/17 The patient is resting comfortably in his bed. He denies any significant abdominal pain. Apparently he is scheduled for a cardiac catheterization in the a.m. On exam his vital signs are stable. His abdomen is soft. There is some minimal left lower quadrant tenderness. Diverticulitis. Patient was scheduled for elective low anterior resection on . This will be postponed until he has cardiac clearance.
[2017-11-09 16:51] LABS: Glucose,Whole Blood 101 mg/dL (75-99)
[2017-11-09] MEDS: BUDESONIDE 1 MG/2 ML NEBU INHALATION SCH (19:35)
[2017-11-09] MEDS: FORMOTEROL FUMARATE 20 MCG/2 ML NEBU INHALATION SCH (19:49)
[2017-11-09 20:49] LABS: Glucose,Whole Blood 159 mg/dL (75-99)
[2017-11-10] MEDS: metroNIDAZOLE-NS PMX 500 MG in SALINE 1 100ML.BAG IVPB SCH ×4 (00:28→17:48)
[2017-11-10] MEDS: AMIODARONE 450 MG in DEXTROSE 5% IN WATER 250 ML IV SCH ×2 (02:40)
[2017-11-10] MEDS: PIPERACILLIN-TAZOBACTAM 3.375 GM in DEXTROSE/WATER 1 50ML.BAG IVPB SCH ×3 (04:48→18:34)
[2017-11-10 04:49] LABS: Basophils % (A) 0 %; Eosinophils # (A) 0.1 k/uL (0-0.7); Eosinophils % (A) 1 %; HCT 51.4 % (39.0-53.0); HGB 15.6 gm/dL (13.0-17.5); Hypochromasia Slight; Lymphocytes # (A) 0.8 k/uL (1.0-4.8); Lymphocytes % (A) 8 %; MCH 28.9 pg (25.0-35.0); MCHC 30.3 g/dL (31.0-37.0); MCV 95.3 fL (80.0-100.0); Mean Platelet Volume 7.7; Monocytes # (A) 0.9 k/uL (0-1.0); Monocytes % (A) 10 %; Neutrophils # (A) 7.1 k/uL (1.3-7.7); Neutrophils % (A) 79 %; Platelet Count 140 k/uL (150-450); RDW 15.7 % (11.5-15.5)
[2017-11-10 05:12] LABS: Anion Gap 5 mmol/L; Blood Urea Nitrogen 22 mg/dL (9-20); Calcium 8.3 mg/dL (8.4-10.2); Carbon Dioxide 28 mmol/L (22-30); Chloride 104 mmol/L (98-107); Glucose 108 mg/dL (74-99); Magnesium 1.9 mg/dL (1.6-2.3); Phosphorus 2.7 mg/dL (2.5-4.5); Potassium 4.3 mmol/L (3.5-5.1); Sodium 137 mmol/L (137-145)
[2017-11-10] MEDS ORDERED: Magnesium Replacement Protocol 1 EACH MISC MISCELLANE PRN (06:41)
[2017-11-10] MEDS ORDERED: MAGNESIUM SULFATE-D5W PMX 1 GM in DEXTROSE/WATER 1 100ML.BAG IVPB SCH (06:45)
[2017-11-10 06:47] LABS: Glucose,Whole Blood 106 mg/dL (75-99)
[2017-11-10] MEDS ORDERED: MIDAZOLAM 2 MG/2 ML VIAL ONE (07:40)
[2017-11-10] MEDS ORDERED: LIDOCAINE 1% INJ 10MG/ML (20 ML MDV) ONE (07:40)
[2017-11-10] MEDS ORDERED: ASPIRIN 325 MG TAB PO ONE (07:40)
[2017-11-10] MEDS ORDERED: MIDAZOLAM 2 MG/2 ML VIAL IV ONE (07:40)
[2017-11-10] MEDS ORDERED: fentaNYL (PF) 50 MCG/ML 2 ML AMP ONE (07:40)
[2017-11-10] MEDS ORDERED: fentaNYL (PF) 50 MCG/ML 2 ML AMP IV ONE (07:40)
[2017-11-10] MEDS ORDERED: ASPIRIN 325 MG TAB ONE (07:40)
[2017-11-10] MEDS ORDERED: LIDOCAINE 1% INJ 10MG/ML (20 ML MDV) SQ ONE (07:42)
[2017-11-10] MEDS ORDERED: FUROSEMIDE 10 MG/ML 4 ML VIAL IV ONE (07:45)
[2017-11-10] MEDS ORDERED: FUROSEMIDE 10 MG/ML 4 ML VIAL ONE (07:45)
[2017-11-10] MEDS ORDERED: IV FLUID CONTINUATION 1,000 ML IV ONE (07:50)
[2017-11-10] MEDS ORDERED: IOPAMIDOL-370 125ML BTL INJ ONE (07:53)
[2017-11-10] MEDS ORDERED: RX INFO: IV CONTRAST WAS GIVEN 1 EACH MISC MISCELLANE PRN (07:59)
[2017-11-10] MEDS: INSULIN ASPART 100 UNIT/ML 1 ML 10 ML VIAL SQ SCH ×4 (08:00→21:08)
--- NOTE | 2017-11-10 08:44 | CC ---
CARDIAC CATHETERIZATION REPORT INDICATION: 1. Cardiomyopathy. 2. Ventricular tachycardia. PROCEDURE NOTE: After obtaining informed consent, left heart catheterization, coronary angiogram were performed via the right femoral artery using standard Eugene catheters. The patient tolerated the procedure well without any obvious immediate complications. The patient was in mild respiratory distress throughout. I gave him Lasix fentanyl for back discomfort, received moderate conscious sedation. Total sedation time was 13 minutes. A femoral angiogram was performed and Angio-Seal was deployed for hemostasis. Patient has mild peripheral vascular disease, but I decided to go ahead and Angio-Seal because I am concerned that the patient may not be able to lie flat for the next 6 hours. FINDINGS: 1. HEMODYNAMICS: Left ventricular end-diastolic pressure is 24 mm. There is no significant gradient across the aortic valve. 2. LEFT VENTRICULOGRAM: Left ventriculogram is not performed. 3. ANGIOGRAPHIC DATA: 4. Left main coronary artery: Left main coronary artery is a normal-sized vessel and is free of stenosis. Divides into left anterior descending coronary artery and circumflex coronary artery. LAD shows mild atherosclerotic plaque in its midportion and moderate nonobstructive disease involving the diagonal branch. Circumflex coronary artery is a codominant vessel and is free of significant disease. Right coronary artery is a large dominant vessel and is free of significant stenosis. CONCLUSIONS: 1. Mild nonobstructive coronary artery disease. 2. Patient has dilated cardiomyopathy with left ventricular dysfunction. 3. Atrial and ventricular tachyarrhythmias. PLAN: Patient will be treated with optimal medical therapy. I am going to talk to Dr. Adame about doing an AICD on him. MMODL / IJN: [id number] /
--- NOTE | 2017-11-10 08:59 | XR ---
EXAMINATION TYPE: XR chest 1V DATE OF EXAM: 11/10/2017 COMPARISON: 11/09/2017 HISTORY: Shortness of breath TECHNIQUE: Single frontal view of the chest is obtained. FINDINGS: Patient is rotated. There are overlying cardiac leads. No evident pneumothorax. Heart delfina ins enlarged. Central vascularity is prominent as on prior exam. Difficult to exclude retrocardiac de nsity. IMPRESSION: 1. Stable left-sided consolidation and pleural effusion with cardiomegaly. Mild central venous conges tion in the differential diagnosis. Correlate to exclude pneumonia.
[2017-11-10] MEDS: FORMOTEROL FUMARATE 20 MCG/2 ML NEBU INHALATION SCH ×2 (09:02→20:04)
[2017-11-10] MEDS: IPRATROPIUM-ALBUTEROL 3 ML NEB INHALATION SCH ×4 (09:02→20:04)
[2017-11-10] MEDS: BUDESONIDE 1 MG/2 ML NEBU INHALATION SCH ×2 (09:02→20:03)
[2017-11-10] MEDS: SODIUM CHLORIDE 0.9% 1,000 ML IV SCH ×2 (09:15→21:16)
[2017-11-10] MEDS: LACTULOSE 20 GM/30 ML CUP PO SCH ×3 (09:16→21:16)
[2017-11-10] MEDS: METOPROLOL TARTRATE 25 MG TAB PO SCH ×4 (09:16→21:15)
[2017-11-10] MEDS: PANTOPRAZOLE 40 MG/10 ML VIAL IVP SCH ×2 (09:16→21:15)
[2017-11-10] MEDS: ISOSORBIDE MONONITRATE ER 30 MG TAB.ER.24H PO SCH (09:16)
[2017-11-10] MEDS: MAGNESIUM SULFATE-D5W PMX 1 GM in DEXTROSE/WATER 1 100ML.BAG IVPB SCH ×2 (09:17→10:41)
[2017-11-10] MEDS: SPIRONOLACTONE 25 MG TAB PO SCH (09:17)
[2017-11-10] MEDS: NICOTINE 21MG/24HR PATCH TRANSDERM SCH (09:17)
--- NOTE | 2017-11-10 09:52 | P.PN ---
Subjective Progress Note Date: 11/10/17 On today's evaluation of 11/09/2017 I'm seeing this patient for a follow-up. The patient and is in the intensive care unit for an acute diverticulitis and the patient underwent a surgical evaluation. The patient is currently on a combination of Zosyn and Flagyl. The patient is afebrile hemodynamically stable at this point on no pressors. He did experience some altered mentation for which she was given Haldol overnight and this morning it is much more alert and awake and responsive and following commands and answering questions appropriately. The patient is a bit bronchospastic and wheezy on today's evaluation. He is a congested cough. Is an ex-smoker. He has history of COPD. He was started on DuoNeb nebulized treatments around the clock and Pulmicort and Perforomist nebulized treatments be also added to optimize his COPD. At the same time, the patient was found to have cardiomyopathy with impaired left a ejection fraction. He is having episodes of tachycardia. He was started on IV amiodarone and beta blockers and rico inhibitors and Aldactone. The patient currently is in atrial fibrillation. Rate is controlled. Cardiology evaluated the patient and it was decided the patient will need a cardiac catheterization to rule out underlying ischemic heart disease specialist and with his impaired LV function and episodes of V. tach. The patient is also on IV heparin for now. The chest x-ray from today shows some bibasilar atelectatic change. No evidence of pneumonia. No evidence of any pneumothorax. The echocardiogram that was completed showed severe global hypokinesis of left ventricular with an ejection fraction of 20-25%, severely dilated left a chair and, right atrium is markedly enlarged, moderate mitral regurgitation, moderate tricuspid regurgitation, moderate pulmonary hypertension with a PA pressure of 43. On 11/10/2017 I'm seeing this patient for a follow-up. Awake alert and following commands and answering questions. No significant respiratory distress and is less short of breath compared to yesterday. No chest pain. Underwent cardiac intervention this morning and it Came back completely within normal limits. His abdomen is less tender. No nausea. No vomiting. No abdominal distention. No fever or chills. Still on Zosyn and Flagyl combination regarding an acute diverticulitis. The patient is in atrial fibrillation and he'll be switched to oral amiodarone today 200 mg by mouth 3 times a day. IV heparin was discontinued briefly and needs to be restarted back again post cardiac catheterization. Mother the patient also has an ejection fraction of 2025%. The patient is afebrile. No significant leukocytosis. He was tolerating clear liquid diet. Renal function stable. Chest x-ray showed a stable left-sided atelectasis/effusion along with cardiac megaly and mild four-vessel congestion. Family is at the bedside. Objective - Vital Signs Vital signs: Vital Signs Temp 97.7 F 11/10/17 09:00 Pulse 74 11/10/17 09:30 Resp 28 H 11/10/17 09:30 BP 154/92 11/10/17 09:30 Pulse Ox 91 L 11/10/17 09:30 Intake & Output 11/09/17 11/10/17 11/10/17 18:59 06:59 18:59 Intake Total 2311.354 2175 260.0 Output Total 405 457 475 Balance 3733.459 8191 -215.0 Weight 105.4 kg 109 kg 109 kg Intake: IV 975.0 1175 260.0 Piperacillin-Tazobactam 3 50.0 100 25.0 .375 gm In Dextrose/Water 1 50ml.bag @ 12.5 mls/hr IVPB Q8H [facility] Rx#: [id number] Sodium Chloride 0.45% 1, 825 975 000 ml @ 75 mls/hr IV . [id number] Rx#:[id number] Sodium Chloride 0.9% 1, 75 000 ml @ 75 mls/hr IV . [id number] [facility] Rx#:[id number] metroNIDAZOLE-NS PMX 500 100 100 100 mg In Saline 1 100ml.bag @ 100 mls/hr IVPB Q6HR [facility] Rx#:[id number] Intake, IV Titration 586.354 750 Amount Amiodarone 450 mg In 250 Dextrose 5% in Water 250 ml @ 0.5 MG/MIN 16.66 mls /hr IV .Q15H1M [facility] Rx#: [id number] Amiodarone 450 mg In 86.354 Dextrose 5% in Water 250 ml @ 1 MG/MIN 33.33 mls/ hr IV .Q7H31M [facility] Rx#: [id number] Heparin Sod,Pork in 0.45% 500 NaCl 25,000 unit In 0.45 % NaCl 1 500ml.bag @ 10.3 UNITS/KG/HR 20.08 mls/hr IV .Q24H [facility] Rx#: [id number] Magnesium Sulfate-D5w Pmx 200 1 gm In Dextrose/Water 1 100ml.bag @ 100 mls/hr IVPB Q1H [facility] Rx#: [id number] Potassium Chloride 10 meq 200 In Water For Injection 1 100ml.bag @ 100 mls/hr IVPB Q1H [facility] Rx#: [id number] metroNIDAZOLE-NS PMX 500 100 mg In Saline 1 100ml.bag @ 100 mls/hr IVPB Q6HR [facility] Rx#:[id number] Oral 750 250 Output: Urine 405 457 475 Other: Voiding Method Indwelling Catheter Indwelling Catheter - Exam Gen. appearance is calm and comfortable likely distress following commands and answering questions appropriately. Head exam was generally normal. There was no scleral icterus or corneal arcus. Mucous membranes were moist. Neck was supple and without jugular venous distension, thyromegaly, or carotid bruits. Carotids were easily palpable bilaterally. There was no adenopathy. Lungs sounds are diminished bilaterally along with diffuse expiratory wheezes throughout the lung clemente Heart sounds are irregular S1-S2, no significant murmurs appreciated. No right ventricular heave or thrill. Abdomen is soft and there is no direct tenderness or rebound tensile guarding. Bowel sounds are hypoactive at the present. No organomegaly. No ascites. No fluid wave. No shifting dullness. Examination of the skin revealed no evidence of significant rashes, suspicious appearing nevi or other concerning lesions. Neurologically awake and alert and is a focal neurological deficit Psychiatric appropriate mood and affect Examination of the extremities revealed easily palpable radial, femoral and pedal pulses. There was no cyanosis, clubbing or edema. - Labs CBC & Chem 7: 11/10/17 04:29 11/10/17 04:29 Labs: Abnormal Lab Results - Last 24 Hours (Table) 11/08/17 11/09/17 11/09/17 Range/Units 11:04 16:49 20:47 MCHC (31.0-37.0) g/dL RDW (11.5-15.5) % Plt Count (150-450) k/uL Lymphocytes # (1.0-4.8) k/uL APTT (22.0-30.0) sec BUN (9-20) mg/dL Glucose (74-99) mg/dL POC Glucose (mg/dL) 101 H 159 H (75-99) mg/dL Hemoglobin A1c 6.2 H (4.0-6.0) % Calcium (8.4-10.2) mg/dL 11/10/17 11/10/17 11/10/17 Range/Units 04:29 04:29 04:29 MCHC 30.3 L (31.0-37.0) g/dL RDW 15.7 H (11.5-15.5) % Plt Count 140 L (150-450) k/uL Lymphocytes # 0.8 L (1.0-4.8) k/uL APTT 77.8 H (22.0-30.0) sec BUN 22 H (9-20) mg/dL Glucose 108 H (74-99) mg/dL POC Glucose (mg/dL) (75-99) mg/dL Hemoglobin A1c (4.0-6.0) % Calcium 8.3 L (8.4-10.2) mg/dL 11/10/17 Range/Units 06:45 MCHC (31.0-37.0) g/dL RDW (11.5-15.5) % Plt Count (150-450) k/uL Lymphocytes # (1.0-4.8) k/uL APTT (22.0-30.0) sec BUN (9-20) mg/dL Glucose (74-99) mg/dL POC Glucose (mg/dL) 106 H (75-99) mg/dL Hemoglobin A1c (4.0-6.0) % Calcium (8.4-10.2) mg/dL Microbiology - Last 24 Hours (Table) 11/06/17 00:42 Blood Culture - Preliminary Blood No Growth after 96 hours 11/07/17 20:30 Urine Culture - Final Urine,Catheterized Assessment and Plan Plan: Assessment 1 acute diverticulitis in a patient with known having severe diverticulosis. Currently on examination of Zosyn and Flagyl, hemodynamically stable. The blood culture is still negative for now and the patient continues to be on the same antibiotics. No significant leukocytosis. Taking clear liquid diet. General surgeries on the case. The plan is ultimately to undergo a colectomy once the patient's cardiac and the poor status is further stabilized. 2 altered mentation/delirium, improved. This this could have been also has septic metabolic encephalopathy. CAT scan of the brain shows no acute abnormalities. The neuro status remains stable and the patient is awake alert and following commands and answering questions appropriately. 3 cardiomyopathy with impaired ejection fraction of 25% and global hypokinesis and moderate MR with moderate degree of pulmonary hypertension 4 chronic atrial fibrillation with rapid ventricular response, currently rate is controlled on amiodarone and IV heparin will be restarted 5 episodes of ventricular tachycardia, nonsustained, none for now and the patient's magnesium level is at one point and needs to be further replaced 6 fever or abdominal pain secondary to above at time of admission, improving 7 COPD exacerbation, improving 8 hypertension 9 obesity BMI 31.7 10 abdominal aortic aneurysm status post abdominal aortic aneurysm repair Plan Continue IV fluids and the patient is currently on D5 half-normal at the rate of 75 mL an hour. Continue Zosyn and Flagyl. Switch to amiodarone to oral. Continue IV heparin. Cardiac catheterization was done and the patient has normal coronaries. A paced magnesium. Optimize pulmonate status. The patient on a combination of Perforomist and Pulmicort neb last 2 minutes twice a day and DuoNeb nebulized treatments around the clock. We'll set him up on a chair after 6 hour. Post cardiac catheterization. We'll discuss this case further with general surgery regarding the exact timing for the abdominal surgery. He needs obviously to get a full cardiac clearance prior to this type of intervention. Will be kept in ICU for 24 hours. We'll continue to follow. Family is at the bedside.
[2017-11-10] MEDS: LISINOPRIL 5 MG TAB PO SCH (10:20)
[2017-11-10] MEDS: AMIODARONE 200 MG TAB PO SCH ×3 (10:20→21:15)
[2017-11-10 12:17] LABS: Glucose,Whole Blood 123 mg/dL (75-99)
--- NOTE | 2017-11-10 14:52 | P.PN ---
Progress Note - Text Progress Note Date: 11/10/17 The patient is resting comfortably in his bed. He states he feels slightly better. He still has some mild left lower quadrant pain. On exam his vital signs are stable. His abdomen is soft. There is minimal left lower quadrant tenderness. Resolving diverticulitis. Patient's elective surgery for tomorrow has been canceled. He will be rescheduled once he has medical clearance.
--- NOTE | 2017-11-10 14:54 | P.PN ---
Subjective 66-year-old male with a known history of AAA, COPD , hypertension and recurrent diverticulitis and needs resection but delayed due to newly diagnosed atrial fibrillation came to ER with complaints of fever chills and sweating. Patient also complaining of lower abdominal pain which is consistent with his previous diverticular flare. Patient woke up this morning having cold sweats and fever. Patient was advised by his to come to ER and patient also delirious at home. Patient does have episodes of recurrent diverticulitis. Patient is on follow-up with general surgery and is planning for colon resection in next few days. Otherwise patient recently developed ventricular fibrillation for which patient was started on eliquis yesterday. Chest x-ray showed no acute cardio pulmonary process CT abdomen and pelvis showed mild inflammatory changes involving the descending colon. There is extensive colonic diverticulosis 11/07/2017 Patient became agitated and trying to get her to the bed and has been combative. Patient was given a dose of Haldol and was restrained. By afternoon patient became more awake and questions are being removed. Lateral evening patient became more confused and lethargic and became hypoxic. Basal patient was placed on her person nontender with a and ABGs were done showed respiratory acidosis. Discussed with the pulmonary and agree to be transferred to medical intensive care unit. Patient is being continued on amiodarone drip and heparin drip. 2-D echo network cable installer was done. Cardiology is following. 11/08/2017 Currently patient is lying in the bed comfortably. Patient was given a dose of Haldol for agitation. Otherwise patient is being continued on antibiotics. Ammonia level was elevated at 105 and repeat was 19. Patient was noted to have been in ventricular tachycardia. Currently on amiodarone drip and heparin drip. Cardiology is following and recommended cardiac Catheterization once clinically improves. Continued on antibiotics in the form of Levaquin and Flagyl for acute diverticulitis. General surgery and pulmonary is following. Patient could not provide review of systems at this time. 11/09/2017 Patient is fairly doing well today. Although has significant wheezing on exam. Patient appears to have COPD. Does have advanced heart failure or cardiomyopathy with ejection fraction of only 20% along with atrial fibrillation. Patient heart rate is well controlled blood pressure is fairly stable now patient is on IV heparin drip. Patient is on amiodarone and metoprolol patient is definitely high operative risk same thing was discussed with the patient. Patient is on inhaled steroids at this time. Patient is awaiting clearance from cardiology for surgery. Patient is presently on Zosyn and Flagyl 11/10/2017 Patient respiratory status still not GERD still requiring pallidus apart from all the wheezing did improve. From cardiac perspective patient is presently euvolemic heart rate is well controlled. Patient denied any abdominal pain today. Once his is pretty status improves patient will go for a colectomy. Objective - Vital Signs Vital signs: Vital Signs Temp 97.5 F L 11/10/17 12:00 Pulse 80 11/10/17 14:00 Resp 26 H 11/10/17 14:00 BP 123/57 11/10/17 14:00 Pulse Ox 93 L 11/10/17 14:00 Intake & Output 11/09/17 11/10/17 11/10/17 18:59 06:59 18:59 Intake Total 2311.354 2175 1372.5 Output Total 881 418 2813 Balance 4289.033 9286 -1377.5 Weight 105.4 kg 109 kg 109 kg Intake: IV 975.0 1175 872.5 Magnesium Sulfate-D5w Pmx 200 1 gm In Dextrose/Water 1 100ml.bag @ 100 mls/hr IVPB Q1H [facility] Rx#: [id number] Piperacillin-Tazobactam 3 50.0 100 37.5 .375 gm In Dextrose/Water 1 50ml.bag @ 12.5 mls/hr IVPB Q8H [facility] Rx#: [id number] Sodium Chloride 0.45% 1, 825 975 000 ml @ 75 mls/hr IV . [id number] [facility] Rx#:[id number] Sodium Chloride 0.9% 1, 375 000 ml @ 75 mls/hr IV . [id number] [facility] Rx#:[id number] metroNIDAZOLE-NS PMX 500 100 100 200 mg In Saline 1 100ml.bag @ 100 mls/hr IVPB Q6HR [facility] Rx#:[id number] Intake, IV Titration 586.354 750 Amount Amiodarone 450 mg In 250 Dextrose 5% in Water 250 ml @ 0.5 MG/MIN 16.66 mls /hr IV .Q15H1M [facility] Rx#: [id number] Amiodarone 450 mg In 86.354 Dextrose 5% in Water 250 ml @ 1 MG/MIN 33.33 mls/ hr IV .Q7H31M [facility] Rx#: [id number] Heparin Sod,Pork in 0.45% 500 NaCl 25,000 unit In 0.45 % NaCl 1 500ml.bag @ 10.3 UNITS/KG/HR 20.08 mls/hr IV .Q24H [facility] Rx#: [id number] Magnesium Sulfate-D5w Pmx 200 1 gm In Dextrose/Water 1 100ml.bag @ 100 mls/hr IVPB Q1H [facility] Rx#: [id number] Potassium Chloride 10 meq 200 In Water For Injection 1 100ml.bag @ 100 mls/hr IVPB Q1H [facility] Rx#: [id number] metroNIDAZOLE-NS PMX 500 100 mg In Saline 1 100ml.bag @ 100 mls/hr IVPB Q6HR [facility] Rx#:[id number] Oral 750 250 500 Output: Urine 862 331 0815 Other: Voiding Method Indwelling Catheter Indwelling Catheter Indwelling Catheter - Exam PHYSICAL EXAMINATION: GENERAL: The patient is alert and oriented x3, not in any acute distress. Well developed, well nourished. HEENT: Pupils are round and equally reacting to light. EOMI. No scleral icterus. No conjunctival pallor. Normocephalic, atraumatic. No pharyngeal erythema. No thyromegaly. CARDIOVASCULAR: S1 and S2 present. No murmurs, rubs, or gallops. PULMONARY: Significant expiratory wheezing no significant JVD ABDOMEN: Minimal abdominal tenderness in the left lower quadrant bowel sounds are present. MUSCULOSKELETAL: No joint swelling or deformity. EXTREMITIES: No cyanosis, clubbing, or pedal edema. NEUROLOGICAL: Gross neurological examination did not reveal any focal deficits. SKIN: No rashes. - Labs CBC & Chem 7: 11/10/17 04:29 11/10/17 04:29 Labs: Abnormal Lab Results - Last 24 Hours (Table) 11/08/17 11/09/17 11/09/17 Range/Units 11:04 16:49 20:47 MCHC (31.0-37.0) g/dL RDW (11.5-15.5) % Plt Count (150-450) k/uL Lymphocytes # (1.0-4.8) k/uL APTT (22.0-30.0) sec BUN (9-20) mg/dL Glucose (74-99) mg/dL POC Glucose (mg/dL) 101 H 159 H (75-99) mg/dL Hemoglobin A1c 6.2 H (4.0-6.0) % Calcium (8.4-10.2) mg/dL 11/10/17 11/10/17 11/10/17 Range/Units 04:29 04:29 04:29 MCHC 30.3 L (31.0-37.0) g/dL RDW 15.7 H (11.5-15.5) % Plt Count 140 L (150-450) k/uL Lymphocytes # 0.8 L (1.0-4.8) k/uL APTT 77.8 H (22.0-30.0) sec BUN 22 H (9-20) mg/dL Glucose 108 H (74-99) mg/dL POC Glucose (mg/dL) (75-99) mg/dL Hemoglobin A1c (4.0-6.0) % Calcium 8.3 L (8.4-10.2) mg/dL 11/10/17 11/10/17 Range/Units 06:45 12:01 MCHC (31.0-37.0) g/dL RDW (11.5-15.5) % Plt Count (150-450) k/uL Lymphocytes # (1.0-4.8) k/uL APTT (22.0-30.0) sec BUN (9-20) mg/dL Glucose (74-99) mg/dL POC Glucose (mg/dL) 106 H 123 H (75-99) mg/dL Hemoglobin A1c (4.0-6.0) % Calcium (8.4-10.2) mg/dL Microbiology - Last 24 Hours (Table) 11/06/17 00:42 Blood Culture - Preliminary Blood No Growth after 96 hours 11/07/17 20:30 Urine Culture - Final Urine,Catheterized Assessment and Plan Plan: Assessment and Plan Assessment: Altered mental status and combativeness improved now secondary to diverticulitis and toxic encephalopathy Acute descending colon diverticulitis: Patient is on Zosyn and Flagyl will not add urgent operative intervention, plan is to optimize his heart failure atrial fibrillation COPD to decrease operative risk patient is definitely high operative risk. Congestive heart failure: Chronic systolic dysfunction ejection fraction of around 20% patient is fairly euvolemic at this time. Fever chills abdominal pain and sweating due to colitis Persistent Atrial fibrillation presently rate controlled patient is on amiodarone, IV heparin and metoprolol which will be continued Mild troponin leak likely due to demand ischemia. Paroxysmal atrial fibrillation. Recently diagnosed COPD acute exacerbation patient is on inhaled steroids which will be continued Hypertension Obesity BMI 31.7 Recurrent diverticulitis and is scheduled for colon resection Abdominal aortic/iliac aneurysms with history of repair DVT prophylaxis
[2017-11-10 17:38] LABS: Glucose,Whole Blood 101 mg/dL (75-99)
[2017-11-10 21:31] LABS: Glucose,Whole Blood 109 mg/dL (75-99)
[2017-11-11] MEDS: metroNIDAZOLE-NS PMX 500 MG in SALINE 1 100ML.BAG IVPB SCH ×4 (00:52→17:49)
[2017-11-11] MEDS: PIPERACILLIN-TAZOBACTAM 3.375 GM in DEXTROSE/WATER 1 50ML.BAG IVPB SCH ×3 (03:43→17:50)
[2017-11-11] MEDS: HEPARIN SOD,PORK IN 0.45% NACL 25,000 UNIT in 0.45% NACL 1 500ML.BAG IV SCH (03:43)
[2017-11-11 05:26] LABS: Basophils % (A) 0 %; Eosinophils # (A) 0.1 k/uL (0-0.7); Eosinophils % (A) 1 %; HCT 50.4 % (39.0-53.0); HGB 15.3 gm/dL (13.0-17.5); Hypochromasia Slight; Lymphocytes # (A) 0.6 k/uL (1.0-4.8); Lymphocytes % (A) 7 %; MCH 28.9 pg (25.0-35.0); MCHC 30.3 g/dL (31.0-37.0); MCV 95.2 fL (80.0-100.0); Mean Platelet Volume 7.5; Monocytes # (A) 0.9 k/uL (0-1.0); Monocytes % (A) 10 %; Neutrophils # (A) 6.6 k/uL (1.3-7.7); Neutrophils % (A) 79 %; Platelet Count 128 k/uL (150-450); RDW 15.8 % (11.5-15.5); WBC 8.3 k/uL (3.8-10.6)
[2017-11-11 05:50] LABS: Anion Gap 5 mmol/L; Calcium 8.3 mg/dL (8.4-10.2); Carbon Dioxide 30 mmol/L (22-30); Chloride 102 mmol/L (98-107); Glucose 118 mg/dL (74-99); Phosphorus 3.4 mg/dL (2.5-4.5); Sodium 137 mmol/L (137-145)
[2017-11-11 06:21] LABS: Blood Urea Nitrogen 15 mg/dL (9-20); Magnesium 1.8 mg/dL (1.6-2.3)
[2017-11-11] MEDS ORDERED: Magnesium Replacement Protocol 1 EACH MISC MISCELLANE PRN (06:30)
[2017-11-11 07:29] LABS: Glucose,Whole Blood 105 mg/dL (75-99)
--- NOTE | 2017-11-11 07:55 | XR ---
EXAMINATION TYPE: XR chest 1V DATE OF EXAM: 11/11/2017 COMPARISON: 11/10/2017 HISTORY: Difficulty breathing TECHNIQUE: Single frontal view of the chest is obtained. FINDINGS: Cardiomegaly and left-sided consolidation and pleural effusion. Subsegmental changes at th e right lung base with tiny effusion are stable. No pneumothorax. There appears to be volume loss on the left. IMPRESSION: 1. Stable left-sided consolidation and pleural effusion with cardiomegaly. Mild central venous conges tion in the differential diagnosis. Correlate to exclude pneumonia.
[2017-11-11] MEDS: MAGNESIUM SULFATE-D5W PMX 1 GM in DEXTROSE/WATER 1 100ML.BAG IVPB SCH ×2 (07:56→11:53)
[2017-11-11] MEDS: INSULIN ASPART 100 UNIT/ML 1 ML 10 ML VIAL SQ SCH ×4 (07:56→20:50)
[2017-11-11] MEDS: AMIODARONE 200 MG TAB PO SCH ×3 (08:13→22:15)
[2017-11-11] MEDS: SPIRONOLACTONE 25 MG TAB PO SCH (08:13)
[2017-11-11] MEDS: ISOSORBIDE MONONITRATE ER 30 MG TAB.ER.24H PO SCH (08:14)
[2017-11-11] MEDS: METOPROLOL TARTRATE 25 MG TAB PO SCH ×4 (08:14→22:15)
[2017-11-11] MEDS: PANTOPRAZOLE 40 MG/10 ML VIAL IVP SCH ×2 (08:14→20:51)
[2017-11-11] MEDS: NICOTINE 21MG/24HR PATCH TRANSDERM SCH (08:14)
[2017-11-11] MEDS: LISINOPRIL 5 MG TAB PO SCH (08:14)
[2017-11-11] MEDS: BUDESONIDE 1 MG/2 ML NEBU INHALATION SCH ×2 (08:18→19:44)
[2017-11-11] MEDS: FORMOTEROL FUMARATE 20 MCG/2 ML NEBU INHALATION SCH ×2 (08:18→19:44)
[2017-11-11] MEDS: IPRATROPIUM-ALBUTEROL 3 ML NEB INHALATION SCH ×4 (08:18→19:44)
--- NOTE | 2017-11-11 11:47 | P.PN ---
Subjective Progress Note Date: 11/11/17 66-year-old male seen sitting up in a chair in the ICU talkative awake and alert patient reports he continues to feel mild discomfort to the left lower quadrant. Has had several loose stools. Currently tolerating a diet currently the patient is being followed by cardiology and pulmonary service patient states he has no chest pain and was less short of breath patient's surgery for the diverticulitis that was tentatively scheduled yesterday has been cancelled will be rescheduled once patient is medically cleared Objective - Vital Signs Vital signs: Vital Signs Temp 98.1 F 11/11/17 08:00 Pulse 73 11/11/17 11:00 Resp 23 11/11/17 11:00 BP 115/73 11/11/17 11:00 Pulse Ox 95 11/11/17 11:00 Intake & Output 11/10/17 11/11/17 11/11/17 18:59 06:59 18:59 Intake Total 1735.0 162.5 350 Output Total 3185 881 243 Balance -1450.0 -718.5 107 Weight 109 kg 106.4 kg Intake: IV 1235.0 162.5 350 Magnesium Sulfate-D5w Pmx 200 100 1 gm In Dextrose/Water 1 100ml.bag @ 100 mls/hr IVPB Q1H [facility] Rx#: [id number] Piperacillin-Tazobactam 3 75.0 12.5 50 .375 gm In Dextrose/Water 1 50ml.bag @ 12.5 mls/hr IVPB Q8H [facility] Rx#: [id number] Sodium Chloride 0.9% 1, 600 150 100 000 ml @ 75 mls/hr IV . [id number] [facility] Rx#:[id number] metroNIDAZOLE-NS PMX 500 300 100 mg In Saline 1 100ml.bag @ 100 mls/hr IVPB Q6HR [facility] Rx#:[id number] Oral 500 Output: Urine 3185 880 243 Stool 1 Other: Voiding Method Indwelling Catheter Indwelling Catheter Indwelling Catheter # Bowel Movements 2 1 - Exam exam Pleasant 66-year-old gentleman sitting up in a chair appears in no acute distress Lungs diminished at the bases otherwise adequate air movement no conversational dyspnea noted states less short of breath Heart S1-S2 regular denying chest pain Abdomen soft mild tenderness to the left lower quadrant bowel tones present with hypoactive bowel tones. Mildly distended indwelling Em catheter in place patient has had several bowel movements no nausea no vomiting Extremities trace pedal edema bilaterally - Labs CBC & Chem 7: 11/11/17 04:54 11/11/17 04:54 Labs: Abnormal Lab Results - Last 24 Hours (Table) 11/10/17 11/10/17 11/10/17 Range/Units 12:01 16:57 19:05 MCHC (31.0-37.0) g/dL RDW (11.5-15.5) % Plt Count (150-450) k/uL Lymphocytes # (1.0-4.8) k/uL APTT 59.6 H (22.0-30.0) sec Glucose (74-99) mg/dL POC Glucose (mg/dL) 123 H 101 H (75-99) mg/dL Calcium (8.4-10.2) mg/dL 11/10/17 11/11/17 11/11/17 Range/Units 21:07 04:54 04:54 MCHC 30.3 L (31.0-37.0) g/dL RDW 15.8 H (11.5-15.5) % Plt Count 128 L (150-450) k/uL Lymphocytes # 0.6 L (1.0-4.8) k/uL APTT (22.0-30.0) sec Glucose 118 H (74-99) mg/dL POC Glucose (mg/dL) 109 H (75-99) mg/dL Calcium 8.3 L (8.4-10.2) mg/dL 11/11/17 11/11/17 Range/Units 04:54 07:27 MCHC (31.0-37.0) g/dL RDW (11.5-15.5) % Plt Count (150-450) k/uL Lymphocytes # (1.0-4.8) k/uL APTT 54.0 H (22.0-30.0) sec Glucose (74-99) mg/dL POC Glucose (mg/dL) 105 H (75-99) mg/dL Calcium (8.4-10.2) mg/dL Microbiology - Last 24 Hours (Table) 11/06/17 00:42 Blood Culture - Preliminary Blood No Growth after 120 hours Assessment and Plan Assessment: Impression Admission left lower quadrant pain suspect due to diverticulitis failed outpatient treatment Computed tomography scan abdomen pelvis show evidence of diverticulosis extensive with mild diverticulitis Obesity BMI 31 Newly diagnosed atrial fibrillation started on anticoagulation elquis History of recurrent episodes of diverticulitis Acute hypoxic respiratory failure desat in the 80s suspect due to underlying COPD Scheduled for colon resection in the near future November 11 for treatment of diverticulitis Abdominal pain left lower quadrant consistent with diverticulitis Current every day smoker 1 pack a day with nicotine dependency Elevated ammonia level improving resolving Plan Elective surgery for diverticulitis will be rescheduled once patient is medically cleared Further surgical recommendations pending Pain control IV antibiotics Zosyn and Flagyl DVT GI prophylaxis Will follow with you The above impression and plan of care have been discussed and directed by signing physician. Debbie Fleming nurse practitioner acting as scribe for signing physician.
--- NOTE | 2017-11-11 13:11 | P.PN ---
Subjective 66-year-old male with a known history of AAA, COPD , hypertension and recurrent diverticulitis and needs resection but delayed due to newly diagnosed atrial fibrillation came to ER with complaints of fever chills and sweating. Patient also complaining of lower abdominal pain which is consistent with his previous diverticular flare. Patient woke up this morning having cold sweats and fever. Patient was advised by his to come to ER and patient also delirious at home. Patient does have episodes of recurrent diverticulitis. Patient is on follow-up with general surgery and is planning for colon resection in next few days. Otherwise patient recently developed ventricular fibrillation for which patient was started on eliquis yesterday. Chest x-ray showed no acute cardio pulmonary process CT abdomen and pelvis showed mild inflammatory changes involving the descending colon. There is extensive colonic diverticulosis 11/07/2017 Patient became agitated and trying to get her to the bed and has been combative. Patient was given a dose of Haldol and was restrained. By afternoon patient became more awake and questions are being removed. Lateral evening patient became more confused and lethargic and became hypoxic. Basal patient was placed on her person nontender with a and ABGs were done showed respiratory acidosis. Discussed with the pulmonary and agree to be transferred to medical intensive care unit. Patient is being continued on amiodarone drip and heparin drip. 2-D echo delivery route driver was done. Cardiology is following. 11/08/2017 Currently patient is lying in the bed comfortably. Patient was given a dose of Haldol for agitation. Otherwise patient is being continued on antibiotics. Ammonia level was elevated at 105 and repeat was 19. Patient was noted to have been in ventricular tachycardia. Currently on amiodarone drip and heparin drip. Cardiology is following and recommended cardiac Catheterization once clinically improves. Continued on antibiotics in the form of Levaquin and Flagyl for acute diverticulitis. General surgery and pulmonary is following. Patient could not provide review of systems at this time. 11/09/2017 Patient is fairly doing well today. Although has significant wheezing on exam. Patient appears to have COPD. Does have advanced heart failure or cardiomyopathy with ejection fraction of only 20% along with atrial fibrillation. Patient heart rate is well controlled blood pressure is fairly stable now patient is on IV heparin drip. Patient is on amiodarone and metoprolol patient is definitely high operative risk same thing was discussed with the patient. Patient is on inhaled steroids at this time. Patient is awaiting clearance from cardiology for surgery. Patient is presently on Zosyn and Flagyl 11/10/2017 Patient respiratory status still not GERD still requiring pallidus apart from all the wheezing did improve. From cardiac perspective patient is presently euvolemic heart rate is well controlled. Patient denied any abdominal pain today. Once his is pretty status improves patient will go for a colectomy. 11/11/2017 Patient is looking much better today patient did have bowel movements yesterday. Patient respiratory status improved significantly without much of wheezing today. Is still awaiting his respiratory status it to improve lipid more before he can go for surgery. Patient will undergo hemicolectomy followed by AICD placement as well. Patient will be transferred out of ICU Constitutional: Denied any fatigue denied any fever. Cardio vascular: denied any chest pain, palpitations Gastrointestinal denied any nausea vomiting Pulmonary: Denied any shortness of breath cough Neurologic denied any new focal deficits Objective - Vital Signs Vital signs: Vital Signs Temp 97.5 F L 11/11/17 12:00 Pulse 72 11/11/17 13:00 Resp 17 11/11/17 13:00 BP 107/60 11/11/17 13:00 Pulse Ox 95 11/11/17 13:00 Intake & Output 11/10/17 11/11/17 11/11/17 18:59 06:59 18:59 Intake Total 1735.0 162.5 370 Output Total 3185 881 266 Balance -1450.0 -718.5 104 Weight 109 kg 106.4 kg Intake: IV 1235.0 162.5 370 Magnesium Sulfate-D5w Pmx 200 100 1 gm In Dextrose/Water 1 100ml.bag @ 100 mls/hr IVPB Q1H REYNA Rx#: [id number] Piperacillin-Tazobactam 3 75.0 12.5 50 .375 gm In Dextrose/Water 1 50ml.bag @ 12.5 mls/hr IVPB Q8H REYNA Rx#: [id number] Sodium Chloride 0.9% 1, 600 150 120 000 ml @ 75 mls/hr IV . [id number] REYNA Rx#:[id number] metroNIDAZOLE-NS PMX 500 300 100 mg In Saline 1 100ml.bag @ 100 mls/hr IVPB Q6HR REYNA Rx#:[id number] Oral 500 Output: Urine 3185 880 266 Stool 1 Other: Voiding Method Indwelling Catheter Indwelling Catheter Indwelling Catheter # Bowel Movements 2 1 - Exam PHYSICAL EXAMINATION: GENERAL: The patient is alert and oriented x3, not in any acute distress. Well developed, well nourished. HEENT: Pupils are round and equally reacting to light. EOMI. No scleral icterus. No conjunctival pallor. Normocephalic, atraumatic. No pharyngeal erythema. No thyromegaly. CARDIOVASCULAR: S1 and S2 present. No murmurs, rubs, or gallops. PULMONARY: Expiratory wheezing improved significantly fairly good air entry into bilateral lung clemente ABDOMEN: No tenderness good bowel sounds MUSCULOSKELETAL: No joint swelling or deformity. EXTREMITIES: No cyanosis, clubbing, or pedal edema. NEUROLOGICAL: Gross neurological examination did not reveal any focal deficits. SKIN: No rashes. - Labs CBC & Chem 7: 11/11/17 04:54 11/11/17 04:54 Labs: Abnormal Lab Results - Last 24 Hours (Table) 11/10/17 11/10/17 11/10/17 Range/Units 16:57 19:05 21:07 MCHC (31.0-37.0) g/dL RDW (11.5-15.5) % Plt Count (150-450) k/uL Lymphocytes # (1.0-4.8) k/uL APTT 59.6 H (22.0-30.0) sec Glucose (74-99) mg/dL POC Glucose (mg/dL) 101 H 109 H (75-99) mg/dL Calcium (8.4-10.2) mg/dL 11/11/17 11/11/17 11/11/17 Range/Units 04:54 04:54 04:54 MCHC 30.3 L (31.0-37.0) g/dL RDW 15.8 H (11.5-15.5) % Plt Count 128 L (150-450) k/uL Lymphocytes # 0.6 L (1.0-4.8) k/uL APTT 54.0 H (22.0-30.0) sec Glucose 118 H (74-99) mg/dL POC Glucose (mg/dL) (75-99) mg/dL Calcium 8.3 L (8.4-10.2) mg/dL 11/11/17 Range/Units 07:27 MCHC (31.0-37.0) g/dL RDW (11.5-15.5) % Plt Count (150-450) k/uL Lymphocytes # (1.0-4.8) k/uL APTT (22.0-30.0) sec Glucose (74-99) mg/dL POC Glucose (mg/dL) 105 H (75-99) mg/dL Calcium (8.4-10.2) mg/dL Microbiology - Last 24 Hours (Table) 11/06/17 00:42 Blood Culture - Preliminary Blood No Growth after 120 hours Assessment and Plan Plan: Assessment and Plan Assessment: Acute descending colon diverticulitis: Patient is on Zosyn and Flagyl will not add urgent operative intervention, once his respiratory status improved patient will undergo hemicolectomy Altered mental status and combativeness improved now secondary to diverticulitis and toxic encephalopathy which resolved COPD with minimal exacerbation continue with inhaled steroids. Congestive heart failure: Chronic systolic dysfunction ejection fraction of around 20% patient is fairly euvolemic at this time. AICD placement after his hemicolectomy Sepsis secondary to descending colitis improving Persistent Atrial fibrillation presently rate controlled patient is on amiodarone, IV heparin and metoprolol which will be continued Mild troponin leak likely due to demand ischemia. Paroxysmal atrial fibrillation. Recently diagnosed Obesity BMI 31.7 Recurrent diverticulitis and is scheduled for colon resection Abdominal aortic/iliac aneurysms with history of repair DVT prophylaxis
--- NOTE | 2017-11-11 13:44 | P.PN ---
Subjective Progress Note Date: 11/11/17 On today's evaluation of 11/09/2017 I'm seeing this patient for a follow-up. The patient and is in the intensive care unit for an acute diverticulitis and the patient underwent a surgical evaluation. The patient is currently on a combination of Zosyn and Flagyl. The patient is afebrile hemodynamically stable at this point on no pressors. He did experience some altered mentation for which she was given Haldol overnight and this morning it is much more alert and awake and responsive and following commands and answering questions appropriately. The patient is a bit bronchospastic and wheezy on today's evaluation. He is a congested cough. Is an ex-smoker. He has history of COPD. He was started on DuoNeb nebulized treatments around the clock and Pulmicort and Perforomist nebulized treatments be also added to optimize his COPD. At the same time, the patient was found to have cardiomyopathy with impaired left a ejection fraction. He is having episodes of tachycardia. He was started on IV amiodarone and beta blockers and rcio inhibitors and Aldactone. The patient currently is in atrial fibrillation. Rate is controlled. Cardiology evaluated the patient and it was decided the patient will need a cardiac catheterization to rule out underlying ischemic heart disease specialist and with his impaired LV function and episodes of V. tach. The patient is also on IV heparin for now. The chest x-ray from today shows some bibasilar atelectatic change. No evidence of pneumonia. No evidence of any pneumothorax. The echocardiogram that was completed showed severe global hypokinesis of left ventricular with an ejection fraction of 20-25%, severely dilated left a chair and, right atrium is markedly enlarged, moderate mitral regurgitation, moderate tricuspid regurgitation, moderate pulmonary hypertension with a PA pressure of 43. On 11/10/2017 I'm seeing this patient for a follow-up. Awake alert and following commands and answering questions. No significant respiratory distress and is less short of breath compared to yesterday. No chest pain. Underwent cardiac intervention this morning and it Came back completely within normal limits. His abdomen is less tender. No nausea. No vomiting. No abdominal distention. No fever or chills. Still on Zosyn and Flagyl combination regarding an acute diverticulitis. The patient is in atrial fibrillation and he'll be switched to oral amiodarone today 200 mg by mouth 3 times a day. IV heparin was discontinued briefly and needs to be restarted back again post cardiac catheterization. Mother the patient also has an ejection fraction of 2025%. The patient is afebrile. No significant leukocytosis. He was tolerating clear liquid diet. Renal function stable. Chest x-ray showed a stable left-sided atelectasis/effusion along with cardiac megaly and mild four-vessel congestion. Family is at the bedside. On 11/11/2017 the patient is being seen for a follow-up. Seems to much more alert and awake and is sitting up on a chair. His abdominal pain is subsided and he continues to be on broad-spectrum antibiotics and accommodation of Zosyn and Flagyl regarding an acute diverticulitis. His cardiac rhythm is atrial fibrillation. No ventricular tachycardia was noted. He has an ejection fraction which is poor less than 20% and I had a discussion with cardiology. The coronaries have been within normal limits. The patient will need an AICD at a later stage. Currently he is on amiodarone. Based on cardiology's opinion , the abdominal infection needs to be cleared prior to inserting an AICD. For that reason, the patient became in the hospital IV antibiotics. We'll continue treating the infection and contemplated doing to surgery as an inpatient as long as the patient's condition continues to improve. From the pulmonary standpoint, the patient has COPD and is quite optimizing this point. No significant rest for distress. Repeat chest x-ray was done today showed a stable left-sided small pleural effusion along with cardiomegaly and pulmonary vessel congestion. The patient remains on Flagyl and Zosyn. The patient is on Aldactone. The patient is on metoprolol and amiodarone. No significant leukocytosis. Rest of the blood work and electrodes are all within normal limits. Objective - Vital Signs Vital signs: Vital Signs Temp 97.5 F L 11/11/17 12:00 Pulse 72 11/11/17 13:00 Resp 17 11/11/17 13:00 BP 107/60 11/11/17 13:00 Pulse Ox 95 11/11/17 13:00 Intake & Output 11/10/17 11/11/17 11/11/17 18:59 06:59 18:59 Intake Total 1735.0 162.5 390 Output Total 3185 881 306 Balance -1450.0 -718.5 84 Weight 109 kg 106.4 kg Intake: IV 1235.0 162.5 390 Magnesium Sulfate-D5w Pmx 200 100 1 gm In Dextrose/Water 1 100ml.bag @ 100 mls/hr IVPB Q1H [facility] Rx#: [id number] Piperacillin-Tazobactam 3 75.0 12.5 50 .375 gm In Dextrose/Water 1 50ml.bag @ 12.5 mls/hr IVPB Q8H [facility] Rx#: [id number] Sodium Chloride 0.9% 1, 600 150 140 000 ml @ 75 mls/hr IV . [id number] [facility]NA Rx#:[id number] metroNIDAZOLE-NS PMX 500 300 100 mg In Saline 1 100ml.bag @ 100 mls/hr IVPB Q6HR [facility] Rx#:[id number] Oral 500 Output: Urine 3185 880 306 Stool 1 Other: Voiding Method Indwelling Catheter Indwelling Catheter Indwelling Catheter # Bowel Movements 2 1 - Exam Gen. appearance is calm and comfortable likely distress following commands and answering questions appropriately. Head exam was generally normal. There was no scleral icterus or corneal arcus. Mucous membranes were moist. Neck was supple and without jugular venous distension, thyromegaly, or carotid bruits. Carotids were easily palpable bilaterally. There was no adenopathy. Lungs sounds are diminished bilaterally along with diffuse expiratory wheezes throughout the lung clemente Heart sounds are irregular S1-S2, no significant murmurs appreciated. No right ventricular heave or thrill. Abdomen is soft and there is no direct tenderness or rebound tensile guarding. Bowel sounds are hypoactive at the present. No organomegaly. No ascites. No fluid wave. No shifting dullness. Examination of the skin revealed no evidence of significant rashes, suspicious appearing nevi or other concerning lesions. Neurologically awake and alert and is a focal neurological deficit Psychiatric appropriate mood and affect Examination of the extremities revealed easily palpable radial, femoral and pedal pulses. There was no cyanosis, clubbing or edema. - Labs CBC & Chem 7: 11/11/17 04:54 11/11/17 04:54 Labs: Abnormal Lab Results - Last 24 Hours (Table) 11/10/17 11/10/17 11/10/17 Range/Units 16:57 19:05 21:07 MCHC (31.0-37.0) g/dL RDW (11.5-15.5) % Plt Count (150-450) k/uL Lymphocytes # (1.0-4.8) k/uL APTT 59.6 H (22.0-30.0) sec Glucose (74-99) mg/dL POC Glucose (mg/dL) 101 H 109 H (75-99) mg/dL Calcium (8.4-10.2) mg/dL 11/11/17 11/11/17 11/11/17 Range/Units 04:54 04:54 04:54 MCHC 30.3 L (31.0-37.0) g/dL RDW 15.8 H (11.5-15.5) % Plt Count 128 L (150-450) k/uL Lymphocytes # 0.6 L (1.0-4.8) k/uL APTT 54.0 H (22.0-30.0) sec Glucose 118 H (74-99) mg/dL POC Glucose (mg/dL) (75-99) mg/dL Calcium 8.3 L (8.4-10.2) mg/dL 11/11/17 Range/Units 07:27 MCHC (31.0-37.0) g/dL RDW (11.5-15.5) % Plt Count (150-450) k/uL Lymphocytes # (1.0-4.8) k/uL APTT (22.0-30.0) sec Glucose (74-99) mg/dL POC Glucose (mg/dL) 105 H (75-99) mg/dL Calcium (8.4-10.2) mg/dL Microbiology - Last 24 Hours (Table) 11/06/17 00:42 Blood Culture - Preliminary Blood No Growth after 120 hours Assessment and Plan Plan: Assessment 1 acute diverticulitis in a patient with known having severe diverticulosis. Currently on examination of Agnes and Neeta, hemodynamically stable. Cultures of been all negative and the patient is responding to IV antibiotics and surgeries on the case. No surgical dementia was done as the patient was felt to be not ready from the pulmonary and the cardiac standpoint daily back. Overall condition is improved significantly. He CHF is optimized. Is not having any ongoing ventricular arrhythmias. He is currently on amiodarone. His COPD is also optimized. 2 altered mentation/delirium, improved. This this could have been also has septic metabolic encephalopathy. CAT scan of the brain shows no acute abnormalities. The neuro status remains stable and the patient is awake alert and following commands and answering questions appropriately. 3 cardiomyopathy with impaired ejection fraction of 25% and global hypokinesis and moderate MR with moderate degree of pulmonary hypertension 4 chronic atrial fibrillation with rapid ventricular response, currently rate is controlled on amiodarone and IV heparin will be restarted 5 episodes of ventricular tachycardia, nonsustained, none for now and the patient's magnesium level is at one point and needs to be further replaced 6 fever or abdominal pain secondary to above at time of admission, improving 7 COPD exacerbation, improving 8 hypertension 9 obesity BMI 31.7 10 abdominal aortic aneurysm status post abdominal aortic aneurysm repair Plan We'll continue same antibiotic coverage. Clinically improving. No fever. No signs of septicemia. No abdominal pain and abdominal pain is subsided and the patient is producing few bowel movements that was liquidy. No nausea or vomiting. No emesis. No leukocytosis. Discussed the case with cardiology. We 'll defer to insertion of AICD at this point in time. May give a cardiac status the later stage if it continues to show ongoing signs of improvement. Surgeries on the case. No immediate plans to undergo surgery and this can be also done electively on outpatient basis. It final decision has not been done. Would like to discuss this further with the surgeon. Otherwise the rest of the medications were appropriate. His COPD is optimized. Increased level of activity as tolerated. Move this patient out of the intensive care unit. Continued IV heparin until a final decision on surgery is made .
--- NOTE | 2017-11-11 14:21 | P.PN ---
Subjective Progress Note Date: 11/11/17 This is a 66-year-old gentleman who was admitted to the hospital with a newly detected atrial fibrillation. He was also found to have cardiomyopathy and having episodes of ventricular tachycardia. Patient was started on IV amiodarone along with beta blockers and MARTÍN inhibitor along with Aldactone. Patient developed episodes of ventricular tachycardia and was transferred to intensive care unit. Patient was also found to be stenotic with elevated ammonia levels. Patient was also agitated requiring Haldol. Currently, patient is lethargic and sleepy. His maintaining sinus rhythm. He is on amiodarone drip. A chest x-ray showed cardiac megaly with mild CHF changes. We 'll continue current medical therapy. Patient is also being part of followed by a oil well services superintendent. Patient may have underlying COPD and sleep apnea. Patient eventually needs a cardiac catheterization to rule out underlying ischemic heart disease. I will discuss with Dr. Jiménez within next 24 hours. Prognosis guarded. Patient is also currently on heparin. 11/09/2017: This patient is much more alert today. Denies any chest pain. Appears mildly short of breath. Maintaining sinus rhythm. Chest x-ray showed cardiomegaly without any overt failure. Hasn't had any recurrence of V. tach. He is on amiodarone. His lungs show diminished breath sounds with rhonchi. Heart is irregular. He is on heparin. We'll resume his metoprolol, MARTÍN inhibitor and also Aldactone. I discussed with Dr. Jiménez. We'll proceed with cardiac catheterization tomorrow. 11/11/2017: This patient had a cardiac catheterization yesterday and was found to have normal coronary arteries. Patient is feeling much better today. He is less short of breath. No further episodes of ventricular arrhythmias. He is being treated with antibiotics for diverticulitis. In view of severe cardiomyopathy and ventricular tachycardia, patient will be candidate for AICD implantation. However because of diverticulitis and infections, we'll going to wait until the diverticulitis is taken care of. Patient may need surgical intervention. Meanwhile we'll continue with the amiodarone by mouth. Objective - Vital Signs Vital signs: Vital Signs Temp 97.5 F L 11/11/17 12:00 Pulse 72 11/11/17 13:00 Resp 17 11/11/17 13:00 BP 107/60 11/11/17 13:00 Pulse Ox 95 11/11/17 13:00 Intake & Output 11/10/17 11/11/17 11/11/17 18:59 06:59 18:59 Intake Total 1735.0 162.5 390 Output Total 3185 881 306 Balance -1450.0 -718.5 84 Weight 109 kg 106.4 kg Intake: IV 1235.0 162.5 390 Magnesium Sulfate-D5w Pmx 200 100 1 gm In Dextrose/Water 1 100ml.bag @ 100 mls/hr IVPB Q1H [facility] Rx#: [id number] Piperacillin-Tazobactam 3 75.0 12.5 50 .375 gm In Dextrose/Water 1 50ml.bag @ 12.5 mls/hr IVPB Q8H [facility] Rx#: [id number] Sodium Chloride 0.9% 1, 600 150 140 000 ml @ 75 mls/hr IV . [id number] RE[facility]NA Rx#:[id number] metroNIDAZOLE-NS PMX 500 300 100 mg In Saline 1 100ml.bag @ 100 mls/hr IVPB Q6HR RE[facility]NA Rx#:[id number] Oral 500 Output: Urine 3185 880 306 Stool 1 Other: Voiding Method Indwelling Catheter Indwelling Catheter Indwelling Catheter # Bowel Movements 2 1 - Exam GENERAL EXAM: Patient alert and oriented HEENT: Normocephalic. NECK: No masses, no nuchal rigidity. CHEST: No chest wall deformity. LUNGS: Diminished breath sounds bilaterally HEART: Distant heart sounds ABDOMEN:Soft SKIN: No rashes CENTRAL NERVOUS SYSTEM: Alert and oriented without any focal deficit EXTREMITIES: No cyanosis, clubbing or edema.. - Labs CBC & Chem 7: 11/11/17 04:54 11/11/17 04:54 Labs: Abnormal Lab Results - Last 24 Hours (Table) 11/10/17 11/10/17 11/10/17 Range/Units 16:57 19:05 21:07 MCHC (31.0-37.0) g/dL RDW (11.5-15.5) % Plt Count (150-450) k/uL Lymphocytes # (1.0-4.8) k/uL APTT 59.6 H (22.0-30.0) sec Glucose (74-99) mg/dL POC Glucose (mg/dL) 101 H 109 H (75-99) mg/dL Calcium (8.4-10.2) mg/dL 11/11/17 11/11/17 11/11/17 Range/Units 04:54 04:54 04:54 MCHC 30.3 L (31.0-37.0) g/dL RDW 15.8 H (11.5-15.5) % Plt Count 128 L (150-450) k/uL Lymphocytes # 0.6 L (1.0-4.8) k/uL APTT 54.0 H (22.0-30.0) sec Glucose 118 H (74-99) mg/dL POC Glucose (mg/dL) (75-99) mg/dL Calcium 8.3 L (8.4-10.2) mg/dL 11/11/17 Range/Units 07:27 MCHC (31.0-37.0) g/dL RDW (11.5-15.5) % Plt Count (150-450) k/uL Lymphocytes # (1.0-4.8) k/uL APTT (22.0-30.0) sec Glucose (74-99) mg/dL POC Glucose (mg/dL) 105 H (75-99) mg/dL Calcium (8.4-10.2) mg/dL Microbiology - Last 24 Hours (Table) 11/06/17 00:42 Blood Culture - Preliminary Blood No Growth after 120 hours Assessment and Plan (1) Ventricular tachycardia Current Visit: Yes Status: Acute Code(s): I47.2 - VENTRICULAR TACHYCARDIA SNOMED Code(s): 92653903 (2) Atrial fibrillation with RVR Current Visit: Yes Status: Acute Code(s): I48.91 - UNSPECIFIED ATRIAL FIBRILLATION SNOMED Code(s): 798649136931843 (3) COPD (chronic obstructive pulmonary disease) Current Visit: Yes Status: Acute Code(s): J44.9 - CHRONIC OBSTRUCTIVE PULMONARY DISEASE, UNSPECIFIED SNOMED Code(s): 36941013 (4) Mental status change resolved Current Visit: Yes Status: Acute Code(s): Z86.59 - PERSONAL HISTORY OF OTHER MENTAL AND BEHAVIORAL DISORDERS SNOMED Code(s): 026832841 (5) Respiratory failure Current Visit: Yes Status: Acute Code(s): J96.90 - RESPIRATORY FAILURE, UNSP , UNSP W HYPOXIA OR HYPERCAPNIA SNOMED Code(s): 909870900 (6) Cardiomyopathy Current Visit: Yes Status: Acute Code(s): I42.9 - CARDIOMYOPATHY, UNSPECIFIED SNOMED Code(s): 12894314 Plan: Continue respiratory support. Continue IV amiodarone. When his pulmonary status and mental status improves, we will consider cardiac catheterization for definite diagnosis. Meanwhile we'll also continue with anticoagulation. 11/09/2017: Patient seemed to be much more alert and stable. We'll resume his oral medications. Continue with IV amiodarone and heparin. Cardiac catheterization tomorrow. 11/11/2017: Patient is clinically feeling much better. Seemed to be less short of breath. He is not having any arrhythmias. We'll continue with oral amiodarone, Lasix, Aldactone and MARTÍN inhibitor. May consider surgical intervention for diverticulitis. Patient may need defibrillator implantation probably from prior to discharge.
[2017-11-11 17:04] LABS: Glucose,Whole Blood 135 mg/dL (75-99)
[2017-11-11 17:10] LABS: Glucose,Whole Blood 89 mg/dL (75-99)
[2017-11-11 20:31] LABS: Glucose,Whole Blood 118 mg/dL (75-99)
[2017-11-12] MEDS: metroNIDAZOLE-NS PMX 500 MG in SALINE 1 100ML.BAG IVPB SCH ×5 (00:12→23:47)
[2017-11-12 04:20] LABS: Basophils % (A) 0 %; Eosinophils # (A) 0.1 k/uL (0-0.7); Eosinophils % (A) 1 %; HCT 48.7 % (39.0-53.0); HGB 15.2 gm/dL (13.0-17.5); Hypochromasia Slight; Lymphocytes # (A) 0.7 k/uL (1.0-4.8); Lymphocytes % (A) 10 %; MCH 29.7 pg (25.0-35.0); MCHC 31.2 g/dL (31.0-37.0); MCV 95.1 fL (80.0-100.0); Monocytes # (A) 0.8 k/uL (0-1.0); Monocytes % (A) 11 %; Neutrophils # (A) 5.3 k/uL (1.3-7.7); Neutrophils % (A) 75 %; Platelet Count 118 k/uL (150-450); RBC 5.13 m/uL (4.30-5.90); RDW 15.5 % (11.5-15.5); WBC 7.1 k/uL (3.8-10.6)
[2017-11-12] MEDS: PIPERACILLIN-TAZOBACTAM 3.375 GM in DEXTROSE/WATER 1 50ML.BAG IVPB SCH ×3 (04:20→20:55)
[2017-11-12] MEDS: HEPARIN SOD,PORK IN 0.45% NACL 25,000 UNIT in 0.45% NACL 1 500ML.BAG IV SCH (04:40)
[2017-11-12 05:13] LABS: Anion Gap 5 mmol/L; Blood Urea Nitrogen 13 mg/dL (9-20); Calcium 8.4 mg/dL (8.4-10.2); Carbon Dioxide 33 mmol/L (22-30); Chloride 100 mmol/L (98-107); Glucose 105 mg/dL (74-99); Magnesium 1.8 mg/dL (1.6-2.3); Phosphorus 3.8 mg/dL (2.5-4.5); Potassium 3.9 mmol/L (3.5-5.1); Sodium 138 mmol/L (137-145)
[2017-11-12] MEDS: IPRATROPIUM-ALBUTEROL 3 ML NEB INHALATION SCH ×4 (06:56→19:02)
[2017-11-12] MEDS: BUDESONIDE 1 MG/2 ML NEBU INHALATION SCH ×2 (06:56→19:01)
[2017-11-12] MEDS: FORMOTEROL FUMARATE 20 MCG/2 ML NEBU INHALATION SCH ×2 (06:56→19:02)
[2017-11-12 07:15] LABS: Glucose,Whole Blood 97 mg/dL (75-99)
--- NOTE | 2017-11-12 07:23 | P.PN ---
Subjective Progress Note Date: 11/12/17 Principal diagnosis: Cardiomyopathy/atrial fibrillation/ventricular tachycardia This is a 66-year-old gentleman who initially was admitted to the hospital with newly diagnosis atrial fibrillation. The patient was found to have severe cardiomyopathy. He underwent a heart catheterization which showed normal coronaries. He developed episodes of ventricular tachycardia. He was started on amiodarone IV. He also developed abdominal discomfort and was diagnosed with diverticulitis with possible need for surgery. From a cardiovascular standpoint of view, the patient is asymptomatic at this point. He continues to be in atrial fibrillation was controlled heart rates. He is on maximize medical treatment for cardiomyopathy including beta omero, MARTÍN inhibitor, Aldactone, and he is also on amiodarone for the atrial fibrillation as well as ventricular tachycardia. No more episodes of V. tach was noted. Regarding atrial fibrillation, he is on anticoagulation with heparin for now. The plan from the cardiovascular standpoint overview, is to proceed with AICD once the infection status improve. Objective - Vital Signs Vital signs: Vital Signs Temp 98.5 F 11/11/17 20:00 Pulse 74 11/12/17 07:18 Resp 21 11/12/17 03:43 BP 118/74 11/12/17 03:00 Pulse Ox 93 L 11/12/17 03:00 Intake & Output 11/11/17 11/12/17 11/12/17 18:59 06:59 18:59 Intake Total 640 580 Output Total 426 701 Balance 214 -121 Intake: IV 640 80 Magnesium Sulfate-D5w Pmx 100 1 gm In Dextrose/Water 1 100ml.bag @ 100 mls/hr IVPB Q1H [facility] Rx#: [id number] Piperacillin-Tazobactam 3 100 .375 gm In Dextrose/Water 1 50ml.bag @ 12.5 mls/hr IVPB Q8H [facility] Rx#: [id number] Sodium Chloride 0.9% 1, 240 80 000 ml @ 75 mls/hr IV . [id number] [facility] Rx#:[id number] metroNIDAZOLE-NS PMX 500 200 mg In Saline 1 100ml.bag @ 100 mls/hr IVPB Q6HR [facility] Rx#:[id number] Intake, IV Titration 500 Amount Heparin Sod,Pork in 0.45% 500 NaCl 25,000 unit In 0.45 % NaCl 1 500ml.bag @ 10.3 UNITS/KG/HR 20.08 mls/hr IV .Q24H [facility] Rx#: [id number] Output: Urine 426 700 Stool 1 Other: Voiding Method Indwelling Catheter Indwelling Catheter # Bowel Movements 1 - Constitutional General appearance: Present: no acute distress - Respiratory Respiratory: bilateral: diminished - Cardiovascular Rhythm: regular Heart sounds: normal: S1, S2 - Labs CBC & Chem 7: 11/12/17 03:54 11/12/17 03:54 Labs: Abnormal Lab Results - Last 24 Hours (Table) 11/11/17 11/11/17 11/11/17 Range/Units 07:27 11:41 20:29 Plt Count (150-450) k/uL Lymphocytes # (1.0-4.8) k/uL APTT (22.0-30.0) sec Carbon Dioxide (22-30) mmol/L Glucose (74-99) mg/dL POC Glucose (mg/dL) 105 H 135 H 118 H (75-99) mg/dL 11/12/17 11/12/17 11/12/17 Range/Units 03:54 03:54 03:54 Plt Count 118 L (150-450) k/uL Lymphocytes # 0.7 L (1.0-4.8) k/uL APTT 62.8 H (22.0-30.0) sec Carbon Dioxide 33 H (22-30) mmol/L Glucose 105 H (74-99) mg/dL POC Glucose (mg/dL) (75-99) mg/dL Microbiology - Last 24 Hours (Table) 11/06/17 00:42 Blood Culture - Final Blood No Growth after 144 hours Assessment and Plan Assessment: Assessment #1 severe nonischemic cardiomyopathy #2 atrial fibrillation was controlled heart rate #3 ventricular tachycardia #4 acute respiratory failure #5 diverticulitis. Plan #1 continue the current medical regimen. The patient is on maximize medical treatment for cardiomyopathy. #2 continue heparin IV for the atrial fibrillation for now until the patient have the surgery. After that the patient will be switched to oral anticoagulation #3 follow-up with the patient.
[2017-11-12] MEDS ORDERED: Magnesium Replacement Protocol 1 EACH MISC MISCELLANE PRN (07:49)
[2017-11-12] MEDS ORDERED: Potassium Replacement Protocol 1 EACH MISC MISCELLANE PRN (07:49)
[2017-11-12] MEDS: ISOSORBIDE MONONITRATE ER 30 MG TAB.ER.24H PO SCH (07:56)
[2017-11-12] MEDS: NICOTINE 21MG/24HR PATCH TRANSDERM SCH (07:56)
[2017-11-12] MEDS: PANTOPRAZOLE 40 MG/10 ML VIAL IVP SCH (07:56)
[2017-11-12] MEDS: INSULIN ASPART 100 UNIT/ML 1 ML 10 ML VIAL SQ SCH ×4 (07:57→20:57)
[2017-11-12] MEDS: METOPROLOL TARTRATE 25 MG TAB PO SCH ×4 (07:57→21:05)
[2017-11-12] MEDS: SPIRONOLACTONE 25 MG TAB PO SCH (07:57)
[2017-11-12] MEDS: LISINOPRIL 5 MG TAB PO SCH (07:57)
[2017-11-12] MEDS: AMIODARONE 200 MG TAB PO SCH ×3 (07:57→20:57)
[2017-11-12] MEDS ORDERED: POTASSIUM CHLORIDE ER 20 MEQ TAB.ER PO SCH (08:00)
--- NOTE | 2017-11-12 08:22 | XR ---
EXAMINATION TYPE: XR chest 1V DATE OF EXAM: 11/12/2017 COMPARISON: 11/11/2017 HISTORY: Shortness of breath TECHNIQUE: Single frontal view of the chest is obtained. FINDINGS: There is bilateral consolidation and pleural effusion greater on the left. There is inters titial changes. Heart is enlarged. Atherosclerotic change aorta. Arthropathy of the shoulders. IMPRESSION: 1. Bilateral consolidation and pleural effusion correlate for mild CHF.
[2017-11-12] MEDS: MAGNESIUM SULFATE-D5W PMX 1 GM in DEXTROSE/WATER 1 100ML.BAG IVPB SCH ×2 (09:10→11:50)
[2017-11-12 11:52] LABS: Glucose,Whole Blood 104 mg/dL (75-99)
--- NOTE | 2017-11-12 11:56 | P.PN ---
Subjective Progress Note Date: 11/12/17 66-year-old male seen in the ICU sitting up in a chair at bedside patient stated he had 4 loose stools yesterday none today tolerating diet denying chest pain denying shortness of breath. Patients being followed by surgical service for diverticulitis with a tentative plan to do surgery this week this is being held. Surgeon has no plans for surgical intervention this hospitalization Surgeon did speak with the insole stiffener today and he is recommending patient increase his endurance have a follow-up visit in a week in the office for possible setting up the timing to undergo surgical procedure for the diverticulitis cardiology's recommendations is to proceed with an AICD once the infection status improves this will be discussed in an outpatient follow-up visit in the muffler mechanic's office Objective - Vital Signs Vital signs: Vital Signs Temp 97.6 F 11/12/17 08:00 Pulse 79 11/12/17 11:00 Resp 19 11/12/17 11:00 BP 133/89 11/12/17 11:00 Pulse Ox 95 11/12/17 11:00 Intake & Output 11/11/17 11/12/17 11/12/17 18:59 06:59 18:59 Intake Total 640 680 Output Total 426 746 385 Balance 214 -66 -385 Weight 107.1 kg Intake: IV 640 180 Magnesium Sulfate-D5w Pmx 100 1 gm In Dextrose/Water 1 100ml.bag @ 100 mls/hr IVPB Q1H [facility] Rx#: [id number] Piperacillin-Tazobactam 3 100 .375 gm In Dextrose/Water 1 50ml.bag @ 12.5 mls/hr IVPB Q8H [facility] Rx#: [id number] Sodium Chloride 0.9% 1, 240 80 000 ml @ 75 mls/hr IV . [id number] [facility] Rx#:[id number] metroNIDAZOLE-NS PMX 500 200 100 mg In Saline 1 100ml.bag @ 100 mls/hr IVPB Q6HR [facility] Rx#:[id number] Intake, IV Titration 500 Amount Heparin Sod,Pork in 0.45% 500 NaCl 25,000 unit In 0.45 % NaCl 1 500ml.bag @ 10.3 UNITS/KG/HR 20.08 mls/hr IV .Q24H [facility] Rx#: [id number] Output: Urine 426 745 385 Stool 1 Other: Voiding Method Indwelling Catheter Indwelling Catheter Indwelling Catheter # Bowel Movements 1 - Exam exam Pleasant 66-year-old gentleman sitting up in a chair appears in no acute distress talkative at bedside Lungs diminished at the bases otherwise adequate air movement no conversational dyspnea noted states less short of breath Heart S1-S2 denying chest pain heart rate in the 70s Abdomen soft currently is denying abdominal pain nondistended nontender no nausea no vomiting indwelling Em catheter in place Extremities trace pedal edema bilaterally Venodyne's on bilaterally - Labs CBC & Chem 7: 11/12/17 03:54 11/12/17 03:54 Labs: Abnormal Lab Results - Last 24 Hours (Table) 11/11/17 11/11/17 11/12/17 Range/Units 11:41 20:29 03:54 Plt Count 118 L (150-450) k/uL Lymphocytes # 0.7 L (1.0-4.8) k/uL APTT (22.0-30.0) sec Carbon Dioxide (22-30) mmol/L Glucose (74-99) mg/dL POC Glucose (mg/dL) 135 H 118 H (75-99) mg/dL 11/12/17 11/12/17 Range/Units 03:54 03:54 Plt Count (150-450) k/uL Lymphocytes # (1.0-4.8) k/uL APTT 62.8 H (22.0-30.0) sec Carbon Dioxide 33 H (22-30) mmol/L Glucose 105 H (74-99) mg/dL POC Glucose (mg/dL) (75-99) mg/dL Microbiology - Last 24 Hours (Table) 11/06/17 00:42 Blood Culture - Final Blood No Growth after 144 hours Assessment and Plan Assessment: Impression Admission left lower quadrant pain suspect due to diverticulitis failed outpatient treatment Computed tomography scan abdomen pelvis show evidence of diverticulosis extensive with mild diverticulitis Obesity BMI 31 Newly diagnosed atrial fibrillation started on anticoagulation elquis History of recurrent episodes of diverticulitis Acute hypoxic respiratory failure desat in the 80s suspect due to underlying COPD Scheduled for colon resection in the near future November 11 for treatment of diverticulitis Abdominal pain left lower quadrant consistent with diverticulitis Current every day smoker 1 pack a day with nicotine dependency Elevated ammonia level improving resolving Debilitated Plan Plans for surgical intervention for diverticulitis at this admission PT OT increase activity Elective surgery for diverticulitis will be rescheduled once patient is medically cleared Elective surgery for the diverticulitis will be discussed in the outpatient setting once patient has increased his endurance the timing of the surgery will be discussed Further surgical recommendations pending Pain control IV antibiotics Zosyn and Flagyl DVT GI prophylaxis Will follow with you Transfer out of the ICU to a stepdown unit The above impression and plan of care have been discussed and directed by signing physician. Debbie Fleming nurse practitioner acting as scribe for signing physician.
--- NOTE | 2017-11-12 12:57 | P.PN ---
Subjective 66-year-old male with a known history of AAA, COPD , hypertension and recurrent diverticulitis and needs resection but delayed due to newly diagnosed atrial fibrillation came to ER with complaints of fever chills and sweating. Patient also complaining of lower abdominal pain which is consistent with his previous diverticular flare. Patient woke up this morning having cold sweats and fever. Patient was advised by his to come to ER and patient also delirious at home. Patient does have episodes of recurrent diverticulitis. Patient is on follow-up with general surgery and is planning for colon resection in next few days. Otherwise patient recently developed ventricular fibrillation for which patient was started on eliquis yesterday. Chest x-ray showed no acute cardio pulmonary process CT abdomen and pelvis showed mild inflammatory changes involving the descending colon. There is extensive colonic diverticulosis 11/07/2017 Patient became agitated and trying to get her to the bed and has been combative. Patient was given a dose of Haldol and was restrained. By afternoon patient became more awake and questions are being removed. Lateral evening patient became more confused and lethargic and became hypoxic. Basal patient was placed on her person nontender with a and ABGs were done showed respiratory acidosis. Discussed with the pulmonary and agree to be transferred to medical intensive care unit. Patient is being continued on amiodarone drip and heparin drip. 2-D echo guitar teacher was done. Cardiology is following. 11/08/2017 Currently patient is lying in the bed comfortably. Patient was given a dose of Haldol for agitation. Otherwise patient is being continued on antibiotics. Ammonia level was elevated at 105 and repeat was 19. Patient was noted to have been in ventricular tachycardia. Currently on amiodarone drip and heparin drip. Cardiology is following and recommended cardiac Catheterization once clinically improves. Continued on antibiotics in the form of Levaquin and Flagyl for acute diverticulitis. General surgery and pulmonary is following. Patient could not provide review of systems at this time. 11/09/2017 Patient is fairly doing well today. Although has significant wheezing on exam. Patient appears to have COPD. Does have advanced heart failure or cardiomyopathy with ejection fraction of only 20% along with atrial fibrillation. Patient heart rate is well controlled blood pressure is fairly stable now patient is on IV heparin drip. Patient is on amiodarone and metoprolol patient is definitely high operative risk same thing was discussed with the patient. Patient is on inhaled steroids at this time. Patient is awaiting clearance from cardiology for surgery. Patient is presently on Zosyn and Flagyl 11/10/2017 Patient respiratory status still not GERD still requiring pallidus apart from all the wheezing did improve. From cardiac perspective patient is presently euvolemic heart rate is well controlled. Patient denied any abdominal pain today. Once his is pretty status improves patient will go for a colectomy. 11/11/2017 Patient is looking much better today patient did have bowel movements yesterday. Patient respiratory status improved significantly without much of wheezing today. Is still awaiting his respiratory status it to improve lipid more before he can go for surgery. Patient will undergo hemicolectomy followed by AICD placement as well. Patient will be transferred out of ICU 11/12/2017 Patient is clinically doing well his oxygen requirements have come down. Patient was started on oral anticoagulation. No surgical intervention is being planned at this point of time patient will be discharged once he is medically stabilized we'll follow up with the surgery as an outpatient and will get hemicolectomy as an outpatient down the line followed by an ACD placement. Patient will be discharged on LifeVest Constitutional: Denied any fatigue denied any fever. Cardio vascular: denied any chest pain, palpitations Gastrointestinal denied any nausea vomiting Pulmonary: Denied any shortness of breath cough Neurologic denied any new focal deficits Objective - Vital Signs Vital signs: Vital Signs Temp 98.3 F 11/12/17 12:00 Pulse 66 11/12/17 12:00 Resp 22 11/12/17 12:00 BP 131/81 11/12/17 12:00 Pulse Ox 96 11/12/17 12:00 Intake & Output 11/11/17 11/12/17 11/12/17 18:59 06:59 18:59 Intake Total 640 680 Output Total 426 746 385 Balance 214 -66 -385 Weight 107.1 kg Intake: IV 640 180 Magnesium Sulfate-D5w Pmx 100 1 gm In Dextrose/Water 1 100ml.bag @ 100 mls/hr IVPB Q1H [facility] Rx#: [id number] Piperacillin-Tazobactam 3 100 .375 gm In Dextrose/Water 1 50ml.bag @ 12.5 mls/hr IVPB Q8H [facility] Rx#: [id number] Sodium Chloride 0.9% 1, 240 80 000 ml @ 75 mls/hr IV . [id number] [facility] Rx#:[id number] metroNIDAZOLE-NS PMX 500 200 100 mg In Saline 1 100ml.bag @ 100 mls/hr IVPB Q6HR [facility] Rx#:[id number] Intake, IV Titration 500 Amount Heparin Sod,Pork in 0.45% 500 NaCl 25,000 unit In 0.45 % NaCl 1 500ml.bag @ 10.3 UNITS/KG/HR 20.08 mls/hr IV .Q24H [facility] Rx#: [id number] Output: Urine 426 745 385 Stool 1 Other: Voiding Method Indwelling Catheter Indwelling Catheter Indwelling Catheter # Bowel Movements 1 - Exam PHYSICAL EXAMINATION: GENERAL: The patient is alert and oriented x3, not in any acute distress. Well developed, well nourished. HEENT: Pupils are round and equally reacting to light. EOMI. No scleral icterus. No conjunctival pallor. Normocephalic, atraumatic. No pharyngeal erythema. No thyromegaly. CARDIOVASCULAR: S1 and S2 present. No murmurs, rubs, or gallops. PULMONARY: Expiratory wheezing improved significantly fairly good air entry into bilateral lung clemente ABDOMEN: No tenderness good bowel sounds MUSCULOSKELETAL: No joint swelling or deformity. EXTREMITIES: No cyanosis, clubbing, or pedal edema. NEUROLOGICAL: Gross neurological examination did not reveal any focal deficits. SKIN: No rashes. - Labs CBC & Chem 7: 11/12/17 03:54 11/12/17 03:54 Labs: Abnormal Lab Results - Last 24 Hours (Table) 11/11/17 11/11/17 11/12/17 Range/Units 11:41 20:29 03:54 Plt Count 118 L (150-450) k/uL Lymphocytes # 0.7 L (1.0-4.8) k/uL APTT (22.0-30.0) sec Carbon Dioxide (22-30) mmol/L Glucose (74-99) mg/dL POC Glucose (mg/dL) 135 H 118 H (75-99) mg/dL 11/12/17 11/12/17 11/12/17 Range/Units 03:54 03:54 11:42 Plt Count (150-450) k/uL Lymphocytes # (1.0-4.8) k/uL APTT 62.8 H (22.0-30.0) sec Carbon Dioxide 33 H (22-30) mmol/L Glucose 105 H (74-99) mg/dL POC Glucose (mg/dL) 104 H (75-99) mg/dL Microbiology - Last 24 Hours (Table) 11/06/17 00:42 Blood Culture - Final Blood No Growth after 144 hours Assessment and Plan Plan: Assessment and Plan Assessment: Acute descending colon diverticulitis: Patient is on Zosyn and Flagyl. No operative and should intervention at this time during this hospitalization. Altered mental status and combativeness improved now secondary to diverticulitis and toxic encephalopathy which resolved COPD with minimal exacerbation continue with inhaled steroids. Congestive heart failure: Chronic systolic dysfunction ejection fraction of around 20% patient is fairly euvolemic at this time. AICD placement after his hemicolectomy Sepsis secondary to descending colitis improving Persistent Atrial fibrillation presently rate controlled patient is on amiodarone, IV heparin and metoprolol which will be continued Mild troponin leak likely due to demand ischemia. Paroxysmal atrial fibrillation. Recently diagnosed Obesity BMI 31.7 Recurrent diverticulitis and is scheduled for colon resection Abdominal aortic/iliac aneurysms with history of repair DVT prophylaxis
[2017-11-12] MEDS: APIXABAN 5 MG TAB PO SCH ×2 (13:27→20:56)
[2017-11-12 14:59] VITALS: BMI 34.8
--- NOTE | 2017-11-12 16:26 | P.PN ---
Subjective Progress Note Date: 11/12/17 On today's evaluation of 11/09/2017 I'm seeing this patient for a follow-up. The patient and is in the intensive care unit for an acute diverticulitis and the patient underwent a surgical evaluation. The patient is currently on a combination of Zosyn and Flagyl. The patient is afebrile hemodynamically stable at this point on no pressors. He did experience some altered mentation for which she was given Haldol overnight and this morning it is much more alert and awake and responsive and following commands and answering questions appropriately. The patient is a bit bronchospastic and wheezy on today's evaluation. He is a congested cough. Is an ex-smoker. He has history of COPD. He was started on DuoNeb nebulized treatments around the clock and Pulmicort and Perforomist nebulized treatments be also added to optimize his COPD. At the same time, the patient was found to have cardiomyopathy with impaired left a ejection fraction. He is having episodes of tachycardia. He was started on IV amiodarone and beta blockers and rico inhibitors and Aldactone. The patient currently is in atrial fibrillation. Rate is controlled. Cardiology evaluated the patient and it was decided the patient will need a cardiac catheterization to rule out underlying ischemic heart disease specialist and with his impaired LV function and episodes of V. tach. The patient is also on IV heparin for now. The chest x-ray from today shows some bibasilar atelectatic change. No evidence of pneumonia. No evidence of any pneumothorax. The echocardiogram that was completed showed severe global hypokinesis of left ventricular with an ejection fraction of 20-25%, severely dilated left a chair and, right atrium is markedly enlarged, moderate mitral regurgitation, moderate tricuspid regurgitation, moderate pulmonary hypertension with a PA pressure of 43. On 11/10/2017 I'm seeing this patient for a follow-up. Awake alert and following commands and answering questions. No significant respiratory distress and is less short of breath compared to yesterday. No chest pain. Underwent cardiac intervention this morning and it Came back completely within normal limits. His abdomen is less tender. No nausea. No vomiting. No abdominal distention. No fever or chills. Still on Zosyn and Flagyl combination regarding an acute diverticulitis. The patient is in atrial fibrillation and he'll be switched to oral amiodarone today 200 mg by mouth 3 times a day. IV heparin was discontinued briefly and needs to be restarted back again post cardiac catheterization. Mother the patient also has an ejection fraction of 2025%. The patient is afebrile. No significant leukocytosis. He was tolerating clear liquid diet. Renal function stable. Chest x-ray showed a stable left-sided atelectasis/effusion along with cardiac megaly and mild four-vessel congestion. Family is at the bedside. On 11/11/2017 the patient is being seen for a follow-up. Seems to much more alert and awake and is sitting up on a chair. His abdominal pain is subsided and he continues to be on broad-spectrum antibiotics and accommodation of Zosyn and Flagyl regarding an acute diverticulitis. His cardiac rhythm is atrial fibrillation. No ventricular tachycardia was noted. He has an ejection fraction which is poor less than 20% and I had a discussion with cardiology. The coronaries have been within normal limits. The patient will need an AICD at a later stage. Currently he is on amiodarone. Based on cardiology's opinion , the abdominal infection needs to be cleared prior to inserting an AICD. For that reason, the patient became in the hospital IV antibiotics. We'll continue treating the infection and contemplated doing to surgery as an inpatient as long as the patient's condition continues to improve. From the pulmonary standpoint, the patient has COPD and is quite optimizing this point. No significant rest for distress. Repeat chest x-ray was done today showed a stable left-sided small pleural effusion along with cardiomegaly and pulmonary vessel congestion. The patient remains on Flagyl and Zosyn. The patient is on Aldactone. The patient is on metoprolol and amiodarone. No significant leukocytosis. Rest of the blood work and electrodes are all within normal limits. On 11/12/2017, patient is awake and alert and is able to sit up on a chair and his is able to stand up independently. No cardiac arrhythmias of been noted. No chest pain. No shortness of breath. He is getting stronger. Abdominal pain is subsided. No nausea or vomiting. A good the bowel movement. He is afebrile. He remains on a combination of Flagyl and Zosyn. I discussed the case with general surgery. The plan is to treat him conservatively with antibiotics as long as the patient is improving. He needs to build up stamina and get stronger and ultimately he will need an outpatient surgery/bowel resection regarding his ongoing symptomatic diverticulitis/diverticulosis. I also discussed the case with cardiology. He may need a LifeVest at the time of discharge special with his impaired LV function. He is currently on amiodarone. No respiratory difficulties. No chest pain. No other new complaints otherwise for now. Objective - Vital Signs Vital signs: Vital Signs Temp 97 F L 11/12/17 15:00 Pulse 80 11/12/17 16:11 Resp 18 11/12/17 15:00 BP 130/77 11/12/17 15:00 Pulse Ox 94 L 11/12/17 15:00 Intake & Output 11/11/17 11/12/17 11/12/17 18:59 06:59 18:59 Intake Total 640 680 362.96 Output Total 426 746 560 Balance 214 -66 -197.04 Weight 107.1 kg 107.1 kg Intake: IV 640 180 150 Magnesium Sulfate-D5w Pmx 100 1 gm In Dextrose/Water 1 100ml.bag @ 100 mls/hr IVPB Q1H RE[facility] Rx#: [id number] Piperacillin-Tazobactam 3 100 50 .375 gm In Dextrose/Water 1 50ml.bag @ 12.5 mls/hr IVPB Q8H [facility] Rx#: [id number] Sodium Chloride 0.9% 1, 240 80 000 ml @ 75 mls/hr IV . [id number] [facility] Rx#:[id number] metroNIDAZOLE-NS PMX 500 200 100 100 mg In Saline 1 100ml.bag @ 100 mls/hr IVPB Q6HR RE[facility] Rx#:[id number] Intake, IV Titration 500 212.96 Amount Heparin Sod,Pork in 0.45% 500 212.96 NaCl 25,000 unit In 0.45 % NaCl 1 500ml.bag @ 10.3 UNITS/KG/HR 20.08 mls/hr IV .Q24H RE[facility]NA Rx#: [id number] Output: Urine 426 745 560 Stool 1 Other: Voiding Method Indwelling Catheter Indwelling Catheter Indwelling Catheter # Bowel Movements 1 - Exam Gen. appearance is calm and comfortable likely distress following commands and answering questions appropriately. Head exam was generally normal. There was no scleral icterus or corneal arcus. Mucous membranes were moist. Neck was supple and without jugular venous distension, thyromegaly, or carotid bruits. Carotids were easily palpable bilaterally. There was no adenopathy. Lungs sounds are diminished bilaterally along with diffuse expiratory wheezes throughout the lung clemente Heart sounds are irregular S1-S2, no significant murmurs appreciated. No right ventricular heave or thrill. Abdomen is soft and there is no direct tenderness or rebound tensile guarding. Bowel sounds are hypoactive at the present. No organomegaly. No ascites. No fluid wave. No shifting dullness. Examination of the skin revealed no evidence of significant rashes, suspicious appearing nevi or other concerning lesions. Neurologically awake and alert and is a focal neurological deficit Psychiatric appropriate mood and affect Examination of the extremities revealed easily palpable radial, femoral and pedal pulses. There was no cyanosis, clubbing or edema. - Labs CBC & Chem 7: 11/12/17 03:54 11/12/17 03:54 Labs: Abnormal Lab Results - Last 24 Hours (Table) 11/11/17 11/11/17 11/12/17 Range/Units 11:41 20:29 03:54 Plt Count 118 L (150-450) k/uL Lymphocytes # 0.7 L (1.0-4.8) k/uL APTT (22.0-30.0) sec Carbon Dioxide (22-30) mmol/L Glucose (74-99) mg/dL POC Glucose (mg/dL) 135 H 118 H (75-99) mg/dL 11/12/17 11/12/17 11/12/17 Range/Units 03:54 03:54 11:42 Plt Count (150-450) k/uL Lymphocytes # (1.0-4.8) k/uL APTT 62.8 H (22.0-30.0) sec Carbon Dioxide 33 H (22-30) mmol/L Glucose 105 H (74-99) mg/dL POC Glucose (mg/dL) 104 H (75-99) mg/dL Microbiology - Last 24 Hours (Table) 11/06/17 00:42 Blood Culture - Final Blood No Growth after 144 hours Assessment and Plan Plan: Assessment 1 acute diverticulitis in a patient with known having severe diverticulosis. clinically improving and IV antibiotics. Discussed the case with general surgery. The patient will need surgery and this will be done later on an outpatient basis probably within next 10 days to 14 days. Meanwhile, the patient is stooling. No abdominal pain. No fever or chills. No signs of septicemia. 2 altered mentation/delirium, improved. 3 cardiomyopathy with impaired ejection fraction of 25% and global hypokinesis and moderate MR with moderate degree of pulmonary hypertension 4 chronic atrial fibrillation with rapid ventricular response, currently rate is controlled on amiodarone and IV heparin will be restarted 5 episodes of ventricular tachycardia, nonsustained, none for now 6 fever or abdominal pain secondary to above at time of admission, improving 7 COPD exacerbation, improving 8 hypertension 9 obesity BMI 31.7 10 abdominal aortic aneurysm status post abdominal aortic aneurysm repair Plan Continue same antibiotic coverage and ultimately the patient will need to be switched to oral antibiotics at time of discharge. The plan is to do the surgery on outpatient basis once the patient get stronger and is overall condition stabilized further. I will recommend stopping the IV heparin switching this patient to oral Eliquis. We'll continue with amiodarone 200 mg by mouth 3 times a day. Continue beta blockers and the patient on metoprolol 25 mg 4 times a day. COPD is stable. Continue DuoNeb nebulized treatments around the clock. The patient would likely need a LifeVest at a time of discharge. The plan is to do his surgery on outpatient basis. The need for an AICD will need to be addressed at a later stage. Cardiology is aware. We'll continue to follow. The patient came moved out of the intensive care unit today. Replace electrolytes. Advance diet. Ambulate. We'll follow.
[2017-11-12 16:33] LABS: Glucose,Whole Blood 103 mg/dL (75-99)
[2017-11-12 20:58] LABS: Glucose,Whole Blood 113 mg/dL (75-99)
[2017-11-12] MEDS ORDERED: FAMOTIDINE 20 MG TAB PO SCH (21:00)
[2017-11-13] MEDS: PIPERACILLIN-TAZOBACTAM 3.375 GM in DEXTROSE/WATER 1 50ML.BAG IVPB SCH ×2 (02:46→12:13)
[2017-11-13 06:08] LABS: Glucose,Whole Blood 94 mg/dL (75-99)
[2017-11-13] MEDS: metroNIDAZOLE-NS PMX 500 MG in SALINE 1 100ML.BAG IVPB SCH ×3 (06:13→17:23)
[2017-11-13] MEDS: INSULIN ASPART 100 UNIT/ML 1 ML 10 ML VIAL SQ SCH ×3 (06:15→17:19)
[2017-11-13 06:23] LABS: Basophils % (A) 0 %; Eosinophils # (A) 0.1 k/uL (0-0.7); Eosinophils % (A) 1 %; HCT 49.8 % (39.0-53.0); HGB 15.7 gm/dL (13.0-17.5); Hypochromasia Slight; Lymphocytes # (A) 0.6 k/uL (1.0-4.8); Lymphocytes % (A) 9 %; MCH 29.9 pg (25.0-35.0); MCHC 31.5 g/dL (31.0-37.0); MCV 94.8 fL (80.0-100.0); Mean Platelet Volume 8.4; Monocytes # (A) 0.8 k/uL (0-1.0); Monocytes % (A) 11 %; Neutrophils # (A) 5.4 k/uL (1.3-7.7); Neutrophils % (A) 76 %; Platelet Count 126 k/uL (150-450); RBC 5.26 m/uL (4.30-5.90); RDW 15.6 % (11.5-15.5); WBC 7.1 k/uL (3.8-10.6)
[2017-11-13 06:49] LABS: Calcium 8.7 mg/dL (8.4-10.2); Magnesium 1.8 mg/dL (1.6-2.3); Potassium 4.3 mmol/L (3.5-5.1)
[2017-11-13] MEDS: IPRATROPIUM-ALBUTEROL 3 ML NEB INHALATION SCH ×3 (08:41→16:26)
[2017-11-13] MEDS: FORMOTEROL FUMARATE 20 MCG/2 ML NEBU INHALATION SCH (08:42)
[2017-11-13] MEDS: BUDESONIDE 1 MG/2 ML NEBU INHALATION SCH (08:42)
[2017-11-13] MEDS: METOPROLOL TARTRATE 25 MG TAB PO SCH ×3 (09:33→17:20)
[2017-11-13] MEDS: LISINOPRIL 5 MG TAB PO SCH (09:33)
[2017-11-13] MEDS: NICOTINE 21MG/24HR PATCH TRANSDERM SCH (09:33)
[2017-11-13] MEDS: ISOSORBIDE MONONITRATE ER 30 MG TAB.ER.24H PO SCH (09:33)
[2017-11-13] MEDS: AMIODARONE 200 MG TAB PO SCH ×2 (09:33→15:28)
[2017-11-13] MEDS: SPIRONOLACTONE 25 MG TAB PO SCH (09:33)
[2017-11-13] MEDS: APIXABAN 5 MG TAB PO SCH (09:33)
--- NOTE | 2017-11-13 09:58 | P.PN ---
Subjective Progress Note Date: 11/13/17 66-year-old male sitting up in a chair states the abdominal pain "gone" states had several bowel movements yesterday tolerating a diet states he is waiting to have a life vest applied. PT OT working with patient patient stated he did ambulate from the bed to the bathroom this morning reports feeling tired out. White count 7.1 labs within normal limits reviewed afebrile Objective - Vital Signs Vital signs: Vital Signs Temp 98.5 F 11/13/17 09:25 Pulse 55 L 11/13/17 09:25 Resp 18 11/13/17 09:25 BP 129/75 11/13/17 09:25 Pulse Ox 91 L 11/13/17 09:25 Intake & Output 11/12/17 11/13/17 11/13/17 18:59 06:59 18:59 Intake Total 602.96 120 360 Output Total 561 785 Balance 41.96 -665 360 Weight 107.1 kg 104.7 kg Intake: IV 150 Piperacillin-Tazobactam 3 50 .375 gm In Dextrose/Water 1 50ml.bag @ 12.5 mls/hr IVPB Q8H [facility] Rx#: [id number] metroNIDAZOLE-NS PMX 500 100 mg In Saline 1 100ml.bag @ 100 mls/hr IVPB Q6HR [facility] Rx#:[id number] Intake, IV Titration 212.96 Amount Heparin Sod,Pork in 0.45% 212.96 NaCl 25,000 unit In 0.45 % NaCl 1 500ml.bag @ 10.3 UNITS/KG/HR 20.08 mls/hr IV .Q24H [facility] Rx#: [id number] Oral 240 120 360 Output: Urine 560 780 Stool 1 5 Other: Voiding Method Indwelling Catheter # Voids 1 1 # Bowel Movements 1 - Exam Physical exam 66-year-old gentleman sitting up in a chair appears in no acute distress talkative Lungs diminished at the bases O2 being titrated down currently 91% on room air heart S1-S2 audible irregular Abdomen soft and not distended bowel tones present reports no nausea vomiting tolerating diet urinating no difficulty Extremities bilateral trace pedal edema this morning - Labs CBC & Chem 7: 11/13/17 05:49 11/13/17 05:49 Labs: Abnormal Lab Results - Last 24 Hours (Table) 0811/12/17 11/12/17 Range/Units 11:42 16:32 20:57 RDW (11.5-15.5) % Plt Count (150-450) k/uL Lymphocytes # (1.0-4.8) k/uL Sodium (137-145) mmol/L Glucose (74-99) mg/dL POC Glucose (mg/dL) 104 H 103 H 113 H (75-99) mg/dL 11/13/17 11/13/17 Range/Units 05:49 05:49 RDW 15.6 H (11.5-15.5) % Plt Count 126 L (150-450) k/uL Lymphocytes # 0.6 L (1.0-4.8) k/uL Sodium 135 L (137-145) mmol/L Glucose 102 H (74-99) mg/dL POC Glucose (mg/dL) (75-99) mg/dL Assessment and Plan Assessment: Impression Admission left lower quadrant pain suspect due to diverticulitis failed outpatient treatment Computed tomography scan abdomen pelvis show evidence of diverticulosis extensive with mild diverticulitis Obesity BMI 31 Newly diagnosed atrial fibrillation started on anticoagulation elquis History of recurrent episodes of diverticulitis Acute hypoxic respiratory failure desat in the 80s suspect due to underlying COPD Scheduled for colon resection in the near future November 11 for treatment of diverticulitis Abdominal pain left lower quadrant consistent with diverticulitis Current every day smoker 1 pack a day with nicotine dependency Elevated ammonia level improving resolving Debilitated Persistent atrial fibrillation current rate controlled Paroxysmal atrial fibrillation present only rate controlled recently diagnosed Plan no Plans for surgical intervention for diverticulitis at this admission PT OT increase activity Elective surgery for diverticulitis will be rescheduled once patient is medically cleared Elective surgery for the diverticulitis will be discussed in the outpatient setting once patient has increased his endurance the timing of the surgery will be discussed Further surgical recommendations pending Pain control IV antibiotics Zosyn and Flagyl DVT GI prophylaxis Will follow with you Per cardiology will need a LifeVest before discharge The above impression and plan of care have been discussed and directed by signing physician. Debbie Fleming nurse practitioner acting as scribe for signing physician.
[2017-11-13 11:46] LABS: Glucose,Whole Blood 84 mg/dL (75-99)
--- NOTE | 2017-11-13 12:24 | P.PN ---
Subjective Progress Note Date: 11/13/17 This is a pleasant 58-year-old gentleman who initially was admitted to the hospital with newly diagnosed atrial fibrillation. He was found have severe cardiomyopathy. Underwent heart catheterization which showed normal coronaries. He subsequently developed some sustained ventricular tachycardia and was started on IV amiodarone. He has since been transitioned to amiodarone 200 mg by mouth 3 times a day. He continues to be in atrial fibrillation with controlled heart rates. He's been started on oral anticoagulation. She is currently on beta omero, MARTÍN inhibitor, and Aldactone. Medications have been maximized. He's had no further episodes of ventricular tachycardia. Upon examination, patient is sitting up in a chair. He's been up ambulating with staff and has been tolerating that well. He denies complaints of shortness of breath. He's had no palpitations or chest discomfort. Objective - Vital Signs Vital signs: Vital Signs Temp 98.5 F 11/13/17 09:25 Pulse 68 11/13/17 11:59 Resp 18 11/13/17 11:59 BP 129/76 11/13/17 11:59 Pulse Ox 92 L 11/13/17 11:59 Intake & Output 11/12/17 11/13/17 11/13/17 18:59 06:59 18:59 Intake Total 602.96 120 360 Output Total 561 785 Balance 41.96 -665 360 Weight 107.1 kg 104.7 kg Intake: IV 150 Piperacillin-Tazobactam 3 50 .375 gm In Dextrose/Water 1 50ml.bag @ 12.5 mls/hr IVPB Q8H [facility] Rx#: [id number] metroNIDAZOLE-NS PMX 500 100 mg In Saline 1 100ml.bag @ 100 mls/hr IVPB Q6HR [facility] Rx#:[id number] Intake, IV Titration 212.96 Amount Heparin Sod,Pork in 0.45% 212.96 NaCl 25,000 unit In 0.45 % NaCl 1 500ml.bag @ 10.3 UNITS/KG/HR 20.08 mls/hr IV .Q24H [facility] Rx#: [id number] Oral 240 120 360 Output: Urine 560 780 Stool 1 5 Other: Voiding Method Indwelling Catheter Urinal # Voids 1 1 # Bowel Movements 1 - Exam PHYSICAL EXAMINATION: HEENT: [Head is atraumatic, normocephalic. Pupils equal, round. Neck is supple. There is no elevated jugular venous pressure.] HEART EXAMINATION: [Heart sounds irregularly irregular, S1 and S2 normal. No murmur or gallop heard.] CHEST EXAMINATION:[ Lungs reveal diminished air entry bilaterally. No chest wall tenderness is noted on palpation or with deep breathing.] ABDOMEN: [ Soft, obese, nontender. Bowel sounds are heard. No organomegaly noted ]. EXTREMITIES:[ 2+ peripheral pulses with no evidence of peripheral edema and no calf tenderness noted]. NEUROLOGIC [patient is awake, alert and oriented x3.] . - Labs CBC & Chem 7: 11/13/17 05:49 11/13/17 05:49 Labs: Abnormal Lab Results - Last 24 Hours (Table) 11/12/17 11/12/17 11/13/17 Range/Units 16:32 20:57 05:49 RDW 15.6 H (11.5-15.5) % Plt Count 126 L (150-450) k/uL Lymphocytes # 0.6 L (1.0-4.8) k/uL Sodium (137-145) mmol/L Glucose (74-99) mg/dL POC Glucose (mg/dL) 103 H 113 H (75-99) mg/dL 11/13/17 Range/Units 05:49 RDW (11.5-15.5) % Plt Count (150-450) k/uL Lymphocytes # (1.0-4.8) k/uL Sodium 135 L (137-145) mmol/L Glucose 102 H (74-99) mg/dL POC Glucose (mg/dL) (75-99) mg/dL Assessment and Plan Assessment: #1 severe nonischemic cardiomyopathy #2 atrial fibrillation, persistent #3 ventricular tachycardia #4 acute respiratory failure #5 diverticulitis, currently on IV Flagyl and Zosyn Plan: From cardiology's perspective, we will continue current medical regimen he is currently on maximize medical treatment for cardiomyopathy. Continue anticoagulation. We will order the patient a LifeVest for discharge and anticipate implantation of AICD once infectious process has cleared up. We will continue to follow the patient during this admission and provide further recommendations accordingly. NEEDLE GRADER note has been reviewed, I agree with a documented findings and plan of care. Patient was seen and examined.
--- NOTE | 2017-11-13 13:14 | XR ---
EXAMINATION TYPE: XR chest 1V DATE OF EXAM: 11/13/2017 COMPARISON: Prior chest x-ray 11/12/2017 HISTORY: Congestive heart failure and shortness of breath TECHNIQUE: Single frontal view of the chest is obtained. FINDINGS: Patient is rotated. Patchy basilar density is present, there is increased retrocardiac den sity with obscured left hemidiaphragm. No pneumothorax. Heart is enlarged. May be some improvement in perihilar vascular indistinctness IMPRESSION: Some slight interval improvement in volume status, aeration suspected. Additional follow -up recommended.
--- NOTE | 2017-11-13 13:18 | P.PN ---
Subjective Progress Note Date: 11/13/17 Principal diagnosis: Acute diverticulosis On today's evaluation of 11/09/2017 I'm seeing this patient for a follow-up. The patient and is in the intensive care unit for an acute diverticulitis and the patient underwent a surgical evaluation. The patient is currently on a combination of Zosyn and Flagyl. The patient is afebrile hemodynamically stable at this point on no pressors. He did experience some altered mentation for which she was given Haldol overnight and this morning it is much more alert and awake and responsive and following commands and answering questions appropriately. The patient is a bit bronchospastic and wheezy on today's evaluation. He is a congested cough. Is an ex-smoker. He has history of COPD. He was started on DuoNeb nebulized treatments around the clock and Pulmicort and Perforomist nebulized treatments be also added to optimize his COPD. At the same time, the patient was found to have cardiomyopathy with impaired left a ejection fraction. He is having episodes of tachycardia. He was started on IV amiodarone and beta blockers and rico inhibitors and Aldactone. The patient currently is in atrial fibrillation. Rate is controlled. Cardiology evaluated the patient and it was decided the patient will need a cardiac catheterization to rule out underlying ischemic heart disease specialist and with his impaired LV function and episodes of V. tach. The patient is also on IV heparin for now. The chest x-ray from today shows some bibasilar atelectatic change. No evidence of pneumonia. No evidence of any pneumothorax. The echocardiogram that was completed showed severe global hypokinesis of left ventricular with an ejection fraction of 20-25%, severely dilated left a chair and, right atrium is markedly enlarged, moderate mitral regurgitation, moderate tricuspid regurgitation, moderate pulmonary hypertension with a PA pressure of 43. On 11/10/2017 I'm seeing this patient for a follow-up. Awake alert and following commands and answering questions. No significant respiratory distress and is less short of breath compared to yesterday. No chest pain. Underwent cardiac intervention this morning and it Came back completely within normal limits. His abdomen is less tender. No nausea. No vomiting. No abdominal distention. No fever or chills. Still on Zosyn and Flagyl combination regarding an acute diverticulitis. The patient is in atrial fibrillation and he'll be switched to oral amiodarone today 200 mg by mouth 3 times a day. IV heparin was discontinued briefly and needs to be restarted back again post cardiac catheterization. Mother the patient also has an ejection fraction of 2025%. The patient is afebrile. No significant leukocytosis. He was tolerating clear liquid diet. Renal function stable. Chest x-ray showed a stable left-sided atelectasis/effusion along with cardiac megaly and mild four-vessel congestion. Family is at the bedside. On 11/11/2017 the patient is being seen for a follow-up. Seems to much more alert and awake and is sitting up on a chair. His abdominal pain is subsided and he continues to be on broad-spectrum antibiotics and accommodation of Zosyn and Flagyl regarding an acute diverticulitis. His cardiac rhythm is atrial fibrillation. No ventricular tachycardia was noted. He has an ejection fraction which is poor less than 20% and I had a discussion with cardiology. The coronaries have been within normal limits. The patient will need an AICD at a later stage. Currently he is on amiodarone. Based on cardiology's opinion , the abdominal infection needs to be cleared prior to inserting an AICD. For that reason, the patient became in the hospital IV antibiotics. We'll continue treating the infection and contemplated doing to surgery as an inpatient as long as the patient's condition continues to improve. From the pulmonary standpoint, the patient has COPD and is quite optimizing this point. No significant rest for distress. Repeat chest x-ray was done today showed a stable left-sided small pleural effusion along with cardiomegaly and pulmonary vessel congestion. The patient remains on Flagyl and Zosyn. The patient is on Aldactone. The patient is on metoprolol and amiodarone. No significant leukocytosis. Rest of the blood work and electrodes are all within normal limits. On 11/12/2017, patient is awake and alert and is able to sit up on a chair and his is able to stand up independently. No cardiac arrhythmias of been noted. No chest pain. No shortness of breath. He is getting stronger. Abdominal pain is subsided. No nausea or vomiting. A good the bowel movement. He is afebrile. He remains on a combination of Flagyl and Zosyn. I discussed the case with general surgery. The plan is to treat him conservatively with antibiotics as long as the patient is improving. He needs to build up stamina and get stronger and ultimately he will need an outpatient surgery/bowel resection regarding his ongoing symptomatic diverticulitis/diverticulosis. I also discussed the case with cardiology. He may need a LifeVest at the time of discharge special with his impaired LV function. He is currently on amiodarone. No respiratory difficulties. No chest pain. No other new complaints otherwise for now. She is seen again today 11/13/2017 in follow-up on the selective care unit. He is awake and alert in no acute distress. He's actually been up ambulating in the [place] with assistance and doing quite well. He denies any shortness of breath, cough or congestion. Maintaining O2 saturations in the 90s on room air. His chest x-ray remains stable. He's been afebrile. Hemodynamically stable. He denies any significant abdominal discomfort. Blood and urine cultures reveal no growth. Count 7.1. Hemoglobin 15.7. Creatinine 1.10. He has not had any recurrent sustained ventricular tachycardia. The plan is for LifeVest prior to discharge. Objective - Vital Signs Vital signs: Vital Signs Temp 98.5 F 11/13/17 09:25 Pulse 68 11/13/17 11:59 Resp 18 11/13/17 11:59 BP 129/76 11/13/17 11:59 Pulse Ox 92 L 11/13/17 11:59 Intake & Output 11/12/17 11/13/17 11/13/17 18:59 06:59 18:59 Intake Total 602.96 120 360 Output Total 561 785 Balance 41.96 -665 360 Weight 107.1 kg 104.7 kg Intake: IV 150 Piperacillin-Tazobactam 3 50 .375 gm In Dextrose/Water 1 50ml.bag @ 12.5 mls/hr IVPB Q8H REYNA Rx#: [id number] metroNIDAZOLE-NS PMX 500 100 mg In Saline 1 100ml.bag @ 100 mls/hr IVPB Q6HR REYNA Rx#:[id number] Intake, IV Titration 212.96 Amount Heparin Sod,Pork in 0.45% 212.96 NaCl 25,000 unit In 0.45 % NaCl 1 500ml.bag @ 10.3 UNITS/KG/HR 20.08 mls/hr IV .Q24H REYNA Rx#: [id number] Oral 240 120 360 Output: Urine 560 780 Stool 1 5 Other: Voiding Method Indwelling Catheter Urinal # Voids 1 1 # Bowel Movements 1 - Exam Gen. appearance is calm and comfortable no acute distress following commands and answering questions appropriately. Head exam was generally normal. There was no scleral icterus or corneal arcus. Mucous membranes were moist. Neck was supple and without jugular venous distension, thyromegaly, or carotid bruits. Carotids were easily palpable bilaterally. There was no adenopathy. Lungs sounds are diminished bilaterally along with mild expiratory wheezes throughout the lung clemente Heart sounds are irregular S1-S2, no significant murmurs appreciated. No right ventricular heave or thrill. Abdomen is soft and there is no direct tenderness or rebound tensile guarding. Bowel sounds are hypoactive at the present. No organomegaly. No ascites. No fluid wave. No shifting dullness. Examination of the skin revealed no evidence of significant rashes, suspicious appearing nevi or other concerning lesions. Neurologically awake and alert and is a focal neurological deficit Psychiatric appropriate mood and affect Examination of the extremities revealed easily palpable radial, femoral and pedal pulses. There was no cyanosis, clubbing or edema. - Labs CBC & Chem 7: 11/13/17 05:49 11/13/17 05:49 Labs: Abnormal Lab Results - Last 24 Hours (Table) 11/12/17 11/12/17 11/13/17 Range/Units 16:32 20:57 05:49 RDW 15.6 H (11.5-15.5) % Plt Count 126 L (150-450) k/uL Lymphocytes # 0.6 L (1.0-4.8) k/uL Sodium (137-145) mmol/L Glucose (74-99) mg/dL POC Glucose (mg/dL) 103 H 113 H (75-99) mg/dL 11/13/17 Range/Units 05:49 RDW (11.5-15.5) % Plt Count (150-450) k/uL Lymphocytes # (1.0-4.8) k/uL Sodium 135 L (137-145) mmol/L Glucose 102 H (74-99) mg/dL POC Glucose (mg/dL) (75-99) mg/dL Assessment and Plan Assessment: Assessment 1 acute diverticulitis in a patient with known having severe diverticulosis. clinically improving and IV antibiotics. Discussed the case with general surgery. The patient will need surgery and this will be done later on an outpatient basis probably within next 10 days to 14 days. Meanwhile, the patient is stooling. No abdominal pain. No fever or chills. No signs of septicemia. 2 altered mentation/delirium, improved. 3 cardiomyopathy with impaired ejection fraction of 25% and global hypokinesis and moderate MR with moderate degree of pulmonary hypertension 4 chronic atrial fibrillation with rapid ventricular response, currently rate is controlled on amiodarone and IV heparin will be restarted 5 episodes of ventricular tachycardia, nonsustained, none for now 6 fever or abdominal pain secondary to above at time of admission, improving 7 COPD exacerbation, improving 8 hypertension 9 obesity BMI 31.7 10 abdominal aortic aneurysm status post abdominal aortic aneurysm repair Plan The patient was seen and evaluated by Dr. Franz. Chest x-ray was reviewed. The patient has been up and ambulating in the hallway and doing quite well. He has no pulmonary complaints. No further ventricular arrhythmias. He is maintained on amiodarone and Eliquis. The plan is for a LifeVest placement prior to discharge. The plan is for surgery in regards to his diverticulitis to be done electively once he is recovered from this current admission. Upon discharge he'll follow-up in our office in 1-2 weeks' time. I, the cosigning physician, performed a history & physical examination of the patient. Lungs sounds with faint end expiratory wheeze. Maintaining good O2 saturations in the 90s on room air. I discussed the assessment and plan of care with my nurse practitioner, Ana Skelton. I attest to the above note as dictated by her.
[2017-11-13] MEDS ORDERED: FUROSEMIDE 10 MG/ML 4 ML VIAL IV STA (14:33)
--- NOTE | 2017-11-13 14:39 | P.DS ---
Providers Date of admission: 11/06/17 03:20 Attending physician: Salvador Goel MD Consults: 11/06/17 03:21 Consult Physician Routine Consulting Provider: Rizwan Leahy Consult Reason/Comments: established patient, colitis/diverticulitis Do you want consulting provider notified?: Yes 11/06/17 22:10 Consult Physician Routine Consulting Provider: Micky Matamoros Consult Reason/Comments: Atrial fibrillation, troponin elevation and medical clearance. Do you want consulting provider notified?: Yes, Notify in am 11/07/17 20:03 Consult Physician Routine Consulting Provider: Aime Pink Consult Reason/Comments: Respiratory Distress Do you want consulting provider notified?: Yes Primary care physician: [facility] Course: 66-year-old male with a known history of AAA, COPD , hypertension and recurrent diverticulitis and needs resection but delayed due to newly diagnosed atrial fibrillation came to ER with complaints of fever chills and sweating. Patient also complaining of lower abdominal pain which is consistent with his previous diverticular flare. Patient woke up this morning having cold sweats and fever. Patient was advised by his to come to ER and patient also delirious at home. Patient does have episodes of recurrent diverticulitis. Patient is on follow-up with general surgery and is planning for colon resection in next few days. Otherwise patient recently developed ventricular fibrillation for which patient was started on eliquis yesterday. Chest x-ray showed no acute cardio pulmonary process CT abdomen and pelvis showed mild inflammatory changes involving the descending colon. There is extensive colonic diverticulosis 11/07/2017 Patient became agitated and trying to get her to the bed and has been combative. Patient was given a dose of Haldol and was restrained. By afternoon patient became more awake and questions are being removed. Lateral evening patient became more confused and lethargic and became hypoxic. Basal patient was placed on her person nontender with a and ABGs were done showed respiratory acidosis. Discussed with the pulmonary and agree to be transferred to medical intensive care unit. Patient is being continued on amiodarone drip and heparin drip. 2-D echo mammography technologist was done. Cardiology is following. 11/08/2017 Currently patient is lying in the bed comfortably. Patient was given a dose of Haldol for agitation. Otherwise patient is being continued on antibiotics. Ammonia level was elevated at 105 and repeat was 19. Patient was noted to have been in ventricular tachycardia. Currently on amiodarone drip and heparin drip. Cardiology is following and recommended cardiac Catheterization once clinically improves. Continued on antibiotics in the form of Levaquin and Flagyl for acute diverticulitis. General surgery and pulmonary is following. Patient could not provide review of systems at this time. 11/09/2017 Patient is fairly doing well today. Although has significant wheezing on exam. Patient appears to have COPD. Does have advanced heart failure or cardiomyopathy with ejection fraction of only 20% along with atrial fibrillation. Patient heart rate is well controlled blood pressure is fairly stable now patient is on IV heparin drip. Patient is on amiodarone and metoprolol patient is definitely high operative risk same thing was discussed with the patient. Patient is on inhaled steroids at this time. Patient is awaiting clearance from cardiology for surgery. Patient is presently on Zosyn and Flagyl 11/10/2017 Patient respiratory status still not GERD still requiring pallidus apart from all the wheezing did improve. From cardiac perspective patient is presently euvolemic heart rate is well controlled. Patient denied any abdominal pain today. Once his is pretty status improves patient will go for a colectomy. 11/11/2017 Patient is looking much better today patient did have bowel movements yesterday. Patient respiratory status improved significantly without much of wheezing today. Is still awaiting his respiratory status it to improve lipid more before he can go for surgery. Patient will undergo hemicolectomy followed by AICD placement as well. Patient will be transferred out of ICU 11/12/2017 Patient is clinically doing well his oxygen requirements have come down. Patient was started on oral anticoagulation. No surgical intervention is being planned at this point of time patient will be discharged once he is medically stabilized we'll follow up with the surgery as an outpatient and will get hemicolectomy as an outpatient down the line followed by an ACD placement. Patient will be discharged on LifeVest 11/13/2017 Patient is clinically doing doing well is not requiring any oxygen patient's COPD is better with inhaled steroids. Patient's abdominal pain is better had multiple bowel movements yesterday and day before. Patient will be discharged on Augmentin patient will follow with surgery as an outpatient and further surgical intervention will be planned down the line. Patient's ejection fraction is 20% had pulmonary edema which is improving will give her a given IV dose of Lasix patient will be discharged on 40 mg of Lasix all that on lisinopril and beta omero. Patient heart rate is well controlled patient was resumed on anticoagulation. Patient is awaiting LifeVest and AiCD placement down the line once he clinically gets better and after hemicolectomy PHYSICAL EXAMINATION: GENERAL: The patient is alert and oriented x3, not in any acute distress. Well developed, well nourished. HEENT: Pupils are round and equally reacting to light. EOMI. No scleral icterus. No conjunctival pallor. Normocephalic, atraumatic. No pharyngeal erythema. No thyromegaly. CARDIOVASCULAR: S1 and S2 present. No murmurs, rubs, or gallops. PULMONARY: Chest is clear to auscultation, no wheezing or crackles. ABDOMEN: Soft, nontender, nondistended, normoactive bowel sounds. No palpable organomegaly. MUSCULOSKELETAL: No joint swelling or deformity. EXTREMITIES: No cyanosis, clubbing, or pedal edema. NEUROLOGICAL: Gross neurological examination did not reveal any focal deficits. SKIN: No rashes. Assessment and Plan Assessment: Acute descending colon diverticulitis: Patient is on Zosyn and Flagyl. No operative intervention at this time during this hospitalization. Altered mental status and combativeness improved now secondary to diverticulitis and toxic encephalopathy which resolved COPD with minimal exacerbation continue with inhaled steroids. Congestive heart failure: Chronic systolic dysfunction ejection fraction of around 20% patient is fairly euvolemic at this time. AICD placement after his hemicolectomy Sepsis secondary to descending colitis improving Persistent Atrial fibrillation presently rate controlled patient is on amiodarone, IV heparin and metoprolol which will be continued Mild troponin leak likely due to demand ischemia. Paroxysmal atrial fibrillation. Recently diagnosed Obesity BMI 31.7 Recurrent diverticulitis and is scheduled for colon resection Abdominal aortic/iliac aneurysms with history of repair DVT prophylaxis Plan - Discharge Summary Discharge Rx Participant: No New Discharge Prescriptions: New Amiodarone [Cordarone] 200 mg PO TID #90 tab Amoxic-Pot Clav 875-125Mg [Augmentin 875-125] 1 tab PO Q12HR #20 tablet Isosorbide Mononitrate ER [Imdur] 30 mg PO DAILY #30 tab.er.24h Lisinopril [Zestril] 5 mg PO DAILY tab Metoprolol Tartrate [Lopressor] 25 mg PO QID #30 tab Nitroglycerin Sl Tabs [Nitrostat] 0.4 mg SUBLINGUAL Q5M PRN #30 tab PRN Reason: Chest Pain Spironolactone [Aldactone] 25 mg PO DAILY #30 tab Albuterol Inhaler [Ventolin Hfa Inhaler] 1 - 2 puff INHALATION Q6HR PRN #1 inhaler PRN Reason: Shortness Of Breath Or Wheezing Budesonide-Formot 160-4.5 Mcg [Symbicort 160-4.5 Mcg Inhaler] 2 puff INHALATION BID #1 inhaler Tiotropium [place] [Spiriva] 1 cap INHALATION DAILY #1 device Furosemide [Lasix] 40 mg PO DAILY #30 tablet Continue Aspirin 325 mg PO DAILY Albuterol Inhaler [Ventolin Hfa Inhaler] 2 puff INHALATION RT-QID Aclidinium [place] [Tudorza Pressair] 1 puff PO RT-BID Omeprazole [PriLOSEC] 20 mg PO AC-BRKFST Acetaminophen [Tylenol Extra Strength] 500 - 1,000 mg PO Q4-6H PRN PRN Reason: Pain Apixaban [Eliquis] 5 mg PO BID Changed Pregabalin [Lyrica] 150 mg PO BID #0 Discontinued Lisinopril [Zestril] 10 mg PO DAILY Discharge Medication List Aspirin 325 mg PO DAILY 08/22/14 [History] Albuterol Inhaler [Ventolin Hfa Inhaler] 2 puff INHALATION RT-QID 08/23/14 [ History] Acetaminophen [Tylenol Extra Strength] 500 - 1,000 mg PO Q4-6H PRN 11/02/17 [ History] Aclidinium [place] [Tudorza Pressair] 1 puff PO RT-BID 11/02/17 [History] Omeprazole [PriLOSEC] 20 mg PO AC-BRKFST 11/02/17 [History] Apixaban [Eliquis] 5 mg PO BID 11/06/17 [History] Albuterol Inhaler [Ventolin Hfa Inhaler] 1 - 2 puff INHALATION Q6HR PRN #1 inhaler 11/13/17 [Rx] Amiodarone [Cordarone] 200 mg PO TID #90 tab 11/13/17 [Rx] Amoxic-Pot Clav 875-125Mg [Augmentin 875-125] 1 tab PO Q12HR #20 tablet [Rx] Budesonide-Formot 160-4.5 Mcg [Symbicort 160-4.5 Mcg Inhaler] 2 puff INHALATION BID #1 inhaler 11/13/17 [Rx] Furosemide [Lasix] 40 mg PO DAILY #30 tablet 11/13/17 [Rx] Isosorbide Mononitrate ER [Imdur] 30 mg PO DAILY #30 tab.er.24h 11/13/17 [Rx] Lisinopril [Zestril] 5 mg PO DAILY tab 11/13/17 [Rx] Metoprolol Tartrate [Lopressor] 25 mg PO QID #30 tab 11/13/17 [Rx] Nitroglycerin Sl Tabs [Nitrostat] 0.4 mg SUBLINGUAL Q5M PRN #30 tab 11/13/17 [Rx ] Pregabalin [Lyrica] 150 mg PO BID #0 11/13/17 [Rx] Spironolactone [Aldactone] 25 mg PO DAILY #30 tab 11/13/17 [Rx] Tiotropium [place] [Spiriva] 1 cap INHALATION DAILY #1 device 11/13/17 [Rx] Follow up Appointment(s)/Referral(s): [facility], [NON-STAFF] - 1-2 Days Micky Matamoros MD [STAFF PHYSICIAN] - 11/19/17 8:45 am (Dr Jiménez) Casper Raza III, MD [Primary Care Provider] - 1-2 days Vicky Franz MD [STAFF PHYSICIAN] - 2 Weeks Rizwan Leahy MD [STAFF PHYSICIAN] - 1 Week Ambulatory/Diagnostic Orders: Basic Metabolic Panel [LAB.AMB] Time Frame: 3 Days, Location: None Selected Activity/Diet/Wound Care/Special Instructions: Life Vest - to be delivered to hospital prior to discharge Walker/Nebulizer - to be delivered to hospital prior to discharge Discharge Disposition: HOME WITH HOME HEALTH SERVICES
[2017-11-13 15:40] VITALS: BP 133/84; PULSE 62; RESP 16; TEMP 97.7
[2017-11-13 16:46] LABS: Glucose,Whole Blood 92 mg/dL (75-99)
== END 2017-11-13 19:13 | disposition home health service (06) | DRG 871 ==
LOC: EC 00:20 → 6SEL 03:20 → 6ICU 11-07 20:00 → 6SEL 11-12 14:50
PROVIDERS: ADMIT Internal Medicine; ATTEND Internal Medicine
PROC: B2111ZZ Fluoroscopy of Multiple Coronary Arteries using Low Osmolar Contrast (ICD-10-PCS; 2017-11-10)
PROC: 4A023N7 Measurement of Cardiac Sampling and Pressure, Left Heart, Percutaneous Approach (ICD-10-PCS; principal; 2017-11-10 07:30)
DX: A41.9 Sepsis, unspecified organism (principal); G92 Toxic encephalopathy; J96.01 Acute respiratory failure with hypoxia; I49.01 Ventricular fibrillation; K57.32 Diverticulitis of large intestine without perforation or abscess without bleeding; I47.2 Ventricular tachycardia; I42.0 Dilated cardiomyopathy; I24.8 Other forms of acute ischemic heart disease; E87.4 Mixed disorder of acid-base balance; I50.22 Chronic systolic (congestive) heart failure; J44.1 Chronic obstructive pulmonary disease with (acute) exacerbation; I25.10 Atherosclerotic heart disease of native coronary artery without angina pectoris; J44.9 Chronic obstructive pulmonary disease, unspecified; E83.42 Hypomagnesemia; E66.9 Obesity, unspecified; G89.29 Other chronic pain; M54.9 Dorsalgia, unspecified; F17.218 Nicotine dependence, cigarettes, with other nicotine-induced disorders; I08.1 Rheumatic disorders of both mitral and tricuspid valves; I11.0 Hypertensive heart disease with heart failure; I48.2 Chronic atrial fibrillation; I27.20 Pulmonary hypertension, unspecified; I73.9 Peripheral vascular disease, unspecified; K52.9 Noninfective gastroenteritis and colitis, unspecified; Z68.31 Body mass index [BMI] 31.0-31.9, adult; Z79.899 Other long term (current) drug therapy; Z79.82 Long term (current) use of aspirin; Z98.890 Other specified postprocedural states; Z82.3 Family history of stroke; Z78.1 Physical restraint status; Z79.01 Long term (current) use of anticoagulants; Z86.010 Personal history of colon polyps; Z86.79 Personal history of other diseases of the circulatory system
CPT/HCPCS: 36415; 36600; 70450; 71045; 71046; 74177; 80048; 80051; 80053; 81001; 82140; 82550; 82553; 82805; 83036; 83605; 83735; 84075; 84100; 84132; 84439; 84443; 84450; 84460; 84484; 85025; 85027; 85610; 85730; 87040; 87086; 93005; 93306; 93458; 94640; 94760; 96361; 96365; 96366; 96375; 99285

== ENCOUNTER → 2017-12-28 | Outpatient (CLI) | payer MEDICARE, OTHER | LOC: LABWHC1 09:56 | PROVIDERS: ATTEND Internal Medicine Cardiovascular Disease | DX: I47.2 Ventricular tachycardia (principal) | CPT/HCPCS: 36415; 84443; 84450; 84460 ==

== ENCOUNTER → 2018-03-09 | Outpatient (CLI) | payer MEDICARE, OTHER ==
--- NOTE | 2018-03-09 22:24 | CT ---
EXAMINATION TYPE: CT abdomen pelvis wo con DATE OF EXAM: 03/09/2018 COMPARISON: Radiographs 11/14/[address] 11/06/2017 HISTORY: 67-year-old male abdominal aortic aneurysm without mention of rupture CT DLP: 1129.40 mGycm. Automated exposure control for dose reduction was used. TECHNIQUE: Contiguous axial scanning of the abdomen and pelvis without IV contrast. Coronal and sagit kassandra reconstructions performed. FINDINGS: Contrast was not administered due to patient's GFR of 26. Mesh material is seen superficial to herniating ventral epigastric fatty hernia. Much material bulge anteriorly by 1.9 cm. Hernia neck measures 2.9 cm wide fatty hernia measures up to 10.9 cm craniocaud al and 7.2 cm wide. Additional ventral abdominal wall mesh repair distending down to the pelvis. Heart upper limits of normal in size without pericardial effusion. Calcified granuloma left base. Fat ty [place] hernia on the left. Lung bases are clear without pleural effusion. 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 There is return to mo re normal caliber prior to fusiform enlargement at the thoracoabdominal junction up to 3.9 cm. Aortic caliber tapers to 2.8 cm at the level of the renal arteries and along the infrarenal portion, there is evidence of aortobiiliac graft. The [place] sac measures 3.2 x 2.5 cm, unchanged. Unable to assess for endoleak due to lack of contras t. Bilateral renal cysts are demonstrated, dominant cyst lower pole right kidney measuring 9.5 cm. Stable 1.4 cm cyst left hepatic dome and tiny calcified granulomas in the liver. Cholecystectomy clip s are present. Adrenal glands and pancreas appear within normal limits. Small calcified granulomas. No dilated small bowel, free fluid, or free air. No mesenteric or retroperitoneal lymphadenopathy. Mild stool burden. No pericolonic inflammatory change. Proximal to mid sigmoid diverticulosis with a redundant sigmoid colon. No pericolonic inflammatory change. Bladder not distended. No abnormal fluid collection in the pelvis or pelvic lymphadenopathy. Bone mild degenerative changes at the hips. Endplate spondylosis lower thoracic spine. IMPRESSION: 1. Infrarenal aortobiiliac graft repair. The [place] sac is stable at 3.2 x 2.5 cm. Noncontrast study precludes assessment for endoleak or vascular patency. 2. 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 There is a return to mor e normal caliber prior to additional aneurysm at the thoracoabdominal junction up to 3.9 cm. 3. Aortic caliber tapers and becomes ectatic (2.8 cm) at the level of the renal arteries. 4. Prior granulomatous disease, redemonstrated 9.5 cm large right renal cyst, and sigmoid diverticul osis. 5. Prior ventral abdominal wall mesh repair. There is residual fatty epigastric midline hernia bulgi ng the mesh material forward. Hernia neck measures 2.9 cm wide and the hernia measures up to 10.9 x 7 .2 x 1.9 cm.
== END | disposition home or self-care (01) ==
LOC: RADCTMAIN 10:41
PROVIDERS: ATTEND Thoracic Surgery (Cardiothoracic Vascular Surgery)
DX: I71.4 Abdominal aortic aneurysm, without rupture (principal); N28.1 Cyst of kidney, acquired; K57.30 Diverticulosis of large intestine without perforation or abscess without bleeding; K43.9 Ventral hernia without obstruction or gangrene; I35.8 Other nonrheumatic aortic valve disorders
CPT/HCPCS: 36415; 74176; 82565; 84520

== ENCOUNTER → 2018-03-29 | Outpatient (CLI) | payer MEDICARE, OTHER | END | disposition home or self-care (01) | LOC: LABWHC1 14:28 | PROVIDERS: ATTEND Internal Medicine Cardiovascular Disease | DX: I47.2 Ventricular tachycardia (principal) | CPT/HCPCS: 36415; 84443; 84450; 84460 ==

== ENCOUNTER → 2018-04-01 | Outpatient (CLI) | payer MEDICARE, OTHER ==
--- NOTE | 2018-04-01 09:36 | CTL ---
EXAMINATION TYPE: CT Low Dose Lung DATE OF EXAM ORDERED: 04/01/2018 HISTORY: 67-year-old male personal history of tobacco use. Lung cancer screening CT DLP: [address] CTDI: 2.29 mGy Automated exposure control for dose reduction was used. SCREENING VISIT: Annual follow-up COMPARISON: 11/11/2016 TECHNIQUE: Low dose computed tomography scan was performed through the chest at 1 mm thick sections a nd reconstructed images in the coronal/sagittal plane at [address] DIAGNOSTIC QUALITY: Satisfactory FINDINGS: Heart normal size without pericardial effusion. Coronary vessel calcifications are present. Upper descending thoracic aorta mildly aneurysmal at 3.2 cm. There is fusiform aneurysm of the mid de scending thoracic aorta at 4.2 cm (versus 4.0 cm, previously) an additional aneurysmal enlargement of the aorta at the thoracoabdominal junction measuring up to 3.9 cm (versus 3.7 cm, previously). No thoracic lymphadenopathy by CT size criteria. Trace right-sided gynecomastia. Some stable focal scarring in the subpleural region of the lateral left midlung and a band of atelect asis/scarring in the inferior lingula. Stable calcified granuloma at the left base. Calcified lymph n odes redemonstrated at the left hilum. Mild to moderate bronchial wall thickening and mild centrilobu lar emphysema is demonstrated with biapical pleural parenchymal scarring. Hazy dependent atelectasis . Visualized upper abdomen shows cholecystectomy clips. Small fatty right-sided Bochdalek hernia. Bones: Endplate spondylosis anteriorly lower thoracic spine. No osseous destructive process. IMPRESSION: 1. BI-RADS 2-benign; prior granulomatous disease with stable focal scarring lateral left midlung and inferior lingula. 2. COPD with mild emphysema. Either a prominent component of chronic bronchitis or superimposed acute bronchitis. Clinically correlate. 3. Aneurysmal descending thoracic aorta (fusiform aneurysm of 4.2 cm at the mid level versus 4.0 cm, previously; and 3.9 cm at the thoracoabdominal junction versus 3.7 cm, previously). RECOMMENDATIONS: 1. Continue annual low-dose lung cancer screening CT. 2. Smoking cessation. 3. Follow-up vascular surgery to monitor the patient's aortic aneurysm. FOLLOW UP CT CHEST RECOMMENDATION: [address] LUNG RAD: Lung-Rad 2 Benign Appearance or Behavior
== END ==
LOC: RADCTMAIN 07:59
PROVIDERS: ATTEND Family Medicine
DX: Z12.2 Encounter for screening for malignant neoplasm of respiratory organs (principal); E78.2 Mixed hyperlipidemia; J43.9 Emphysema, unspecified; I71.2 Thoracic aortic aneurysm, without rupture; Z87.891 Personal history of nicotine dependence

== ENCOUNTER → 2018-04-01 | Outpatient (CLI) | payer MEDICARE, OTHER ==
[2018-04-01 15:14] LABS: HCT 42.6 % (39.0-53.0); HGB 13.4 gm/dL (13.0-17.5); MCHC 31.5 g/dL (31.0-37.0); MCV 98.5 fL (80.0-100.0); Mean Platelet Volume 6.9; Platelet Count 222 k/uL (150-450); RBC 4.32 m/uL (4.30-5.90); RDW 14.4 % (11.5-15.5)
[2018-04-01 15:21] LABS: Potassium 5.4 mmol/L (3.5-5.1)
== END ==
LOC: LABPAT 14:17
PROVIDERS: ATTEND Surgery
DX: Z01.818 Encounter for other preprocedural examination (principal); Z01.812 Encounter for preprocedural laboratory examination; K57.33 Diverticulitis of large intestine without perforation or abscess with bleeding; Z90.49 Acquired absence of other specified parts of digestive tract
CPT/HCPCS: 36415; 80051; 85027; 86850; 86900; 86901; 93005

== ENCOUNTER → 2018-04-01 | Outpatient (CLI) | payer MEDICARE, OTHER ==
[2018-04-01 16:29] LABS: LDL Cholesterol,Calculated 133.8 mg/dL (0.0-131.0); VLDL Calculation 38.2 mg/dL (5.00-40.00)
== END | disposition home or self-care (01) ==
LOC: LABWHC1 08:26
PROVIDERS: ATTEND Internal Medicine Cardiovascular Disease
DX: E78.2 Mixed hyperlipidemia (principal)
CPT/HCPCS: 36415; 80061; 84450; 84460

== ENCOUNTER 2018-04-08 06:53 | Day surgery (SDC) | payer MEDICARE, OTHER ==
[2018-04-05 16:08] VITALS: BMI 33.0
[~2018-04-08 06:53] MED LIST: LACTATED RINGERS 1,000 ML IV SCH; LIDOCAINE 1% 20 ML VIAL (10MG/ML) FOR IV START INTRADERMA PRN
[2018-04-08 07:26] VITALS: TEMP 97.1
[2018-04-08] MEDS ORDERED: ATROPINE SULFATE 0.4 MG/ML 1 ML VIAL ONE (07:54)
[2018-04-08] MEDS ORDERED: PROPOFOL 10 MG/ML 20 ML VIAL IV ONE (07:54)
[2018-04-08] MEDS ORDERED: GLYCOPYRROLATE 0.2 MG/ML 2 ML VIAL ONE (07:54)
--- NOTE | 2018-04-08 07:58 | P.GSHP ---
History of Present Illness H&P Date: 04/08/18 Chief Complaint: History of diverticulitis. This is a 65-year-old male with a history of severe diverticulitis. Patient safe colonoscopy. He scheduled for low anterior section tomorrow. He's aware of the risks of surgery including possible colon perforation. Past Medical History Past Medical History: Atrial Fibrillation, COPD, Hypertension Additional Past Medical History / Comment(s): RECENT PORTABLE DEFIBRILLATOR, NOT CURRENTLY NEEDED, Recurrent diverticulitis and needs bowel resection but delayed d/t newly diagnosed A fib, chronic back pain, hoarseness-R vocal cord benign polyp, colon polyp, numbness/tingling bilateral hands 4th/5th fingers, abdominal and iliac aortic aneurysms with surgery. History of Any Multi-Drug Resistant Organisms: None Reported Past Surgical History: Heart Catheterization, Hernia Repair, Orthopedic Surgery Additional Past Surgical History / Comment(s): Abdominal aortic/iliac aneurysms with repair (4), multiple hernia repairs/mesh, direct microlarygoscopy with R vocal cord polyp/bx, hemorrhoidectomy, EGD/colonoscopy with benign polyp, bilateral great toe surgery for calcium build up. Past Anesthesia/Blood Transfusion Reactions: No Reported Reaction Additional Psychological History / Comment(s): Pt resides with his spouse. He uses no assistive devices. He drives. - Past Family History Mother Family Medical History: Cancer Additional Family Medical History / Comment(s): Pt cannot recall type of cancer. Brother(s) Family Medical History: CVA/TIA Father Family Medical History: CVA/TIA Medications and Allergies Home Medications Medication Instructions Recorded Confirmed Type Aspirin 325 mg PO DAILY 08/22/14 04/08/18 History Acetaminophen [Tylenol Extra 500 - 1,000 mg PO Q4-6H PRN 11/02/17 04/08/18 History Strength] Aclidinium [place] [Tudorza 1 puff PO RT-BID 11/02/17 04/08/18 History Pressair] Omeprazole [PriLOSEC] 20 mg PO AC-BRKFST 11/02/17 04/08/18 History Apixaban [Eliquis] 5 mg PO BID 11/06/17 04/08/18 History Albuterol Inhaler [Ventolin Hfa 1 - 2 puff INHALATION Q6HR PRN #1 11/13/1704/08 Rx Inhaler] inhaler Furosemide [Lasix] 40 mg PO DAILY #30 tablet 11/13/17 04/05/18 Rx Nitroglycerin Sl Tabs [Nitrostat] 0.4 mg SUBLINGUAL Q5M PRN #30 tab 11/13/17 Rx Spironolactone [Aldactone] 25 mg PO DAILY #30 tab 11/13/17 04/05/18 Rx Tiotropium [place] [Spiriva] 1 cap INHALATION DAILY #1 device 11/13/17 04/08/18 Rx Amiodarone [Cordarone] 100 mg PO QAM 04/05/18 04/08/18 History Metoprolol Tartrate [Lopressor] 25 mg PO BID 04/05/18 04/08/18 History Pregabalin [Lyrica] 300 mg PO BID 04/05/18 04/05/18 History Varenicline [Chantix Continuing 1 mg PO BID 04/05/18 04/05/18 History Pack] Albuterol Nebulized [Ventolin 2.5 mg INHALATION BID 04/06/18 04/08/18 History Nebulized] Lisinopril [Zestril] 5 mg PO QAM 04/06/18 04/08/18 History Allergies Allergy/AdvReac Type Severity Reaction Status Date / Time No Known Allergies Allergy Verified 04/05/18 15:47 Surgical - Exam Vital Signs Temp Pulse Resp BP Pulse Ox 97.1 F L 48 L 14 122/56 98 04/08/18 07:25 04/08/18 07:25 04/08/18 07:25 04/08/18 07:25 04/08/18 07:25 - General well developed, no distress - Eyes PERRL - ENT normal pinna - Neck no masses - Respiratory normal expansion - Cardiovascular Rhythm: regular - Abdomen Mild left lower quadrant tenderness Abdomen: soft Assessment and Plan Assessment: History of diverticula is. We'll perform colonoscopy.
--- NOTE | 2018-04-08 08:20 | P.OP ---
Date of Procedure: 04/08/18 Preoperative Diagnosis: History of diverticulitis Postoperative Diagnosis: Severe Diverticulosis Procedure(s) Performed: Colonoscopy Anesthesia: MAC Surgeon: Rizwan Leahy Pathology: none sent Condition: stable Disposition: PACU Description of Procedure: The patient's placed on the endoscopy table lateral position. He was noted be bradycardic. Anesthesia treated his bradycardia. Patient received IV sedation. Digital rectal exam was performed which revealed no abnormalities. The prostate was symmetric without nodules. The flexible colonoscope was then placed patient anus and passed throughout the colon. The scope could not be passed into the cecum due to severe diverticulosis causing tortuosity of bowel. Scope was withdrawn. The remainder the ascending colon and transverse colon appeared normal. In the descending and sigmoid there is extensive diverticular changes with very large diverticula. Scope was then brought back into the rectum and this appeared normal. Scope was withdrawn from patient.
[2018-04-08 08:43] VITALS: RESP 18
[2018-04-08 08:57] VITALS: BP 103/66; PULSE 50
== END 2018-04-08 09:00 | disposition home or self-care (01) ==
LOC: ORWHC2ENDO 06:53
PROVIDERS: ATTEND Surgery
DX: K57.30 Diverticulosis of large intestine without perforation or abscess without bleeding (principal); G89.29 Other chronic pain; I10 Essential (primary) hypertension; I48.91 Unspecified atrial fibrillation; J44.9 Chronic obstructive pulmonary disease, unspecified; Z79.01 Long term (current) use of anticoagulants; Z79.82 Long term (current) use of aspirin; Z79.899 Other long term (current) drug therapy
CPT/HCPCS: 45378; J0461; J2704

== ENCOUNTER 2018-04-09 07:32 | Inpatient (IN) | payer MEDICARE, OTHER ==
[2018-04-05 15:57] VITALS: BMI 33.0
[~2018-04-09 07:32] MED LIST changes: +DEXAMETHASONE SOD PHOSPHATE 10 MG/ML 1 ML VIAL IV ONE; +HEPARIN SODIUM,PORCINE 5,000 UNIT/ML 1 ML VIAL SQ ONE; +HYDROmorphone 0.5 MG/0.5 ML SYRINGE IVP PRN; -LACTATED RINGERS 1,000 ML IV SCH; +ONDANSETRON 4 MG/2 ML VIAL IVP ONE; +SCOPOLAMINE 1.5MG/72HR PATCH TRANSDERM ONE
[2018-04-09] MEDS: LACTATED RINGERS 1,000 ML IV SCH (08:00)
[2018-04-09] MEDS ORDERED: MIDAZOLAM 2 MG/2 ML VIAL IVP ONE (08:19)
[2018-04-09] MEDS ORDERED: fentaNYL (PF) 50 MCG/ML 2 ML AMP IVP ONE (08:22)
[2018-04-09 08:28] LABS: Calcium 8.4 mg/dL (8.4-10.2); Potassium 4.2 mmol/L (3.5-5.1)
[2018-04-09] MEDS ORDERED: ROPIVACAINE 250 MG, HYDROMORPHONE (PF) 5 MG in SODIUM CHLORIDE 0.9% 200 ML EPIDURAL PRN (08:39)
[2018-04-09] MEDS ORDERED: NALOXONE 0.4 MG/ML 1 ML VIAL IV PRN (08:39)
--- NOTE | 2018-04-09 09:20 | P.GSHP ---
History of Present Illness H&P Date: 04/09/18 Chief Complaint: History of perforated diverticulitis This is a 14-year-old male with history of diverticulitis. Patient presents today for low anterior resection. Patient has a complex medical history including aortic aneurysm repair and significant cardiac disease. Patient has had lengthy discussion of the risks of surgery including heart attack and small bowel injury and possible colostomy. Past Medical History Past Medical History: Atrial Fibrillation, COPD, Hypertension Additional Past Medical History / Comment(s): RECENT PORTABLE DEFIBRILLATOR, NOT CURRENTLY NEEDED, Recurrent diverticulitis and needs bowel resection but delayed d/t newly diagnosed A fib, chronic back pain, hoarseness-R vocal cord benign polyp, colon polyp, numbness/tingling bilateral hands 4th/5th fingers, abdominal and iliac aortic aneurysms with surgery. History of Any Multi-Drug Resistant Organisms: None Reported Past Surgical History: Heart Catheterization, Hernia Repair, Orthopedic Surgery Additional Past Surgical History / Comment(s): Abdominal aortic/iliac aneurysms with repair (4), multiple hernia repairs/mesh, direct microlarygoscopy with R vocal cord polyp/bx, hemorrhoidectomy, EGD/colonoscopy with benign polyp, bilateral great toe surgery for calcium build up. Past Anesthesia/Blood Transfusion Reactions: No Reported Reaction Additional Psychological History / Comment(s): Pt resides with his spouse. He uses no assistive devices. He drives. - Past Family History Mother Family Medical History: Cancer Additional Family Medical History / Comment(s): Pt cannot recall type of cancer. Brother(s) Family Medical History: CVA/TIA Father Family Medical History: CVA/TIA Medications and Allergies Home Medications Medication Instructions Recorded Confirmed Type Aspirin 325 mg PO DAILY 08/22/14 04/09/18 History Acetaminophen [Tylenol Extra 500 - 1,000 mg PO Q4-6H PRN 11/02/17 04/09/18 History Strength] Aclidinium [place] [Tudorza 1 puff PO RT-BID 11/02/17 04/09/18 History Pressair] Omeprazole [PriLOSEC] 20 mg PO AC-BRKFST 11/02/17 04/09/18 History Apixaban [Eliquis] 5 mg PO BID 11/06/17 04/09/18 History Albuterol Inhaler [Ventolin Hfa 1 - 2 puff INHALATION Q6HR PRN #1 11/13/1704/09 Rx Inhaler] inhaler Furosemide [Lasix] 40 mg PO DAILY #30 tablet 11/13/17 04/09/18 Rx Nitroglycerin Sl Tabs [Nitrostat] 0.4 mg SUBLINGUAL Q5M PRN #30 tab 11/13/17 Rx Spironolactone [Aldactone] 25 mg PO DAILY #30 tab 11/13/17 04/09/18 Rx Tiotropium [place] [Spiriva] 1 cap INHALATION DAILY #1 device 11/13/17 04/09/18 Rx Amiodarone [Cordarone] 100 mg PO QAM 04/05/18 04/09/18 History Metoprolol Tartrate [Lopressor] 25 mg PO BID 04/05/18 04/09/18 History Pregabalin [Lyrica] 300 mg PO BID 04/05/18 04/09/18 History Varenicline [Chantix Continuing 1 mg PO BID 04/05/18 04/09/18 History Pack] Albuterol Nebulized [Ventolin 2.5 mg INHALATION BID 04/06/18 04/09/18 History Nebulized] Lisinopril [Zestril] 5 mg PO QAM 04/06/18 04/09/18 History Allergies Allergy/AdvReac Type Severity Reaction Status Date / Time No Known Allergies Allergy Verified 04/09/18 07:51 Surgical - Exam Vital Signs Temp Pulse Resp BP Pulse Ox 97.5 F L 70 16 130/60 97 04/09/18 07:58 04/09/18 07:58 04/09/18 07:58 04/09/18 07:58 04/09/18 07:58 - General well developed, no distress - Eyes PERRL - ENT normal pinna - Neck no masses - Respiratory normal expansion - Cardiovascular Rhythm: regular - Abdomen Midline scar. Minimal left lower quadrant tenderness Abdomen: soft Results - Labs 04/09/18 08:00 Abnormal Lab Results - Last 24 Hours (Table) 04/09/18 Range/Units 08:00 BUN 34 H (9-20) mg/dL Creatinine 1.76 H (0.66-1.25) mg/dL Glucose 165 H (74-99) mg/dL Diabetes panel 04/09/18 Range/Units 08:00 Sodium 138 (137-145) mmol/L Potassium 4.2 (3.5-5.1) mmol/L Chloride 104 (98-107) mmol/L Carbon Dioxide 25 (22-30) mmol/L BUN 34 H (9-20) mg/dL Creatinine 1.76 H (0.66-1.25) mg/dL Glucose 165 H (74-99) mg/dL Calcium 8.4 (8.4-10.2) mg/dL Calcium panel 04/09/18 Range/Units 08:00 Calcium 8.4 (8.4-10.2) mg/dL Pituitary panel 04/09/18 Range/Units 08:00 Sodium 138 (137-145) mmol/L Potassium 4.2 (3.5-5.1) mmol/L Chloride 104 (98-107) mmol/L Carbon Dioxide 25 (22-30) mmol/L BUN 34 H (9-20) mg/dL Creatinine 1.76 H (0.66-1.25) mg/dL Glucose 165 H (74-99) mg/dL Calcium 8.4 (8.4-10.2) mg/dL Adrenal panel 04/09/18 Range/Units 08:00 Sodium 138 (137-145) mmol/L Potassium 4.2 (3.5-5.1) mmol/L Chloride 104 (98-107) mmol/L Carbon Dioxide 25 (22-30) mmol/L BUN 34 H (9-20) mg/dL Creatinine 1.76 H (0.66-1.25) mg/dL Glucose 165 H (74-99) mg/dL Calcium 8.4 (8.4-10.2) mg/dL Assessment and Plan Assessment: History of severe diverticulosis. Patient will undergo open low anterior section. Patient reversed of colostomy and adhesions and heart issues.
[2018-04-09] MEDS ORDERED: GLYCOPYRROLATE 0.2 MG/ML 2 ML VIAL ONE (09:39)
[2018-04-09] MEDS ORDERED: fentaNYL (PF) 50 MCG/ML 2 ML AMP ONE (09:39)
[2018-04-09] MEDS ORDERED: ETOMIDATE 2 MG/ML 10 ML VIAL ONE (09:39)
[2018-04-09] MEDS ORDERED: ROCURONIUM BROMIDE 10 MG/ML 10 ML VIAL IV ONE (09:39)
[2018-04-09] MEDS ORDERED: LIDOCAINE 1% INJ 10MG/ML (20 ML MDV) ONE (09:39)
[2018-04-09] MEDS ORDERED: ePHEDrine SULFATE/0.9% NACL/PF 50 MG/5 ML SYRINGE IV ONE (09:39)
[2018-04-09] MEDS ORDERED: NEOSTIGMINE 1 MG/ML 10 ML VIAL ONE (09:39)
[2018-04-09] MEDS: ceFAZolin IN SWFI 2 GM/20 ML SYRINGE IVP ONE ×2 (09:47→10:23)
[2018-04-09] MEDS: metroNIDAZOLE-NS PMX 500 MG in SALINE 1 100ML.BAG IVPB ONE ×2 (09:53→10:23)
[2018-04-09] MEDS ORDERED: LACTATED RINGERS 1,000 ML IV ONE ×2 (10:40→13:04)
[2018-04-09] MEDS ORDERED: ONDANSETRON 4 MG/2 ML VIAL IVP PRN (12:03)
[2018-04-09] MEDS ORDERED: METOCLOPRAMIDE 5 MG/ML 2 ML VIAL IVP PRN (12:03)
[2018-04-09 13:43] LABS: Basophils # (A) 0.1 k/uL (0-0.2); Basophils % (A) 0 %; Eosinophils # (A) 0.2 k/uL (0-0.7); Eosinophils % (A) 1 %; HCT 41.4 % (39.0-53.0); HGB 12.9 gm/dL (13.0-17.5); Lymphocytes # (A) 0.4 k/uL (1.0-4.8); Lymphocytes % (A) 3 %; MCH 31.5 pg (25.0-35.0); MCHC 31.2 g/dL (31.0-37.0); Macrocytosis Slight; Mean Platelet Volume 8.2; Monocytes # (A) 0.3 k/uL (0-1.0); Monocytes % (A) 2 %; Neutrophils % (A) 92 %; Platelet Count 162 k/uL (150-450); RDW 13.9 % (11.5-15.5)
[2018-04-09 13:52] LABS: Potassium 4.6 mmol/L (3.5-5.1)
[2018-04-09] MEDS: HEPARIN SODIUM,PORCINE 5,000 UNIT/ML 1 ML VIAL SQ SCH (15:09)
[2018-04-09] MEDS: D5-0.45% NACL WITH KCL 20MEQ/L 1,000 ML IV SCH (15:09)
--- NOTE | 2018-04-09 15:36 | P.OP ---
Date of Procedure: 04/09/18 Preoperative Diagnosis: Diverticulitis Postoperative Diagnosis: Diverticulitis Procedure(s) Performed: Low anterior resection Repair of incisional hernia Partial omentectomy Incidental appendectomy Anesthesia: SUZANNE Surgeon: Rizwan Leahy Estimated Blood Loss (ml): 25 Pathology: other (Sigmoid colon, appendix, omentum) Condition: stable Disposition: PACU Description of Procedure: DESCRIPTION OF PROCEDURE: The patient was placed on the operating table in the supine position. Patient received a general anesthesia. Patient was then placed in the dorsal lithotomy position. The patients abdomen was prepped and draped in the usual sterile fashion. Through a low midline incision, the abdomen was entered. The Rony wound protector was used. The Bookwalter retractor was placed in the wound. The stomach appeared normal. The small bowel appeared normal. The liver appeared normal. The right colon and transverse colon appeared normal. On the left colon, there was an extensive diverticulosis noted. The sigmoid colon was then mobilized by dividing the white line of Toldt with electrocautery. At this point, the proximal sigmoid colon was transected with a GI stapler after a window had been made in the mesentery. The distal sigmoid colon was then dissected. Mesentery was taken down with the Enseal device. The rectum was then transected with the contour stapler. Next, a enterotomy is made in the proximal colon. The anvil for the EEA stapler was placed into the colon. The colon was then transected with the JENNIFER stapler. And then the anvil spike was driven through the staple line. Using the Enseal device the mesentery the bowel was divided and the specimen sent to pathology. The EEA stapler device was then placed in the patient'ss anus and passed into the rectum. The nail for the EEA was then brought out through the distal rectum and then attached to the anvil. The EEA stapler device was then fired. The anastomosis was inspected. There were 2 good donuts of tissue removed from the EEA stapler. The anastomosis was then tested under water and there was no air leak seen. At this point the abdomen was then irrigated. There was no bleeding seen. The patient had a pelvic appendix. His HIDA perform an incidental appendectomy. The mesentery of the appendix was divided with the Enseal device. And then using the GI stapler Was performed. The omentum was visualized. There appeared to be nonviable portion of omentum. This was decided with the Enseal device. This was sent to pathology. The fascia was closed clean instruments. The fascia was then closed with double stranded #1 PDS. The skin was closed with arnulfo. The patient tolerated the procedure well.
[2018-04-09] MEDS ORDERED: FAMOTIDINE 20 MG/2 ML VIAL IV SCH ×2 (18:00→21:00)
[2018-04-09] MEDS: diphenhydrAMINE 50 MG/ML 1 ML VIAL IVP PRN (18:03)
[2018-04-09] MEDS ORDERED: NALBUPHINE 10 MG/ML (1 ML AMP) IM PRN (18:09)
[2018-04-09] MEDS ORDERED: SODIUM CHLORIDE 0.9% 500 ML 500 ML IV ONE (22:15)
[2018-04-09] MEDS ORDERED: ACETAMINOPHEN IV (For NPO) 1,000 MG in EMPTY BAG 1 BAG IVPB PRN (22:40)
[2018-04-09] MEDS: ALVIMOPAN 12 MG CAPSULE PO SCH (22:56)
--- NOTE | 2018-04-09 22:56 | XR ---
EXAMINATION TYPE: XR chest 1V portable DATE OF EXAM: 04/09/2018 COMPARISON: 11/13/2017 HISTORY: Short of breath TECHNIQUE: Single frontal view of the chest is obtained. FINDINGS: There is no heart failure nor confluent pneumonic infiltrate. Costophrenic angles are wilmer r. There are chest leads. Heart is enlarged. Thoracic aorta appears intact. IMPRESSION: Cardiomegaly. No active cardiopulmonary disease. There is clearing of the mild pulmonary congestion compared to last exam.
[2018-04-09] MEDS ORDERED: IPRATROPIUM-ALBUTEROL 3 ML NEB INHALATION PRN (23:22)
[2018-04-10] MEDS: HEPARIN SODIUM,PORCINE 5,000 UNIT/ML 1 ML VIAL SQ SCH ×3 (00:14→17:22)
[2018-04-10] MEDS: D5-0.45% NACL WITH KCL 20MEQ/L 1,000 ML IV SCH ×2 (00:16→06:57)
[2018-04-10] MEDS: LACTATED RINGERS 1,000 ML IV SCH (02:53)
[2018-04-10] MEDS ORDERED: FUROSEMIDE 10 MG/ML 4 ML VIAL IV STA (03:31)
[2018-04-10 03:48] LABS: Appearance,Urine Cloudy (Clear); Bilirubin,Urine Negative (Negative); Blood,Urine Moderate (Negative); Budding Yeast,Urine Moderate /hpf; Color,Urine Yellow; Glucose,Urine (UA) Negative (Negative); Hyaline Casts,Urine 59 /lpf (0-2); Ketones,Urine Trace (Negative); Leukocyte Esterase,Urine Large (Negative); Mucus,Urine Rare /hpf; Nitrite,Urine Negative (Negative); Protein,Urine 1+ (Negative); RBC,Urine >182 /hpf (0-5); Renal Epithelial Cells,Urine 12 /hpf (0); Specific Gravity,Urine 1.016 (1.001-1.035); Squamous Epithelial Cell,Urine <1 /hpf (0-4); Urobilinogen,Urine <2.0 mg/dL (<2.0); WBC,Urine 49 /hpf (0-5)
--- NOTE | 2018-04-10 04:54 | CONS ---
CONSULTATION DATE OF SERVICE: 04/09/2018 REASON FOR CONSULTATION: Advice regarding hypoxia and multiple medical issues requested by Dr. Leahy. HISTORY OF PRESENT ILLNESS: This 67-year-old gentleman with past history of atrial fibrillation, COPD, hypertension, history of recent AICD, history of life vest and plan for AICD had acute descending colonic diverticulitis. Patient was treated with antibiotics. Patient also had multiple medical problems during the recent admission change in mental status, COPD, CHF, history of sepsis, persistent atrial fibrillation. Patient treated symptomatically. Patient improved significantly. Patient went home and the patient to be followed by Dr. Raza in the outpatient setting as a primary physician. Currently the patient is admitted after surgery by Dr. Leahy. The patient underwent a low anterior resection as well as partial omentectomy and incidental appendectomy for diverticulitis, but however, postoperatively the patient was found to be sedated and at this time epidural has been stopped and the patient was given Narcan and which regained some consciousness. Patient also complaining of some pain also. Otherwise, there is no history of fever, rigors. No headache, loss of consciousness, seizures at this time. PAST MEDICAL HISTORY: History of recent diverticulitis as mentioned earlier. History of atrial fibrillation, COPD, hypertension history of congestive heart failure with chronic systolic dysfunction, ejection fraction 20% planning on AICD, history of obesity, history of recurrent diverticulitis and history of change in mental status, encephalopathy. MEDICATIONS PRIOR TO ADMISSION: Include at home medications are: 1. Chantix 1 mg p.o. b.i.d. 2. Spiriva 1 puff daily. 3. Aldactone 25 mg daily. 4. Lyrica 300 mg p.o. b.i.d. 5. Prilosec 20 mg at breakfast. 6. Nitrostat 0.4 mg p.r.n. 8. Zestril 5 mg q.a.m. 9. Lasix 40 mg p.o. daily. 10.Aspirin 320 mg p.o. daily. 11.Eliquis 5 mg p.o. b.i.d. 12.Cordarone 100 mg p.o. q.h.s. 13.Ventolin 2.5 b.i.d. 14.Ventolin HFA 1-2 q.6h p.r.n. 15.Tudorza 1 puff b.i.d. 16.Tylenol Extra Strength 1000 mg q.4 hours p.r.n. ALLERGIES: None. FAMILY HISTORY: Family history of cancer. SOCIAL HISTORY: History of occasional alcohol intake and previous smoker. REVIEW OF SYSTEMS: ENT: Diminished vision. Diminished hearing. Cardiovascular: As mentioned earlier. RESPIRATORY: As mentioned earlier. GASTROINTESTINAL: As mentioned earlier. no dysuria or hematuria. NERVOUS SYSTEM: As mentioned earlier. ALLERGY/IMMUNOLOGY: As mentioned earlier. HEMATOLOGY/ONCOLOGY: As mentioned earlier. ENDOCRINE: No history of hypothyroidism, diabetes. CONSTITUTIONAL: As mentioned earlier. Dermatology: Negative. Rheumatology: Negative. Psychiatry: As mentioned earlier. PHYSICAL EXAMINATION: Alert and oriented x2. Pulse 61, blood pressure 107/62, respiration 14, temperature is normal. Pulse ox 98% on non-rebreather. HEENT: Conjunctivae normal. Oral mucosa moist. NECK is no jugular venous distention. No carotid bruit. No lymph node enlargement. CARDIOVASCULAR: S1, S2 muffled. Respiratory: Breath sounds diminished in the bases. A few scattered rhonchi. No crackles. ABDOMEN: Soft. Status post surgery. No mass palpable. LEGS: No edema. No swelling. NERVOUS SYSTEM: Higher functions as mentioned earlier. Moves all 4 limbs. No focal motor or sensory deficits. LYMPHATICS: No lymph nodes palpable in the neck, axillae or groin. SKIN: No ulcer, no rash, no bleeding. JOINTS: No active arthropathy. LABS: WBC 13.3, hemoglobin 12.9, sodium 136, creatinine is 1.76. ASSESSMENT: 1. Status post low anterior resection, repair of incisional hernia and partial omentectomy and incidental appendectomy for recurrent diverticulitis. 2. History of recent descending colon diverticulitis. 3. Congestive heart failure with chronic systolic dysfunction EF 20% for AICD placement later. 4. Chronic obstructive pulmonary disease history. 5. Change in mental status with possible acute metabolic encephalopathy, medication induced. 6. History of recent sepsis. 7. Persistent atrial fibrillation. 8. History of abdominal aortic iliac aneurysm with repair. 9. History of back pain/degenerative joint disease. 10.History of nicotine dependence. RECOMMENDATIONS AND DISCUSSION: In this 67-year-old gentleman who presented with multiple complex medical issues , we will monitor the patient closely. I would recommend continue with current monitoring. Current medications. Use narcotics sparingly to use Tylenol. Closely follow with surgery. Otherwise, I would also resume the home medications. Ensure oxygenation. I would also recommend a course of bronchodilators also. DuoNeb will be initiated. Otherwise home medications. of proton inhibitors. Guarded prognosis because of multiple complex medical issues. Further recommendations to follow. A copy of dictation being forwarded to Dr. Raza who is the primary physician. p.o. medication may be the resumed once the patient is fully p.o. LANG / LUANN: [id number] / MTDD
[2018-04-10] MEDS: IPRATROPIUM-ALBUTEROL 3 ML NEB INHALATION SCH ×3 (08:07→19:06)
[2018-04-10 08:23] LABS: Albumin 3.1 g/dL (3.5-5.0); Basophils % (A) 0 %; Eosinophils % (A) 0 %; HCT 36.7 % (39.0-53.0); HGB 11.4 gm/dL (13.0-17.5); Hypochromasia Slight; Lymphocytes # (A) 0.5 k/uL (1.0-4.8); Lymphocytes % (A) 3 %; MCH 30.8 pg (25.0-35.0); MCHC 31.1 g/dL (31.0-37.0); MCV 99.1 fL (80.0-100.0); Mean Platelet Volume 7.2; Monocytes # (A) 0.8 k/uL (0-1.0); Monocytes % (A) 5 %; Neutrophils % (A) 90 %; Platelet Count 178 k/uL (150-450); Potassium 5.5 mmol/L (3.5-5.1); RBC 3.71 m/uL (4.30-5.90); Total Bilirubin 0.3 mg/dL (0.2-1.3); Total Protein 5.8 g/dL (6.3-8.2); WBC 15.5 k/uL (3.8-10.6)
[2018-04-10] MEDS: PANTOPRAZOLE 40 MG/10 ML VIAL IVP SCH (09:11)
[2018-04-10] MEDS: ALVIMOPAN 12 MG CAPSULE PO SCH ×2 (09:11→21:06)
--- NOTE | 2018-04-10 10:05 | P.PN ---
Subjective Progress Note Date: 04/10/18 Principal diagnosis: Status post LAR Patient had confusion last night with hypotension and hypoxia. Resolved almost immediately after Narcan use. Epidural was turned off. Feels well today. Mild pain. White blood cell count 15.5. Creatinine up to 2.5. Urine output improved after Lasix. Objective - Vital Signs Vital signs: Vital Signs Temp 98.2 F 04/10/18 06:43 Pulse 68 04/10/18 08:22 Resp 20 04/10/18 06:43 BP 130/67 04/10/18 06:43 Pulse Ox 93 L 04/10/18 06:43 Intake & Output 04/09/18 04/10/18 04/10/18 18:59 06:59 18:59 Intake Total 2100 2000 Output Total 225 350 200 Balance 1875 1650 -200 Weight 101.605 kg Intake: IV 2100 Intake, IV Titration 2000 Amount D5-0.45% NaCl with KCl 1500 20Meq/l 1,000 ml @ 125 mls/hr IV .Q8H [facility] Rx#: [id number] Sodium Chloride 0.9% 500 500 ml 500 ml @ 999 mls/hr IV .Q31M ONE Rx#:[id number] Output: Urine 150 350 200 Uretheral (Em) 150 200 Estimated Blood Loss 75 Other: Voiding Method Indwelling Catheter - Exam Abdomen: Soft, distended, minimal tenderness, dressing clean and dry - Labs CBC & Chem 7: 04/10/18 07:24 04/10/18 07:24 Labs: Abnormal Lab Results - Last 24 Hours (Table) 04/09/18 04/09/18 04/10/18 Range/Units 13:24 13:24 03:00 WBC 13.0 H (3.8-10.6) k/uL RBC 4.10 L (4.30-5.90) m/uL Hgb 12.9 L (13.0-17.5) gm/dL Hct (39.0-53.0) % MCV 101.0 H (80.0-100.0) fL Neutrophils # 12.0 H (1.3-7.7) k/uL Lymphocytes # 0.4 L (1.0-4.8) k/uL Sodium 136 L (137-145) mmol/L Potassium (3.5-5.1) mmol/L BUN 34 H (9-20) mg/dL Creatinine 1.73 H (0.66-1.25) mg/dL Glucose 153 H (74-99) mg/dL Calcium 8.0 L (8.4-10.2) mg/dL Total Protein (6.3-8.2) g/dL Albumin (3.5-5.0) g/dL Urine Protein 1+ H (Negative) Urine Ketones Trace H (Negative) Urine Blood Moderate H (Negative) Ur Leukocyte Esterase Large H (Negative) Urine RBC >182 H (0-5) /hpf Urine WBC 49 H (0-5) /hpf Hyaline Casts 59 H (0-2) /lpf Urine Mucus Rare H (None) /hpf Urine Yeast (Budding) Moderate H (None) /hpf 04/10/18 04/10/18 Range/Units 07:24 07:24 WBC 15.5 H (3.8-10.6) k/uL RBC 3.71 L (4.30-5.90) m/uL Hgb 11.4 L (13.0-17.5) gm/dL Hct 36.7 L (39.0-53.0) % MCV (80.0-100.0) fL Neutrophils # 14.0 H (1.3-7.7) k/uL Lymphocytes # 0.5 L (1.0-4.8) k/uL Sodium 135 L (137-145) mmol/L Potassium 5.5 H (3.5-5.1) mmol/L BUN 39 H (9-20) mg/dL Creatinine 2.51 H (0.66-1.25) mg/dL Glucose 136 H (74-99) mg/dL Calcium 8.0 L (8.4-10.2) mg/dL Total Protein 5.8 L (6.3-8.2) g/dL Albumin 3.1 L (3.5-5.0) g/dL Urine Protein (Negative) Urine Ketones (Negative) Urine Blood (Negative) Ur Leukocyte Esterase (Negative) Urine RBC (0-5) /hpf Urine WBC (0-5) /hpf Hyaline Casts (0-2) /lpf Urine Mucus (None) /hpf Urine Yeast (Budding) (None) /hpf Assessment and Plan (1) Diverticulitis Narrative/Plan: We'll remove epidural at this time. Alternative pain medications will be prescribed. Continue clears. Medicine to address elevated creatinine with low urine output. Current Visit: No Status: Acute Code(s): K57.92 - DVTRCLI OF INTEST, PART UNSP, W/O PERF OR ABSCESS W/O BLEED SNOMED Code(s): 752215461
[2018-04-10] MEDS: diphenhydrAMINE 50 MG/ML 1 ML VIAL IVP PRN ×2 (11:44→18:16)
[2018-04-10] MEDS: SODIUM CHLORIDE 0.9% 1,000 ML IV SCH (13:23)
[2018-04-10] MEDS: ACETAMINOPHEN TAB 325 MG TAB PO PRN (19:07)
--- NOTE | 2018-04-10 20:48 | PN ---
PROGRESS NOTE DATE OF SERVICE: 04/10/2018 This 67-year-old gentleman who was admitted after low anterior resection, had change in mental status history, possibly medication induced. This morning, the patient also had renal failure. Urine output is picking up at this time with boluses. Otherwise, creatinine is 2.1, potassium is 4.5, white count is 15. The patient being closely monitored. PAST MEDICAL HISTORY: Reviewed. REVIEW OF SYSTEMS: CARDIOVASCULAR: No angina or palpitations. RESPIRATORY: As mentioned earlier. GI: No nausea or vomiting, otherwise mentioned earlier. mentioned earlier. Central nervous system: No numbness or weakness. CURRENT MEDICATIONS ARE: 1. Tylenol p.r.n. 2. DuoNeb q.i.d. and p.r.n. 3. Entereg. 4. Benadryl. 5. Heparin 5000 subcu q.8h. 6. Lidocaine. 7. Reglan. 8. Nubain. 9. Narcan. 10.Zofran. 11.Protonix. 12.Hydromorphone. 13.P.r.n. medications. PHYSICAL EXAM: Patient is alert, oriented x2. Pulse 68, blood pressure 131/74, respirations 16, temperature 97.8, pulse ox 97% on 3 L. HEENT: Conjunctivae normal. Oral mucosa moist. Mild facial puffiness. HEENT: Conjunctivae normal. Oral mucosa moist. CARDIOVASCULAR SYSTEM: S1, S2 muffled. RESPIRATORY SYSTEM: Breath sounds diminished at the bases. A few scattered rhonchi. ABDOMEN: Soft. central nervous system: No focal deficits. LAB STUDIES: WBC 15.2, hemoglobin 11.4, sodium 130, potassium 5.2. Creatinine is 2.5. ASSESSMENT: 1. Status post low anterior resection and repair of incisional hernia and partial omentectomy and incidental appendectomy for recurrent diverticulitis. 2. Change in mental status, possible acute metabolic encephalopathy, drug induced last night. 3. Renal failure acute on chronic with acute tubular necrosis with prerenal factors currently. 4. Chronic kidney disease stage III. 5. History of recent descending colonic diverticulitis. 6. Congestive heart failure with chronic systolic dysfunction ejection fraction 20% for outpatient AICD placement later. 7. Chronic obstructive pulmonary disease history. 8. History of recent sepsis. 9. Persistent atrial fibrillation. 10.History of abdominal aortic aneurysm and repair. 11.History of back pain, degenerative joint disease. 12.History of nicotine dependence. RECOMMENDATIONS AND DISCUSSION: Recommend to continue current medications, management and symptomatic treatment. Continue with monitoring. Creatinine is elevated. Continue with cautious IV fluids. Change IV fluids to 0.9. Monitor potassium closely. Otherwise, I would avoid nephrotoxic medications. Will follow the patient closely. Further recommendations to follow. LANG / LUANN: [id number] /
[2018-04-11] MEDS: ACETAMINOPHEN TAB 325 MG TAB PO PRN ×3 (00:24→11:18)
[2018-04-11] MEDS: HEPARIN SODIUM,PORCINE 5,000 UNIT/ML 1 ML VIAL SQ SCH ×4 (00:24→23:31)
[2018-04-11] MEDS: SODIUM CHLORIDE 0.9% 1,000 ML IV SCH (03:10)
[2018-04-11] MEDS: IPRATROPIUM-ALBUTEROL 3 ML NEB INHALATION SCH ×3 (07:24→18:47)
[2018-04-11 08:09] LABS: Basophils % (A) 0 %; Eosinophils # (A) 0.1 k/uL (0-0.7); Eosinophils % (A) 1 %; HCT 35.5 % (39.0-53.0); HGB 11.4 gm/dL (13.0-17.5); Lymphocytes # (A) 0.8 k/uL (1.0-4.8); Lymphocytes % (A) 8 %; MCH 31.4 pg (25.0-35.0); MCHC 32.1 g/dL (31.0-37.0); MCV 97.8 fL (80.0-100.0); Mean Platelet Volume 7.8; Monocytes # (A) 0.7 k/uL (0-1.0); Monocytes % (A) 7 %; Neutrophils # (A) 8.1 k/uL (1.3-7.7); Neutrophils % (A) 83 %; Platelet Count 145 k/uL (150-450); RBC 3.63 m/uL (4.30-5.90); RDW 13.9 % (11.5-15.5); WBC 9.8 k/uL (3.8-10.6)
[2018-04-11 08:19] LABS: Albumin 2.8 g/dL (3.5-5.0); Calcium 8.3 mg/dL (8.4-10.2); Potassium 5.6 mmol/L (3.5-5.1); Total Bilirubin 0.5 mg/dL (0.2-1.3); Total Protein 5.6 g/dL (6.3-8.2)
[2018-04-11] MEDS: PANTOPRAZOLE 40 MG/10 ML VIAL IVP SCH (09:56)
[2018-04-11] MEDS: diphenhydrAMINE 50 MG/ML 1 ML VIAL IVP PRN (09:57)
[2018-04-11] MEDS: ALVIMOPAN 12 MG CAPSULE PO SCH ×2 (09:57→20:54)
[2018-04-11] MEDS ORDERED: ALBUTEROL NEBULIZED 2.5 MG/3 ML INHALATION PRN (11:34)
[2018-04-11] MEDS ORDERED: NITROGLYCERIN SL TABS 0.4 MG TAB SUBLINGUAL PRN (11:34)
--- NOTE | 2018-04-11 11:47 | P.PN ---
Subjective Progress Note Date: 04/11/18 Principal diagnosis: Status post LAR Patient complaining some bloating and gassy pain today. Slightly increased from yesterday. No nausea or vomiting. No flatus. White blood cell count 9.8. Potassium elevated at 5.6. Creatinine improved at 1.3. Objective - Vital Signs Vital signs: Vital Signs Temp 97.9 F 04/11/18 08:48 Pulse 70 04/11/18 08:48 Resp 16 04/11/18 08:48 BP 164/75 04/11/18 08:48 Pulse Ox 94 L 04/11/18 08:48 Intake & Output 04/10/18 04/11/18 04/11/18 18:59 06:59 18:59 Intake Total 600 Output Total 1520 1000 1600 Balance -1520 -400 -1600 Intake: Intake, IV Titration 600 Amount Sodium Chloride 0.9% 1, 600 000 ml @ 75 mls/hr IV . [id number] [facility] Rx#:[id number] Output: Urine 1520 1000 1600 Uretheral (Em) 720 600 Other: Voiding Method Indwelling Catheter Indwelling Catheter Indwelling Catheter - Exam Abdomen: Soft, mild distention, mild incisional tenderness, incision clean and dry - Labs CBC & Chem 7: 04/11/18 07:15 04/11/18 07:15 Labs: Abnormal Lab Results - Last 24 Hours (Table) 04/11/18 04/11/18 Range/Units 07:15 07:15 RBC 3.63 L (4.30-5.90) m/uL Hgb 11.4 L (13.0-17.5) gm/dL Hct 35.5 L (39.0-53.0) % Plt Count 145 L (150-450) k/uL Neutrophils # 8.1 H (1.3-7.7) k/uL Lymphocytes # 0.8 L (1.0-4.8) k/uL Potassium 5.6 H (3.5-5.1) mmol/L Chloride 112 H (98-107) mmol/L BUN 28 H (9-20) mg/dL Creatinine 1.35 H (0.66-1.25) mg/dL Glucose 108 H (74-99) mg/dL Calcium 8.3 L (8.4-10.2) mg/dL AST 85 H (17-59) U/L Total Protein 5.6 L (6.3-8.2) g/dL Albumin 2.8 L (3.5-5.0) g/dL Microbiology - Last 24 Hours (Table) 04/10/18 14:48 Urine Culture - Preliminary Urine,Catheterized Assessment and Plan (1) Diverticulitis Narrative/Plan: Continue liquids only for now. Ambulate. Monitor labs. Current Visit: No Status: Acute Code(s): K57.92 - DVTRCLI OF INTEST, PART UNSP, W/O PERF OR ABSCESS W/O BLEED SNOMED Code(s): 695342262
[2018-04-11] MEDS: DEXTROSE 5%-0.9% NACL 1,000 ML IV SCH (12:11)
[2018-04-11] MEDS: HYDROcodone/APAP 5-325MG 1 EACH TAB PO PRN ×2 (15:29→20:55)
--- NOTE | 2018-04-11 18:03 | P.PN ---
Progress Note - Text 04/10 1704 67 yr old male s/p low ant resection by Dr Leahy. pt had an epidural catheter for post op pain control.He developed hypotension thru the the night and i ordered the epidural to be held. I ordered the discontinuation of the epidural at the request of Dr Rucker.I saw the patient in the evening, doing well and comfortable.
--- NOTE | 2018-04-11 19:49 | PN ---
PROGRESS NOTE DATE OF SERVICE: 04/11/2018 This 67-year-old gentleman who was admitted after low anterior resection is being closely monitored. No chest pain. No palpitations. No fever. EXAM: Alert and oriented x3. Pulse is 67, blood pressure 150/70, respiration 20, temperature 97.2, pulse ox 94% on 2 L. HEENT is conjunctivae normal. NECK: No jugular venous distention. CARDIOVASCULAR: S1, S2 muffled. Respirations: Breath sounds diminished in the bases. No rhonchi. No crackles. ABDOMEN: Soft, nontender. Legs are no edema. No swelling. Nervous system: No focal deficits. LABS: WBC 9.1, hemoglobin 11.4, potassium 5.6. UA noted RBCs. ASSESSMENT: 1. Status post low anterior resection and repair of incisional hernia and partial omentectomy and incidental appendectomy for recurrent diverticulitis. 2. Change in mental status, possible acute metabolic encephalopathy drug-induced last night. 3. Renal failure acute on chronic with acute tubular necrosis with prerenal factors currently. 4. Chronic kidney disease stage III. 5. History of recent descending colonic diverticulitis. 6. Congestive heart failure with chronic systolic dysfunction ejection fraction 20% for outpatient AICD placement. 7. Chronic obstructive pulmonary disease. 8. History of recent sepsis. 9. History of persistent atrial fibrillation. 10.History of abdominal aortic aneurysm repair. 11.History of back pain, degenerative joint disease. 12.History of nicotine dependence. RECOMMENDATIONS AND DISCUSSION: Recommend to continue current medications. Continue with monitoring. Symptomatic treatment. Otherwise, at this time, I recommend monitor creatinine closely. The potassium is improved. Change IV fluids to D5 0.9 and continue to monitor. Repeat labs will be ordered in the outpatient setting. Further recommendations to follow. MMODL / IJN: [id number] /
[2018-04-11] MEDS ORDERED: IPRATROPIUM 0.5 MG/2.5 ML NEBU INHALATION SCH (20:00)
[2018-04-11] MEDS: METOPROLOL TARTRATE 25 MG TAB PO SCH (20:55)
[2018-04-12] MEDS: MORPHINE SULFATE 2 MG/ML SYRINGE IVP PRN ×3 (01:24→08:11)
[2018-04-12] MEDS ORDERED: NON-FORMULARY DRUG (Tiotropium Bromide [Spiriva] 1 CAP) INHALATION SCH (08:00)
[2018-04-12] MEDS: HEPARIN SODIUM,PORCINE 5,000 UNIT/ML 1 ML VIAL SQ SCH ×2 (08:13→15:45)
[2018-04-12] MEDS: PANTOPRAZOLE 40 MG TABLET PO SCH (08:16)
[2018-04-12] MEDS: DEXTROSE 5%-0.9% NACL 1,000 ML IV SCH (08:16)
[2018-04-12] MEDS: METOPROLOL TARTRATE 25 MG TAB PO SCH ×2 (08:17→21:00)
[2018-04-12] MEDS: AMIODARONE 100 MG TAB PO SCH (08:17)
[2018-04-12] MEDS: ASPIRIN 325 MG TAB PO SCH (08:17)
[2018-04-12] MEDS: ALVIMOPAN 12 MG CAPSULE PO SCH ×2 (08:17→21:00)
[2018-04-12 08:41] LABS: Basophils # (A) 0.1 k/uL (0-0.2); Basophils % (A) 1 %; Eosinophils # (A) 0.4 k/uL (0-0.7); Eosinophils % (A) 4 %; HCT 39.9 % (39.0-53.0); HGB 12.8 gm/dL (13.0-17.5); Lymphocytes % (A) 10 %; MCH 31.6 pg (25.0-35.0); MCV 98.7 fL (80.0-100.0); Mean Platelet Volume 7.5; Monocytes # (A) 0.8 k/uL (0-1.0); Monocytes % (A) 8 %; Neutrophils # (A) 8.3 k/uL (1.3-7.7); Neutrophils % (A) 76 %; Platelet Count 162 k/uL (150-450); RBC 4.04 m/uL (4.30-5.90); RDW 13.8 % (11.5-15.5); WBC 10.8 k/uL (3.8-10.6)
[2018-04-12 08:52] LABS: Albumin 3.1 g/dL (3.5-5.0); Potassium 5.9 mmol/L (3.5-5.1); Total Bilirubin 0.5 mg/dL (0.2-1.3); Total Protein 6.1 g/dL (6.3-8.2)
[2018-04-12] MEDS: IPRATROPIUM-ALBUTEROL 3 ML NEB INHALATION SCH ×3 (08:58→20:25)
--- NOTE | 2018-04-12 09:34 | P.PN ---
Subjective Progress Note Date: 04/12/18 CHIEF COMPLAINT: Diverticulitis HISTORY OF PRESENT ILLNESS: 67-year-old male who underwent low anterior resection, repair of incisional hernia, partial omentectomy, and incidental appendectomy. He is POD #3. He complains of generalized abdominal pain and bloating. He is passing flatus and having BMs. Tolerating clear liquid diet. Denies nausea or vomiting. PREVENA wound vac is intact. PHYSICAL EXAM: VITAL SIGNS: Currently stable. GENERAL: Well-developed in no acute distress. HEENT: No sclera icterus. Extraocular movements grossly intact. Moist buccal mucosa. Head is atraumatic, normocephalic. Hears conversational speech. No nasal drainage. NECK: Supple without lymphadenopathy. CHEST: Non-labored respirations and equal bilateral excursions. CARDIOVASCULAR: Regular rate with regular rhythm. Palpable 2+ radial pulses. ABDOMEN: Soft. Mildly distended. PREVENA wound vac intact. MUSCULOSKELETAL: No clubbing, cyanosis or edema. NEUROLOGIC: No focal or lateralizing signs. Cranial nerves II through XII grossly intact. PSYCH: Appropriate affect. Alert and oriented to person, place and time. SKIN: Well perfused. Good skin turgor. ASSESSMENT: 1. Diverticulitis, status post low anterior resection, repair of incisional hernia, partial omentectomy, and incidental appendectomy, POD #3 PLAN: Will continue clear liquids for now as patient continues to complain of abdominal pain and bloating. Patient and were educated on the importance of increasing activity such as ambulating and also getting OOB and into the chair a few times a day. Once patients bloating improves, we will advance his diet. Discontinue urinary catheter Nurse practitioner note has been reviewed by physician. Signing provider agrees with the documented findings, assessment, and plan of care. Objective - Vital Signs Vital signs: Vital Signs Temp 97.9 F 04/12/18 07:25 Pulse 65 04/12/18 07:25 Resp 14 04/12/18 08:26 BP 171/78 04/12/18 07:25 Pulse Ox 92 L 04/12/18 07:25 Intake & Output 04/11/18 04/12/18 04/12/18 18:59 06:59 18:59 Intake Total 400 400 Output Total 1600 2420 Balance -1199 Weight 101.605 kg Intake: IV 400 ACETAMINOPHEN IV (For NPO 400 ) 1,000 mg In Empty Bag 1 bag @ 400 mls/hr IVPB Q6HR PRN Rx#:[id number] Intake, IV Titration 150 Amount Sodium Chloride 0.9% 1, 150 000 ml @ 75 mls/hr IV . [id number] [facility] Rx#:[id number] Oral 250 Output: Urine 1600 2420 Uretheral (Em) 600 840 Other: Voiding Method Indwelling Catheter Indwelling Catheter Indwelling Catheter # Voids 1 # Bowel Movements 1 - Labs CBC & Chem 7: 04/12/18 08:07 04/12/18 08:07 Labs: Abnormal Lab Results - Last 24 Hours (Table) 04/12/18 04/12/18 Range/Units 08:07 08:07 WBC 10.8 H (3.8-10.6) k/uL RBC 4.04 L (4.30-5.90) m/uL Hgb 12.8 L (13.0-17.5) gm/dL Neutrophils # 8.3 H (1.3-7.7) k/uL Potassium 5.9 H (3.5-5.1) mmol/L Chloride 111 H (98-107) mmol/L Carbon Dioxide 31 H (22-30) mmol/L Glucose 118 H (74-99) mg/dL AST 78 H (17-59) U/L Total Protein 6.1 L (6.3-8.2) g/dL Albumin 3.1 L (3.5-5.0) g/dL Microbiology - Last 24 Hours (Table) 04/10/18 14:48 Urine Culture - Final Urine,Catheterized
[2018-04-12] MEDS: PREGABALIN 100 MG CAP PO SCH ×2 (10:41→20:59)
[2018-04-12] MEDS ORDERED: FUROSEMIDE 10 MG/ML 4 ML VIAL IV STA (13:35)
--- NOTE | 2018-04-12 13:39 | P.PN ---
Subjective This is a pleasant 67 years old male with past medical history of atrial fibrillation, COPD, hypertension, recurrent diverticulitis. Chronic back pain. He is a status post lower anterior resection, with repair of the incisional hernia and partial omentectomy. Today patient still having some postoperative abdominal pain. He has 4 loose bowel movement today. No nausea vomiting. Vital signs WERE reviewed, showing mild leukocytosis, he is a still on IV fluids, Em catheter is in a Place. Objective - Vital Signs Vital signs: Vital Signs Temp 97.9 F 04/12/18 07:25 Pulse 65 04/12/18 07:25 Resp 14 04/12/18 08:26 BP 171/78 04/12/18 07:25 Pulse Ox 92 L 04/12/18 07:25 Intake & Output 04/11/18 04/12/18 04/12/18 18:59 06:59 18:59 Intake Total 400 400 Output Total 1600 2420 Balance -1200 -2019 Weight 101.605 kg Intake: IV 400 ACETAMINOPHEN IV (For NPO 400 ) 1,000 mg In Empty Bag 1 bag @ 400 mls/hr IVPB Q6HR PRN Rx#:[id number] Intake, IV Titration 150 Amount Sodium Chloride 0.9% 1, 150 000 ml @ 75 mls/hr IV . [id number] [facility] Rx#:[id number] Oral 250 Output: Urine 1600 2420 Uretheral (Em) 600 840 Other: Voiding Method Indwelling Catheter Indwelling Catheter Indwelling Catheter # Voids 1 # Bowel Movements 1 - Exam GENERAL: The patient is alert and oriented x3, not in any acute distress. Well developed, well nourished. HEENT: Pupils are round and equally reacting to light. EOMI. No scleral icterus. No conjunctival pallor. Normocephalic, atraumatic. No pharyngeal erythema. No thyromegaly. CARDIOVASCULAR: S1 and S2 present. No murmurs, rubs, or gallops. PULMONARY: Chest is clear to auscultation, no wheezing or crackles. -ABDOMEN: Soft, nondistended, normoactive bowel sounds. No palpable organomegaly. abdominal wound looks clean and closed, wound vac is in place MUSCULOSKELETAL: No joint swelling or deformity. EXTREMITIES: No cyanosis, clubbing, or pedal edema. NEUROLOGICAL: Gross neurological examination did not reveal any focal deficits. SKIN: No rashes. - Labs CBC & Chem 7: 04/12/18 08:07 04/12/18 08:07 Labs: Abnormal Lab Results - Last 24 Hours (Table) 04/12/18 04/12/18 Range/Units 08:07 08:07 WBC 10.8 H (3.8-10.6) k/uL RBC 4.04 L (4.30-5.90) m/uL Hgb 12.8 L (13.0-17.5) gm/dL Neutrophils # 8.3 H (1.3-7.7) k/uL Potassium 5.9 H (3.5-5.1) mmol/L Chloride 111 H (98-107) mmol/L Carbon Dioxide 31 H (22-30) mmol/L Glucose 118 H (74-99) mg/dL AST 78 H (17-59) U/L Total Protein 6.1 L (6.3-8.2) g/dL Albumin 3.1 L (3.5-5.0) g/dL Microbiology - Last 24 Hours (Table) 04/10/18 14:48 Urine Culture - Final Urine,Catheterized Assessment and Plan Assessment: Status post lower anterior resection and repair of incisional hernia and partial omentumctomy and incidental appendectomy for recurrent diverticulitis Metabolic encephalopathy, resolved Acute kidney injury, resolved Hyperkalemia History of chronic kidney disease History of congestive heart failure with chronic systolic dysfunction with ejection fraction 20%. 4 outpatient AICD placement History of COPD, not in acute exacerbation History of atrial fibrillation History of abdominal aortic aneurysm repair History of chronic back pain and degenerative joint disease History of nicotine dependence Plan: This is a pleasant 67 years old male status post lower anterior resection and hernia repair. Continue with pain management. Continue with IV fluids. give 1 dose of Lasix. Monitor potassium level.Labs and medication were reviewed.. Continue same treatment. Continue with symptomatic treatment. Resume home medication. Monitor lytes and vitals. DVT and GI prophylaxis. Further recommendations of the clinical course of the patient DVT prophylaxis: Subcutaneous heparin GI Prophylaxis: protonix Physical therapy: Pending Prognosis is guarded
[2018-04-13] MEDS: DEXTROSE 5%-0.9% NACL 1,000 ML IV SCH (00:59)
[2018-04-13] MEDS: HEPARIN SODIUM,PORCINE 5,000 UNIT/ML 1 ML VIAL SQ SCH ×3 (00:59→16:03)
[2018-04-13] MEDS: IPRATROPIUM-ALBUTEROL 3 ML NEB INHALATION SCH ×3 (08:04→19:40)
[2018-04-13] MEDS: ASPIRIN 325 MG TAB PO SCH (08:18)
[2018-04-13] MEDS: METOPROLOL TARTRATE 25 MG TAB PO SCH ×2 (08:18→21:36)
[2018-04-13] MEDS: PREGABALIN 100 MG CAP PO SCH ×2 (08:18→21:36)
[2018-04-13] MEDS: AMIODARONE 100 MG TAB PO SCH (08:18)
[2018-04-13] MEDS: PANTOPRAZOLE 40 MG TABLET PO SCH (08:18)
[2018-04-13] MEDS: ALVIMOPAN 12 MG CAPSULE PO SCH ×2 (08:18→21:35)
[2018-04-13 08:31] LABS: Basophils # (A) 0.1 k/uL (0-0.2); Basophils % (A) 1 %; Eosinophils # (A) 0.5 k/uL (0-0.7); Eosinophils % (A) 6 %; HCT 35.1 % (39.0-53.0); HGB 11.3 gm/dL (13.0-17.5); Lymphocytes # (A) 1.2 k/uL (1.0-4.8); Lymphocytes % (A) 14 %; MCH 31.7 pg (25.0-35.0); MCHC 32.2 g/dL (31.0-37.0); MCV 98.3 fL (80.0-100.0); Mean Platelet Volume 7.3; Monocytes # (A) 0.7 k/uL (0-1.0); Monocytes % (A) 8 %; Neutrophils # (A) 5.9 k/uL (1.3-7.7); Neutrophils % (A) 69 %; Platelet Count 151 k/uL (150-450); RBC 3.57 m/uL (4.30-5.90); WBC 8.7 k/uL (3.8-10.6)
[2018-04-13 08:34] LABS: Albumin 2.9 g/dL (3.5-5.0); Calcium 8.4 mg/dL (8.4-10.2); Potassium 4.5 mmol/L (3.5-5.1); Total Bilirubin 0.4 mg/dL (0.2-1.3); Total Protein 5.5 g/dL (6.3-8.2)
--- NOTE | 2018-04-13 12:42 | P.PN ---
Subjective Progress Note Date: 04/13/18 CHIEF COMPLAINT: Diverticulitis HISTORY OF PRESENT ILLNESS: 67-year-old male who underwent low anterior resection, repair of incisional hernia, partial omentectomy, and incidental appendectomy. He is POD #4. He complains of generalized abdominal pain. He is passing flatus and having BMs. Tolerating clear liquid diet. Denies nausea or vomiting. PREVENA wound vac is intact. PHYSICAL EXAM: VITAL SIGNS: Currently stable. GENERAL: Well-developed in no acute distress. HEENT: No sclera icterus. Extraocular movements grossly intact. Moist buccal mucosa. Head is atraumatic, normocephalic. Hears conversational speech. No nasal drainage. NECK: Supple without lymphadenopathy. CHEST: Non-labored respirations and equal bilateral excursions. CARDIOVASCULAR: Regular rate with regular rhythm. Palpable 2+ radial pulses. ABDOMEN: Soft. Mildly distended. PREVENA wound vac intact. MUSCULOSKELETAL: No clubbing, cyanosis or edema. NEUROLOGIC: No focal or lateralizing signs. Cranial nerves II through XII grossly intact. PSYCH: Appropriate affect. Alert and oriented to person, place and time. SKIN: Well perfused. Good skin turgor. ASSESSMENT: 1. Diverticulitis, status post low anterior resection, repair of incisional hernia, partial omentectomy, and incidental appendectomy, POD #4 PLAN: Continue full liquid diet. Advance as tolerated to heart healthy diet. Increase activity. Anticipate discharge home tomorrow with PREVENA wound vac. Nurse practitioner note has been reviewed by physician. Signing provider agrees with the documented findings, assessment, and plan of care. Objective - Vital Signs Vital signs: Vital Signs Temp 98.4 F 04/13/18 08:07 Pulse 74 04/13/18 08:16 Resp 18 04/13/18 08:08 BP 159/81 04/13/18 08:07 Pulse Ox 92 L 04/13/18 08:07 Intake & Output 04/12/18 04/13/18 04/13/18 18:59 06:59 18:59 Intake Total 2130 Balance 2130 Weight 101.605 kg Intake: Intake, IV Titration 1050 Amount Dextrose 5%-0.9% NaCl 1, 1050 000 ml @ 75 mls/hr IV . [id number] [facility] Rx#:[id number] Oral 1080 Other: Voiding Method Indwelling Catheter Toilet Toilet # Voids 2 2 1 # Bowel Movements 1 - Labs CBC & Chem 7: 04/13/18 08:07 04/13/18 08:07 Labs: Abnormal Lab Results - Last 24 Hours (Table) 04/13/18 04/13/18 Range/Units 08:07 08:07 RBC 3.57 L (4.30-5.90) m/uL Hgb 11.3 L (13.0-17.5) gm/dL Hct 35.1 L (39.0-53.0) % Chloride 110 H (98-107) mmol/L Glucose 110 H (74-99) mg/dL Total Protein 5.5 L (6.3-8.2) g/dL Albumin 2.9 L (3.5-5.0) g/dL
[2018-04-13] MEDS: ACETAMINOPHEN TAB 325 MG TAB PO PRN ×2 (16:04→21:37)
[2018-04-14] MEDS: HEPARIN SODIUM,PORCINE 5,000 UNIT/ML 1 ML VIAL SQ SCH ×2 (00:10→10:13)
[2018-04-14] MEDS: ACETAMINOPHEN TAB 325 MG TAB PO PRN (04:28)
[2018-04-14 07:46] LABS: Basophils # (A) 0.1 k/uL (0-0.2); Basophils % (A) 1 %; Eosinophils # (A) 0.8 k/uL (0-0.7); Eosinophils % (A) 8 %; HGB 11.8 gm/dL (13.0-17.5); Hypochromasia Slight; Lymphocytes # (A) 1.2 k/uL (1.0-4.8); Lymphocytes % (A) 13 %; MCH 31.5 pg (25.0-35.0); MCHC 31.9 g/dL (31.0-37.0); MCV 98.7 fL (80.0-100.0); Mean Platelet Volume 7.6; Monocytes # (A) 0.8 k/uL (0-1.0); Monocytes % (A) 8 %; Neutrophils # (A) 6.6 k/uL (1.3-7.7); Neutrophils % (A) 68 %; Platelet Count 175 k/uL (150-450); RBC 3.75 m/uL (4.30-5.90); RDW 14.1 % (11.5-15.5); WBC 9.6 k/uL (3.8-10.6)
[2018-04-14 08:03] LABS: Albumin 3.1 g/dL (3.5-5.0); Calcium 8.7 mg/dL (8.4-10.2); Potassium 4.9 mmol/L (3.5-5.1); Total Bilirubin 0.5 mg/dL (0.2-1.3)
[2018-04-14] MEDS: IPRATROPIUM-ALBUTEROL 3 ML NEB INHALATION SCH ×2 (08:28→13:17)
[2018-04-14] MEDS: METOPROLOL TARTRATE 25 MG TAB PO SCH (10:13)
[2018-04-14] MEDS: PANTOPRAZOLE 40 MG TABLET PO SCH (10:13)
[2018-04-14] MEDS: ALVIMOPAN 12 MG CAPSULE PO SCH (10:13)
[2018-04-14] MEDS: ASPIRIN 325 MG TAB PO SCH (10:13)
[2018-04-14] MEDS: AMIODARONE 100 MG TAB PO SCH (10:13)
[2018-04-14] MEDS: PREGABALIN 100 MG CAP PO SCH (10:19)
--- NOTE | 2018-04-14 11:20 | P.DS ---
Providers Date of admission: 04/09/18 07:32 Expected date of discharge: 04/14/18 Attending physician: Rizwan Leahy Consults: 04/09/18 12:57 Consult Physician Urgent Consulting Provider: Madeleine Saenz Consult Reason/Comments: medical management Do you want consulting provider notified?: Yes Primary care physician: [facility] Course: 67-year-old male who underwent low anterior resection, repair of incisional hernia, partial omentectomy, and incidental appendectomy. Patient is doing well postoperatively. Tolerating full liquid diet. Having BMs. Vital signs stable. Pain is tolerable. He is stable for discharge home today with PREVENA wound vac. Discharge Diagnosis: 1. Diverticulitis, status post low anterior resection, repair of incisional hernia, partial omentectomy, and incidental appendectomy Nurse practitioner note has been reviewed by physician. Signing provider agrees with the documented findings, assessment, and plan of care. Plan - Discharge Summary Discharge Rx Participant: Yes New Discharge Prescriptions: New HYDROcodone/APAP 5-325MG [Oneill 5-325] 1 each PO Q4HR PRN #18 tab PRN Reason: Pain No Action Aspirin 325 mg PO DAILY Aclidinium Wiley [Tudorza Pressair] 1 puff PO RT-BID Omeprazole [PriLOSEC] 20 mg PO AC-BRKFST Acetaminophen [Tylenol Extra Strength] 500 - 1,000 mg PO Q4-6H PRN PRN Reason: Pain Apixaban [Eliquis] 5 mg PO BID Nitroglycerin Sl Tabs [Nitrostat] 0.4 mg SUBLINGUAL Q5M PRN #30 tab PRN Reason: Chest Pain Spironolactone [Aldactone] 25 mg PO DAILY #30 tab Furosemide [Lasix] 40 mg PO DAILY #30 tablet Varenicline [Chantix Continuing Pack] 1 mg PO BID Amiodarone [Cordarone] 100 mg PO QAM Pregabalin [Lyrica] 300 mg PO BID Metoprolol Tartrate [Lopressor] 25 mg PO BID Lisinopril [Zestril] 5 mg PO QAM Albuterol Nebulized [Ventolin Nebulized] 2.5 mg INHALATION RT-BID Albuterol Inhaler [Ventolin Hfa Inhaler] 1 - 2 puff INHALATION RT-Q6H PRN PRN Reason: Shortness Of Breath Or Wheezing Tiotropium Wiley [Spiriva] 1 cap INHALATION RT-DAILY Discharge Medication List Aspirin 325 mg PO DAILY 08/22/14 [History] Acetaminophen [Tylenol Extra Strength] 500 - 1,000 mg PO Q4-6H PRN 11/02/17 [ History] Aclidinium Wiley [Tudorza Pressair] 1 puff PO RT-BID 11/02/17 [History] Omeprazole [PriLOSEC] 20 mg PO AC-BRKFST 11/02/17 [History] Apixaban [Eliquis] 5 mg PO BID 11/06/17 [History] Furosemide [Lasix] 40 mg PO DAILY #30 tablet 11/13/17 [Rx] Nitroglycerin Sl Tabs [Nitrostat] 0.4 mg SUBLINGUAL Q5M PRN #30 tab 11/13/17 [Rx ] Spironolactone [Aldactone] 25 mg PO DAILY #30 tab 11/13/17 [Rx] Amiodarone [Cordarone] 100 mg PO QAM 04/05/18 [History] Metoprolol Tartrate [Lopressor] 25 mg PO BID 04/05/18 [History] Pregabalin [Lyrica] 300 mg PO BID 04/05/18 [History] Varenicline [Chantix Continuing Pack] 1 mg PO BID 04/05/18 [History] Albuterol Nebulized [Ventolin Nebulized] 2.5 mg INHALATION RT-BID 04/06/18 [ History] Lisinopril [Zestril] 5 mg PO QAM 04/06/18 [History] Albuterol Inhaler [Ventolin Hfa Inhaler] 1 - 2 puff INHALATION RT-Q6H PRN [History] Tiotropium Wiley [Spiriva] 1 cap INHALATION RT-DAILY 04/09/18 [History] HYDROcodone/APAP 5-325MG [Oneill 5-325] 1 each PO Q4HR PRN #18 tab 04/12/18 [Rx] Follow up [facility]ment([facility]Ref[facility] - As Needed Casper Raza III, MD [Primary Care Provider] - 1 Week Rizwan Leahy MD [STAFF PHYSICIAN] - 1 Week Activity/Diet/Wound Care/Special Instructions: No driving while taking Narcotics No showering while PREVENA wound vac is in place. You may sponge bath Prevena wound vac will be removed at your follow up appointment with Dr. Leahy No lifting greater than 10 lbs Light activity Discharge Disposition: HOME SELF-CARE
--- NOTE | 2018-04-14 11:59 | P.PN ---
Subjective Progress Note Date: 04/13/18 67 years old male with past medical history of atrial fibrillation, COPD, hypertension, recurrent diverticulitis. Chronic back pain. He is a status post lower anterior resection, with repair of the incisional hernia and partial omentectomy. Today patient still having some postoperative abdominal pain. He has 4 loose bowel movement today. No nausea vomiting. Vital signs WERE reviewed, showing mild leukocytosis, he is a still on IV fluids, Em catheter is in a Place. 04/14/2018 No overnight events patient's abdomen is distended and tympanic did have his bowel movements. Constitutional: Denied any fatigue denied any fever. Cardio vascular: denied any chest pain, palpitations Gastrointestinal denied any nausea vomiting Pulmonary: Denied any shortness of breath cough Neurologic denied any new focal deficits All inpatient medications were reviewed and appropriate changes in these medications as dictated in the interval history and assessment and plan. Objective - Vital Signs Vital signs: Vital Signs Temp 98.9 F 04/14/18 07:50 Pulse 68 04/14/18 08:40 Resp 16 04/14/18 07:50 BP 125/74 04/14/18 07:50 Pulse Ox 92 L 04/14/18 07:50 Intake & Output 04/13/18 04/14/18 04/14/18 18:59 06:59 18:59 Intake Total 975 Balance 975 Intake: Intake, IV Titration 975 Amount Dextrose 5%-0.9% NaCl 1, 975 000 ml @ 75 mls/hr IV . [id number] [facility] Rx#:[id number] Other: Voiding Method Toilet Toilet Toilet # Voids 1 2 - Exam GENERAL: The patient is alert and oriented x3, not in any acute distress. Well developed, well nourished. HEENT: Pupils are round and equally reacting to light. EOMI. No scleral icterus. No conjunctival pallor. Normocephalic, atraumatic. No pharyngeal erythema. No thyromegaly. CARDIOVASCULAR: S1 and S2 present. No murmurs, rubs, or gallops. PULMONARY: Chest is clear to auscultation, no wheezing or crackles. -ABDOMEN: Soft, nondistended, normoactive bowel sounds. No palpable organomegaly. abdominal wound looks clean and closed, wound vac is in place MUSCULOSKELETAL: No joint swelling or deformity. EXTREMITIES: No cyanosis, clubbing, or pedal edema. NEUROLOGICAL: Gross neurological examination did not reveal any focal deficits. SKIN: No rashes. - Labs CBC & Chem 7: 04/14/18 06:54 04/14/18 06:54 Labs: Abnormal Lab Results - Last 24 Hours (Table) 04/14/18 04/14/18 Range/Units 06:54 06:54 RBC 3.75 L (4.30-5.90) m/uL Hgb 11.8 L (13.0-17.5) gm/dL Hct 37.0 L (39.0-53.0) % Eosinophils # 0.8 H (0-0.7) k/uL Chloride 109 H (98-107) mmol/L Glucose 100 H (74-99) mg/dL Total Protein 6.0 L (6.3-8.2) g/dL Albumin 3.1 L (3.5-5.0) g/dL Assessment and Plan Plan: Assessment and Plan Assessment: Status post lower anterior resection and repair of incisional hernia and partial omentumctomy and incidental appendectomy for recurrent diverticulitis Metabolic encephalopathy, resolved Acute kidney injury, resolved Hyperkalemia 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 4 outpatient AICD placement COPD, not in acute exacerbation atrial fibrillation rate controlled but bradycardic because of the anticholinergics will which will be held History of abdominal aortic aneurysm repair chronic back pain and degenerative joint disease
--- NOTE | 2018-04-14 12:00 | P.PN ---
Subjective 67 years old male with past medical history of atrial fibrillation, COPD, hypertension, recurrent diverticulitis. Chronic back pain. He is a status post lower anterior resection, with repair of the incisional hernia and partial omentectomy. Today patient still having some postoperative abdominal pain. He has 4 loose bowel movement today. No nausea vomiting. Vital signs WERE reviewed, showing mild leukocytosis, he is a still on IV fluids, Em catheter is in a Place. 04/14/2018 patient is being discharged today in stable medical condition to home. Patient blood pressure is bit low recheck the blood pressure make sure it's okay. I'll hold off on lisinopril patient's ejection fraction is only 20% need to be reinitiated back on this medication as soon as possible as an outpatient once his blood pressure is better. Patient will be resumed on Aldactone and the Lasix. Patient will be continued on metoprolol at home dose and amiodarone. Constitutional: Denied any fatigue denied any fever. Cardio vascular: denied any chest pain, palpitations Gastrointestinal denied any nausea vomiting Pulmonary: Denied any shortness of breath cough Neurologic denied any new focal deficits All inpatient medications were reviewed and appropriate changes in these medications as dictated in the interval history and assessment and plan. Objective - Vital Signs Vital signs: Vital Signs Temp 98.9 F 04/14/18 07:50 Pulse 68 04/14/18 08:40 Resp 16 04/14/18 07:50 BP 125/74 04/14/18 07:50 Pulse Ox 92 L 04/14/18 07:50 Intake & Output 04/13/18 04/14/18 04/14/18 18:59 06:59 18:59 Intake Total 975 Balance 975 Intake: Intake, IV Titration 975 Amount Dextrose 5%-0.9% NaCl 1, 975 000 ml @ 75 mls/hr IV . [id number] [facility] Rx#:[id number] Other: Voiding Method Toilet Toilet Toilet # Voids 1 2 - Labs CBC & Chem 7: 04/14/18 06:54 04/14/18 06:54 Labs: Abnormal Lab Results - Last 24 Hours (Table) 04/14/18 04/14/18 Range/Units 06:54 06:54 RBC 3.75 L (4.30-5.90) m/uL Hgb 11.8 L (13.0-17.5) gm/dL Hct 37.0 L (39.0-53.0) % Eosinophils # 0.8 H (0-0.7) k/uL Chloride 109 H (98-107) mmol/L Glucose 100 H (74-99) mg/dL Total Protein 6.0 L (6.3-8.2) g/dL Albumin 3.1 L (3.5-5.0) g/dL
[2018-04-14] MEDS ORDERED: diphenhydrAMINE 25 MG CAP PO PRN (13:56)
[2018-04-14 14:26] VITALS: BP 183/72; PULSE 60; RESP 18; TEMP 98.5
--- NOTE | 2018-04-16 07:08 | CDI ---
Documentation Clarification Form Date: 04-16-18 From: KAYLA Ward Phone: If you have question, contact Yasemin Salvador at [phone] M-F 8:30 am to 6pm Admit Date: 04/09/2018 7:32:00 AM Patient Name: Dilshad Morris Visit Number: [id number] Discharge Date: 04/14/2018 3:54:00 PM ATTENTION: The Clinical Documentation Specialists (CDI) and [facility] Coding Staff appreciate your assistance in clarifying documentation. Please respond to the clarification below the line at the bottom and electronically sign. The CDI & [facility] Coding staff will review the response and follow-up if needed. Please note: Queries are made part of the Legal Health Record. If you have any questions, please contact the author of this message via ITS. Dr. Rizwan Leahy The patient presented for low anterior resection. In the procedure note it is noted under procedures performed that a repair of an incisional hernia was done. There is no documentation of this procedure noted within the description of the procedure. Please document the description of the incisional hernia repair in detail below , including the method used (mesh or suture) in the repair. Thank you in advance for your time. Operative note addendum made MTDNayely
== END 2018-04-14 15:54 | disposition home health service (06) | DRG 329 ==
LOC: 2ORMAIN 07:32 → 4SSUR 11:56
PROVIDERS: ADMIT Surgery; ATTEND Surgery
PROC: 0DBN0ZZ Excision of Sigmoid Colon, Open Approach (ICD-10-PCS; 2018-04-09)
PROC: 0DTJ0ZZ Resection of Appendix, Open Approach (ICD-10-PCS; 2018-04-09)
PROC: 0DBU0ZZ Excision of Omentum, Open Approach (ICD-10-PCS; 2018-04-09)
PROC: 0WQF0ZZ Repair Abdominal Wall, Open Approach (ICD-10-PCS; 2018-04-09)
PROC: 0DTP0ZZ Resection of Rectum, Open Approach (ICD-10-PCS; principal; 2018-04-09 11:00)
DX: K57.32 Diverticulitis of large intestine without perforation or abscess without bleeding (principal); N17.0 Acute kidney failure with tubular necrosis; I13.0 Hypertensive heart and chronic kidney disease with heart failure and stage 1 through stage 4 chronic kidney disease, or unspecified chronic kidney disease; I50.22 Chronic systolic (congestive) heart failure; I48.1 Persistent atrial fibrillation; E87.5 Hyperkalemia; J44.9 Chronic obstructive pulmonary disease, unspecified; N18.3 Chronic kidney disease, stage 3 (moderate); K43.2 Incisional hernia without obstruction or gangrene; G89.29 Other chronic pain; M54.9 Dorsalgia, unspecified; R09.02 Hypoxemia; Z87.891 Personal history of nicotine dependence; Z86.79 Personal history of other diseases of the circulatory system; Z86.010 Personal history of colon polyps; Z80.9 Family history of malignant neoplasm, unspecified; Z79.899 Other long term (current) drug therapy; Z79.82 Long term (current) use of aspirin; Z79.01 Long term (current) use of anticoagulants
CPT/HCPCS: 45378; 71045; 80048; 80053; 81001; 85025; 86850; 86900; 86901; 87086; 88302; 88305; 88307; 94640; 94760

== ENCOUNTER → 2018-06-07 | Outpatient (CLI) | payer MEDICARE, OTHER ==
--- NOTE | 2018-06-07 14:10 | CT ---
EXAMINATION TYPE: CT brain wo con DATE OF EXAM: 06/07/2018 COMPARISON: 11/08/2017 HISTORY: Tremors CT DLP: 1133.3 mGycm Automated exposure control for dose reduction was used. TECHNIQUE: CT scan of the head is performed without contrast. FINDINGS: There is no acute intracranial hemorrhage or midline shift identified. There is diffuse v entricular and sulcal prominence consistent with diffuse age-related cerebral atrophy. There are a f ew patchy areas of low-attenuation in the periventricular white matter consistent with chronic small vessel ischemic change. The globes are intact and the visualized sinuses are clear. There is a non united chronic fracture with sclerotic borders and bony proliferation of the anterior arch of C1 as w ell as of the posterior arch of C1. IMPRESSION: 1. No acute intracranial hemorrhage or midline shift. In the setting of tremor Tuyet scan could be cons idered in evaluation for Parkinson's. 2. Age-related cerebral atrophy and mild nonspecific white matter change, most commonly on the angiog lizabeth. 3. 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
== END | disposition home or self-care (01) ==
LOC: RADCTMAIN 13:38
PROVIDERS: ATTEND Family Medicine
DX: G31.1 Senile degeneration of brain, not elsewhere classified (principal); R90.89 Other abnormal findings on diagnostic imaging of central nervous system
CPT/HCPCS: 70450

== ENCOUNTER → 2018-08-23 | Outpatient (CLI) | payer MEDICARE, OTHER | END | disposition home or self-care (01) | LOC: LABWHC1 09:09 | PROVIDERS: ATTEND Internal Medicine Cardiovascular Disease | DX: I48.1 Persistent atrial fibrillation (principal) | CPT/HCPCS: 36415; 84443; 84450; 84460 ==

== ENCOUNTER → 2018-12-06 | Outpatient (CLI) | payer MEDICARE, OTHER ==
--- NOTE | 2018-12-07 07:08 | US ---
EXAMINATION TYPE: US kidneys/renal and bladder DATE OF EXAM: 12/06/2018 COMPARISON: CT abdomen and pelvis March 09, 2018 CLINICAL HISTORY: N28.1 Renal Cyst, N18.3 CKD Sta ge 3. EXAM MEASUREMENTS: Right Kidney: 11.2 x 5.4 x 4.1 cm Left Kidney: 9.7 x 4.7 x 4.3 cm Right Kidney: Cystic area 10.4 x 7.0 x 8.1 cm. Left Kidney: No hydronephrosis or masses seen Bladder: Anechoic Bilateral Jets seen: No Right kidney redemonstrates a large simple appearing thin-walled cyst measuring 10.4 cm long axis. No gross hydronephrosis is identified bilaterally. Cortical thinning is present bilaterally. No suspici ous masses in left kidney. Bladder thought within normal limits. IMPRESSION: No hydronephrosis is seen bilaterally. There is large but simple appearing right renal cyst, Bosniak 2F lesion redemonstrated.
== END | disposition home or self-care (01) ==
LOC: RADUSWWP 15:36
PROVIDERS: ATTEND Family Medicine
DX: N28.1 Cyst of kidney, acquired (principal); N18.3 Chronic kidney disease, stage 3 (moderate)
CPT/HCPCS: 76770

== ENCOUNTER 2018-12-24 10:07 | Inpatient (IN) | payer MEDICARE, OTHER ==
[2018-12-24] MEDS ORDERED: SODIUM CHLORIDE 0.9% 1,000 ML IV STA (10:33)
[2018-12-24] MEDS ORDERED: ASPIRIN 81 MG PO STA (10:33)
--- NOTE | 2018-12-24 10:41 | ED ---
General Adult HPI - General Chief complaint: Recheck/Abnormal Lab/Rx Stated complaint: Low Heart Rate Time Seen by Provider: 12/24/18 10:09 Source: patient Mode of arrival: wheelchair Limitations: no limitations - History of Present Illness Initial comments: Dictation was produced using [employer]weet[employer] dictation software. please excuse any gram matical, word or spelling errors. Chief Complaint: 68-year-old male sent in by primary care physician for bradycardia. History of Present Illness: Patient is a 68-year-old male who was sent in by primary care physician for bradycardia. Patient was at his P's is office for follow-up of gout. Reports that he was seen initially for gout flares several days ago. He was at the PCP Dr. Hinds office today. Patient is found to have bradycardia measure in the 30s. Discussed patient case with Alfonso, the nurse practitioner for Dr. Hinds service. She instructed patient to come to the emergency department. Patient is a patient of Dr. Eric. He is not to have bradycardia however not this low. Patient was found to have borderline low blood pressure however he normally has this low blood pressure. Patient has past medical history of atrial fibrillation, COPD and hypertension. He was admitted to the hospital for septic shock and was in the ICU several months ago. According to Alfonso patient is on amiodarone, metoprolol, Lasix. Patient does not show any symptoms. He does feel "slow' since waking up this morning. No pain complaints at this time. The ROS documented in this emergency department record has been reviewed and confirmed by me. Those systems with pertinent positive or negative responses have been documented in the HPI. All other systems are other negative and/or noncontributory. PHYSICAL EXAM: General Impression: Alert and oriented x3, not in acute distress, smells of tobacco smoke HEENT: Normocephalic atraumatic, extra-ocular movements intact, pupils equal and reactive to light bilaterally, mucous membranes moist. Cardiovascular: Bradycardic Chest: Lungs clear to auscultation bilaterally, no rhonchi, no wheeze, no rales Abdomen: Bowel sounds present, abdomen soft, non-tender, non-distended, no organomegaly Musculoskeletal: Pulses present and equal in all extremities, no peripheral edema Motor: no focal deficits noted Neurological: CN II-XII grossly intact, no focal motor or sensory deficits noted Skin: Intact with no visualized rashes Psych: Normal affect and mood ED course: 68 yo Old male presents with bradycardia. He was sent in by nurse practitioner from primary care's office for bradycardia. He was at the office today for follow-up of gout flare. Recently completed a course of prednisone for acute cardiac arthritis. Signs upon arrival shows heart rate of 34, blood pressure 107/59. Patient was rapidly evaluated upon being placed in a room. He seemed to be in no acute distress. She was immediately placed on cardiac exercise specialist and pacer pads applied. EKG shows ventricular rate of 68, sinus bradycardia. Does appear that he does not have consistent P waves. He also has frequent PVCs that occur in pairs. Dr. Mao who is display fabrication supervisor for cardiology reviewed the EKG and recommended that his cardiac medications be withheld at this time. Laboratory evaluation obtained. CBC, coag panel unremarkable. Metabolic panel shows potassium 5.4 with findings of acute kidney injury and prerenal azotemia. Creatinine 3.16 be one of 62. Patient is negative first troponin. Chest x-ray shows no acute pulmonary process. Patient's clinical presentation is consistent with acute kidney injury no obvious source at this time. More history was obtained from patient first that there was an abnormal mass noted on his right kidney. Patient is CT performed 2 years ago showing large right renal cyst. Patient admitted we will place consultation and for nephrology. Patient given intravenous fluids. Discussed patient case with Dr. Steele. Cardiology also be consulted. She received aspirin. EKG interpretation: Ventricular rate 60, sinus bradycardia with PVCs, IN interval 190, Q's 82, QTc 459. No IN prolongation, no QTC prolongation, no ST or T-wave changes noted. EKG compared to 04/10/2018. - Related Data Home Medications Medication Instructions Recorded Confirmed Aspirin 325 mg PO DAILY 08/22/14 12/24/18 Aclidinium [place] [Tudorza 1 puff PO RT-BID 11/02/17 12/24/18 Pressair] Omeprazole [PriLOSEC] 20 mg PO DAILY 11/02/17 12/24/18 Apixaban [Eliquis] 5 mg PO BID 11/06/17 12/24/18 Amiodarone [Cordarone] 100 mg PO QAM 04/05/18 12/24/18 Pregabalin [Lyrica] 300 mg PO BID 04/05/18 12/24/18 Albuterol Nebulized [Ventolin 2.5 mg INHALATION RT-TID 04/06/18 12/24/18 Nebulized] Albuterol Inhaler [Ventolin Hfa 1 - 2 puff INHALATION RT-Q6H PRN 04/09/18 12/24/18 Inhaler] Tiotropium [place] [Spiriva] 1 cap INHALATION RT-DAILY 04/09/18 12/24/18 Levothyroxine Sodium [Synthroid] 50 mcg PO DAILY 12/24/18 12/24/18 Lisinopril [Zestril] 10 mg PO DAILY 12/24/18 12/24/18 Previous Rx's Medication Instructions Recorded Furosemide [Lasix] 40 mg PO DAILY #30 tablet 11/13/17 Nitroglycerin Sl Tabs [Nitrostat] 0.4 mg SUBLINGUAL Q5M PRN #30 tab 11/13/17 Spironolactone [Aldactone] 25 mg PO DAILY #30 tab 11/13/17 Allergies Allergy/AdvReac Type Severity Reaction Status Date / Time No Known Allergies Allergy Verified 12/24/18 10:45 Review of Systems ROS Statement: Those systems with pertinent positive or pertinent negative responses have been documented in the HPI. ROS Other: All systems not noted in ROS Statement are negative. Past Medical History Past Medical History: Atrial Fibrillation, COPD, Hypertension Additional Past Medical History / Comment(s): RECENT PORTABLE DEFIBRILLATOR, NOT CURRENTLY NEEDED, Recurrent diverticulitis and needs bowel resection but delayed d/t newly diagnosed A fib, chronic back pain, hoarseness-R vocal cord benign polyp, colon polyp, numbness/tingling bilateral hands 4th/5th fingers, abdominal and iliac aortic aneurysms with surgery. History of Any Multi-Drug Resistant Organisms: None Reported Past Surgical History: Heart Catheterization, Hernia Repair, Orthopedic Surgery Additional Past Surgical History / Comment(s): Abdominal aortic/iliac aneurysms with repair (4), multiple hernia repairs/mesh, direct microlarygoscopy with R vocal cord polyp/bx, hemorrhoidectomy, EGD/colonoscopy with benign polyp, bilateral great toe surgery for calcium build up. Past Anesthesia/Blood Transfusion Reactions: No Reported Reaction Past Psychological History: No Psychological Hx Reported Smoking Status: Former smoker Past Alcohol Use History: Rare Past Drug Use History: None Reported - Past Family History Mother Family Medical History: Cancer Additional Family Medical History / Comment(s): Pt cannot recall type of cancer. Brother(s) Family Medical History: CVA/TIA Father Family Medical History: CVA/TIA General Exam Limitations: no limitations Course Vital Signs 12/24/18 12/24/18 12/24/18 10:09 10:26 11:30 Temperature 97.5 F L Pulse Rate 34 L 48 L Pulse Rate [ 40 L Test Rider ] Respiratory 20 20 Rate Blood Pressure 107/59 113/58 O2 Sat by Pulse 94 L 95 Oximetry Medical Decision Making - Lab Data Result diagrams: 12/24/18 10:25 12/24/18 10:25 Lab Results 12/24/18 12/24/18 12/24/18 Range/Units 10:25 10:25 10:25 WBC 9.7 (3.8-10.6) k/uL RBC 4.52 (4.30-5.90) m/uL Hgb 13.2 (13.0-17.5) gm/dL Hct 41.5 (39.0-53.0) % MCV 91.8 (80.0-100.0) fL MCH 29.2 (25.0-35.0) pg MCHC 31.8 (31.0-37.0) g/dL RDW 15.0 (11.5-15.5) % Plt Count 192 (150-450) k/uL Neutrophils % 67 % Lymphocytes % 16 % Monocytes % 9 % Eosinophils % 6 % Basophils % 1 % Neutrophils # 6.5 (1.3-7.7) k/uL Lymphocytes # 1.6 (1.0-4.8) k/uL Monocytes # 0.9 (0-1.0) k/uL Eosinophils # 0.6 (0-0.7) k/uL Basophils # 0.1 (0-0.2) k/uL Hypochromasia Moderate PT 10.0 (9.0-12.0) sec INR 0.9 (<1.2) APTT 27.6 (22.0-30.0) sec Sodium 141 (137-145) mmol/L Potassium 5.4 H (3.5-5.1) mmol/L Chloride 104 (98-107) mmol/L Carbon Dioxide 27 (22-30) mmol/L Anion Gap 10 mmol/L BUN 62 H (9-20) mg/dL Creatinine 3.16 H (0.66-1.25) mg/dL Est GFR (CKD-EPI)AfAm 22 (>60 ml/min/1.73 sqM) Est GFR (CKD-EPI)NonAf 19 (>60 ml/min/1.73 sqM) Glucose 112 H (74-99) mg/dL Calcium 8.7 (8.4-10.2) mg/dL Magnesium 2.5 H (1.6-2.3) mg/dL Total Bilirubin 0.4 (0.2-1.3) mg/dL AST 15 L (17-59) U/L ALT 20 L (21-72) U/L Alkaline Phosphatase 69 (38-126) U/L Troponin I (0.000-0.034) ng/mL Total Protein 7.3 (6.3-8.2) g/dL Albumin 4.1 (3.5-5.0) g/dL TSH 1.090 (0.465-4.680) mIU/L 12/24/18 Range/Units 10:25 WBC (3.8-10.6) k/uL RBC (4.30-5.90) m/uL Hgb (13.0-17.5) gm/dL Hct (39.0-53.0) % MCV (80.0-100.0) fL MCH (25.0-35.0) pg MCHC (31.0-37.0) g/dL RDW (11.5-15.5) % Plt Count (150-450) k/uL Neutrophils % % Lymphocytes % % Monocytes % % Eosinophils % % Basophils % % Neutrophils # (1.3-7.7) k/uL Lymphocytes # (1.0-4.8) k/uL Monocytes # (0-1.0) k/uL Eosinophils # (0-0.7) k/uL Basophils # (0-0.2) k/uL Hypochromasia PT (9.0-12.0) sec INR (<1.2) APTT (22.0-30.0) sec Sodium (137-145) mmol/L Potassium (3.5-5.1) mmol/L Chloride (98-107) mmol/L Carbon Dioxide (22-30) mmol/L Anion Gap mmol/L BUN (9-20) mg/dL Creatinine (0.66-1.25) mg/dL Est GFR (CKD-EPI)AfAm (>60 ml/min/1.73 sqM) Est GFR (CKD-EPI)NonAf (>60 ml/min/1.73 sqM) Glucose (74-99) mg/dL Calcium (8.4-10.2) mg/dL Magnesium (1.6-2.3) mg/dL Total Bilirubin (0.2-1.3) mg/dL AST (17-59) U/L ALT (21-72) U/L Alkaline Phosphatase (38-126) U/L Troponin I 0.012 (0.000-0.034) ng/mL Total Protein (6.3-8.2) g/dL Albumin (3.5-5.0) g/dL TSH (0.465-4.680) mIU/L Disposition Clinical Impression: ARBEN (acute kidney injury), Bradycardia Disposition: ADMITTED IP TO THIS HOSP Condition: Fair Is patient prescribed a controlled substance at d/c from ED?: No Referrals: Casper Raza III, MD [Primary Care Provider] - 1-2 days Time of Disposition: 12:08 Decision Time: 12:08
[2018-12-24 10:53] LABS: Basophils # (A) 0.1 k/uL (0-0.2); Basophils % (A) 1 %; Eosinophils # (A) 0.6 k/uL (0-0.7); Eosinophils % (A) 6 %; HCT 41.5 % (39.0-53.0); HGB 13.2 gm/dL (13.0-17.5); Hypochromasia Moderate; Lymphocytes # (A) 1.6 k/uL (1.0-4.8); Lymphocytes % (A) 16 %; MCH 29.2 pg (25.0-35.0); MCHC 31.8 g/dL (31.0-37.0); MCV 91.8 fL (80.0-100.0); Mean Platelet Volume 7.9; Monocytes # (A) 0.9 k/uL (0-1.0); Monocytes % (A) 9 %; Neutrophils # (A) 6.5 k/uL (1.3-7.7); Neutrophils % (A) 67 %; Platelet Count 192 k/uL (150-450); RBC 4.52 m/uL (4.30-5.90); WBC 9.7 k/uL (3.8-10.6)
--- NOTE | 2018-12-24 11:02 | XR ---
EXAMINATION TYPE: XR chest 2V DATE OF EXAM: 12/24/2018 COMPARISON: 04/09/2018 INDICATION: Dysrhythmia TECHNIQUE: Frontal and lateral views of the chest are obtained. FINDINGS: The heart size is normal. The pulmonary vasculature is normal. The lungs are clear. IMPRESSION: 1. No acute pulmonary process.
[2018-12-24 11:03] LABS: Albumin 4.1 g/dL (3.5-5.0); Calcium 8.7 mg/dL (8.4-10.2); Magnesium 2.5 mg/dL (1.6-2.3); Potassium 5.4 mmol/L (3.5-5.1); Total Bilirubin 0.4 mg/dL (0.2-1.3); Total Protein 7.3 g/dL (6.3-8.2)
[2018-12-24 11:15] LABS: INR 0.9 (<1.2); Partial Thromboplastin Time 27.6 sec (22.0-30.0)
[2018-12-24] MEDS ORDERED: SODIUM CHLORIDE 0.9% 500 ML 500 ML IV STA (11:45)
[2018-12-24] MEDS ORDERED: NALOXONE 0.4 MG/ML 1 ML VIAL IV PRN (12:08)
[2018-12-24] MEDS ORDERED: SODIUM CHLORIDE 0.9% 1,000 ML IV SCH (12:15)
[2018-12-24] MEDS ORDERED: SODIUM POLYSTYRENE SULFONATE 15 GM/60 ML BOTTLE PO STA (13:22)
[2018-12-24] MEDS ORDERED: ALBUTEROL NEBULIZED 2.5 MG/3 ML INHALATION PRN (15:02)
[2018-12-24] MEDS ORDERED: NITROGLYCERIN SL TABS 0.4 MG TAB SUBLINGUAL PRN (15:02)
--- NOTE | 2018-12-24 15:13 | P.HPIM ---
History of Present Illness Patient is 68-year-old has senile primary care physician Dr. Raza as an outpatient as a follow-up for his gout. Patient is found to be severely bradycardic because of this patient was sent in here. Here patient is found to have hyperkalemia and acute renal failure baseline creatinine around 0.8 0.9 and has gone to about 3.5. Patient denied any nausea vomiting diarrhea. Patient had any fever chills. Patient does have history of atrial fibrillation had ejection fraction of 20-25% patient is on Aldactone, lisinopril and Lasix. Patient is on amiodarone as well as Coreg for his A. fib. Patient denied being started on any new medications recently. Patient is bradycardic with the severe sinus bradycardia, heart rate running anywhere between 30-60. Patient is in chronic A. fib. Patient is alert, A. fib. Review of Systems REVIEW OF SYSTEMS: CONSTITUTIONAL: No fever, no malaise, no fatigue. HEENT: No recent visual problems or hearing problems. Denied any sore throat. CARDIOVASCULAR: No chest pain, orthopnea, PND, no palpitations, no syncope. PULMONARY: No shortness of breath, no cough, no hemoptysis. GASTROINTESTINAL: No diarrhea, no nausea, no vomiting, no abdominal pain. NEUROLOGICAL: No headaches, no weakness, no numbness. HEMATOLOGICAL: Denies any bleeding or petechiae. GENITOURINARY: Denies any burning micturition, frequency, or urgency. MUSCULOSKELETAL/RHEUMATOLOGICAL: Denies any joint pain, swelling, or any muscle pain. ENDOCRINE: Denies any polyuria or polydipsia. The rest of the 14-point review of systems is negative. Past Medical History Past Medical History: Atrial Fibrillation, COPD, Hypertension Additional Past Medical History / Comment(s): IBS, diverticulitis/bowel resection, benign colon polyps, hiatal hernia, chronic low R sided back pain, hoarseness-benign vocal cord polyp, numbness/tingling 4th/5th digits bilateral hands, "spots on liver and kidney"-told not to worry about them, abdominal and bilateral iliac artery aneurysms with surgical repair, pt is on lasix but does not know reason. History of Any Multi-Drug Resistant Organisms: None Reported Past Surgical History: Appendectomy, Bowel Resection, Heart Catheterization, Hernia Repair, Orthopedic Surgery Additional Past Surgical History / Comment(s): Abdominal aortic/iliac aneurysms with repair (4), multiple hernia repairs/mesh, low anterior resection with incisional hernia repair/partial omenectomy and incidental appy, direct microlar ygoscopy with R vocal cord polyp/bx, hemorrhoidectomy, EGD/colonoscopy with benign polyp, bilateral great toe surgery for calcium build up. Past Anesthesia/Blood Transfusion Reactions: No Reported Reaction Smoking Status: Current every day smoker - Past Family History Mother Family Medical History: Cancer Additional Family Medical History / Comment(s): Mother had metastatic cancer. Brother(s) Family Medical History: CVA/TIA Father Family Medical History: CVA/TIA Medications and Allergies Home Medications Medication Instructions Recorded Confirmed Type Aspirin 325 mg PO DAILY 08/22/14 12/24/18 History Aclidinium [place] [Tudorza 1 puff PO RT-BID 11/02/17 12/24/18 History Pressair] Omeprazole [PriLOSEC] 20 mg PO DAILY 11/02/17 12/24/18 History Apixaban [Eliquis] 5 mg PO BID 11/06/17 12/24/18 History Furosemide [Lasix] 40 mg PO DAILY #30 tablet 11/13/17 12/24/18 Rx Nitroglycerin Sl Tabs [Nitrostat] 0.4 mg SUBLINGUAL Q5M PRN #30 tab 11/13/17 12/24/18 Rx Spironolactone [Aldactone] 25 mg PO DAILY #30 tab 11/13/17 12/24/18 Rx Amiodarone [Cordarone] 100 mg PO QAM 04/05/18 12/24/18 History Pregabalin [Lyrica] 300 mg PO BID 04/05/18 12/24/18 History Albuterol Nebulized [Ventolin 2.5 mg INHALATION RT-TID 04/06/18 12/24/18 History Nebulized] Albuterol Inhaler [Ventolin Hfa 1 - 2 puff INHALATION RT-Q6H PRN 04/09/18 History Inhaler] Tiotropium [place] [Spiriva] 1 cap INHALATION RT-DAILY 04/09/18 12/24/18 History Levothyroxine Sodium [Synthroid] 50 mcg PO DAILY 10/04/19 10/04/19 History Lisinopril [Zestril] 10 mg PO DAILY 12/24/18 12/24/18 History Allergies Allergy/AdvReac Type Severity Reaction Status Date / Time No Known Allergies Allergy Verified 12/24/18 10:45 Physical Exam Vitals: Vital Signs Temp Pulse Pulse Resp BP Pulse Ox 12/24/18 13:28 98.3 F 55 L 20 120/73 96 12/24/18 11:30 48 L 20 113/58 95 12/24/18 10:26 40 L 12/24/18 10:09 97.5 F L 34 L 20 107/59 94 L Intake and Output 12/24/18 12/24/18 12/24/18 06:59 14:59 22:59 Other: Weight 105.687 kg PHYSICAL EXAMINATION: GENERAL: The patient is alert and oriented x3, not in any acute distress. Well developed, well nourished. HEENT: Pupils are round and equally reacting to light. EOMI. No scleral icterus. No conjunctival pallor. Normocephalic, atraumatic. No pharyngeal erythema. No thyromegaly. CARDIOVASCULAR: S1 and S2 present. No murmurs, rubs, or gallops. PULMONARY: Chest is clear to auscultation, no wheezing or crackles. ABDOMEN: Soft, nontender, nondistended, normoactive bowel sounds. No palpable organomegaly. MUSCULOSKELETAL: No joint swelling or deformity. EXTREMITIES: No cyanosis, clubbing, or pedal edema. NEUROLOGICAL: Gross neurological examination did not reveal any focal deficits. SKIN: No rashes. Results CBC & Chem 7: 12/24/18 10:25 12/24/18 10:25 Labs: Abnormal Lab Results - Last 24 Hours (Table) 12/24/18 Range/Units 10:25 Potassium 5.4 H (3.5-5.1) mmol/L BUN 62 H (9-20) mg/dL Creatinine 3.16 H (0.66-1.25) mg/dL Glucose 112 H (74-99) mg/dL Magnesium 2.5 H (1.6-2.3) mg/dL AST 15 L (17-59) U/L ALT 20 L (21-72) U/L Thrombosis Risk Factor Assmnt - Choose All That Apply Any of the Below Risk Factors Present?: Yes Each Factor Represents 1 point: Abnormal pulmonary function (COPD), Obesity (BMI >25) Other Risk Factors: Yes Each Risk Factor Represents 2 Points: Age 61-74 years Other congenital or acquired thrombophilia - If yes, enter type in comment: No Thrombosis Risk Factor Assessment Total Risk Factor Score: 4 Thrombosis Risk Factor Assessment Level: Moderate Risk Assessment and Plan Plan: -Acute renal failure probably medication induced hold off nephrotoxic agents, hold off lisinopril, Aldactone, Lasix. Patient probably will benefit from IV fluids because his EF is very low will start him and gentle hydration, nephrology was consult and. -Asymptomatic severe sinus bradycardia: Secondary to medications including beta omero and amiodarone both of which will be held the patient may need beta omero will be started depending on his heart rate. -Atrial fibrillation with bradycardia: Continue with anti-correlation hold off on amiodarone and beta omero as mentioned above -Hypothyroidism -Hyperkalemia secondary to acute renal failure lisinopril and Aldactone, patient was given a dose of capsulate. -COPD without any acute exacerbation patient quit smoking started back again recently counseling regarding this was provided -Hypertension
[2018-12-24] MEDS: SODIUM CHLORIDE 0.9% 1,000 ML IV SCH (17:22)
[2018-12-24] MEDS: APIXABAN 2.5 MG TABLET PO SCH (20:36)
[2018-12-24] MEDS ORDERED: APIXABAN 5 MG TAB PO SCH (21:00)
[2018-12-24 23:53] LABS: Appearance,Urine Clear (Clear); Bilirubin,Urine Negative (Negative); Blood,Urine Negative (Negative); Color,Urine Yellow; Glucose,Urine (UA) Negative (Negative); Ketones,Urine Negative (Negative); Leukocyte Esterase,Urine Negative (Negative); Nitrite,Urine Negative (Negative); Protein,Urine Negative (Negative); Specific Gravity,Urine 1.018 (1.001-1.035); Urobilinogen,Urine <2.0 mg/dL (<2.0)
[2018-12-25] MEDS: ASPIRIN 325 MG TAB PO SCH (04:40)
[2018-12-25] MEDS: LEVOTHYROXINE 50 MCG TAB PO SCH (06:23)
[2018-12-25 06:34] LABS: Calcium 7.9 mg/dL (8.4-10.2); Potassium 4.9 mmol/L (3.5-5.1)
[2018-12-25] MEDS: IPRATROPIUM 0.5 MG/2.5 ML NEBU INHALATION SCH ×4 (08:00→20:07)
--- NOTE | 2018-12-25 08:27 | P.PN ---
Subjective 68-year-old pleasant male was admitted secondary to acute renal failure, bradycardia with A. fib. Patient the heart rate remains in 40s asymptomatic at this time. Patient is feeling much better creatinine improved from 3.5 to around 2.2. Patient is an gentle hydration although his oxygen saturations have gone down because of which are up-to-date chest x-ray make sure he is not retaining fluid and doesn't have any new pulmonary edema and if he has pulmonary edema on the chest x-ray will discontinue IV fluids at the time. Constitutional: Denied any fatigue denied any fever. Cardio vascular: denied any chest pain, palpitations Gastrointestinal denied any nausea vomiting Pulmonary: Denied any shortness of breath cough Neurologic denied any new focal deficits All inpatient medications were reviewed and appropriate changes in these medica tions as dictated in the interval history and assessment and plan. Objective - Vital Signs Vital signs: Vital Signs Temp 98.2 F 12/25/18 03:22 Pulse 40 L 12/25/18 03:22 Resp 20 12/25/18 03:22 BP 155/72 12/25/18 03:22 Pulse Ox 92 L 12/25/18 03:22 Intake & Output 12/24/18 12/25/18 12/25/18 18:59 06:59 18:59 Intake Total 360 0 Output Total 1050 Balance 360 -1050 0 Weight 105.687 kg 107 kg Intake: Oral 360 0 Output: Urine 1050 Other: # Voids 300 1 - Exam PHYSICAL EXAMINATION: GENERAL: The patient is alert and oriented x3, not in any acute distress. Well developed, well nourished. HEENT: Pupils are round and equally reacting to light. EOMI. No scleral icterus. No conjunctival pallor. Normocephalic, atraumatic. No pharyngeal erythema. No thyromegaly. CARDIOVASCULAR: S1 and S2 present. No murmurs, rubs, or gallops. PULMONARY: Chest is clear to auscultation, no wheezing or crackles. ABDOMEN: Soft, nontender, nondistended, normoactive bowel sounds. No palpable organomegaly. MUSCULOSKELETAL: No joint swelling or deformity. EXTREMITIES: No cyanosis, clubbing, or pedal edema. NEUROLOGICAL: Gross neurological examination did not reveal any focal deficits. SKIN: No rashes. - Labs CBC & Chem 7: 12/24/18 10:25 12/25/18 05:25 Labs: Abnormal Lab Results - Last 24 Hours (Table) 12/24/18 12/25/18 Range/Units 10:25 05:25 Potassium 5.4 H (3.5-5.1) mmol/L BUN 62 H 45 H (9-20) mg/dL Creatinine 3.16 H 2.12 H (0.66-1.25) mg/dL Glucose 112 H 100 H (74-99) mg/dL Calcium 7.9 L (8.4-10.2) mg/dL Magnesium 2.5 H (1.6-2.3) mg/dL AST 15 L (17-59) U/L ALT 20 L (21-72) U/L Assessment and Plan Plan: -Acute renal failure probably medication induced hold off nephrotoxic agents, hold off lisinopril, Aldactone, Lasix. Patient probably will benefit from IV fluids because his EF is very low will start him and gentle hydration, nephrology was consult and. -Asymptomatic severe sinus bradycardia: Secondary to medications including beta omero and amiodarone both of which will be held the patient may need beta omero will be started depending on his heart rate. -Atrial fibrillation with bradycardia: Continue with anti-coagulation hold off on amiodarone and beta omero as mentioned above -Hypothyroidism -Hyperkalemia secondary to acute renal failure lisinopril and Aldactone, serum potassium improved -COPD without any acute exacerbation patient quit smoking started back again recently counseling regarding this was provided -Hypertension
--- NOTE | 2018-12-25 08:29 | XR ---
EXAMINATION TYPE: XR chest 1V DATE OF EXAM: 12/25/2018 HISTORY: CHF. REFERENCE: Previous study dated 12/24/2018. FINDINGS: The study is moderately rotated. The heart is enlarged. I could not exclude some left basil ar airspace disease. I could not exclude a small left effusion. IMPRESSION: 1. SUBOPTIMAL STUDY DUE TO ROTATION. 2. CARDIOMEGALY. 3. I COULD NOT EXCLUDE SOME LEFT BASILAR AIRSPACE DISEASE WITH A CONCOMITANT EFFUSION.
[2018-12-25] MEDS: APIXABAN 2.5 MG TABLET PO SCH (08:41)
[2018-12-25] MEDS: SODIUM CHLORIDE 0.9% 1,000 ML IV SCH ×2 (11:45→13:00)
--- NOTE | 2018-12-25 14:23 | CONS ---
CONSULTATION REASON FOR CONSULT: Renal failure. HISTORY OF PRESENT ILLNESS: Patient is a 68-year-old male who was admitted to the hospital as his heart rate was quite low. The patient also had labs done which showed a serum creatinine of 3.16 from a previous reading of 1.2 on 04/14/2018. Potassium was elevated at 5.4 as well. Patient's heart rate was 34 beats per minute. He had been feeling weak and fatigued. Blood pressure was 120s to 130 systolic. The patient denies any prior history of kidney diseases. I do not see any beta blockers on his home med list; however, he is maintained on amiodarone. The patient is maintained on IV fluids. His renal function has improved. Creatinine is down to 2.12 today. The patient is voiding on his own. PAST MEDICAL HISTORY: Atrial fibrillation, COPD, hypertension, chronic back pain, peripheral vascular disease. PAST SURGICAL HISTORY: Appendectomy, bowel resection, cardiac catheterization, hernia repair, abdominal aortic and iliac aneurysm repair, low anterior resection with incisional hernia repair, surgery for vocal cord polyp, EGD, toe surgeries bilaterally. SOCIAL HISTORY: Patient is a current smoker. No history of drug abuse or alcohol abuse. MEDICATIONS: Medications prior to admission included aspirin, Prilosec, Eliquis, Lasix, Nitrostat, Aldactone, Cordarone, Lyrica, albuterol, Spiriva, Synthroid, Zestril. ALLERGIES: None. REVIEW OF SYSTEMS: As per HPI. Other systems negative. PHYSICAL EXAMINATION: On examination, patient is comfortable, awake, alert, oriented x3, not in any acute distress. Blood pressure is 130/60, heart rate 40 per minute. He is afebrile. EXAMINATION OF THE HEART: S1, S2. EXAMINATION OF THE LUNGS: Bilateral breath sounds are heard. Abdomen is soft, nontender. Examination of lower extremities shows no evidence of edema. LEAF SORTER EXAM: Grossly intact. LABS: Labs show sodium 139, potassium 4.9, BUN 45, serum creatinine 2.1. UA was completely clear. TSH 0.8. Hemoglobin 13.2. ASSESSMENT: 1. Acute kidney injury prerenal associated with bradycardia. The patient was also on MARTÍN inhibitors which are now currently on hold. 2. Atrial fibrillation with bradycardia, currently off amiodarone. 3. Bradycardia, most likely related to medications. TSH was within normal range. Patient is maintained on Synthroid. 4. Mild hyperkalemia associated with acute kidney injury and use of MARTÍN inhibitors prior to admission. 5. Possible underlying chronic kidney disease. Prior creatinine 1.2 and 1.1 mg/dL in March of 2018, possibly related to nephrosclerosis. PLAN: Continue IV fluids. Repeat labs in a.m. Check ultrasound of the kidneys. Thank you for this consultation. We will continue to follow the patient with you during his hospitalization. MMODL / IJN: [id number] /
--- NOTE | 2018-12-25 14:41 | P.CRDCN ---
History of Present Illness Consult date: 12/25/18 Reason for Consult (text): Sinus Bradycardia Chief complaint: Sinus Bradycardia/ARF/hyperkalemia/Gout History of present illness: HISTORY OF PRESENT ILLNESS AND PLAN: This is a [68]-year-old [male] with history of IBS, hiatal hernia, diverticuli, bowel resection, back pain, bilateral iliac artery aneurysms status post repair, hypothyroid, current 1PPD smoking, COPD, hypertension, atrial fibrillation/chronic and 2018 admission for septic shock. Patient presents to ER sent by primary care provider with complaints of [gout, acute renal failure with high potassium,creatinine 3.5 and bradycardia. Patient was at PCP office for gout flare and was noted to have significant bradycardia, heart rate 30. Patient has no current complaints of chest pain, chest pressure, shortness of breath or palpitations. Patient states his toe hurt with gout and he was unaware that he was bradycardic. Patient heart rate ranges 30-60 bpm, currently SB, heart rate 58. Patient asymptomatic. No complaints of lightheadedness, dizziness or syncopal episodes. Patient continues to smoke one pack per day. Patient follows with Dr. Jiménez in office. Pt was taking Amiodarone at home 100mg dialy. No other rate controllers. Pt currently on 2L NC, saturation 90% on RA]. SIGNIFICANT PAST MEDICAL HISTORY: [IBS, hiatal hernia, diverticuli, bowel resection, back pain, bilateral iliac artery aneurysms status post repair, hypothyroid, current 1PPD smoking, COPD, hypertension, atrial fibrillation/chronic and recent admission for septic shock after hiatial hernia surgery.] PAST SURGICAL HISTORY: See list. EKG shows [SB], heart rate [58] bpm. Troponins negative x [1]. SIGNIFICANT LABORATORY VALUES: [CBC WNL. K on admission 5.4, MAG 2.5, Currently 4.9. BUN 62/CR 3.16.]. Chest x-ray 12/24/18 = Possible air space disease noted. Possible small effusion noted]. Most recent echo dated = [02/08/2018] indicates [EF 45%, WNL LV size. Mild concentric hypertrophy. Mildly dilated RV. Moderately dilated LA. Moderate MR. Mild TR. Moderately increased PASP. Interatrial septum aneurysmal. Echo 11/07/2017 had significantly reduced EF at 20-25%, severe global hypokinesia. . REVIEW OF SYSTEMS: CONSTITUTIONAL: [Denies fever. Denies chills.] EYES: Denies blurred vision. [Denies blurred vision or vision changes. Denies eye pain.] EARS, NOSE, MOUTH & THROAT: [Denies headache. Denies sore throat. Denies ear pain Denies hemoptysis.] CARDIOVASCULAR: [Denies chest pain. Complains of shortness of breath. Denies orthopnea. Denies PND. Denies palpitations.] RESPIRATORY: [Complains of cough. Complains of shortness of breath. Complains of sputum production.] GASTROINTESTINAL: [Denies abdominal pain or distention. Denies diarrhea. Denies constipation. Denies nausea. Denies vomiting.] MUSCULOSKELETAL: [Denies myalgias.] INTEGUMENTARY: [Denies pruitis. Denies rash.] ENDOCRINE: [Denies fatigue. Denies weight change. Denies polydipsia. Denies polyurina Denies heat/cold intolerance.] GENITOURINARY:[ Denies burning, hematuria or urgency with micturation.] HEMATOLOGIC: [Denies history of anemia. Denies bleeding.] NEUROLOGIC: [Denies numbness. Denies tingling. Denies weakness.] PSYCHIATRIC: [Denies anxiety. Denies depression.] PHYSICAL EXAM: GENERAL: Well developed, in no acute distress. HEENT: Head is atraumatic, normocephalic. Pupils are equal, round. Extra ocular movements intact. Mucous membranes moist. Neck supple. No JVD. No carotid bruit. No thyromegaly. LUNGS: Diminished to auscultation bilaterally. VERY TIGHT. No wheezes, rales or rhonchi. No chest wall tenderness on palpation or with deep breathing. HEART: Irregular rate and rhythm, no rubs or gallops. S1 and S2 heard. No murmur. ABDOMEN: Abdominal exam, WNL. Bowel sounds x4 quads. Soft, non-tender, without masses, organomegaly, or abdominal aorta enlargement. EXTREMITIES/VASCULAR: Extremities have easily palpable radial, femoral, dorsalis pedis and posterior tibial pulses. No cyanosis, calf tenderness. No BLE edema. NEUROLOGIC: Patient is awake, alert and oriented x3. No focal neurologic abnormalities. FINAL IMPRESSION: 1. [sinus bradycardia]. 2. [paroxysmal atrial fibrillation]. 3. [sick sinus syndrome]. 4. [acute renal failure]. 5. [hyperkalemia]. PLAN: [Echocardiogram ordered. Repeat EKG daily 3 days. Order TSH with free T4. Sick sinus syndrome, no rate controllers currently. Discontinue amiodarone. STOP ELIQUIS, may advise pacemaker insertion. Advise smoking cessation. Heart healthy/low salt diet advised. Will follow.] Nurse Practitioner note has been reviewed by the Physician. Signing provider agrees with the documented findings, assessment and plan of care. Past Medical History Past Medical History: Atrial Fibrillation, COPD, Hypertension Additional Past Medical History / Comment(s): IBS, diverticulitis/bowel resection, benign colon polyps, hiatal hernia, chronic low R sided back pain, hoarseness-benign vocal cord polyp, numbness/tingling 4th/5th digits bilateral hands, "spots on liver and kidney"-told not to worry about them, abdominal and bilateral iliac artery aneurysms with surgical repair, pt is on lasix but does not know reason. History of Any Multi-Drug Resistant Organisms: None Reported Past Surgical History: Appendectomy, Bowel Resection, Heart Catheterization, Hernia Repair, Orthopedic Surgery Additional Past Surgical History / Comment(s): Abdominal aortic/iliac aneurysms with repair (4), multiple hernia repairs/mesh, low anterior resection with incisional hernia repair/partial omenectomy and incidental appy, direct microlarygoscopy with R vocal cord polyp/bx, hemorrhoidectomy, EGD/colonoscopy with benign polyp, bilateral great toe surgery for calcium build up. Past Anesthesia/Blood Transfusion Reactions: No Reported Reaction Smoking Status: Current every day smoker - Past Family History Mother Family Medical History: Cancer Additional Family Medical History / Comment(s): Mother had metastatic cancer. Brother(s) Family Medical History: CVA/TIA Father Family Medical History: CVA/TIA Medications and Allergies Home Medications Medication Instructions Recorded Confirmed Type Aspirin 325 mg PO DAILY 08/22/14 12/24/18 History Aclidinium [place] [Tudorza 1 puff PO RT-BID 11/02/17 12/24/18 History Pressair] Omeprazole [PriLOSEC] 20 mg PO DAILY 11/02/17 12/24/18 History Apixaban [Eliquis] 5 mg PO BID 11/06/17 12/24/18 History Furosemide [Lasix] 40 mg PO DAILY #30 tablet 11/13/17 12/24/18 Rx Nitroglycerin Sl Tabs [Nitrostat] 0.4 mg SUBLINGUAL Q5M PRN #30 tab 11/13/17 12/24/18 Rx Spironolactone [Aldactone] 25 mg PO DAILY #30 tab 11/13/17 12/24/18 Rx Amiodarone [Cordarone] 100 mg PO QAM 04/05/18 12/24/18 History Pregabalin [Lyrica] 300 mg PO BID 04/05/18 12/24/18 History Albuterol Nebulized [Ventolin 2.5 mg INHALATION RT-TID 04/06/18 12/24/18 History Nebulized] Albuterol Inhaler [Ventolin Hfa 1 - 2 puff INHALATION RT-Q6H PRN 04/09/18 12/24/18 History Inhaler] Tiotropium [place] [Spiriva] 1 cap INHALATION RT-DAILY 04/09/18 12/24/18 History Levothyroxine Sodium [Synthroid] 50 mcg PO DAILY 12/24/18 12/24/18 History Lisinopril [Zestril] 10 mg PO DAILY 12/24/18 12/24/18 History Allergies Allergy/AdvReac Type Severity Reaction Status Date / Time No Known Allergies Allergy Verified 12/24/18 10:45 Physical Exam Vitals: Vital Signs Temp Pulse Pulse Resp BP Pulse Ox 12/25/18 12:00 97.4 F L 70 18 137/72 90 L 12/25/18 08:38 42 L 12/25/18 08:29 40 L 12/25/18 08:00 97.3 F L 45 L 18 130/60 98 12/25/18 03:22 98.2 F 40 L 20 155/72 92 L 12/24/18 23:15 98.1 F 57 L 18 124/76 98 12/24/18 20:00 97.3 F L 39 L 20 125/55 93 L 12/24/18 16:00 48 L 19 137/62 97 Intake and Output 12/24/18 12/25/18 12/25/18 22:59 06:59 14:59 Intake Total 360 0 Output Total 1050 75 Balance 360 -1050 -75 Intake: Oral 360 0 Output: Urine 1050 75 Other: Voiding Method Urinal # Voids 300 1 Weight 107 kg Results 12/24/18 10:25 12/25/18 05:25 Comprehensive Metabolic Panel 12/25/18 Range/Units 05:25 Sodium 139 (137-145) mmol/L Potassium 4.9 (3.5-5.1) mmol/L Chloride 107 (98-107) mmol/L Carbon Dioxide 26 (22-30) mmol/L BUN 45 H (9-20) mg/dL Creatinine 2.12 H (0.66-1.25) mg/dL Glucose 100 H (74-99) mg/dL Calcium 7.9 L (8.4-10.2) mg/dL Current Medications Generic Name Dose Route Start Last Admin Trade Name Freq PRN Reason Stop Dose Admin Albuterol Sulfate 2.5 mg 12/24/18 15:02 Ventolin Nebulized INHALATION RT-Q6H PRN Shortness Of Breath Or Wheezing Aspirin 325 mg 12/25/18 09:00 12/25/18 04:40 Aspirin PO 325 mg DAILY REYNA Administration Sodium Chloride 1,000 mls @ 50 mls/hr 12/24/18 15:15 12/25/18 13:00 Saline 0.9% IV 50 mls/hr .Q20H REYNA Administration Ipratropium [place] 0.5 mg 12/25/18 08:00 12/25/18 13:42 Atrovent Nebulized INHALATION Not Given RT-QID REYNA Levothyroxine Sodium 50 mcg 12/25/18 06:30 12/25/18 06:23 Synthroid PO 50 mcg 0630 REYNA Administration Naloxone HCl 0.2 mg 12/24/18 12:08 Narcan IV Q2M PRN Opioid Reversal Nitroglycerin 0.4 mg 12/24/18 15:02 Nitrostat SUBLINGUAL Q5M PRN Chest Pain Intake and Output 12/24/18 12/25/18 12/25/18 22:59 06:59 14:59 Intake Total 360 0 Output Total 1050 75 Balance 360 -1050 -75 Intake: Oral 360 0 Output: Urine 1050 75 Other: Voiding Method Urinal # Voids 300 1 Weight 107 kg 12/24/18 10:25 12/25/18 05:25 - EKG Interpretation EKG shows: bradycardia EKG Interpretations (text) SB
[2018-12-25] MEDS ORDERED: SPIRONOLACTONE 25 MG TAB PO SCH (14:45)
[2018-12-25] MEDS: LISINOPRIL 10 MG TAB PO SCH (15:52)
--- NOTE | 2018-12-25 17:31 | ECHOF ---
Referral Reason:chf MEASUREMENTS -------- HEIGHT: 175.3 cm WEIGHT: 105.7 kg BP: 120/73 RVIDd: 5.1 cm (< 3.3) IVSd: 1.5 cm (0.6 - 1.1) LVIDd: 5.8 cm (3.9 - 5.3) LVPWd: 1.6 cm (0.6 - 1.1) IVSs: 2.0 cm LVIDs: 4.1 cm LVPWs: 2.0 cm Ao Diam: 3.0 cm (2.0 - 3.7) AV Cusp: 2.4 cm (1.5 - 2.6) LA Diam: 4.3 cm (2.7 - 3.8) RAP: 5.00 mmHg RVSP: 13.22 mmHg FINDINGS -------- Undetermined rhythm. This was a technically difficult study with suboptimal views. The left ventricular size is normal. There is moderate concentric left ventricular hypertrophy. T here is moderate global hypokinesis of LV . Overall left ventricular systolic function is moderatel y impaired with, an EF between 35 - 40 %. The right ventricle is moderately enlarged. The left atrium is mildly dilated. The right atrium was not well visualized. 5.0mg of Lumason was utilized for enhancement of images Interatrial and interventricular septum intact. The aortic valve was not well visualized. There is no evidence of aortic regurgitation. There is no evidence of aortic stenosis. The mitral valve was not well visualized. No mitral regurgitation. The tricuspid valve was not well visualized. Mild tricuspid regurgitation present. There is no ev idence of pulmonary hypertension. The right ventricular systolic pressure, as measured by Doppler, is 13.22mmHg. There is no pulmonic regurgitation present. The aortic root size is normal. IVC Not well visulized. There is no pericardial effusion. CONCLUSIONS -------- 1. Undetermined rhythm. 2. This was a technically difficult study with suboptimal views. 3. The left ventricular size is normal. 4. There is moderate concentric left ventricular hypertrophy. 5. There is moderate global hypokinesis of LV . 6. Overall left ventricular systolic function is moderately impaired with, an EF between 35 - 40 %. 7. The right ventricle is moderately enlarged. 8. The left atrium is mildly dilated. 9. The right atrium was not well visualized. 10. 5.0mg of Lumason was utilized for enhancement of images 11. Interatrial and interventricular septum intact. 12. The aortic valve was not well visualized. 13. There is no evidence of aortic regurgitation. 14. There is no evidence of aortic stenosis. 15. The mitral valve was not well visualized. 16. No mitral regurgitation. 17. The tricuspid valve was not well visualized. 18. Mild tricuspid regurgitation present. 19. There is no evidence of pulmonary hypertension. 20. The right ventricular systolic pressure, as measured by Doppler, is 13.22mmHg. 21. There is no pulmonic regurgitation present. 22. The aortic root size is normal. 23. IVC Not well visulized. 24. There is no pericardial effusion. RECORDS ASSOCIATE: Erna Slaughter RDCS
[2018-12-26] MEDS: HYDROcodone/APAP 5-325MG 1 EACH TAB PO PRN ×2 (03:15→09:16)
[2018-12-26 05:56] LABS: Calcium 8.4 mg/dL (8.4-10.2); Potassium 4.8 mmol/L (3.5-5.1)
[2018-12-26] MEDS: LEVOTHYROXINE 50 MCG TAB PO SCH (06:24)
[2018-12-26] MEDS: SODIUM CHLORIDE 0.9% 1,000 ML IV SCH (06:26)
[2018-12-26] MEDS ORDERED: PANTOPRAZOLE 40 MG TABLET PO SCH (07:30)
[2018-12-26] MEDS: IPRATROPIUM 0.5 MG/2.5 ML NEBU INHALATION SCH ×2 (09:07→13:37)
[2018-12-26 09:10] VITALS: BP 141/66; RESP 20; TEMP 98.2
[2018-12-26] MEDS: ASPIRIN 325 MG TAB PO SCH (09:16)
[2018-12-26] MEDS: LISINOPRIL 10 MG TAB PO SCH (09:16)
--- NOTE | 2018-12-26 11:36 | P.DS ---
Providers Date of admission: 12/24/18 12:08 Attending physician: Nicolas Santacruz Consults: 12/24/18 12:09 Consult Physician Routine Consulting Provider: Richar Mao Consult Reason/Comments: bradrycardia Do you want consulting provider notified?: Yes Consult Physician Routine Consulting Provider: Patti Tyler Consult Reason/Comments: karolina Do you want consulting provider notified?: Yes Primary care physician: [facility]per [facility] Course: 68-year-old pleasant male was admitted secondary to acute renal failure, bradycardia with A. fib. Patient the heart rate remains in 40s asymptomatic at this time. Patient is feeling much better creatinine improved from 3.5 to around 2.2. Patient is an gentle hydration although his oxygen saturations have gone down because of which are up-to-date chest x-ray make sure he is not retaining fluid and doesn't have any new pulmonary edema and if he has pulmonary edema on the chest x-ray will discontinue IV fluids at the time. 12/26/2018 Patient's creatinine improved to 1.7 baseline around 1.2 patient is cleared by nephrology and cardiology patient bradycardia improved patient's beta omero and amiodarone were discontinued and patient will be discharged today and patient will resume his Lasix, we'll cut down the dose of MARTÍN inhibitor patient can resume his Aldactone down the line. he was hyperkalemic as well on admission. PHYSICAL EXAMINATION: GENERAL: The patient is alert and oriented x3, not in any acute distress. Well developed, well nourished. HEENT: Pupils are round and equally reacting to light. EOMI. No scleral icterus. No conjunctival pallor. Normocephalic, atraumatic. No pharyngeal erythema. No thyromegaly. CARDIOVASCULAR: S1 and S2 present. No murmurs, rubs, or gallops. PULMONARY: Mild bibasilar crackles ABDOMEN: Soft, nontender, nondistended, normoactive bowel sounds. No palpable organomegaly. MUSCULOSKELETAL: No joint swelling or deformity. EXTREMITIES: No cyanosis, clubbing, or pedal edema. NEUROLOGICAL: Gross neurological examination did not reveal any focal deficits. SKIN: No rashes. Assessment and Plan Plan: -Acute renal failure probably medication induced hold off nephrotoxic agents, improved -Asymptomatic severe sinus bradycardia: Secondary to medications including beta omero and amiodarone both of which were discontinued -Atrial fibrillation with bradycardia: Continue with anti-coagulation hold off on amiodarone and beta omero as mentioned above -Hypothyroidism -Hyperkalemia secondary to acute renal failure lisinopril and Aldactone, serum potassium improved -COPD without any acute exacerbation patient quit smoking started back again recently counseling regarding this was provided -Hypertension Patient Condition at Discharge: Fair Plan - Discharge Summary Discharge Rx Participant: No New Discharge Prescriptions: Continue Aclidinium [place] [Tudorza Pressair] 1 puff PO RT-BID Omeprazole [PriLOSEC] 20 mg PO DAILY Apixaban [Eliquis] 5 mg PO BID Nitroglycerin Sl Tabs [Nitrostat] 0.4 mg SUBLINGUAL Q5M PRN #30 tab PRN Reason: Chest Pain Furosemide [Lasix] 40 mg PO DAILY #30 tablet Albuterol Nebulized [Ventolin Nebulized] 2.5 mg INHALATION RT-TID Albuterol Inhaler [Ventolin Hfa Inhaler] 1 - 2 puff INHALATION RT-Q6H PRN PRN Reason: Shortness Of Breath Or Wheezing Tiotropium [place] [Spiriva] 1 cap INHALATION RT-DAILY Levothyroxine Sodium [Synthroid] 50 mcg PO DAILY Changed Pregabalin [Lyrica] 150 mg PO BID #0 Lisinopril [Zestril] 5 mg PO DAILY #0 Discontinued Aspirin 325 mg PO DAILY Spironolactone [Aldactone] 25 mg PO DAILY #30 tab Amiodarone [Cordarone] 100 mg PO QAM Discharge Medication List Aclidinium [place] [Tudorza Pressair] 1 puff PO RT-BID 11/02/17 [History] Omeprazole [PriLOSEC] 20 mg PO DAILY 11/02/17 [History] Apixaban [Eliquis] 5 mg PO BID 11/06/17 [History] Furosemide [Lasix] 40 mg PO DAILY #30 tablet 11/13/17 [Rx] Nitroglycerin Sl Tabs [Nitrostat] 0.4 mg SUBLINGUAL Q5M PRN #30 tab 11/13/17 [Rx] Albuterol Nebulized [Ventolin Nebulized] 2.5 mg INHALATION RT-TID 04/06/18 [History] Albuterol Inhaler [Ventolin Hfa Inhaler] 1 - 2 puff INHALATION RT-Q6H PRN 04/09/18 [History] Tiotropium [place] [Spiriva] 1 cap INHALATION RT-DAILY 04/09/18 [History] Levothyroxine Sodium [Synthroid] 50 mcg PO DAILY 12/24/18 [History] Lisinopril [Zestril] 5 mg PO DAILY #0 12/26/18 [Rx] Pregabalin [Lyrica] 150 mg PO BID #0 12/26/18 [Rx] Follow up Appointment(s)/Referral(s): Casper Raza III, MD [Primary Care Provider] - 3 Days Discharge Disposition: HOME SELF-CARE
[2018-12-26 11:46] VITALS: PULSE 64
--- NOTE | 2018-12-26 13:16 | PN ---
PROGRESS NOTE Patient is seen for followup for acute kidney injury which was mainly associated with bradycardia. He is currently doing better. The patient wants to go home. He has had good urine output. Serum creatinine is down to 1.87 from 3.16. Previous creatinine was as low as 1.2 in March of 2018. PHYSICAL EXAMINATION: On examination today, blood pressure was 141/66, heart rate 44 per minute, he is afebrile. Examination of the heart S1, S2. Examination of the lungs, bilateral breath sounds are heard. Abdomen is soft, nontender. Examination of lower extremities shows no evidence of edema. LAB: Show sodium 139, potassium 4.8, BUN 31, creatinine 1.87, hemoglobin 13.2 g/dL. ASSESSMENT: 1. Acute kidney injury associated with bradycardia, currently off of MARTÍN inhibitors. Renal function has improved. We can resume the lisinopril at a lower dose and repeat labs as outpatient. 2. Bradycardia, improved. Heart rate still in the 40s. Patient will follow up with Cardiology as outpatient. 3. Mild hyperkalemia associated with acute kidney injury and use of MARTÍN inhibitors prior to admission, currently improved. 4. Chronic kidney disease stage III. Baseline creatinine about 1.2 mg/dL, mostly nephrosclerosis. UA is completely benign. PLAN: Patient is stable for discharge. Follow up as outpatient. Use half the dose of the MARTÍN inhibitors and increase as outpatient depending on the blood pressure. The patient is advised to continue to avoid use of any nonsteroidal anti-inflammatory agents. Continue with Lasix 40 mg once a day. MMODL / IJN: [id number] /
--- NOTE | 2018-12-26 14:34 | P.PN ---
Subjective Progress Note Date: 12/26/18 Principal diagnosis: Bradycardia chest awake and alert this a.m. doing well. No current complaints of chest pain, chest pressure, shortness of breath or palpitations. Patient heart rate improving. Currently sinus bradycardia heart rate ranges mid 50s, PVCs noted. Okay from a cardiology perspective for discharge this evening. Encourage ambulation and hallway. Smoking cessation education. Continue same all other medical/medication regime. 10 units Keli quest 2.5 mg twice daily. No amiodarone. Follow-up visit with cardiology in one week. PHYSICAL EXAM: VITAL SIGNS: GENERAL: Well developed, in no acute distress. HEENT: Head is atraumatic, normocephalic. Pupils are equal, round. Extra ocular movements intact. Mucous membranes moist. Neck supple. No JVD. No carotid bruit. No thyromegaly. LUNGS: Bilateral wheezes. No rales or rhonchi. No chest wall tenderness on palpation or with deep breathing. HEART: Regular rate and rhythm, no rubs or gallops. S1 and S2 heard. No murmur. ABDOMEN: Abdominal exam, WNL. Bowel sounds x4 quads. Soft, non-tender, without masses, organomegaly, or abdominal aorta enlargement. EXTREMITIES/VASCULAR: Extremities have easily palpable radial, femoral, dorsalis pedis and posterior tibial pulses. No cyanosis, calf tenderness. No BLE edema. NEUROLOGIC: Patient is awake, alert and oriented x3. No focal neurologic abnormalities. Objective - Vital Signs Vital signs: Vital Signs Temp 98.2 F 12/26/18 08:00 Pulse 44 L 12/26/18 09:19 Resp 20 12/26/18 08:00 BP 141/66 12/26/18 08:00 Pulse Ox 95 12/26/18 08:00 Intake & Output 12/25/18 12/26/18 12/26/18 18:59 06:59 18:59 Intake Total 240 300 Output Total 525 2 Balance -285 -2 300 Weight 108.1 kg Intake: Oral 240 300 Output: Urine 525 2 Other: Voiding Method Urinal Urinal Toilet Urinal # Voids 1 200 - Labs CBC & Chem 7: 12/24/18 10:25 12/26/18 05:23 Labs: Abnormal Lab Results - Last 24 Hours (Table) 12/26/18 Range/Units 05:23 Chloride 109 H (98-107) mmol/L BUN 31 H (9-20) mg/dL Creatinine 1.87 H (0.66-1.25) mg/dL Microbiology - Last 24 Hours (Table) 12/24/18 10:40 Blood Culture - Preliminary Blood No Growth after 48 hours
--- NOTE | 2018-12-30 16:00 | CDI ---
Documentation Clarification Form Date: 12/30/18 From: Codie Goodman Phone: If you have a question regarding this query, please contact Yasemin Salvador at [phone] between 8am and 5pm. Admit Date: 12/24/2018 12:08:00 PM Patient Name: Dilshad Morris Visit Number: [id number] Discharge Date: 12/26/2018 2:02:00 PM ATTENTION: The Clinical Documentation Specialists (CDI) and [facility] Coding Staff appreciate your assistance in clarifying documentation. Please respond to the clarification below the line at the bottom and electronically sign. The CDI & [facility] Coding staff will review the response and follow-up if needed. Please note: Queries are made part of the Legal Health Record. If you have any questions, please contact the author of this message via ITS. Dr. Nicolas Santacruz Conflicting documentation has been found in the medical record: Dr. Fernandez documented sick sinus syndrome in the cardiology consult note. You documented in your discharge summary asymptomatic severe sinus bradycardia secondary to beta omero and amiodarone. History/Risk Factors: Hypertension, atrial fibrillation Clinical Indicators: decreased heart rate, asymptomatic Vital Signs: T. 97.5, P. 34, R. 20, BP 107/59 Treatment: Beta omero and amiodarone discontinued In your opinion, what is the most clinically appropriate diagnosis for this patient? Bradycardia secondary to meds Sick Sinus Syndrome Other explanation of clinical findings Unable to determine (no explanation for clinical findings) My opinion was dictated already in the note. RANDALL
== END 2018-12-26 14:02 | disposition home or self-care (01) | DRG 309 ==
LOC: EC 10:07 → 3SCARD 12:08
PROVIDERS: ADMIT Internal Medicine; ATTEND Internal Medicine
DX: R00.1 Bradycardia, unspecified (principal); N17.9 Acute kidney failure, unspecified; I48.0 Paroxysmal atrial fibrillation; J44.9 Chronic obstructive pulmonary disease, unspecified; E87.5 Hyperkalemia; N28.1 Cyst of kidney, acquired; I08.1 Rheumatic disorders of both mitral and tricuspid valves; I13.10 Hypertensive heart and chronic kidney disease without heart failure, with stage 1 through stage 4 chronic kidney disease, or unspecified chronic kidney disease; T44.7X5A Adverse effect of beta-adrenoreceptor antagonists, initial encounter; T46.2X5A Adverse effect of other antidysrhythmic drugs, initial encounter; E03.9 Hypothyroidism, unspecified; F17.210 Nicotine dependence, cigarettes, uncomplicated; I12.9 Hypertensive chronic kidney disease with stage 1 through stage 4 chronic kidney disease, or unspecified chronic kidney disease; I73.9 Peripheral vascular disease, unspecified; K58.9 Irritable bowel syndrome, unspecified; M10.9 Gout, unspecified; M19.90 Unspecified osteoarthritis, unspecified site; N18.3 Chronic kidney disease, stage 3 (moderate); G89.29 Other chronic pain; J38.1 Polyp of vocal cord and larynx; R49.0 Dysphonia; M54.9 Dorsalgia, unspecified; K44.9 Diaphragmatic hernia without obstruction or gangrene; K57.90 Diverticulosis of intestine, part unspecified, without perforation or abscess without bleeding; E66.9 Obesity, unspecified; Z68.35 Body mass index [BMI] 35.0-35.9, adult; Z79.01 Long term (current) use of anticoagulants; Z79.82 Long term (current) use of aspirin; Z79.890 Hormone replacement therapy; Z79.899 Other long term (current) drug therapy; Z90.49 Acquired absence of other specified parts of digestive tract; Z86.010 Personal history of colon polyps; Z86.79 Personal history of other diseases of the circulatory system; Z82.3 Family history of stroke; Z80.9 Family history of malignant neoplasm, unspecified
CPT/HCPCS: 36415; 71045; 71046; 80048; 80053; 81003; 83735; 84439; 84443; 84445; 84484; 85025; 85610; 85730; 87040; 93005; 93306; 94640; 94760; 96360; 99285

== ENCOUNTER → 2018-12-24 | Outpatient (CLI) | payer MEDICARE, OTHER | END | disposition home or self-care (01) | LOC: LABWHC1 08:50 | PROVIDERS: ATTEND Internal Medicine Cardiovascular Disease | DX: I48.91 Unspecified atrial fibrillation (principal) | CPT/HCPCS: 36415; 84443; 84450; 84460 ==

== ENCOUNTER → 2019-01-17 | Outpatient (CLI) | payer MEDICARE, OTHER ==
[2019-01-17 11:21] LABS: Basophils # (A) 0.1 k/uL (0-0.2); Basophils % (A) 1 %; Eosinophils # (A) 0.6 k/uL (0-0.7); Eosinophils % (A) 8 %; HCT 37.2 % (39.0-53.0); HGB 11.6 gm/dL (13.0-17.5); Hypochromasia Marked; Lymphocytes # (A) 1.5 k/uL (1.0-4.8); Lymphocytes % (A) 21 %; MCH 28.1 pg (25.0-35.0); MCHC 31.3 g/dL (31.0-37.0); MCV 89.9 fL (80.0-100.0); Mean Platelet Volume 7.7; Monocytes # (A) 0.7 k/uL (0-1.0); Monocytes % (A) 10 %; Neutrophils # (A) 4.1 k/uL (1.3-7.7); Neutrophils % (A) 56 %; Platelet Count 214 k/uL (150-450); Poikilocytosis Slight; RBC 4.14 m/uL (4.30-5.90); RDW 14.8 % (11.5-15.5); WBC 7.3 k/uL (3.8-10.6)
[2019-01-17 11:29] LABS: Appearance,Urine Clear (Clear); Bilirubin,Urine Negative (Negative); Blood,Urine Trace (Negative); Color,Urine Yellow; Glucose,Urine (UA) Negative (Negative); Hyaline Casts,Urine 5 /lpf (0-2); Ketones,Urine Negative (Negative); Leukocyte Esterase,Urine Negative (Negative); Mucus,Urine Occasional /hpf; Nitrite,Urine Negative (Negative); PH, Urine 5.5 (5.0-8.0); Protein,Urine Trace (Negative); RBC,Urine 2 /hpf (0-5); WBC,Urine 2 /hpf (0-5)
[2019-01-17 16:50] LABS: African American GFR (CKD) 49.8 (60.0-200.0); Albumin 4.1 g/dL (3.80-4.90); Albumin/Globulin Ratio 2.05 (1.60-3.17); Anion Gap 5.6 mmol/L (4.00-12.00); BUN/Creat Ratio 12.5 Ratio (12.00-20.00); Calcium 8.9 mg/dL (8.7-10.3); Carbon Dioxide 26.4 mmol/L (21.6-31.8); Phosphorus 3.2 mg/dL (2.4-5.1); Potassium 5.3 mmol/L (3.5-5.5); Total Bilirubin 0.6 mg/dL (0.3-1.2); Total Protein 6.1 g/dL (6.2-8.2)
== END ==
LOC: LABWHC1 10:46
PROVIDERS: ATTEND Family Medicine
DX: N18.3 Chronic kidney disease, stage 3 (moderate) (principal)
CPT/HCPCS: 36415; 80053; 81001; 84100; 85025

== ENCOUNTER 2019-02-07 11:10 | Emergency (ER) | payer MEDICARE, OTHER ==
[2019-02-07 12:42] LABS: Basophils # (A) 0.1 k/uL (0-0.2); Basophils % (A) 1 %; Eosinophils # (A) 1.1 k/uL (0-0.7); Eosinophils % (A) 13 %; HCT 36.9 % (39.0-53.0); HGB 11.8 gm/dL (13.0-17.5); Hypochromasia Moderate; Lymphocytes # (A) 1.2 k/uL (1.0-4.8); Lymphocytes % (A) 15 %; MCH 27.2 pg (25.0-35.0); MCHC 31.9 g/dL (31.0-37.0); MCV 85.3 fL (80.0-100.0); Mean Platelet Volume 7.7; Monocytes # (A) 0.7 k/uL (0-1.0); Monocytes % (A) 9 %; Neutrophils # (A) 4.8 k/uL (1.3-7.7); Neutrophils % (A) 60 %; Platelet Count 223 k/uL (150-450); Poikilocytosis Slight; RBC 4.33 m/uL (4.30-5.90); RDW 15.4 % (11.5-15.5); WBC 8.1 k/uL (3.8-10.6)
[2019-02-07 12:51] LABS: Albumin 3.9 g/dL (3.5-5.0); Partial Thromboplastin Time 29.3 sec (22.0-30.0); Potassium 4.3 mmol/L (3.5-5.1); Prothrombin Time 10.5 sec (9.0-12.0); Total Bilirubin 0.4 mg/dL (0.2-1.3); Total Protein 6.9 g/dL (6.3-8.2)
--- NOTE | 2019-02-07 12:59 | ED ---
General Adult HPI - General Chief complaint: Recheck/Abnormal Lab/Rx Stated complaint: HOT AND COLD FLASHES, POSS PROSTATE Time Seen by Provider: 02/07/19 11:59 Source: patient Mode of arrival: ambulatory Limitations: no limitations - History of Present Illness Initial comments: Patient is a 68-year-old male, Past medical history of A. fib, COPD, hypert ension, thyroid disorder, presenting to emergency Department with complaints of having hot and cold flashes for approximately 3 weeks. Patient states he called his PCP regarding this issue and they recommend him going to the ER for possible infection. Patient states he was recently started on thyroid medication 3 weeks ago. Patient denies recent fever, nausea, vomiting, chest pain, shortness of breath. Patient has not been coughing or had any recent illnesses. Patient's only complaint is the intermittent cold spells followed by hot flashes. Patient has no other complaints at this time. Upon arrival to the ER, pulse is 38, which patient states is normal for him. Patient does see a meeting manager and are discussing options for a pacemaker. rest of vital signs are normal. - Related Data Home Medications Medication Instructions Recorded Confirmed Omeprazole [PriLOSEC] 20 mg PO DAILY 11/02/17 02/07/19 Apixaban [Eliquis] 5 mg PO BID 11/06/17 02/07/19 Levothyroxine Sodium [Synthroid] 50 mcg PO DAILY 12/24/18 02/07/19 Aclidinium [place] [Tudorza 2 puff INHALATION RT-BID PRN 02/07/19 02/07/19 Pressair] Albuterol Nebulized [Ventolin 2.5 mg INHALATION TID PRN 02/07/19 02/07/19 Nebulized] Colchicine 0.3 mg PO DAILY 02/07/19 02/07/19 Pregabalin [Lyrica] 150 mg PO BID 02/07/19 02/07/19 amLODIPine [Norvasc] 5 mg PO DAILY 02/07/19 02/07/19 Previous Rx's Medication Instructions Recorded Nitroglycerin Sl Tabs [Nitrostat] 0.4 mg SUBLINGUAL Q5M PRN #30 tab 11/13/17 Allergies Allergy/AdvReac Type Severity Reaction Status Date / Time STEROIDS AdvReac Unknown Uncoded 02/07/19 12:23 Review of Systems ROS Statement: Those systems with pertinent positive or pertinent negative responses have been documented in the HPI. ROS Other: All systems not noted in ROS Statement are negative. 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 History of Any Multi-Drug Resistant Organisms: None Reported Past Surgical History: Appendectomy, Bowel Resection, Heart Catheterization, Hernia Repair, Orthopedic Surgery Additional Past Surgical History / Comment(s): Abdominal aortic/iliac aneurysms with repair (4), multiple hernia repairs/mesh, low anterior resection with incisional hernia repair/partial omenectomy and incidental appy, direct microlarygoscopy with R vocal cord polyp/bx, hemorrhoidectomy, EGD/colonoscopy with benign polyp, bilateral great toe surgery for calcium build up. Past Anesthesia/Blood Transfusion Reactions: No Reported Reaction Past Psychological History: No Psychological Hx Reported Smoking Status: Current every day smoker Past Alcohol Use History: Occasional Past Drug Use History: None Reported - Past Family History Mother Family Medical History: Cancer Additional Family Medical History / Comment(s): Mother had metastatic cancer. Brother(s) Family Medical History: CVA/TIA Father Family Medical History: CVA/TIA General Exam - General Exam Comments Initial Comments: GENERAL: Well-appearing, well-nourished and in no acute distress. HEAD: Atraumatic, normocephalic. EYES: Pupils equal round and reactive to light, extraocular movements intact, sclera anicteric, conjunctiva are normal. ENT: TMs normal, nares patent, oropharynx clear without exudates. Moist mucous membranes. NECK: Normal range of motion, supple without lymphadenopathy or JVD. LUNGS: Breath sounds clear to auscultation bilaterally and equal. No wheezes rales or rhonchi. HEART: Bradycardic rate and rhythm without murmurs, rubs or gallops. ABDOMEN: Soft, nontender, normoactive bowel sounds. No guarding, no rebound. No masses appreciated. : Deferred EXTREMITIES: Normal range of motion, no pitting or edema. No clubbing or cyanosis. NEUROLOGICAL: Cranial nerves II through XII grossly intact. Normal speech, normal gait. PSYCH: Normal mood, normal affect. SKIN: Warm, Dry, normal turgor, no rashes or lesions noted. Limitations: no limitations Course Vital Signs 02/07/19 02/07/19 11:32 16:00 Temperature 98.7 F 98.1 F Pulse Rate 38 L 65 Respiratory 18 17 Rate Blood Pressure 150/71 149/77 O2 Sat by Pulse 94 L 97 Oximetry EKG Findings - EKG Comments: EKG Findings:: Ventricular rate 73, AK interval 148, QTC 44. Sinus rhythm with frequent PVCs, nonspecific ST and T-wave abnormalities. Compared to previous on 12/24/2018. Medical Decision Making - Medical Decision Making Patient is a 68-year-old male presenting for cold spells and hot flashes has been intermittent for the past 3 weeks. Patient was recently started on new thyroid medication at the same time. Vital signs are stable today. Lab workup shows no acute abnormalities today. TSH is normal today. Urine shows no signs of infection. It was discussed with patient that there is no signs of acute infection today and he should follow up with his PCP. Patient is agreement with this plan of care. Patient stable for discharge at this time. Return parameters were discussed with the patient and he verbalized understanding. Case discussed with Dr. Ozuna. - Lab Data Result diagrams: 02/07/19 12:30 02/07/19 12:30 Lab Results 02/07/19 02/07/19 02/07/19 Range/Units 12:30 12:30 12:30 WBC 8.1 (3.8-10.6) k/uL RBC 4.33 (4.30-5.90) m/uL Hgb 11.8 L (13.0-17.5) gm/dL Hct 36.9 L (39.0-53.0) % MCV 85.3 (80.0-100.0) fL MCH 27.2 (25.0-35.0) pg MCHC 31.9 (31.0-37.0) g/dL RDW 15.4 (11.5-15.5) % Plt Count 223 (150-450) k/uL Neutrophils % 60 % Lymphocytes % 15 % Monocytes % 9 % Eosinophils % 13 % Basophils % 1 % Neutrophils # 4.8 (1.3-7.7) k/uL Lymphocytes # 1.2 (1.0-4.8) k/uL Monocytes # 0.7 (0-1.0) k/uL Eosinophils # 1.1 H (0-0.7) k/uL Basophils # 0.1 (0-0.2) k/uL Hypochromasia Moderate Poikilocytosis Slight PT 10.5 (9.0-12.0) sec INR 1.0 (<1.2) APTT 29.3 (22.0-30.0) sec Sodium 144 (137-145) mmol/L Potassium 4.3 (3.5-5.1) mmol/L Chloride 112 H (98-107) mmol/L Carbon Dioxide 24 (22-30) mmol/L Anion Gap 8 mmol/L BUN 15 (9-20) mg/dL Creatinine 1.48 H (0.66-1.25) mg/dL Est GFR (CKD-EPI)AfAm 55 (>60 ml/min/1.73 sqM) Est GFR (CKD-EPI)NonAf 47 (>60 ml/min/1.73 sqM) Glucose 109 H (74-99) mg/dL Calcium 9.0 (8.4-10.2) mg/dL Total Bilirubin 0.4 (0.2-1.3) mg/dL AST 15 L (17-59) U/L ALT 21 (21-72) U/L Alkaline Phosphatase 78 (38-126) U/L Total Protein 6.9 (6.3-8.2) g/dL Albumin 3.9 (3.5-5.0) g/dL TSH 0.907 (0.465-4.680) mIU/L Urine Color Urine Appearance (Clear) Urine pH (5.0-8.0) Ur Specific [place] (1.001-1.035) Urine Protein (Negative) Urine Glucose (UA) (Negative) Urine Ketones (Negative) Urine Blood (Negative) Urine Nitrite (Negative) Urine Bilirubin (Negative) Urine Urobilinogen (<2.0) mg/dL Ur Leukocyte Esterase (Negative) Urine RBC (0-5) /hpf Ur Squamous Epith Cells (0-4) /hpf Hyaline Casts (0-2) /lpf Urine Mucus (None) /hpf 02/07/ Range/Units 14:30 WBC (3.8-10.6) k/uL RBC (4.30-5.90) m/uL Hgb (13.0-17.5) gm/dL Hct (39.0-53.0) % MCV (80.0-100.0) fL MCH (25.0-35.0) pg MCHC (31.0-37.0) g/dL RDW (11.5-15.5) % Plt Count (150-450) k/uL Neutrophils % % Lymphocytes % % Monocytes % % Eosinophils % % Basophils % % Neutrophils # (1.3-7.7) k/uL Lymphocytes # (1.0-4.8) k/uL Monocytes # (0-1.0) k/uL Eosinophils # (0-0.7) k/uL Basophils # (0-0.2) k/uL Hypochromasia Poikilocytosis PT (9.0-12.0) sec INR (<1.2) APTT (22.0-30.0) sec Sodium (137-145) mmol/L Potassium (3.5-5.1) mmol/L Chloride (98-107) mmol/L Carbon Dioxide (22-30) mmol/L Anion Gap mmol/L BUN (9-20) mg/dL Creatinine (0.66-1.25) mg/dL Est GFR (CKD-EPI)AfAm (>60 ml/min/1.73 sqM) Est GFR (CKD-EPI)NonAf (>60 ml/min/1.73 sqM) Glucose (74-99) mg/dL Calcium (8.4-10.2) mg/dL Total Bilirubin (0.2-1.3) mg/dL AST (17-59) U/L ALT (21-72) U/L Alkaline Phosphatase (38-126) U/L Total Protein (6.3-8.2) g/dL Albumin (3.5-5.0) g/dL TSH (0.465-4.680) mIU/L Urine Color Yellow Urine Appearance Cloudy (Clear) Urine pH 5.5 (5.0-8.0) Ur Specific [place] 1.021 (1.001-1.035) Urine Protein 1+ H (Negative) Urine Glucose (UA) Negative (Negative) Urine Ketones Negative (Negative) Urine Blood Trace H (Negative) Urine Nitrite Negative (Negative) Urine Bilirubin Negative (Negative) Urine Urobilinogen 2.0 (<2.0) mg/dL Ur Leukocyte Esterase Large H (Negative) Urine RBC 5 (0-5) /hpf Ur Squamous Epith Cells <1 (0-4) /hpf Hyaline Casts 10 H (0-2) /lpf Urine Mucus Few H (None) /hpf Disposition Clinical Impression: Hot flash in male Disposition: HOME SELF-CARE Condition: Stable Instructions (If sedation given, give patient instructions): Normal Exam (ED) Additional Instructions: Please return to the Emergency Department if symptoms worsen or any other concerns. Follow-up with doctor in the next 1-3 days. Is patient prescribed a controlled substance at d/c from ED?: No Referrals: Casper Raza III, MD [Primary Care Provider] - 1-2 days
[2019-02-07 15:32] LABS: Hyaline Casts,Urine 10 /lpf (0-2); Mucus,Urine Few /hpf; RBC,Urine 5 /hpf (0-5)
[2019-02-07 15:53] LABS: Appearance,Urine Cloudy (Clear); Bilirubin,Urine Negative (Negative); Blood,Urine Trace (Negative); Color,Urine Yellow; Glucose,Urine (UA) Negative (Negative); Ketones,Urine Negative (Negative); Leukocyte Esterase,Urine Large (Negative); Nitrite,Urine Negative (Negative); PH, Urine 5.5 (5.0-8.0); Protein,Urine 1+ (Negative); Specific Gravity,Urine 1.021 (1.001-1.035); Squamous Epithelial Cell,Urine <1 /hpf (0-4)
[2019-02-07 16:02] VITALS: BP 149/77; PULSE 65; RESP 17; TEMP 98.1
== END 2019-02-07 16:08 | disposition home or self-care (01) ==
LOC: EC 11:10
DX: R23.2 Flushing (principal); F17.200 Nicotine dependence, unspecified, uncomplicated; J44.9 Chronic obstructive pulmonary disease, unspecified; I10 Essential (primary) hypertension; E07.9 Disorder of thyroid, unspecified; I48.91 Unspecified atrial fibrillation; K58.9 Irritable bowel syndrome, unspecified; Z79.01 Long term (current) use of anticoagulants; Z79.51 Long term (current) use of inhaled steroids; Z79.890 Hormone replacement therapy; Z79.899 Other long term (current) drug therapy; Z95.0 Presence of cardiac pacemaker; Z95.5 Presence of coronary angioplasty implant and graft; Z88.8 Allergy status to other drugs, medicaments and biological substances
CPT/HCPCS: 36415; 80053; 81001; 84443; 85025; 85610; 85730; 93005; 99283

== ENCOUNTER → 2019-02-09 | Outpatient (CLI) | payer MEDICARE, OTHER ==
--- NOTE | 2019-02-09 15:24 | CT ---
EXAMINATION TYPE: CT abdomen pelvis wo con DATE OF EXAM: 02/09/2019 HISTORY: Chronic kidney disease. CT DLP: 1126.7 mGycm. Automated Exposure Control for Dose Reduction was Utilized. TECHNIQUE: CT scan of the abdomen and pelvis is performed without oral or IV contrast. COMPARISON: CT abdomen and pelvis March 09, 2018 FINDINGS: Within the limitations of a non-contrast study, the following observations are made. LUNG BASES:. Cardiomegaly redemonstrated. Worsening left basilar linear scarring and/or atelectasis. Stable 4 mm calcified nodular granuloma left lung base axial image 9. Persistent fat containing diaph ragmatic hernia coronal image 89 posterior medial left lung. LIVER/GB: Cholecystectomy clips are redemonstrated. PANCREAS: There is 5 mm focal fatty prominence mid to distal pancreatic body axial image 37 presumed benign not significantly changed from prior. SPLEEN: Few scattered tiny calcifications throughout the spleen are felt to reflect product of old gr anulomatous disease. ADRENALS: No significant abnormality is seen. KIDNEYS: Cortical thinning in both kidneys. Large simple appearing 9.0 cm cyst lower pole level poste riorly right kidney coronal image 61 redemonstrated. A few scattered small simple appearing thin-wall ed cysts are also suspected scattered throughout the left kidney. BOWEL: Interval partial colectomy the level of sigmoid colon where there is prominent diverticulosis on prior study, new sutures axial image 108. Suboptimal evaluation of bowel without enteric contrast as there is some poor distention. There is some residual diverticula scattered throughout the colon. No suspicious small or large bowel dilatation. GENITAL ORGANS: No gross abnormality seen. LYMPH NODES: No greater than 1cm abdominal or pelvic lymph nodes are appreciated. OSSEOUS STRUCTURES: Mild multilevel spurring in the spine. Mild to moderate narrowing of both hip alejandro nts. OTHER: Hernia defect with overlying surgical correction upper abdomen midline axial image 21 with elver gical change extending to level of umbilicus new from prior. Overlying coils and mesh material are no w present. New small fat-containing left periUmbilical hernia axial image 45. Scar tissue inferior to this is near level of umbilicus. Stable superior bulging or herniated defect with overlying mesh axi al image 22. Stable aortobiiliac intraluminal graft. Aorta measures up to 3.2 cm transversely axial image 77. IMPRESSION: 1. Interval ventral wall surgery is felt present with new scar tissue near level of umbilicus, stable midline upper abdominal hernia with overlying mesh. New small [facility] 2. Cortical thinning and thin-walled cystic change in both kidneys consistent with product of chronic medical renal disease. No significant change from prior.
== END ==
LOC: RADCTMAIN 14:10
PROVIDERS: ATTEND Family Medicine
DX: K46.9 Unspecified abdominal hernia without obstruction or gangrene (principal); N28.1 Cyst of kidney, acquired; N18.3 Chronic kidney disease, stage 3 (moderate)
CPT/HCPCS: 74176

== ENCOUNTER 2019-02-12 08:07 | Inpatient (IN) | payer MEDICARE, OTHER ==
[2019-02-12] MEDS ORDERED: methylPREDNISolone SOD SUCCI 125 MG/2 ML VIAL IV STA (08:41)
[2019-02-12] MEDS ORDERED: IPRATROPIUM-ALBUTEROL 3 ML NEB INHALATION STA (08:41)
--- NOTE | 2019-02-12 08:45 | ED ---
General Adult HPI - General Chief complaint: Shortness of Breath Stated complaint: ELIZABETH Time Seen by Provider: 02/12/19 08:16 Source: patient, RN notes reviewed Mode of arrival: ambulatory Limitations: physical limitation - History of Present Illness Initial comments: Patient is a pleasant 68-year-old male presenting to the emergency Department with complaints of difficulty in breathing. Onset of symptoms was last night. Patient does have history of similar symptoms previously associated with COPD. No cough fever. Patient also has some abdominal cramping. No chest pain. No leg pain or leg swelling. Symptoms have progressed since onset. 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 - Related Data Home Medications Medication Instructions Recorded Confirmed Omeprazole [PriLOSEC] 20 mg PO DAILY 11/02/17 02/12/19 Apixaban [Eliquis] 5 mg PO BID 11/06/17 02/12/19 Levothyroxine Sodium [Synthroid] 50 mcg PO DAILY 12/24/18 02/12/19 Aclidinium [place] [Tudorza 2 puff INHALATION RT-BID PRN 02/07/19 02/12/19 Pressair] Albuterol Nebulized [Ventolin 2.5 mg INHALATION RT-TID PRN 02/07/19 02/12/19 Nebulized] Colchicine 0.3 mg PO DAILY 02/07/19 02/12/19 Pregabalin [Lyrica] 150 mg PO BID 02/07/19 02/12/19 amLODIPine [Norvasc] 5 mg PO DAILY 02/07/19 02/12/19 Albuterol Sulfate [Ventolin HFA] 1 - 2 puff INHALATION RT-Q6H PRN 02/12/19 02/12/19 Tiotropium [place] [Spiriva 1 spray INHALATION RT-DAILY 02/12/19 02/12/19 Respimat] Previous Rx's Medication Instructions Recorded Nitroglycerin Sl Tabs [Nitrostat] 0.4 mg SUBLINGUAL Q5M PRN #30 tab 11/13/17 Allergies Allergy/AdvReac Type Severity Reaction Status Date / Time STEROIDS AdvReac Unknown Uncoded 02/12/19 09:40 Review of Systems ROS Statement: Those systems with pertinent positive or pertinent negative responses have been documented in the HPI. ROS Other: All systems not noted in ROS Statement are negative. Constitutional: Denies: fever Eyes: Denies: eye pain ENT: Denies: ear pain Respiratory: Reports: dyspnea Cardiovascular: Denies: chest pain Endocrine: Denies: fatigue Gastrointestinal: Reports: abdominal pain (Cramping occasionally). Denies: nausea, vomiting, diarrhea Genitourinary: Denies: dysuria Musculoskeletal: Denies: back pain Skin: Denies: rash Neurological: Denies: weakness Past Medical History Past Medical History: Atrial Fibrillation, COPD, Hypertension, Thyroid Disorder Additional Past Medical History / Comment(s): IBS, diverticulitis/bowel resection, benign colon polyps, hiatal hernia, chronic low R sided back pain, hoarseness-benign vocal cord polyp, numbness/tingling 4th/5th digits bilateral hands, "spots on liver and kidney"-told not to worry about them, abdominal and bilateral iliac artery aneurysms with surgical repair, pt is on lasix but does not know reason. History of Any Multi-Drug Resistant Organisms: None Reported Past Surgical History: Appendectomy, Bowel Resection, Heart Catheterization, Hernia Repair, Orthopedic Surgery Additional Past Surgical History / Comment(s): Abdominal aortic/iliac aneurysms with repair (4), multiple hernia repairs/mesh, low anterior resection with incisional hernia repair/partial omenectomy and incidental appy, direct mi crolarygoscopy with R vocal cord polyp/bx, hemorrhoidectomy, EGD/colonoscopy with benign polyp, bilateral great toe surgery for calcium build up. Past Anesthesia/Blood Transfusion Reactions: No Reported Reaction Past Psychological History: No Psychological Hx Reported Smoking Status: Current every day smoker Past Alcohol Use History: Occasional Past Drug Use History: None Reported - Past Family History Mother Family Medical History: Cancer Additional Family Medical History / Comment(s): Mother had metastatic cancer. Brother(s) Family Medical History: CVA/TIA Father Family Medical History: CVA/TIA General Exam Limitations: physical limitation General appearance: alert, in no apparent distress Head exam: Present: normocephalic Eye exam: Present: normal appearance, PERRL ENT exam: Present: normal oropharynx Neck exam: Present: normal inspection Respiratory exam: Present: decreased breath sounds Cardiovascular Exam: Present: irregular rhythm Expanded Peripheral pulses: 2+: Posterior Tibialis (R), Posterior Tibialis (L) GI/Abdominal exam: Present: soft, normal bowel sounds. Absent: distended, tenderness, guarding, rebound, rigid, pulsatile mass Extremities exam: Present: normal inspection. Absent: pedal edema, calf tende rness Neurological exam: Present: alert Psychiatric exam: Present: normal affect, normal mood Skin exam: Present: normal color Course Vital Signs 02/12/19 02/12/19 02/12/19 08:11 08:32 08:53 Temperature 98.0 F Pulse Rate 44 L 81 84 Respiratory 21 24 Rate Blood Pressure 150/74 149/70 O2 Sat by Pulse 89 L 91 L Oximetry 02/12/19 02/12/19 08:58 10:47 Temperature 98.2 F Pulse Rate 86 75 Respiratory 18 Rate Blood Pressure 152/87 O2 Sat by Pulse 91 L Oximetry EKG Findings - EKG Comments: EKG Findings:: Irregular rhythm with a rate of 92. W[place] 188. QRS 88. QT 396. QTc 49. Normal axis. Low QRS voltage. Motion artifact is present. Nonspecific ST-T. PVCs present. Medical Decision Making - Medical Decision Making Patient reevaluated. Patient and family updated. Case was discussed in detail with Dr. Olivia, covering for Dr. Raza, who will admit. Cardiology and pulmonary will be placed on consult - Lab Data Result diagrams: 02/12/19 08:30 02/12/19 08:30 Lab Results 02/12/19 02/12/19 02/12/19 Range/Units 08:30 08:30 08:30 WBC 9.7 (3.8-10.6) k/uL RBC 4.12 L (4.30-5.90) m/uL Hgb 11.1 L (13.0-17.5) gm/dL Hct 35.3 L (39.0-53.0) % MCV 85.6 (80.0-100.0) fL MCH 26.9 (25.0-35.0) pg MCHC 31.4 (31.0-37.0) g/dL RDW 15.4 (11.5-15.5) % Plt Count 252 (150-450) k/uL Neutrophils % 66 % Lymphocytes % 13 % Monocytes % 8 % Eosinophils % 10 % Basophils % 1 % Neutrophils # 6.5 (1.3-7.7) k/uL Lymphocytes # 1.3 (1.0-4.8) k/uL Monocytes # 0.7 (0-1.0) k/uL Eosinophils # 1.0 H (0-0.7) k/uL Basophils # 0.1 (0-0.2) k/uL Hypochromasia Marked Poikilocytosis Slight PT 11.1 (9.0-12.0) sec INR 1.1 (<1.2) APTT 29.5 (22.0-30.0) sec Sodium 141 (137-145) mmol/L Potassium 4.2 (3.5-5.1) mmol/L Chloride 108 H (98-107) mmol/L Carbon Dioxide 23 (22-30) mmol/L Anion Gap 10 mmol/L BUN 17 (9-20) mg/dL Creatinine 1.35 H (0.66-1.25) mg/dL Est GFR (CKD-EPI)AfAm 61 (>60 ml/min/1.73 sqM) Est GFR (CKD-EPI)NonAf 53 (>60 ml/min/1.73 sqM) Glucose 145 H (74-99) mg/dL Calcium 8.9 (8.4-10.2) mg/dL Magnesium 1.9 (1.6-2.3) mg/dL Total Bilirubin 0.8 (0.2-1.3) mg/dL AST 18 (17-59) U/L ALT 23 (21-72) U/L Alkaline Phosphatase 74 (38-126) U/L NT-Pro-B Natriuret Pep pg/mL Total Protein 6.9 (6.3-8.2) g/dL Albumin 3.9 (3.5-5.0) g/dL 02/12/19 Range/Units 08:30 WBC (3.8-10.6) k/uL RBC (4.30-5.90) m/uL Hgb (13.0-17.5) gm/dL Hct (39.0-53.0) % MCV (80.0-100.0) fL MCH (25.0-35.0) pg MCHC (31.0-37.0) g/dL RDW (11.5-15.5) % Plt Count (150-450) k/uL Neutrophils % % Lymphocytes % % Monocytes % % Eosinophils % % Basophils % % Neutrophils # (1.3-7.7) k/uL Lymphocytes # (1.0-4.8) k/uL Monocytes # (0-1.0) k/uL Eosinophils # (0-0.7) k/uL Basophils # (0-0.2) k/uL Hypochromasia Poikilocytosis PT (9.0-12.0) sec INR (<1.2) APTT (22.0-30.0) sec Sodium (137-145) mmol/L Potassium (3.5-5.1) mmol/L Chloride (98-107) mmol/L Carbon Dioxide (22-30) mmol/L Anion Gap mmol/L BUN (9-20) mg/dL Creatinine (0.66-1.25) mg/dL Est GFR (CKD-EPI)AfAm (>60 ml/min/1.73 sqM) Est GFR (CKD-EPI)NonAf (>60 ml/min/1.73 sqM) Glucose (74-99) mg/dL Calcium (8.4-10.2) mg/dL Magnesium (1.6-2.3) mg/dL Total Bilirubin (0.2-1.3) mg/dL AST (17-59) U/L ALT (21-72) U/L Alkaline Phosphatase (38-126) U/L NT-Pro-B Natriuret Pep 09565 pg/mL Total Protein (6.3-8.2) g/dL Albumin (3.5-5.0) g/dL - Radiology Data Radiology results: image reviewed (Chest x-ray shows some pulmonary vascular congestion with effusions. Cannot rule out atelectasis or infiltrate. Abdominal x-ray shows nonspecific abdomen) Disposition Clinical Impression: COPD (chronic obstructive pulmonary disease), Congestive heart failure Disposition: ADMITTED IP TO THIS HOSP Is patient prescribed a controlled substance at d/c from ED?: No Referrals: Casper Raza III, MD [Primary Care Provider] - 1-2 days Decision Time: 10:54
[2019-02-12 08:54] LABS: Basophils # (A) 0.1 k/uL (0-0.2); Basophils % (A) 1 %; Eosinophils % (A) 10 %; HCT 35.3 % (39.0-53.0); HGB 11.1 gm/dL (13.0-17.5); Hypochromasia Marked; Lymphocytes # (A) 1.3 k/uL (1.0-4.8); Lymphocytes % (A) 13 %; MCH 26.9 pg (25.0-35.0); MCHC 31.4 g/dL (31.0-37.0); MCV 85.6 fL (80.0-100.0); Mean Platelet Volume 7.1; Monocytes # (A) 0.7 k/uL (0-1.0); Monocytes % (A) 8 %; Neutrophils # (A) 6.5 k/uL (1.3-7.7); Neutrophils % (A) 66 %; Platelet Count 252 k/uL (150-450); Poikilocytosis Slight; RBC 4.12 m/uL (4.30-5.90); RDW 15.4 % (11.5-15.5); WBC 9.7 k/uL (3.8-10.6)
[2019-02-12 09:07] LABS: INR 1.1 (<1.2); Partial Thromboplastin Time 29.5 sec (22.0-30.0); Prothrombin Time 11.1 sec (9.0-12.0)
[2019-02-12 09:09] LABS: Albumin 3.9 g/dL (3.5-5.0); Calcium 8.9 mg/dL (8.4-10.2); Magnesium 1.9 mg/dL (1.6-2.3); Potassium 4.2 mmol/L (3.5-5.1); Total Bilirubin 0.8 mg/dL (0.2-1.3); Total Protein 6.9 g/dL (6.3-8.2)
--- NOTE | 2019-02-12 10:00 | XR ---
EXAMINATION TYPE: XR chest 2V DATE OF EXAM: 02/12/2019 COMPARISON: Chest x-ray 12/30/2018 HISTORY: Bradycardia TECHNIQUE: Frontal and lateral views of the chest are obtained. FINDINGS: The patient is rotated to the left, limiting assessment. Cardiac silhouette is not grossly enlarged. Atherosclerotic calcifications at the aortic arch. Mild pulmonary vascular congestion. Patchy bibasil ar airspace opacities, left greater than right. Small bilateral pleural effusions. Osseous structures are grossly intact. IMPRESSION: Pulmonary vascular congestion with small bilateral pleural effusions. Correlate for symptoms of fluid overload. Patchy bibasilar opacities may represent sequela of atelectasis or vascular congestion how ever superimposed airspace disease is not excluded.
--- NOTE | 2019-02-12 10:01 | XR ---
EXAMINATION TYPE: XR abdomen 1V DATE OF EXAM: 02/12/2019 9:18 AM CLINICAL HISTORY: Shortness of breath, abdominal pain TECHNIQUE: Single supine KUB image of the abdomen is obtained. COMPARISON: None. FINDINGS: Scattered gas is seen in non-distended small bowel loops. Gas and fecal material is seen in non-distended colon. Evaluation for free air is limited due to supine technique. Hernia mesh visuali zed. Status post cholecystectomy. IMPRESSION: Overall nonobstructive bowel gas pattern.
[2019-02-12] MEDS ORDERED: ASPIRIN 325 MG TAB PO STA (10:54)
[2019-02-12] MEDS ORDERED: IPRATROPIUM-ALBUTEROL 3 ML NEB INHALATION PRN (10:54)
[2019-02-12] MEDS: FUROSEMIDE 10 MG/ML 4 ML VIAL IV SCH ×2 (11:57→15:14)
[2019-02-12] MEDS: IPRATROPIUM-ALBUTEROL 3 ML NEB INHALATION SCH ×3 (12:25→19:41)
[2019-02-12] MEDS: NITROGLYCERIN OINT 1 INCH/GM PACKET TOPICAL SCH ×3 (12:49→21:57)
[2019-02-12] MEDS ORDERED: NITROGLYCERIN SL TABS 0.4 MG TAB SUBLINGUAL PRN (15:31)
--- NOTE | 2019-02-12 16:47 | CONS ---
CONSULTATION DATE OF CONSULTATION: 02/12/2019 This is a 68-year-old gentleman who is admitted with a diagnosis of shortness of breath. His primary care provider is Dr. Raza and he sees Dr. Jiménez in Cardiology and my partner, Dr. Stanley, for his pulmonary disease. He does have a history of COPD. He comes into the emergency room with about 3 or 4 days of increasing shortness of breath. It got worse last night and this is why he came into the emergency room. Minimal cough. No fever. He does have chills. He also admits to some abdominal cramping. No chest pain or chest discomfort. No fever as I mentioned above. No leg swelling. He states he had a hard time lying flat in bed. He was in the emergency room and he was admitted with a diagnosis of CHF and COPD exacerbation. I was consulted for the COPD. He is resting comfortably in his room. Sitting up at the bedside. His is in the room with him. He states he was recently in the office and saw Dr. Stanley and did a 6 minute walk distance. He does not know the results of that. I also asked him how bad his COPD is, but he is not aware of that. MEDICATIONS: His home medications are reviewed. He is on Prilosec, Eliquis, Synthroid, Tudorza, albuterol updrafts, colchicine, Lyrica, Norvasc, Ventolin haler, and Spiriva. He also has nitroglycerin tablets at home that he takes when he develops chest discomfort. ALLERGIES: STEROIDS. PAST MEDICAL HISTORY: Includes COPD, hypertension, hypothyroidism, gout, atrial fibrillation. He also has a history of irritable bowel syndrome, diverticular disease and he has a previous history of bowel resection. He does have a history of benign colonic polyps, hiatal hernia, and chronic low back pain. He has a vocal cord polyp and does suffer from some intermittent hoarseness. He also has a history of abdominal and bilateral iliac artery aneurysms status post surgical repair. SURGICAL HISTORY: Includes appendectomy, bowel resection, heart catheterization, hernia repair, abdominal aortic and iliac aneurysm surgical repair, multiple hernia repairs with the mesh, low anterior resection with incisional hernia repair, partial omentectomy, and appendectomy. He has had a biopsy on his right vocal cord polyp, hemorrhoidectomy, EGD, colonoscopy, and surgery on his bilateral great toes. SOCIAL HISTORY: Positive for ongoing tobacco use. He drinks occasionally. No illicit drug use. FAMILY HISTORY: Positive for a mother with metastatic cancer, a brother with stroke and a father with stroke. REVIEW OF SYSTEMS: CONSTITUTIONAL: Chills. NEUROLOGIC: Negative. HEENT: Negative say for hoarseness, which is chronic. CARDIOVASCULAR: Shortness of breath. PULMONARY: Shortness of breath, wheezing, minimal cough. GI: Chronic abdominal pain. : Negative. RHEUMATOLOGIC: Negative. IMMUNOLOGIC: Negative. ENDOCRINOLOGIC: Negative. DERMATOLOGIC: Negative. PHYSICAL EXAMINATION: VITAL SIGNS: Current vital signs are reviewed. Temperature is 98, heart rate is 83, respiratory rate 18, blood pressure 116/70, mean 85. 4 L saturation 90%. The patient is not on oxygen at home. He appears in no acute distress. Sitting up at bedside. in the room with him. There is no conversational dyspnea, audible wheezing or use of accessory muscles. He actually looks pretty comfortable. HEENT examination is grossly unremarkable. Mucous membranes are moist. No oral lesions. Nasal O2 in place. NECK: Supple. Full range of motion. No adenopathy, thyromegaly or neck vein distention. CARDIOVASCULAR examination reveals an irregular rhythm and rate. Sounds like he is in slow atrial fibrillation. S1, S2 normal. No distinct murmur noted. LUNGS: Reveal bibasilar crackles. There are a few scattered expiratory wheezes and rhonchi. Breath sounds equal. ABDOMEN: Soft, but obese. Bowel sounds are heard. EXTREMITIES are intact. No cyanosis, clubbing, or edema. SKIN: Without rash. NEUROLOGIC examination is brief but nonfocal. LAB DATA: Reviewed. White count 9.7, hemoglobin 11.1, hematocrit 35.3, platelet count 252,000. PT/INR and PTT normal. Sodium 141, potassium 4.3, chloride 108, CO2 is 23. BUN and creatinine were 17 and 1.35. Glucose 145. N terminal proBNP 84209. Troponin was 0.035. Chest x-ray shows what appears to be fluid overload. He has got some cephalization, cardiomegaly and small effusions. Medications are reviewed. He is currently just on aspirin, Lasix 40 mg IV push q.8 hours, DuoNeb, nitroglycerin ointment and a 0.9 IV at KVO. I will add some Symbicort to his regimen. He has a vague history of steroid allergy. ASSESSMENT: 1. Shortness of breath, most likely related to fluid overload/congestive heart failure. 2. History of chronic atrial fibrillation. 3. Chronic obstructive pulmonary disease, not particularly active at this time. 4. Gastroesophageal reflux disease. 5. Hypothyroidism. 6. Gout. 7. Hypertension. 8. Irritable bowel syndrome. 9. Diverticular disease. 10.Previous bowel resection. 11.History of hiatal hernia. 12.Vocal cord polyp with chronic hoarseness. 13.Status post surgical repair of abdominal aortic and iliac aneurysm. 14.Multiple hernia repairs. 15.Multiple other medical problems and comorbidities. PLAN: The patient is currently doing reasonably well. He is getting updrafts. I will add some Symbicort 160/4.5, 2 puffs twice a day. He is on a basic KVO IV. He is getting Lasix IV push. Additional recommendations and suggestions forthcoming. Prognosis is guarded. No additional recommendations are made. MMODL / IJN: [id number] /
[2019-02-12] MEDS: APIXABAN 5 MG TAB PO SCH (21:57)
[2019-02-12] MEDS: PREGABALIN 75 MG CAP PO SCH (21:57)
--- NOTE | 2019-02-12 22:48 | P.HPIM ---
History of Present Illness H&P Date: 02/12/19 Chief Complaint: Shortness of breath Patient is a 68-year-old male with a known history of chronic atrial fibrillation, COPD on home oxygen, hypertension, hypothyroidism, IBS and chronic low back pain, history of cardiac catheterization-no history of stent placement and currently everyday smoker came to ER with complaints of difficulty breathing worsening for the past 3-4 days. Patient is also having abdominal cramps and feeling fullness and distention of abdomen. Denied any leg swelling. no chest pain. Patient came to ER with worsening symptoms. Patient is on follow-up with his therapeutic riding instructor Dr. Cruz and is on a evaluation for possible pacemaker placement. No fever no chills. Patient does have cough without sputum production. No headache or dizziness or lightheadedness. Chest x-ray showed pulmonary vascular congestion with small bilateral pleural effusions. Correlate for symptoms of fluid overload. Patient denied any history of congestive heart failure. BNP 18278, troponin 0.035 and 0.012 Review of Systems Constitutional: Patient denies any fever or chills . No generalized weakness or weight loss. Abdomen: Patient denied nausea vomiting and diarrhea and abdominal pain. Abdominal cramps and distention. Cardiovascular: Patient denies any chest pain . Does have short of breath no palpitations. No leg swelling. Respiratory: patient denied any cough is from production. No shortness of breath Neurologic: Patient denied any numbness or tingling headache. Musculoskeletal: Patient denies any complaints of joint swelling or deformity. Skin: Negative Psychiatric: Negative Endocrine: No heat or cold intolerance. No recent weight gain. Genitourinary: No dysuria or hematuria. All other 14 point ROS negative except the above Past Medical History Past Medical History: Atrial Fibrillation, COPD, Hypertension, Thyroid Disorder Additional Past Medical History / Comment(s): IBS, diverticulitis/bowel resection, benign colon polyps, hiatal hernia, chronic low R sided back pain, hoarseness-benign vocal cord polyp, numbness/tingling 4th/5th digits bilateral hands, "spots on liver and kidney"-told not to worry about them, abdominal and bilateral iliac artery aneurysms with surgical repair, pt is on lasix but does not know reason. History of Any Multi-Drug Resistant Organisms: None Reported Past Surgical History: Appendectomy, Bowel Resection, Heart Catheterization, H ernia Repair, Orthopedic Surgery Additional Past Surgical History / Comment(s): Abdominal aortic/iliac aneurysms with repair (4), multiple hernia repairs/mesh, low anterior resection with incisional hernia repair/partial omenectomy and incidental appy, direct microlarygoscopy with R vocal cord polyp/bx, hemorrhoidectomy, EGD/colonoscopy with benign polyp, bilateral great toe surgery for calcium build up. Past Anesthesia/Blood Transfusion Reactions: No Reported Reaction Past Psychological History: No Psychological Hx Reported Additional Psychological History / Comment(s): Pt resides with his spouse. He uses a cane. He drives. He has a nebulizer. Smoking Status: Current every day smoker Past Alcohol Use History: Occasional Additional Past Alcohol Use History / Comment(s): Pt started smoking in 1965 and quit for about 1 year in 2016 but resumed smoking. Past Drug Use History: None Reported - Past Family History Mother Family Medical History: Cancer Additional Family Medical History / Comment(s): Mother had metastatic cancer. Brother(s) Family Medical History: CVA/TIA Father Family Medical History: CVA/TIA Medications and Allergies Home Medications Medication Instructions Recorded Confirmed Type Omeprazole [PriLOSEC] 20 mg PO DAILY 11/02/17 02/12/19 History Apixaban [Eliquis] 5 mg PO BID 11/06/17 02/12/19 History Nitroglycerin Sl Tabs [Nitrostat] 0.4 mg SUBLINGUAL Q5M PRN #30 tab 11/13/17 02/12/19 Rx Levothyroxine Sodium [Synthroid] 50 mcg PO DAILY 12/24/18 02/12/19 History Aclidinium Barnett [Tudorza 2 puff INHALATION RT-BID PRN 02/07/19 02/12/19 History Pressair] Albuterol Nebulized [Ventolin 2.5 mg INHALATION RT-TID PRN 02/07/19 02/12/19 History Nebulized] Colchicine 0.3 mg PO DAILY 02/07/19 02/12/19 History Pregabalin [Lyrica] 150 mg PO BID 02/07/19 02/12/19 History amLODIPine [Norvasc] 5 mg PO DAILY 02/07/19 02/12/19 History Albuterol Sulfate [Ventolin HFA] 1 - 2 puff INHALATION RT-Q6H PRN 02/12/19 02/12/19 History Tiotropium Barnett [Spiriva 1 spray INHALATION RT-DAILY 02/12/19 02/12/19 History Respimat] Allergies Allergy/AdvReac Type Severity Reaction Status Date / Time STEROIDS AdvReac Unknown Uncoded 02/12/19 09:40 Physical Exam Vitals: Vital Signs Temp Pulse Pulse Resp BP BP Pulse Ox 02/12/19 12:45 98 F 47 L 18 116/70 90 L 02/12/19 11:55 83 18 155/84 90 L 02/12/19 10:47 98.2 F 75 18 152/87 91 L 02/12/19 08:58 86 02/12/19 08:53 84 02/12/19 08:32 81 24 149/70 91 L 02/12/19 08:11 98.0 F 44 L 21 150/74 89 L Intake and Output 02/12/19 02/12/19 02/12/19 06:59 14:59 22:59 Intake Total 240 Output Total 450 Balance -210 Intake: Oral 240 Output: Urine 450 Other: Weight 101.5 kg PHYSICAL EXAMINATION: Patient is lying in the bed comfortably, no acute distress, awake alert and oriented.. HEENT: Normocephalic. Neck is supple. Pupils reactive. Nostrils clear. Oral cavity is moist. Ears reveal no drainage. Neck reveals no JVD, carotid bruits, or thyromegaly. CHEST EXAMINATION: Trachea is central. Symmetrical expansion. Bibasilar crackles and expiratory wheezing present.. CARDIAC: Normal S1, S2 with no gallops. No murmurs . Irregular rhythm. ABDOMEN: Soft. Bowel sounds normal. No organomegaly. No abdominal bruits. Extremities: reveal trace pedal edema. No clubbing or cyanosis Neurologically awake, alert, oriented x3 with well-coordinated movements. No focal deficits noted Skin: No rash or skin lesions. Psychiatric: Coperative. Nonsuicidal Musculoskeletal: No joint swelling or deformity. Normal range of motion. Results CBC & Chem 7: 02/12/19 08:30 02/12/19 08:30 Labs: Abnormal Lab Results - Last 24 Hours (Table) 02/12/19 02/12/19 02/12/19 Range/Units 08:30 08:30 12:11 RBC 4.12 L (4.30-5.90) m/uL Hgb 11.1 L (13.0-17.5) gm/dL Hct 35.3 L (39.0-53.0) % Eosinophils # 1.0 H (0-0.7) k/uL Chloride 108 H (98-107) mmol/L Creatinine 1.35 H (0.66-1.25) mg/dL Glucose 145 H (74-99) mg/dL Troponin I 0.035 H* (0.000-0.034) ng/mL Thrombosis Risk Factor Assmnt - DVT/VTE Prophylaxis DVT/VTE Prophylaxis: Pharmacologic Prophylaxis ordered - Choose All That Apply Each Factor Represents 1 point: Heart failure (<1month) Each Risk Factor Represents 2 Points: Age 61-74 years Other congenital or acquired thrombophilia - If yes, enter type in comment: No Thrombosis Risk Factor Assessment Total Risk Factor Score: 3 Thrombosis Risk Factor Assessment Level: Moderate Risk Assessment and Plan Assessment: Acute CHF with ejection fraction unknown at this time. Patient does have pulmonary vascular congestion and edema along With elevated BNP 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 Ongoing nicotine addiction Plan: Patient will be continued on IV diuresis with Lasix 40 mg every 8 hourly. Monitor renal function. TSH within normal limits. Continue with duo nebs and patient was given a dose of IV Solu-Medrol in the ER. Continue with home medications. Pulmonary and cardiology was consulted. Further recommendations based on clinical course. Prognosis is guarded with multiple medical problems and comorbid conditions. Patient is a pleasant 68-year-old male presenting to the emergency Department with complaints of difficulty in breathing. Onset of symptoms was last night. Patient does have history of similar symptoms previously associated with COPD. No cough fever. Patient also has some abdominal cramping. No chest pain. No leg pain or leg swelling. Symptoms have progressed since onset. Patient does have history of bradycardia and is talking to his therapeutic riding instructor about possibly pacemaker placement. 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 History of Any Multi-Drug Resistant Organisms: None Reported Past Surgical History: Appendectomy, Bowel Resection, Heart Catheterization, Hernia Repair, Orthopedic Surgery Additional Past Surgical History / Comment(s): Abdominal aortic/iliac aneurysms with repair (4), multiple hernia repairs/mesh, low anterior resection with incisional hernia repair/partial omenectomy and incidental appy, direct microlarygoscopy with R vocal cord polyp/bx, hemorrhoidectomy, EGD/colonoscopy with benign polyp, bilateral great toe surgery for calcium build up. Past Anesthesia/Blood Transfusion Reactions: No Reported Reaction Past Psychological History: No Psychological Hx Reported Additional Psychological History / Comment(s): Pt resides with his spouse. He uses a cane. He drives. He has a nebulizer. Smoking Status: Current every day smoker Past Alcohol Use History: Occasional Additional Past Alcohol Use History / Comment(s): Pt started smoking in 1965 and quit for about 1 year in 2017 but resumed smoking. Past Drug Use History: None Reported Time with Patient: Greater than 30
[2019-02-13 06:05] LABS: Basophils % (A) 0 %; Eosinophils % (A) 0 %; HCT 33.9 % (39.0-53.0); HGB 10.6 gm/dL (13.0-17.5); Hypochromasia Slight; Lymphocytes # (A) 0.5 k/uL (1.0-4.8); Lymphocytes % (A) 6 %; MCH 26.4 pg (25.0-35.0); MCHC 31.4 g/dL (31.0-37.0); MCV 84.2 fL (80.0-100.0); Monocytes # (A) 0.5 k/uL (0-1.0); Monocytes % (A) 7 %; Neutrophils # (A) 6.3 k/uL (1.3-7.7); Neutrophils % (A) 85 %; Platelet Count 238 k/uL (150-450); Poikilocytosis Slight; RBC 4.02 m/uL (4.30-5.90); RDW 15.6 % (11.5-15.5); WBC 7.4 k/uL (3.8-10.6)
[2019-02-13 06:17] LABS: Calcium 8.8 mg/dL (8.4-10.2); Potassium 4.4 mmol/L (3.5-5.1)
[2019-02-13] MEDS: PANTOPRAZOLE 40 MG TABLET PO SCH (06:48)
[2019-02-13] MEDS: LEVOTHYROXINE 50 MCG TAB PO SCH (06:48)
[2019-02-13] MEDS: FUROSEMIDE 10 MG/ML 4 ML VIAL IV SCH ×2 (08:19)
[2019-02-13] MEDS: PREGABALIN 75 MG CAP PO SCH ×2 (08:19→20:05)
[2019-02-13] MEDS: APIXABAN 5 MG TAB PO SCH ×2 (08:19→20:05)
[2019-02-13] MEDS: NITROGLYCERIN OINT 1 INCH/GM PACKET TOPICAL SCH (08:19)
[2019-02-13] MEDS: IPRATROPIUM-ALBUTEROL 3 ML NEB INHALATION SCH ×4 (08:46→19:23)
[2019-02-13] MEDS ORDERED: COLCHICINE 0.6 MG EACH PO SCH (09:00)
[2019-02-13] MEDS ORDERED: ASPIRIN 325 MG TAB PO SCH (09:00)
--- NOTE | 2019-02-13 10:06 | P.PN ---
Subjective Progress Note Date: 02/13/19 Principal diagnosis: Shortness of breath On 02/13/2019 patient seen in follow-up on selective care unit, he is awake and alert, in no acute distress, he is feeling better today, there is still some scattered crackles at the left lower base posteriorly, no complaints of chest pa in, no significant cough or congestion. Vital signs are stable, no fever or chills, is on 2 L of oxygen with a pulse ox of 97%. His IV Lasix has been transitioned to oral Lasix per cardiology, he is in -2330 mL fluid balance over the last 24 hours. Today's labs have been reviewed, no leukocytosis, hemoglobin is 10.6, electrolyte are within normal limits, and there has been an increase in his creatinine to 1.76 from 1.35 on yesterday's labs. Objective - Vital Signs Vital signs: Vital Signs Temp 98 F 02/13/19 07:35 Pulse 46 L 02/13/19 08:56 Resp 16 02/13/19 07:35 BP 139/72 02/13/19 07:35 Pulse Ox 97 02/13/19 08:49 Intake & Output 02/12/19 02/13/19 02/13/19 18:59 06:59 18:59 Intake Total 720 Output Total 800 2250 150 Balance -80 -2250 -150 Weight 101.5 kg 108 kg Intake: Oral 720 Output: Urine 800 2250 150 Other: # Voids 1 # Bowel Movements 1 - Exam GENERAL EXAM: Alert, pleasant, 68-year-old white male, on 2 L of oxygen with a pulse ox of 97%, sitting up in the recliner comfortable in no apparent distress. HEAD: Normocephalic/atraumatic. EYES: Normal reaction of pupils, equal size. Conjunctiva pink, sclera white. NOSE: Clear with pink turbinates. THROAT: No erythema or exudates. NECK: No masses, no JVD, no thyroid enlargement, no adenopathy. CHEST: No chest wall deformity. Symmetrical expansion. LUNGS: Equal air entry with mental crackles at the left lower base posteriorly, but no wheeze, rhonchi or dullness. CVS: Regular rate and rhythm, normal S1 and S2, no gallops, no murmurs, no rubs ABDOMEN: Soft, nontender. No hepatosplenomegaly, normal bowel sounds, no guarding or rigidity. EXTREMITIES: No clubbing, trace pretibial edema, no cyanosis, 2+ pulses and upper and lower extremities. MUSCULOSKELETAL: Muscle strength and tone normal. SPINE: No scoliosis or deformity SKIN: No rashes CENTRAL NERVOUS SYSTEM: Alert and oriented -3. No focal deficits, tone is normal in all 4 extremities. PSYCHIATRIC: Alert and oriented -3. Appropriate affect. Intact judgment and insight. - Labs CBC & Chem 7: 02/13/19 05:43 02/13/19 05:43 Labs: Abnormal Lab Results - Last 24 Hours (Table) 02/12/19 02/13/19 02/13/19 Range/Units 12:11 05:43 05:43 RBC 4.02 L (4.30-5.90) m/uL Hgb 10.6 L (13.0-17.5) gm/dL Hct 33.9 L (39.0-53.0) % RDW 15.6 H (11.5-15.5) % Lymphocytes # 0.5 L (1.0-4.8) k/uL BUN 27 H (9-20) mg/dL Creatinine 1.76 H (0.66-1.25) mg/dL Glucose 152 H (74-99) mg/dL Troponin I 0.035 H* (0.000-0.034) ng/mL Assessment and Plan Plan: Assessment: #1. Acute exacerbation of congestive heart failure with an unknown LV function #2. Chronic obstructive pulmonary disease, with no significant exacerbation #3. History of chronic atrial fibrillation on oral anticoagulation #4. GERD/reflux #5. Hypothyroidism #6. Gout #7. Hypertension #8. Irritable bowel syndrome #9. Diverticular disease #10. Previous history of bowel resection and hiatal hernia #11. History of vocal cord polyps with chronic hoarseness #12. History of abdominal aortic aneurysm and iliac aneurysm status post surgic al repair #13. History of multiple hernia repairs Plan: Continue current medical treatment, patient has diuresed over 2 L in last 24 hours, he is breathing easier, feeling better, there has been an increase in his creatinine on today's labs, his IV Lasix has been transitioned to oral Lasix, will continue with breathing treatments, Symbicort. We'll continue to follow I performed a history & physical examination of the patient and discussed their management with my nurse practitioner, Whit Fernandez. I reviewed the nurse practitioner's note and agree with the documented findings and plan of care. Lung sounds are positive for minimal crackles at the left lower base posteriorly. The findings and the impression was discussed with the patient. I attest to the documentation by the nurse practitioner. Time with Patient: Less than 30
[2019-02-13] MEDS: ISOSORBIDE MONONITRATE ER 30 MG TAB.ER.24H PO SCH (11:06)
[2019-02-13] MEDS: hydrALAZINE HCL 25 MG TAB PO SCH ×2 (11:07→20:05)
[2019-02-13] MEDS: COLCHICINE 0.6 MG TAB PO SCH (11:07)
[2019-02-13 11:19] VITALS: BMI 35.2
--- NOTE | 2019-02-13 13:34 | CONS ---
CONSULTATION Mr. Morris is a 68-year-old male with known history of severe nonischemic cardiomyopathy, history of paroxysmal atrial fibrillation, history of chronic obstructive lung disease, who presented with symptoms of progressive dyspnea and abdominal fullness. He has been getting more short of breath. Minimal cough but no fever. He denies any chest discomfort. He has no clear PND nor orthopnea. He denies any recent weight gain. He has been seen by Dr. Stanley in the past regarding his lung status and he also sees Dr. Jiménez regarding his cardiac status. He has a history of chronic tobacco use and unfortunately continues to smoke. He denies any dizziness or palpitation. No syncope. He has been evaluated to undergo an ICD pacemaker implantation but he is not quite sure about that timing. His coronary risk factors are remarkable for the history of smoking. He is nondiabetic. His lipid profile is not available. MEDICATION: At the time of admission included Norvasc 5 mg daily, Prilosec, colchicine, Eliquis 5 mg twice a day, Ventolin and Tudorza. REVIEW OF SYSTEMS: RESPIRATORY SYSTEM: He has a history of chronic obstructive lung disease, but no recent wheezing, cough. GI SYSTEM: He has no recent GI bleeding. No peptic ulcer disease. SYSTEM: Prior history of chronic kidney disease. NERVOUS SYSTEM: No history of stroke or seizure. MUSCULOSKELETAL: He has a history of gout. PHYSICAL EXAMINATION: He is a 68-year-old male, alert, oriented, in no apparent distress. Blood pressure 139/70 with a heart rate in the 50s. HEAD: Normocephalic. EYES: Sclerae anicteric. NECK: Good carotid upstroke, no bruit. LUNGS: Decreased air exchange, but no wheezes. HEART: Irregular rate and rhythm, extrasystole. S1, S2. No S3 with systolic murmur. No diastolic murmur. ABDOMEN: Soft, nontender, obese. Positive bowel sounds. EXTREMITIES: +1 edema with chronic stasis. LAB DATA: Hemoglobin 10.6, BUN and creatinine 27 and 1.76. They were 17 and 1.35 yesterday. His troponin 0.035, 0.032 [place] 0[place] [address]. In the past, he had his creatinine up to 3.16. EKG revealed what appears to be sinus mechanism with frequent PVCs and PACs. Chest x-ray reveals small bilateral pleural effusion with possible fluid overload. He had abdominal x-ray that showed no evidence of obstruction. IMPRESSION: 1. Symptoms of progressive dyspnea with element of worsening congestive heart failure in a patient with known history of systolic dysfunction. 2. History of chronic obstructive lung disease. 3. Paroxysmal atrial fibrillation, anticoagulated. 4. Worsening renal function, probably from diuresis. 5. History of smoking. 6. Obesity. 7. History of abdominal aortic aneurysm, repaired. RECOMMENDATION: From the cardiac standpoint I will stop his IV Lasix, switch him to oral. Follow his renal function. I will add hydralazine and nitrates to his regimen. Follow his renal function to make a decision if he is a candidate for an MARTÍN inhibitor. Increase his level of activity and depending on his progress, further recommendation will be made. Thank you for this consult. We will follow with you. LANG / KENDRICK: [id number] /
[2019-02-13] MEDS: FUROSEMIDE 20 MG TAB PO SCH (15:36)
--- NOTE | 2019-02-14 00:10 | P.PN ---
Subjective Progress Note Date: 02/13/19 Principal diagnosis: Acute CHF Patient is a 68-year-old male with a known history of chronic atrial fibrillation, COPD on home oxygen, hypertension, hypothyroidism, IBS and chronic low back pain, history of cardiac catheterization-no history of stent placement and currently everyday smoker came to ER with complaints of difficulty breathing worsening for the past 3-4 days. Patient is also having abdominal cramps and feeling fullness and distention of abdomen. Denied any leg swelling. no chest pain. Patient came to ER with worsening symptoms. Patient is on follow-up with his airplane mechanic apprentice Dr. Cruz and is on a evaluation for possible pacemaker placement. No fever no chills. Patient does have cough without sputum production. No headache or dizziness or lightheadedness. Chest x-ray showed pulmonary vascular congestion with small bilateral pleural effusions. Correlate for symptoms of fluid overload. Patient denied any history of congestive heart failure. BNP 62182, troponin 0.035 and 0.012 02/13/2019 Patient is currently sitting in a chair. Saturating well on nasal cannula. Breathing status is much improved. Lasix IV was changed to by mouth. Follow-up renal function. Patient does have a known history of systolic dysfunction. Cardiology is following. Patient is being continued on DuoNeb's. Patient has been afebrile. No complaints of chest pain. No nausea vomiting or abdominal pain or diarrhea. Leg swelling and abdominal swelling is also improving. Current medications reviewed. Active Medications Albuterol/Ipratropium (Duoneb 0.5 Mg-3 Mg/3 Ml Soln) 3 ml INHALATION RT-QID [facility] Last Admin: 02/13/19 19:23 Dose: 3 ml Documented by: Albuterol/Ipratropium (Duoneb 0.5 Mg-3 Mg/3 Ml Soln) 3 ml INHALATION RT-Q4H PRN PRN Reason: Shortness Of Breath Or Wheezing Apixaban (Eliquis) 5 mg PO BID [facility] Last Admin: 02/13/19 20:05 Dose: 5 mg Documented by: Furosemide (Lasix) 20 mg PO BID@0900,1600 [facility] Last Admin: 02/13/19 15:36 Dose: 20 mg Documented by: Hydralazine HCl (Apresoline) 25 mg PO BID [facility] Last Admin: 02/13/19 20:05 Dose: 25 mg Documented by: Isosorbide Mononitrate (Imdur) 30 mg PO DAILY [facility] Last Admin: 02/13/19 11:06 Dose: 30 mg Documented by: Levothyroxine Sodium (Synthroid) 50 mcg PO DAILY@0630 [facility] Last Admin: 02/13/19 06:48 Dose: 50 mcg Documented by: Colchicine 0.6 Mg (Tab) 0.5 each PO DAILY [facility] Last Admin: 02/13/19 11:07 Dose: 0.5 each Documented by: Pantoprazole Sodium (Protonix) 40 mg PO AC-BRKFST [facility] Last Admin: 02/13/19 06:48 Dose: 40 mg Documented by: Pregabalin (Lyrica) 150 mg PO BID [facility] Last Admin: 02/13/19 20:05 Dose: 150 mg Documented by: Sodium Chloride (Saline Flush) 10 ml IV BID [facility] Last Admin: 02/13/19 20:07 Dose: 10 ml Documented by: Objective - Vital Signs Vital signs: Vital Signs Temp 97.9 F 02/13/19 20:00 Pulse 50 L 02/13/19 20:00 Resp 18 02/13/19 20:00 BP 126/72 02/13/19 20:00 Pulse Ox 93 L 02/13/19 20:00 Intake & Output 02/13/19 02/13/19 02/14/19 06:59 18:59 06:59 Intake Total 600 Output Total 2250 750 Balance -2250 -150 Weight 108 kg 108 kg Intake: Oral 600 Output: Urine 2250 750 Other: # Voids 1 # Bowel Movements 1 - Exam PHYSICAL EXAMINATION: Patient is lying in the bed comfortably, no acute distress, awake alert and oriented.. HEENT: Normocephalic. Neck is supple. Pupils reactive. Nostrils clear. Oral cavity is moist. Ears reveal no drainage. Neck reveals no JVD, carotid bruits, or thyromegaly. CHEST EXAMINATION: Trachea is central. Symmetrical expansion. Bibasilar crackles and expiratory wheezing present.. CARDIAC: Normal S1, S2 with no gallops. No murmurs . Irregular rhythm. ABDOMEN: Soft. Bowel sounds normal. No organomegaly. No abdominal bruits. Extremities: reveal trace pedal edema. No clubbing or cyanosis Neurologically awake, alert, oriented x3 with well-coordinated movements. No focal deficits noted Skin: No rash or skin lesions. Psychiatric: Coperative. Nonsuicidal Musculoskeletal: No joint swelling or deformity. Normal range of motion. - Labs CBC & Chem 7: 02/13/19 05:43 02/13/19 05:43 Labs: Abnormal Lab Results - Last 24 Hours (Table) 02/13/19 02/13/19 Range/Units 05:43 05:43 RBC 4.02 L (4.30-5.90) m/uL Hgb 10.6 L (13.0-17.5) gm/dL Hct 33.9 L (39.0-53.0) % RDW 15.6 H (11.5-15.5) % Lymphocytes # 0.5 L (1.0-4.8) k/uL BUN 27 H (9-20) mg/dL Creatinine 1.76 H (0.66-1.25) mg/dL Glucose 152 H (74-99) mg/dL Assessment and Plan Assessment: Acute CHF with ejection with systolic dysfunction. Ejection fraction not known.. Patient does have pulmonary vascular congestion and edema along With elevated BNP 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 Ongoing nicotine addiction Plan: Patient was given IV diuresis with Lasix 40 mg every 8 hourly. Changed to by mouth. Monitor renal function. TSH within normal limits. Continue with duo nebs and patient was given a dose of IV Solu-Medrol in the ER. Continue with home medications. Pulmonary and cardiology is following. Further recommendations based on clinical course. Prognosis is guarded with multiple medical problems and comorbid conditions. Time with Patient: Greater than 30
[2019-02-14] MEDS: LEVOTHYROXINE 50 MCG TAB PO SCH (06:09)
[2019-02-14] MEDS: PANTOPRAZOLE 40 MG TABLET PO SCH (06:09)
[2019-02-14 06:33] LABS: Basophils % (A) 0 %; Eosinophils # (A) 0.2 k/uL (0-0.7); Eosinophils % (A) 2 %; HCT 32.7 % (39.0-53.0); HGB 10.4 gm/dL (13.0-17.5); Hypochromasia Marked; Lymphocytes # (A) 1.4 k/uL (1.0-4.8); Lymphocytes % (A) 14 %; MCH 27.1 pg (25.0-35.0); MCHC 31.9 g/dL (31.0-37.0); MCV 84.9 fL (80.0-100.0); Mean Platelet Volume 6.8; Monocytes # (A) 0.9 k/uL (0-1.0); Monocytes % (A) 9 %; Neutrophils # (A) 7.2 k/uL (1.3-7.7); Neutrophils % (A) 72 %; Platelet Count 241 k/uL (150-450); Poikilocytosis Slight; RBC 3.85 m/uL (4.30-5.90); RDW 15.7 % (11.5-15.5)
[2019-02-14 06:44] LABS: Calcium 8.8 mg/dL (8.4-10.2); Potassium 3.7 mmol/L (3.5-5.1)
[2019-02-14] MEDS: IPRATROPIUM-ALBUTEROL 3 ML NEB INHALATION SCH ×4 (08:19→19:58)
[2019-02-14] MEDS: PREGABALIN 75 MG CAP PO SCH ×2 (08:38→19:56)
[2019-02-14] MEDS: COLCHICINE 0.6 MG TAB PO SCH (08:38)
[2019-02-14] MEDS: ISOSORBIDE MONONITRATE ER 30 MG TAB.ER.24H PO SCH (08:38)
[2019-02-14] MEDS: FUROSEMIDE 20 MG TAB PO SCH ×2 (08:38→15:48)
[2019-02-14] MEDS: APIXABAN 5 MG TAB PO SCH ×2 (08:38→19:55)
[2019-02-14] MEDS: hydrALAZINE HCL 25 MG TAB PO SCH ×2 (08:38→19:55)
--- NOTE | 2019-02-14 10:17 | P.PN ---
Subjective Progress Note Date: 02/14/19 Assessment and plan #1 systolic congestive heart failure acute on chronic #2 COPD #3 nicotine dependence #4 paroxysmal atrial fibrillation, anticoagulated #5 nonischemic cardiomyopathy #6 obesity #7 history of abdominal aortic aneurysm, repaired #8 acute on chronic renal insufficiency Plan From cardiology's perspective, we'll continue the patient on his current medications. He has known nonischemic cardiomyopathy and AICD has been discussed with the patient on a separate occasions, we will obtain the office and no records of Dr. Curz and review those in this regard. Plan for discharge home soon.Patient's renal function today is slightly worse than yesterday, we will continue to hold on adding an MARTÍN inhibitor at this time. DNP note has been reviewed, I agree with a documented findings and plan of care. Patient was seen and examined. Objective - Vital Signs Vital signs: Vital Signs Temp 98.4 F 02/14/19 08:00 Pulse 74 02/14/19 08:33 Resp 18 02/14/19 08:00 BP 120/65 02/14/19 08:00 Pulse Ox 90 L 02/14/19 08:00 Intake & Output 02/13/19 02/14/19 02/14/19 18:59 06:59 18:59 Intake Total 600 240 Output Total 750 2024 100 Balance -150 -2024 140 Weight 108 kg 104.4 kg Intake: Oral 600 240 Output: Urine 750 2024 100 Other: Voiding Method Toilet Toilet # Voids 1 # Bowel Movements 0 - Labs CBC & Chem 7: 02/14/19 06:08 02/14/19 06:08 Labs: Abnormal Lab Results - Last 24 Hours (Table) 02/14/19 02/14/19 Range/Units 06:08 06:08 RBC 3.85 L (4.30-5.90) m/uL Hgb 10.4 L (13.0-17.5) gm/dL Hct 32.7 L (39.0-53.0) % RDW 15.7 H (11.5-15.5) % BUN 36 H (9-20) mg/dL Creatinine 1.82 H (0.66-1.25) mg/dL Glucose 114 H (74-99) mg/dL
--- NOTE | 2019-02-14 10:54 | CDI ---
Documentation Clarification Form Date: 02/14/2019 10:34:44 AM From: Marie Garvin RN CCDS Admit Date: 02/12/2019 10:54:00 AM Patient Name: Dilshad Morris Visit Number: [id number] Discharge Date: ATTENTION: The Clinical Documentation Specialists (CDI) and [facility] Coding Staff appreciate your assistance in clarifying documentation. Please respond to the clarification below the line at the bottom and electronically sign. The CDI & [facility] Coding staff will review the response and follow-up if needed. Please note: Queries are made part of the Legal Health Record. If you have any questions, please contact the author of this message via ITS. 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 Medical History of Systolic CHF, Arterial Fibrillation and COPD History/Risk Factors: Tobacco use: Positive for ongoing tobacco use. Per Pulmonary Consult 02/12/2019 Home oxygen: COPD on home oxygen per H & P Clinical Indicators: Vital signs: On admission 02/12 0811 150/74 44 98.0 21 89% ra 02/12 0832 RR 24 91% 4L nasal cannula Lung/Breathing assessment: H & P Trachea is central. Symmetrical expansion. Bibasilar crackles and expiratory wheezing present. Treatment: 02/12 Solumedrol ivp x1; Duoneb Q4 PRN; Duoneb QID scheduled; Laix ivp Q 8 hrs dcd 02/13; 02/13 lasix 20mg po bid Nasal Cannula In your professional opinion, can you please clarify if these findings signify one of the following conditions? * Acute Respiratory Failure * Acute on Chronic Respiratory Failure * Chronic Respiratory Failure * Other Diagnosis, please specify * Unable to determine Specificity: If known, further specify (if known): With hypercapnia? (pCO2 >50 and pH <7.35) With hypoxia? (pO2 <60 mm Hg or SpO2 <91% on room air) (Last Query Form Revision: November 2018) acute resp failure ,pt will be discharged on home oxygen MTDD
--- NOTE | 2019-02-14 15:15 | P.PN ---
Subjective Progress Note Date: 02/14/19 Principal diagnosis: Shortness of breath On 02/13/2019 patient seen in follow-up on selective care unit, he is awake and alert, in no acute distress, he is feeling better today, there is still some scattered crackles at the left lower base posteriorly, no complaints of chest pa in, no significant cough or congestion. Vital signs are stable, no fever or chills, is on 2 L of oxygen with a pulse ox of 97%. His IV Lasix has been transitioned to oral Lasix per cardiology, he is in -2330 mL fluid balance over the last 24 hours. Today's labs have been reviewed, no leukocytosis, hemoglobin is 10.6, electrolyte are within normal limits, and there has been an increase in his creatinine to 1.76 from 1.35 on yesterday's labs. On 02/14/2019 patient seen in follow-up on selective care unit. His breathing continues to improve, no complaints of chest pain, patient has been diuresed, he continues on oral Lasix, 20 mg twice a day, today's renal profile shows slight worsening, with creatinine up to 1.84. Patient is in negative fluid balance, - 2175 ML over the last 24 hours. Continues on breathing treatments, no significant cough or congestion. Objective - Vital Signs Vital signs: Vital Signs Temp 97.5 F L 02/14/19 11:13 Pulse 80 02/14/19 11:53 Resp 20 02/14/19 11:13 BP 116/67 02/14/19 11:13 Pulse Ox 90 L 02/14/19 11:13 Intake & Output 02/13/19 02/14/19 02/14/19 18:59 06:59 18:59 Intake Total 600 480 Output Total 750 2024 100 Balance -150 -2024 380 Weight 108 kg 104.4 kg Intake: Oral 600 480 Output: Urine 750 2024 100 Other: Voiding Method Toilet Toilet # Voids 1 1 # Bowel Movements 0 - Exam GENERAL EXAM: Alert, pleasant, 68-year-old white male, on 2 L of oxygen with a pulse ox of 97%, sitting up in the recliner comfortable in no apparent distress. HEAD: Normocephalic/atraumatic. EYES: Normal reaction of pupils, equal size. Conjunctiva pink, sclera white. NOSE: Clear with pink turbinates. THROAT: No erythema or exudates. NECK: No masses, no JVD, no thyroid enlargement, no adenopathy. CHEST: No chest wall deformity. Symmetrical expansion. LUNGS: Equal air entry with mental crackles at the left lower base posteriorly, but no wheeze, rhonchi or dullness. CVS: Regular rate and rhythm, normal S1 and S2, no gallops, no murmurs, no rubs ABDOMEN: Soft, nontender. No hepatosplenomegaly, normal bowel sounds, no guarding or rigidity. EXTREMITIES: No clubbing, trace pretibial edema, no cyanosis, 2+ pulses and upper and lower extremities. MUSCULOSKELETAL: Muscle strength and tone normal. SPINE: No scoliosis or deformity SKIN: No rashes CENTRAL NERVOUS SYSTEM: Alert and oriented -3. No focal deficits, tone is normal in all 4 extremities. PSYCHIATRIC: Alert and oriented -3. Appropriate affect. Intact judgment and insight. - Labs CBC & Chem 7: 02/14/19 06:08 02/14/19 06:08 Labs: Abnormal Lab Results - Last 24 Hours (Table) 02/14/19 02/14/19 Range/Units 06:08 06:08 RBC 3.85 L (4.30-5.90) m/uL Hgb 10.4 L (13.0-17.5) gm/dL Hct 32.7 L (39.0-53.0) % RDW 15.7 H (11.5-15.5) % BUN 36 H (9-20) mg/dL Creatinine 1.82 H (0.66-1.25) mg/dL Glucose 114 H (74-99) mg/dL Assessment and Plan Plan: Assessment: #1. Acute exacerbation of congestive heart failure with an unknown LV function #2. Chronic obstructive pulmonary disease, with no significant exacerbation #3. History of chronic atrial fibrillation on oral anticoagulation #4. GERD/reflux #5. Hypothyroidism #6. Gout #7. Hypertension #8. Irritable bowel syndrome #9. Diverticular disease #10. Previous history of bowel resection and hiatal hernia #11. History of vocal cord polyps with chronic hoarseness #12. History of abdominal aortic aneurysm and iliac aneurysm status post surgical repair #13. History of multiple hernia repairs Plan: Continue current treatment, continue oral diuretics, breathing treatments, breathing is improving, patient remains stable, no complaints of worsening shortness of breath or chest pain, slight worsening of renal profile on today's labs, Eligio inhibitors remain on hold. Patient will eventually need AICD implantation sometime in the future, cardiology is following, anticipate possible discharge home in the next 24 hours, if remains stable, and cleared by cardiology. I performed a history & physical examination of the patient and discussed their management with my nurse practitioner, Whit Fernandez. I reviewed the nurse practitioner's note and agree with the documented findings and plan of care. Lung sounds are positive for minimal crackles at the left lower base posteriorly. The findings and the impression was discussed with the patient. I attest to the documentation by the nurse practitioner. Time with Patient: Less than 30
[2019-02-15] MEDS: LEVOTHYROXINE 50 MCG TAB PO SCH (05:52)
[2019-02-15] MEDS: PANTOPRAZOLE 40 MG TABLET PO SCH (05:53)
[2019-02-15 07:20] LABS: Calcium 9.1 mg/dL (8.4-10.2); Potassium 3.8 mmol/L (3.5-5.1)
[2019-02-15] MEDS: IPRATROPIUM-ALBUTEROL 3 ML NEB INHALATION SCH ×4 (08:39→19:25)
[2019-02-15] MEDS: ISOSORBIDE MONONITRATE ER 30 MG TAB.ER.24H PO SCH (08:53)
[2019-02-15] MEDS: hydrALAZINE HCL 25 MG TAB PO SCH ×2 (08:53→22:17)
[2019-02-15] MEDS: APIXABAN 5 MG TAB PO SCH ×2 (08:53→22:17)
[2019-02-15] MEDS: FUROSEMIDE 20 MG TAB PO SCH ×2 (08:53→16:00)
[2019-02-15] MEDS: PREGABALIN 75 MG CAP PO SCH ×2 (08:53→22:17)
[2019-02-15] MEDS: COLCHICINE 0.6 MG TAB PO SCH (08:54)
--- NOTE | 2019-02-15 09:42 | P.PN ---
Subjective Patient is a 68-year-old male with a known history of chronic atrial fibrillation, COPD on home oxygen, hypertension, hypothyroidism, IBS and chronic low back pain, history of cardiac catheterization-no history of stent placement and currently everyday smoker came to ER with complaints of difficulty breathing worsening for the past 3-4 days. Patient is also having abdominal cramps and feeling fullness and distention of abdomen. Denied any leg swelling. no chest pain. Patient came to ER with worsening symptoms. Patient is on follow-up with his data processor Dr. Cruz and is on a evaluation for possible pacemaker placement. No fever no chills. Patient does have cough without sputum production. No headache or dizziness or lightheadedness. Chest x-ray showed pulmonary vascular congestion with small bilateral pleural effusions. Correlate for symptoms of fluid overload. Patient denied any history of congestive heart failure. BNP 82758, troponin 0.035 and 0.012 02/13/2019 Patient is currently sitting in a chair. Saturating well on nasal cannula. Breathing status is much improved. Lasix IV was changed to by mouth. Follow-up renal function. Patient does have a known history of systolic dysfunction. Cardiology is following. Patient is being continued on DuoNeb's. Patient has been afebrile. No complaints of chest pain. No nausea vomiting or abdominal pain or diarrhea. Leg swelling and abdominal swelling is also improvi ng. 02/14/2019 Patient feels better, he still have some mild dyspnea, patient he hasn't moved and THE H[employer]. HIS HEART RATE IS IMPROVING GRADUALLY AND I DISCUSSED THE CASE WITH [employer]AGE TEAM, PATIENT CAN FOLLOW-UP AN OUTPATIENT for evaluation for pacemaker. His creatinine 1.8, patient was on Lasix, MARTÍN inhibitor is not added because of his kidney disease. Keep monitoring. Possible discharge in 24-48 hours if keep improving. Objective - Vital Signs Vital signs: Vital Signs Temp 98 F 02/14/19 15:56 Pulse 91 02/14/19 15:56 Resp 16 02/14/19 15:56 BP 114/56 02/14/19 15:56 Pulse Ox 91 L 02/14/19 15:56 Intake & Output 02/13/19 02/14/19 02/14/19 18:59 06:59 18:59 Intake Total 600 480 Output Total 750 2024 100 Balance -150 380 Weight 108 kg 104.4 kg Intake: Oral 600 480 Output: Urine 750 2024 100 Other: Voiding Method Toilet Toilet # Voids 1 1 # Bowel Movements 0 - Exam Patient is lying in the bed comfortably, no acute distress, awake alert and oriented.. HEENT: Normocephalic. Neck is supple. Pupils reactive. Nostrils clear. Oral cavity is moist. Ears reveal no drainage. Neck reveals no JVD, carotid bruits, or thyromegaly. CHEST EXAMINATION: Trachea is central. Symmetrical expansion. Bibasilar crackles and expiratory wheezing present.. CARDIAC: Normal S1, S2 with no gallops. No murmurs . Irregular rhythm. ABDOMEN: Soft. Bowel sounds normal. No organomegaly. No abdominal bruits. Extremities: reveal trace pedal edema. No clubbing or cyanosis Neurologically awake, alert, oriented x3 with well-coordinated movements. No focal deficits noted Skin: No rash or skin lesions. Psychiatric: Coperative. Nonsuicidal Musculoskeletal: No joint swelling or deformity. Normal range of motion. - Labs CBC & Chem 7: 02/14/19 06:08 02/15/19 06:05 Labs: Abnormal Lab Results - Last 24 Hours (Table) 02/14/19 02/14/19 Range/Units 06:08 06:08 RBC 3.85 L (4.30-5.90) m/uL Hgb 10.4 L (13.0-17.5) gm/dL Hct 32.7 L (39.0-53.0) % RDW 15.7 H (11.5-15.5) % BUN 36 H (9-20) mg/dL Creatinine 1.82 H (0.66-1.25) mg/dL Glucose 114 H (74-99) mg/dL Assessment and Plan Assessment: Acute CHF with ejection with systolic dysfunction. Ejection fraction not known.. Patient does have pulmonary vascular congestion and edema along With elevated BNP 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 Ongoing nicotine addiction Plan: Patient was given IV diuresis with Lasix 40 mg every 8 hourly. Changed to by mouth to 20 mg twice a day. Monitor renal function. TSH within normal limits. Continue with home medications. Pulmonary and cardiology is following. Keep monitoring creatinine. Advised patient to move more. Keep monitoring heart rate Further recommendations based on clinical course. Prognosis is guarded with multiple medical problems and comorbid conditions.
--- NOTE | 2019-02-15 12:59 | P.PN ---
Subjective Progress Note Date: 02/15/19 On 02/13/2019 patient seen in follow-up on selective care unit, he is awake and alert, in no acute distress, he is feeling better today, there is still some scattered crackles at the left lower base posteriorly, no complaints of chest pain, no significant cough or congestion. Vital signs are stable, no fever or chills, is on 2 L of oxygen with a pulse ox of 97%. His IV Lasix has been transitioned to oral Lasix per cardiology, he is in -2330 mL fluid balance over the last 24 hours. Today's labs have been reviewed, no leukocytosis, hemoglobin is 10.6, electrolyte are within normal limits, and there has been an increase in his creatinine to 1.76 from 1.35 on yesterday's labs. On 02/14/2019 patient seen in follow-up on [facility] care unit. His breathing continues to improve, no complaints of chest pain, patient has been diuresed, he continues on oral Lasix, 20 mg twice a day, today's renal profile shows slight worsening, with creatinine up to 1.84. Patient is in negative fluid balance, - 2175 ML over the last 24 hours. Continues on breathing treatments, no significant cough or congestion. Today's evaluation of 02/15/2019, we are seeing this patient for a follow-up. The patient is looking well. Is ambulating. He is on oxygen at 2 L. No nausea. No vomiting. No diarrhea. No abdominal pain. Still on Lasix 20 mg by mouth twice a day. He is also on a combination of Imdur and hydralazine. He has CHF with an EF around 35%. His renal function is stable and the creatinine is at 1.7 for now. No angina. No palpitations. He is known to have COPD and is maintained on Spiriva on outpatient basis. He also has hypothyroidism, hypertension, chronic back pain. Cardiology is on the case regarding his congestion heart failure. Objective - Vital Signs Vital signs: Vital Signs Temp 97.9 F 02/15/19 11:49 Pulse 50 L 02/15/19 11:49 Resp 18 02/15/19 11:49 BP 127/56 02/15/19 11:49 Pulse Ox 95 02/15/19 11:49 Intake & Output 02/14/19 02/15/19 02/15/19 18:59 06:59 18:59 Intake Total 480 480 Output Total 100 2925 Balance 380 -2925 480 Weight 102.7 kg Intake: Oral 480 480 Output: Urine 100 2925 Other: Voiding Method Toilet Toilet Toilet # Voids 1 # Bowel Movements 0 - Exam GENERAL EXAM: Alert, pleasant, 68-year-old white male, on 2 L of oxygen with a pulse ox of 97%, sitting up in the recliner comfortable in no apparent distress. HEAD: Normocephalic/atraumatic. EYES: Normal reaction of pupils, equal size. Conjunctiva pink, sclera white. NOSE: Clear with pink turbinates. THROAT: No erythema or exudates. NECK: No masses, no JVD, no thyroid enlargement, no adenopathy. CHEST: No chest wall deformity. Symmetrical expansion. LUNGS: Equal air entry with mental crackles at the left lower base posteriorly, but no wheeze, rhonchi or dullness. CVS: Regular rate and rhythm, normal S1 and S2, no gallops, no murmurs, no rubs ABDOMEN: Soft, nontender. No hepatosplenomegaly, normal bowel sounds, no guarding or rigidity. EXTREMITIES: No clubbing, trace pretibial edema, no cyanosis, 2+ pulses and upper and lower extremities. MUSCULOSKELETAL: Muscle strength and tone normal. SPINE: No scoliosis or deformity SKIN: No rashes CENTRAL NERVOUS SYSTEM: Alert and oriented -3. No focal deficits, tone is normal in all 4 extremities. PSYCHIATRIC: Alert and oriented -3. Appropriate affect. Intact judgment a - Labs CBC & Chem 7: 02/14/19 06:08 02/15/19 06:05 Labs: Abnormal Lab Results - Last 24 Hours (Table) 02/15/19 Range/Units 06:05 Carbon Dioxide 31 H (22-30) mmol/L BUN 32 H (9-20) mg/dL Creatinine 1.77 H (0.66-1.25) mg/dL Glucose 110 H (74-99) mg/dL Assessment and Plan Plan: #1. Acute exacerbation of congestive heart failure with an unknown LV function #2. Chronic obstructive pulmonary disease, with no significant exacerbation #3. History of chronic atrial fibrillation on oral anticoagulation #4. Chronic kidney disease,, with a component of an acute kidney injury #5. Hypothyroidism #6. Gout #7. Hypertension #8. Irritable bowel syndrome #9. Diverticular disease #10. Previous history of bowel resection and hiatal hernia #11. History of vocal cord polyps with chronic hoarseness #12. History of abdominal aortic aneurysm and iliac aneurysm status post surgical repair #13. History of multiple hernia repairs Plan CHF is improving. COPD stable for now and the patient has been maintained on Spiriva on outpatient basis. In terms of his A. fib, the patient is on Eliquis for anticoagulation the patient has adequate rate control. Increased level of activity as tolerated. Assess for home O2. We'll follow.
--- NOTE | 2019-02-15 14:33 | P.PN ---
Subjective Progress Note Date: 02/15/19 Assessment and plan #1 systolic congestive heart failure acute on chronic #2 COPD #3 nicotine dependence #4 paroxysmal atrial fibrillation, anticoagulated #5 nonischemic cardiomyopathy #6 obesity #7 history of abdominal aortic aneurysm, repaired #8 acute on chronic renal insufficiency Plan From cardiology's perspective, we'll continue the patient on his current medications. Follow-up appointment in the office with Dr. Cruz post discharge. DNP note has been reviewed, I agree with a documented findings and plan of care. Patient was seen and examined. Objective - Vital Signs Vital signs: Vital Signs Temp 97.9 F 02/15/19 11:49 Pulse 50 L 02/15/19 11:49 Resp 18 02/15/19 11:49 BP 127/56 02/15/19 11:49 Pulse Ox 95 02/15/19 11:49 Intake & Output 02/14/19 02/15/19 02/15/19 18:59 06:59 18:59 Intake Total 480 480 Output Total 100 2925 Balance 380 -2925 480 Weight 102.7 kg Intake: Oral 480 480 Output: Urine 100 2925 Other: Voiding Method Toilet Toilet Toilet # Voids 1 # Bowel Movements 0 - Labs CBC & Chem 7: 02/14/19 06:08 02/15/19 06:05 Labs: Abnormal Lab Results - Last 24 Hours (Table) 02/15/19 Range/Units 06:05 Carbon Dioxide 31 H (22-30) mmol/L BUN 32 H (9-20) mg/dL Creatinine 1.77 H (0.66-1.25) mg/dL Glucose 110 H (74-99) mg/dL
[2019-02-15 16:20] VITALS: RESP 20
--- NOTE | 2019-02-15 18:34 | P.PN ---
Subjective Patient is a 68-year-old male with a known history of chronic atrial fibrillation, COPD on home oxygen, hypertension, hypothyroidism, IBS and chronic low back pain, history of cardiac catheterization-no history of stent placement and currently everyday smoker came to ER with complaints of difficulty breathing worsening for the past 3-4 days. Patient is also having abdominal cramps and feeling fullness and distention of abdomen. Denied any leg swelling. no chest pain. Patient came to ER with worsening symptoms. Patient is on follow-up with his spark plug tester Dr. Cruz and is on a evaluation for possible pacemaker placement. No fever no chills. Patient does have cough without sputum production. No headache or dizziness or lightheadedness. Chest x-ray showed pulmonary vascular congestion with small bilateral pleural effusions. Correlate for symptoms of fluid overload. Patient denied any history of congestive heart failure. BNP 10178, troponin 0.035 and 0.012 02/13/2019 Patient is currently sitting in a chair. Saturating well on nasal cannula. Breathing status is much improved. Lasix IV was changed to by mouth. Follow-up renal function. Patient does have a known history of systolic dysfunction. Cardiology is following. Patient is being continued on DuoNeb's. Patient has been afebrile. No complaints of chest pain. No nausea vomiting or abdominal pain or diarrhea. Leg swelling and abdominal swelling is also improvi ng. 02/14/2019 Patient feels better, he still have some mild dyspnea, patient he hasn't moved and [employer]. HIS HEART RATE IS IMPROVING GRADUALLY AND I DISCUSSED THE CASE WITH CARDIOLOGY TEAM, PATIENT CAN FOLLOW-UP AN OUTPATIENT for evaluation for pacemaker. His creatinine 1.8, patient was on Lasix, MARTÍN inhibitor is not added because of his kidney disease. Keep monitoring. Possible discharge in 24-48 hours if keep improving. 02/15/2019 pt still has some dyspnea with exertion , pt is improving but need to increase level of activity while keep monitoring in the hospital for now as per cardiology and pulmonary recommendation , vitals are stable and creatinine is stable at 1.7. pt is on aspirin and lasix. also on oral lasix and hydralazine . Objective - Vital Signs Vital signs: Vital Signs Temp 97.5 F L 02/15/19 16:00 Pulse 83 02/15/19 16:00 Resp 20 02/15/19 16:00 BP 146/61 02/15/19 16:00 Pulse Ox 93 L 02/15/19 16:00 Intake & Output 02/14/19 02/15/19 02/15/19 18:59 06:59 18:59 Intake Total 480 960 Output Total 100 2925 300 Balance 380 -2925 660 Weight 102.7 kg Intake: Oral 480 960 Output: Urine 100 2925 300 Other: Voiding Method Toilet Toilet Toilet # Voids 1 # Bowel Movements 0 - Exam Patient is lying in the bed comfortably, no acute distress, awake alert and oriented.. HEENT: Normocephalic. Neck is supple. Pupils reactive. Nostrils clear. Oral cavity is moist. Ears reveal no drainage. Neck reveals no JVD, carotid bruits, or thyromegaly. CHEST EXAMINATION: Trachea is central. Symmetrical expansion. Bibasilar crackles and expiratory wheezing present.. CARDIAC: Normal S1, S2 with no gallops. No murmurs . Irregular rhythm. ABDOMEN: Soft. Bowel sounds normal. No organomegaly. No abdominal bruits. Extremities: reveal trace pedal edema. No clubbing or cyanosis Neurologically awake, alert, oriented x3 with well-coordinated movements. No focal deficits noted Skin: No rash or skin lesions. Psychiatric: Coperative. Nonsuicidal Musculoskeletal: No joint swelling or deformity. Normal range of motion. - Labs CBC & Chem 7: 02/14/19 06:08 02/15/19 06:05 Labs: Abnormal Lab Results - Last 24 Hours (Table) 02/15/19 Range/Units 06:05 Carbon Dioxide 31 H (22-30) mmol/L BUN 32 H (9-20) mg/dL Creatinine 1.77 H (0.66-1.25) mg/dL Glucose 110 H (74-99) mg/dL Assessment and Plan Assessment: Acute CHF with ejection with systolic dysfunction. Ejection fraction not known.. Patient does have pulmonary vascular congestion and edema along With elevated BNP 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 Ongoing nicotine addiction Plan: Patient was given IV diuresis with Lasix 40 mg every 8 hourly. Changed to by mouth to 20 mg twice a day. Monitor renal function. TSH within normal limits. Continue with home medications. Pulmonary and cardiology is following. Keep monitoring creatinine. Advised patient to move more. Keep monitoring heart rate Further recommendations based on clinical course. Prognosis is guarded with multiple medical problems and comorbid conditions.
[2019-02-16] MEDS: PANTOPRAZOLE 40 MG TABLET PO SCH (06:44)
[2019-02-16] MEDS: LEVOTHYROXINE 50 MCG TAB PO SCH (06:44)
[2019-02-16] MEDS: IPRATROPIUM-ALBUTEROL 3 ML NEB INHALATION SCH ×2 (07:45→11:30)
[2019-02-16] MEDS: hydrALAZINE HCL 25 MG TAB PO SCH (08:24)
[2019-02-16] MEDS: FUROSEMIDE 20 MG TAB PO SCH (08:24)
[2019-02-16] MEDS: PREGABALIN 75 MG CAP PO SCH (08:24)
[2019-02-16] MEDS: COLCHICINE 0.6 MG TAB PO SCH (08:25)
[2019-02-16] MEDS: ISOSORBIDE MONONITRATE ER 30 MG TAB.ER.24H PO SCH (08:25)
[2019-02-16] MEDS: APIXABAN 5 MG TAB PO SCH (08:25)
--- NOTE | 2019-02-16 08:56 | PN ---
PROGRESS NOTE Mr. Morris is a 68-year-old male who has a known history of severe ischemic cardiomyopathy who presented with symptoms of progressive dyspnea. He continues to have a cough, dark in color. He denies any chest discomfort. He has been ambulating and feeling slightly better. He denies any dizziness or palpitation. He denies any nausea. He continues to be at this time on Eliquis 5 mg twice a day, Lasix 20 mg daily, hydralazine 25 mg twice a day, isosorbide mononitrate 30 mg daily, Lyrica. PHYSICAL EXAMINATION: Blood pressure 137/70 with the heart rate in the 60s. LUNGS: No wheezes with mild decrease in the breath sounds bilaterally. HEART: Regular rate and rhythm. S1, S2. No S3. No rub or gallop appreciated. ABDOMEN: Soft, nontender. Positive bowel sounds. No organomegaly. EXTREMITIES: No significant edema. LAB DATA: Lab data revealed BUN and creatinine 35 and 1.78, potassium 4.0. IMPRESSION: 1. Symptoms progressive dyspnea with evidence of congestive heart failure with severe ischemic cardiomyopathy as well as an element of probable bronchitis. 2. History of coronary artery disease. 3. History of ischemic cardiomyopathy. 4. Paroxysmal atrial fibrillation, remains in sinus mechanism. 5. Chronic kidney disease. 6. Chronic obstructive lung disease. RECOMMENDATION: From the cardiac standpoint, he is stable on his present medical regimen. I would expect he should be able to be discharged home soon and follow as an outpatient with Dr. Jiménez to undergo evaluation for possible ICD implantation. MMODL / LUANN: [id number] / [email or web address]
[2019-02-16 09:50] VITALS: BP 127/59; TEMP 98
--- NOTE | 2019-02-16 11:11 | P.DS ---
Providers Date of admission: 02/12/19 10:54 Attending physician: Lara Olivia Consults: 02/12/19 10:54 Consult Physician Routine Consulting Provider: Asia Adame Consult Reason/Comments: chf Do you want consulting provider notified?: Yes 02/12/19 11:10 Consult Physician Urgent Consulting Provider: Jess Stanley Consult Reason/Comments: dyspnea Do you want consulting provider notified?: Yes Primary care physician: [facility] Course: 68-year-old male with a known history of chronic atrial fibrillation, COPD on home oxygen, hypertension, hypothyroidism, IBS and chronic low back pain, history of cardiac catheterization-no history of stent placement and currently everyday smoker came to ER with complaints of difficulty breathing worsening for the past 3-4 days. Patient is also having abdominal cramps and feeling fullness and distention of abdomen. Denied any leg swelling. no chest pain. Patient came to ER with worsening symptoms. Patient is on follow-up with his beamster Dr. Cruz and is on a evaluation for possible pacemaker placement. No fever no chills. Patient does have cough without sputum production. No headache or dizziness or lightheadedness. Chest x-ray showed pulmonary vascular congestion with small bilateral pleural effusions. Correlate for symptoms of fluid overload. Patient denied any history of congestive heart failure. BNP 64778, troponin 0.035 and 0.012 02/13/2019 Patient is currently sitting in a chair. Saturating well on nasal cannula. Breathing status is much improved. Lasix IV was changed to by mouth. Follow-up renal function. Patient does have a known history of systolic dysfunction. Cardiology is following. Patient is being continued on DuoNeb's. Patient has been afebrile. No complaints of chest pain. No nausea vomiting or abdominal pain or diarrhea. Leg swelling and abdominal swelling is also improving. 02/14/2019 Patient feels better, he still have some mild dyspnea, patient he hasn't moved and [employer]. HIS HEART RATE IS IMPROVING GRADUALLY AND I DISCUSSED THE CASE WITH CARDIOLOGY TEAM, PATIENT CAN FOLLOW-UP AN OUTPATIENT for evaluation for pacemaker. His creatinine 1.8, patient was on Lasix, MARTÍN inhibitor is not added because of his kidney disease. Keep monitoring. Possible discharge in 24-48 hours if keep improving. 02/15/2019 pt still has some dyspnea with exertion , pt is improving but need to increase level of activity while keep monitoring in the hospital for now as per cardiology and pulmonary recommendation , vitals are stable and creatinine is stable at 1.7. pt is on aspirin and lasix. also on oral lasix and hydralazine . 02/16/2019 Patient is clinically doing well is being discharged on 2 L of oxygen patient qualified for home O2. Patient will be evaluated for AICD placement as an outpatient Assessment and Plan Assessment: I start failure chronic systolic dysfunction with acute exacerbation patient had a severe ischemic cardiomyopathy. 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 Ongoing nicotine addiction: Counseling was provided Plan - Discharge Summary Discharge Rx Participant: No New Discharge Prescriptions: New hydrALAZINE HCL [Apresoline] 25 mg PO BID #30 tab Isosorbide Mononitrate ER [Imdur] 30 mg PO DAILY #30 tab.er.24h Furosemide [Lasix] 20 mg PO BID@0900,1600 #60 tab Continue Omeprazole [PriLOSEC] 20 mg PO DAILY Apixaban [Eliquis] 5 mg PO BID Nitroglycerin Sl Tabs [Nitrostat] 0.4 mg SUBLINGUAL Q5M PRN #30 tab PRN Reason: Chest Pain Levothyroxine Sodium [Synthroid] 50 mcg PO DAILY Pregabalin [Lyrica] 150 mg PO BID Colchicine 0.3 mg PO DAILY Albuterol Nebulized [Ventolin Nebulized] 2.5 mg INHALATION RT-TID PRN PRN Reason: Shortness Of Breath Aclidinium Brady [Tudorza Pressair] 2 puff INHALATION RT-BID PRN PRN Reason: Shortness Of Breath Albuterol Sulfate [Ventolin HFA] 1 - 2 puff INHALATION RT-Q6H PRN PRN Reason: Shortness Of Breath Tiotropium Brady [Spiriva Respimat] 1 spray INHALATION RT-DAILY Discontinued amLODIPine [Norvasc] 5 mg PO DAILY Discharge Medication List Omeprazole [PriLOSEC] 20 mg PO DAILY 11/02/17 [History] Apixaban [Eliquis] 5 mg PO BID 11/06/17 [History] Nitroglycerin Sl Tabs [Nitrostat] 0.4 mg SUBLINGUAL Q5M PRN #30 tab 11/13/17 [Rx] Levothyroxine Sodium [Synthroid] 50 mcg PO DAILY 12/24/18 [History] Aclidinium Brady [Tudorza Pressair] 2 puff INHALATION RT-BID PRN 02/07/19 [History] Albuterol Nebulized [Ventolin Nebulized] 2.5 mg INHALATION RT-TID PRN 02/07/19 [History] Colchicine 0.3 mg PO DAILY 02/07/19 [History] Pregabalin [Lyrica] 150 mg PO BID 02/07/19 [History] Albuterol Sulfate [Ventolin HFA] 1 - 2 puff INHALATION RT-Q6H PRN 02/12/19 [History] Tiotropium Brady [Spiriva Respimat] 1 spray INHALATION RT-DAILY 02/12/19 [History] Furosemide [Lasix] 20 mg PO BID@0900,1600 #60 tab 02/14/19 [Rx] Isosorbide Mononitrate ER [Imdur] 30 mg PO DAILY #30 tab.er.24h 02/14/19 [Rx] hydrALAZINE HCL [Apresoline] 25 mg PO BID #30 tab 02/14/19 [Rx] Follow up Appointment(s)/Referral(s): Jess Stanley MD [STAFF PHYSICIAN] - 03/02/19 1:15 pm (Thursday) [facility], [NON-STAFF] - Casper Raza III, MD [Primary Care Provider] - 02/21/19 2:00 pm (Thursday) Brian Jiménez MD [STAFF PHYSICIAN] - 03/01/19 2:15 pm (Thursday) Patient Instructions/Handouts: Heart Failure (DC), COPD (Chronic Obstructive Pulmonary Disease) (DC) Discharge Disposition: HOME WITH HOME HEALTH SERVICES
[2019-02-16 11:43] VITALS: PULSE 52
== END 2019-02-16 12:12 | disposition home health service (06) | DRG 291 ==
LOC: EC 08:07 → 3SCARD 10:54
PROVIDERS: ADMIT Internal Medicine; ATTEND Internal Medicine
DX: I13.0 Hypertensive heart and chronic kidney disease with heart failure and stage 1 through stage 4 chronic kidney disease, or unspecified chronic kidney disease (principal); I50.23 Acute on chronic systolic (congestive) heart failure; J96.00 Acute respiratory failure, unspecified whether with hypoxia or hypercapnia; I48.20 Chronic atrial fibrillation, unspecified; N17.9 Acute kidney failure, unspecified; N18.9 Chronic kidney disease, unspecified; J38.1 Polyp of vocal cord and larynx; F17.200 Nicotine dependence, unspecified, uncomplicated; E03.9 Hypothyroidism, unspecified; K21.9 Gastro-esophageal reflux disease without esophagitis; M10.9 Gout, unspecified; E66.9 Obesity, unspecified; I25.10 Atherosclerotic heart disease of native coronary artery without angina pectoris; I25.5 Ischemic cardiomyopathy; K58.9 Irritable bowel syndrome, unspecified; J44.9 Chronic obstructive pulmonary disease, unspecified; R49.0 Dysphonia; M54.5 Low back pain; G89.29 Other chronic pain; Z79.01 Long term (current) use of anticoagulants; Z79.890 Hormone replacement therapy; Z79.899 Other long term (current) drug therapy; Z88.8 Allergy status to other drugs, medicaments and biological substances; Z86.010 Personal history of colon polyps; Z87.19 Personal history of other diseases of the digestive system; Z86.79 Personal history of other diseases of the circulatory system; Z98.890 Other specified postprocedural states; Z90.49 Acquired absence of other specified parts of digestive tract; Z82.3 Family history of stroke; Z80.9 Family history of malignant neoplasm, unspecified; Z99.81 Dependence on supplemental oxygen; Z68.33 Body mass index [BMI] 33.0-33.9, adult
CPT/HCPCS: 36415; 71046; 74018; 80048; 80053; 83735; 83880; 84484; 85025; 85610; 85730; 93005; 94640; 94760; 96374; 96375; 99285